=== PATIENT | male | born 1950 | race Caucasian/White ===

== ENCOUNTER 2023-03-03 08:41 | Outpatient (CLI) | payer MEDICARE, SELFPAY ==
--- NOTE | ~2023-03-03 | PE_ITS ---
EXAMINATION: PET skull to mid thigh DATE: 03/03/2023 10:46 INDICATION: Nonspecific abnormal findings of lung field. Increased density of lungs. TECHNIQUE: Blood glucose level was 116 mg/dL. 10.603 mCi of 18-fluorodeoxyglucose (18-FDG) was admini stered i.v. Low dose computed tomography (CT) images were acquired from the base of the brain to the proximal thighs for attenuation correction and anatomic localization. Positron emission tomography (P ET) images were acquired in the same distribution beginning 65 minutes after injection. Images includ ing fused PET/CT images were reconstructed in axial, coronal, and sagittal planes. Automated exposure control technique was employed. The dose-length product was 753.07mGy-cm. COMPARISON: None FINDINGS: Head/neck: There is symmetric increased activity in the oral cavity, palatine tonsils, parotid glands, submandi bular glands and ocular muscles without CT correlate, likely physiologic. No pathologically enlarged cervical lymphadenopathy or suspicious foci of increased FDG uptake in the visualized head or neck. Chest: Calcified right upper lobe nodule with calcified mediastinal lymph nodes consistent with old granulom atous disease. Mild bibasilar atelectasis. No suspicious pulmonary nodules, pneumonia, pulmonary joselito a or pleural effusion. Heart size normal. Atherosclerotic coronary artery calcific location. Aortic v alve calcification. Median sternotomy wires and mediastinal surgical clips consistent with coronary a rtery bypass grafting. There is an approximately 8 mm likely endobronchial nodule at the lingula bron chus with increased FDG uptake with maximal SUV of 5.1. No pathologically enlarged or FDG avid thorac ic lymphadenopathy. Abdomen/pelvis/proximal thighs: Physiologic renal accumulation and excretion of FDG activity in the kidneys, bladder and along portio ns of ureters. Bilateral low-attenuation and photopenic renal cysts the largest on the left measuring 3.6 cm. Atherosclerotic calcifications at the bilateral renal michi. Normal degree and heterogenous p attern of increased uptake throughout the liver without radiologic correlate or dominant FDG avid les ion. The gallbladder, pancreas, spleen and right adrenal gland are normal. Nonspecific 2.2 cm left ad renal mass with lower FDG uptake within the liver. Mild to moderate uptake scattered throughout the b owels without radiologic correlate, also likely physiologic. There is moderate colonic diverticulosis with a sigmoid predominance. There is no adjacent inflammatory change to suggest diverticulitis. No other abnormal foci of increased FDG uptake or pathologically enlarged lymphadenopathy in the abdome n, pelvis or proximal thighs. Musculoskeletal: Severe cervical, moderate thoracic and mild lumbar spondylosis. No suspicious lytic, blastic or FDG a vid bone lesions. IMPRESSION: 1. 8mm FDG avid endobronchial nodule in the lingular bronchus raising concern for malignancy. Recomme nd further evaluation with bronchoscopy. 2. 2.2 cm left adrenal mass without significant increased FDG uptake statistically most likely to rep resent an adenoma. Would recommend further evaluation with adrenal protocol MRI or pre and postcontra st CT. 3. Diverticulosis. Reviewed, dictated and finalized at location A. IMPRESSION: 1. 8mm FDG avid endobronchial nodule in the lingular bronchus raising concern f or malignancy. Recommend further evaluation with bronchoscopy. 2. 2.2 cm left adrenal mass without significant increased FDG uptake statistica lly most likely to represent an adenoma. Would recommend further evaluation wit h adrenal protocol MRI or pre and postcontrast CT. 3. Diverticulosis.
[2023-03-03 09:25] LABS: Glucose Point of Care 116 mg/dl (65-105)
== END 2023-03-03 08:42 | disposition home or self-care (01) ==
PROVIDERS: PCP Internal Medicine; Visit Provider Internal Medicine
DX: R91.8 Other nonspecific abnormal finding of lung field (principal); K57.30 Diverticulosis of large intestine without perforation or abscess without bleeding
CPT/HCPCS: 78815; A9552

== ENCOUNTER 2023-04-29 14:37 | Outpatient (CLI) | payer MEDICARE, SELFPAY ==
--- NOTE | ~2023-04-29 | MR_ITS ---
MRI of the abdomen: Clinical indication: Left adrenal mass, history of lung cancer. Technique: Coronal SSFSE ARC, WATER:coronal LAVA-FLEX, Coronal 2D FIESTA FatSat, Axial SSFSE BH ARC, Axial 3D DualEcho BH, Axial SSFSE-IR, Axial DWI b=500, Axial 2D FIESTA FatSat, pre and dynamic postco ntrast Axial LAVA ARC, postcontrast Coronal In and Opposed phase LAVA FLEX. Following intravenous adm inistration of 17 cc MultiHance gadolinium, T1-weighted fat-sat imaging was performed in the axial an d coronal planes. COMPARISON: PET/CT dated 03/03/2023 Findings: Gallbladder is unremarkable. The common bile duct is normal in course and caliber. No filli ng defects are seen within the CBD. No evidence of intrahepatic biliary ductal dilatation. The pancre atic duct is normal in size. There is a 2.5 x 1.8 cm left adrenal nodule, with small areas of macroscopic fat, and no significant postcontrast enhancement. Liver, spleen, pancreas, right adrenal gland, and kidneys appear normal. The aorta and the paraaortic regions appear normal. Impression: 2.5 x 1.7 left adrenal nodule is most compatible with benign lesion, either adenoma or myelolipoma. Reviewed, dictated and finalized at [facility]. Impression: 2.5 x 1.7 left adrenal nodule is most compatible with benign lesion, either ene noma or myelolipoma.
--- NOTE | ~2023-04-29 | MR_ITS ---
MRI of the pelvis MEDICAL HISTORY: Adrenal mass, history of lung cancer TECHNIQUE: Coronal SSFSE ARC, WATER:coronal LAVA-FLEX, Coronal 2D FIESTA FatSat, Axial SSFSE BH ARC, Axial 3D DualEcho BH, Axial SSFSE-IR, Axial DWI b=500, Axial 2D FIESTA FatSat, pre and dynamic postco ntrast Axial LAVA ARC, postcontrast Coronal In and Opposed phase LAVA FLEX. Following intravenous adm inistration of 17 cc MultiHance gadolinium, T1-weighted fat-sat imaging was performed in the axial an d coronal planes. FINDINGS: Questionable mild urinary bladder wall trabeculation or thickening. Prostate gland and semi nal vesicles appear unremarkable. No pelvic lymphadenopathy or abnormal soft tissue mass identified. No ascites. Prominent stool noted at the rectum. No abnormal postcontrast enhancement identified. IMPRESSION: Questionable minimal urinary bladder wall thickening. Correlate for urinary bladder wall trabeculatio n or cystitis. No abnormal mass lesion identified. Reviewed, dictated and finalized at [facility]. IMPRESSION: Questionable minimal urinary bladder wall thickening. Correlate for urinary john dder wall trabeculation or cystitis. No abnormal mass lesion identified.
== END 2023-04-29 14:38 | disposition home or self-care (01) ==
PROVIDERS: PCP Internal Medicine; Visit Provider Urology
DX: N28.89 Other specified disorders of kidney and ureter (principal)
CPT/HCPCS: 72197; 74183; A9577

== ENCOUNTER 2023-08-25 12:39 | Outpatient (CLI) | payer MEDICARE, SELFPAY ==
--- NOTE | ~2023-08-25 | CT_ITS ---
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 Dose reduction technique was used on this scan by utilizing automated exposu re control and iterative reconstruction technique. The dose-length product (DLP) was 345.49 mGy-cm. COMPARISON: PET/CT dated 03/03/2023 Findings: There is no evidence of any significant mediastinal, hilar or axillary lymphadenopathy. There is no f illing defect in the pulmonary arterial tree to suggest pulmonary embolus. There is no evidence of ao rtic dissection or aneurysm. No pericardial effusion. Patient is status post left upper lobectomy. Small left pleural effusion is present. Right lung is cl ear. No right pleural effusion. Images through the upper abdomen reveal 2.4 cm left adrenal nodule, consistent with adenoma. Impression: No evidence for active malignancy or metastatic disease. Status post left upper lobectomy. Small left pleural effusion. 2.4 cm left adrenal adenoma. Reviewed, dictated and finalized at location . Impression: No evidence for active malignancy or metastatic disease. Status post left upper lobectomy. Small left pleural effusion. 2.4 cm left adrenal adenoma.
[2023-08-25 13:05] LABS: Estimated Glomerular Filt Rate > 60
== END 2023-08-25 12:40 | disposition home or self-care (01) ==
PROVIDERS: PCP Internal Medicine; Visit Provider Internal Medicine Hematology & Oncology
DX: C34.92 Malignant neoplasm of unspecified part of left bronchus or lung (principal); J90 Pleural effusion, not elsewhere classified; D35.02 Benign neoplasm of left adrenal gland
CPT/HCPCS: 71260; Q9967

== ENCOUNTER 2023-09-02 12:13 | Outpatient (CLI) | payer MEDICARE, SELFPAY ==
[2023-09-02 12:46] LABS: Basophils Absolute Auto 0.1 K/mm3 (0.0-0.1); Eosinophils Absolute Auto 1.2 K/mm3 (0-0.3); Eosinophils Percent Auto 16.8 % (0-4.4); Hematocrit 41.7 % (42.0-52.0); Immature Granulocyte Absolute 0.01 K/mm3 (0.00-0.031); Immature Granulocyte Percent A 0.1 % (0-0.5); Lymphocytes Absolute Auto 0.79 K/mm3 (0.9-3.2); Lymphocytes Percent Auto 11.2 % (18.3-44.2); Mean Corpuscular HGB Conc 33.6 g/dl (32-36); Mean Corpuscular Hemoglobin 30.8 pg (26-34); Mean Corpuscular Volume 91.6 fl (80-100); Mean Platelet Volume 9.1 fl (7.4-10.4); Monocytes Absolute Auto 1.3 K/mm3 (0.1-0.6); Monocytes Percent Auto 18.5 % (2.6-8.5); Neutrophils Absolute Auto 3.7 K/mm3 (1.3-6.7); Neutrophils Percent Auto 52.4 % (45.5-73.1); Platelet Count Result 400 k/mm3 (150-375); Red Blood Count 4.55 M/mm3 (4.6-6.20); Red Cell Distribution Width 13.1 % (11.5-14.5)
[2023-09-02 16:17] LABS: Alanine Aminotransferase 43 U/L (6-50); Albumin Level 4.4 g/dL (3.5-5.1); Alkaline Phosphatase 134 U/L (38-126); Anion Gap 6 mmol/L (8-16); Aspartate Amino Transferase 90 U/L (17-59); Bilirubin,Total 0.6 mg/dL (0.2-1.3); Blood Urea Nitrogen 23 mg/dL (9-20); Calcium 9.9 mg/dL (8.4-10.2); Carbon Dioxide 32 mmol/L (22-30); Chloride 101 mmol/L (98-107); Estimated Glomerular Filt Rate > 60; Glucose 159 mg/dL (65-110); Potassium 3.6 mmol/L (3.4-5.0); Sodium 139 mmol/L (137-145)
== END 2023-09-02 12:14 | disposition home or self-care (01) ==
LOC: ANHLAB 12:15
PROVIDERS: PCP Internal Medicine; Visit Provider Internal Medicine Hematology & Oncology
DX: C34.92 Malignant neoplasm of unspecified part of left bronchus or lung (principal)
CPT/HCPCS: 36415; 80053; 85025

== ENCOUNTER 2023-10-12 08:10 | Outpatient (CLI) | payer MEDICARE, SELFPAY ==
--- NOTE | 2023-10-12 16:31 | WPDSIXMINUTE ---
Six Minute Walk Procedure Procedure Performed Pulmonary Stress Test (6 min walk) Six Minute Walk Six Minute Walk: This is a 6 minute walk test. The test was performed and interpreted in accordance with the 2014 ERS/ATS task force guidelines. Findings: The patient's resting room air oxygen saturation measured by pulse oximetry was 97% and heart rate was 69 bpm. Patient ambulated for 244 meters and oxygen saturation remained 92 to 97%. Heart rate at the end of the study was 107 bpm. The patient did not qualify for supplemental oxygen at rest or with ambulation. There are no prior studies for comparison.
--- NOTE | 2023-10-12 16:32 | WPDPFTINT ---
PFT Procedure Performed PFT Procedure Performed Spirometry with Pre/Post Bronchodilator Plethysmography (Lung Vol) Diffusing Cap (DLCO) Flow Vol Loop PFT Interpretation This is a pulmonary function test with pre and post-bronchodilator spirometry, plethysmography and diffusing capacity. The test was performed and results interpreted in accordance with the 2019 and 2005 ATS/ERS Task Force guidelines respectively using the Global Lung Function Initiative-2012 reference equations. Patient demonstrated good effort and cooperation. Reproducibility criteria were met. The quality of the pre bronchodilator spirometry maneuver was Grade A and post bronchodilator spirometry maneuver was Grade A. Findings: Spirometry: There is decreased maximal expiratory airflow at all lung volumes with concave expiratory flow tracing. The contour the inspiratory flow tracing is normal. The pre bronchodilator FVC is 2.30 L, 61% predicted. The pre bronchodilator FEV1 is 1.35 L, 47% predicted. The pre bronchodilator FEV1: FVC ratio is 59%. The post bronchodilator FVC is 2.43 L, representing a 6% increase. The post bronchodilator FEV1 is 1.48 L, representing a 10% increase. The post bronchodilator FEV1: FVC ratio 61%. Plethysmography: The total lung capacity is 3.82 L, 60% predicted. The functional residual capacity is 2.32 L, 69% predicted. The residual volume is 1.52 L, 66% predicted. Diffusing capacity: The diffusing capacity unadjusted for hemoglobin and carboxyhemoglobin is 15.2, 61% predicted. The diffusing capacity adjusted for alveolar volume is 4.62, 113% predicted. Impression: There is a combined obstructive and restrictive ventilatory abnormality. There are no guidelines to assign the severity of obstruction and restriction with a combined abnormality. In my opinion, given the moderately concave expiratory flow tracing, decreased FEV1: FVC ratio and mild restrictive abnormality, I would state there is a moderate obstructive abnormality and a mild restrictive abnormality resulting in a severely decreased FEV1. There is no significant improvement after inhaling a single dose of albuterol. The diffusing capacity unadjusted for hemoglobin and carboxyhemoglobin is mildly decreased and normalizes when adjusted for alveolar volume. There are no prior studies for comparison
== END 2023-10-12 08:11 | disposition home or self-care (01) ==
LOC: ANHPFT 08:11
PROVIDERS: PCP Internal Medicine; Visit Provider Internal Medicine Pulmonary Disease
DX: J44.9 Chronic obstructive pulmonary disease, unspecified (principal); R94.2 Abnormal results of pulmonary function studies
CPT/HCPCS: 94060; 94618; 94726; 94729

== ENCOUNTER 2023-12-02 15:17 | Outpatient (CLI) | payer MEDICARE, SELFPAY ==
--- NOTE | ~2023-12-02 | CT_ITS ---
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 Dose reduction technique was used on this scan by utilizing automated exposu re control and iterative reconstruction technique. The dose-length product (DLP) was 363.67 mGy-cm. COMPARISON: 08/25/2023 Findings: There is no evidence of any significant mediastinal, hilar or axillary lymphadenopathy. There is no f illing defect in the pulmonary arterial tree to suggest pulmonary embolus. There is no evidence of ao rtic dissection or aneurysm. No pericardial effusion. Stable small left pleural effusion. No right pleural effusion. Patient is status post left upper lobectomy. No suspicious pulmonary nodule identified. No evidence f or recurrent neoplasm. Images through the upper abdomen reveal stable 2.4 cm left adrenal nodule. Impression: No change from prior exam. No evidence for recurrent malignancy or metastatic disease. Status post left adrenalectomy. Stable small left pleural effusion. Stable 2.4 cm left adrenal nodule, shown on prior MRI to be most compatible with benign lesion. Reviewed, dictated and finalized at [facility]. [employer] Impression: No change from prior exam. No evidence for recurrent malignancy or metastatic d isease. Status post left adrenalectomy. Stable small left pleural effusion. Stable 2.4 cm left adrenal nodule, shown on prior MRI to be most compatible wit h benign lesion.
[2023-12-02 15:47] LABS: Estimated Glomerular Filt Rate > 60
== END 2023-12-02 15:18 | disposition home or self-care (01) ==
PROVIDERS: PCP Internal Medicine; Visit Provider Internal Medicine Hematology & Oncology
DX: C34.92 Malignant neoplasm of unspecified part of left bronchus or lung (principal); J90 Pleural effusion, not elsewhere classified; D35.02 Benign neoplasm of left adrenal gland
CPT/HCPCS: 71260; Q9967

== ENCOUNTER 2023-12-12 14:13 | Outpatient (CLI) | payer MEDICARE, SELFPAY ==
[2023-12-12 14:27] LABS: Basophils Percent Auto 0.5 % (0.2-1.2); Eosinophils Absolute Auto 0.3 K/mm3 (0-0.3); Eosinophils Percent Auto 3.9 % (0-4.4); Hematocrit 43.5 % (42.0-52.0); Hemoglobin 14.7 g/dL (14.0-18.0); Immature Granulocyte Absolute 0.02 K/mm3 (0.00-0.031); Immature Granulocyte Percent A 0.2 % (0-0.5); Lymphocytes Absolute Auto 0.92 K/mm3 (0.9-3.2); Lymphocytes Percent Auto 11.1 % (18.3-44.2); Mean Corpuscular HGB Conc 33.8 g/dl (32-36); Mean Corpuscular Hemoglobin 31.4 pg (26-34); Mean Corpuscular Volume 92.9 fl (80-100); Mean Platelet Volume 8.8 fl (7.4-10.4); Monocytes Absolute Auto 1.5 K/mm3 (0.1-0.6); Monocytes Percent Auto 17.5 % (2.6-8.5); Neutrophils Absolute Auto 5.5 K/mm3 (1.3-6.7); Neutrophils Percent Auto 66.8 % (45.5-73.1); Platelet Count Result 405 k/mm3 (150-375); Red Blood Count 4.68 M/mm3 (4.6-6.20); Red Cell Distribution Width 13.5 % (11.5-14.5); White Blood Count 8.3 K/mm3 (4.5-10.0)
[2023-12-12 14:33] LABS: Blood Urea Nitrogen 24 mg/dL (8-26); Carbon Dioxide 34 mmol/L (22-30); Chloride 101 mmol/L (98-109); Estimated Glomerular Filt Rate > 60; Glucose 113 mg/dL (70-105); Ionized Calcium (POC) 1.28 mmol/L (1.11-1.31); Sodium 144 mmol/L (138-146)
[2023-12-12 16:50] LABS: Alanine Aminotransferase 34 U/L (6-50); Albumin Level 4.4 g/dL (3.5-5.1); Alkaline Phosphatase 108 U/L (38-126); Anion Gap 7 mmol/L (8-16); Aspartate Amino Transferase 37 U/L (17-59); Bilirubin,Total 0.4 mg/dL (0.2-1.3); Blood Urea Nitrogen 25 mg/dL (9-20); Calcium 10.2 mg/dL (8.4-10.2); Carbon Dioxide 32 mmol/L (22-30); Chloride 103 mmol/L (98-107); Estimated Glomerular Filt Rate > 60; Glucose 112 mg/dL (65-110); Potassium 4.2 mmol/L (3.4-5.0); Sodium 142 mmol/L (137-145)
== END 2023-12-12 14:14 | disposition home or self-care (01) ==
PROVIDERS: PCP Internal Medicine; Visit Provider Internal Medicine Hematology & Oncology
DX: C34.92 Malignant neoplasm of unspecified part of left bronchus or lung (principal)
CPT/HCPCS: 36415; 80047; 80053; 85025

== ENCOUNTER 2024-03-05 09:38 | Outpatient (CLI) | payer MEDICARE, SELFPAY ==
[2024-03-05 10:09] LABS: Basophils Absolute Auto 0.1 K/mm3 (0.0-0.1); Basophils Percent Auto 0.5 % (0.2-1.2); Eosinophils Absolute Auto 0.4 K/mm3 (0-0.3); Hematocrit 41.5 % (42.0-52.0); Immature Granulocyte Absolute 0.04 K/mm3 (0.00-0.031); Immature Granulocyte Percent A 0.4 % (0-0.5); Lymphocytes Absolute Auto 0.94 K/mm3 (0.9-3.2); Lymphocytes Percent Auto 9.9 % (18.3-44.2); Mean Corpuscular HGB Conc 33.7 g/dl (32-36); Mean Corpuscular Hemoglobin 31.3 pg (26-34); Mean Corpuscular Volume 92.8 fl (80-100); Mean Platelet Volume 8.8 fl (7.4-10.4); Monocytes Absolute Auto 1.4 K/mm3 (0.1-0.6); Monocytes Percent Auto 15.1 % (2.6-8.5); Neutrophils Absolute Auto 6.7 K/mm3 (1.3-6.7); Neutrophils Percent Auto 70.1 % (45.5-73.1); Platelet Count Result 430 k/mm3 (150-375); Red Blood Count 4.47 M/mm3 (4.6-6.20); Red Cell Distribution Width 13.1 % (11.5-14.5); White Blood Count 9.5 K/mm3 (4.5-10.0)
[2024-03-05 12:46] LABS: Alanine Aminotransferase 25 U/L (6-50); Albumin Level 4.4 g/dL (3.5-5.1); Alkaline Phosphatase 117 U/L (38-126); Anion Gap 4 mmol/L (4-12); Aspartate Amino Transferase 29 U/L (17-59); Bilirubin,Total 0.4 mg/dL (0.2-1.3); Blood Urea Nitrogen 20 mg/dL (9-20); Calcium 9.5 mg/dL (8.4-10.2); Carbon Dioxide 31 mmol/L (22-30); Chloride 103 mmol/L (98-107); Estimated Glomerular Filt Rate > 60; Glucose 111 mg/dL (65-110); Potassium 3.9 mmol/L (3.4-5.0); Sodium 138 mmol/L (137-145)
== END 2024-03-05 09:39 | disposition home or self-care (01) ==
LOC: ANHLAB 09:40
PROVIDERS: PCP Internal Medicine; Visit Provider Internal Medicine Hematology & Oncology
DX: C34.92 Malignant neoplasm of unspecified part of left bronchus or lung (principal)
CPT/HCPCS: 36415; 80053; 85025

== ENCOUNTER 2024-03-12 13:34 | Outpatient (CLI) | payer MEDICARE, SELFPAY ==
--- NOTE | ~2024-03-12 | CT_ITS ---
Clinical Indication: Lung cancer CT Scan of the Chest with Contrast: Technique: Contiguous sections were acquired throughout the chest after intravenous administration of 75 cc of Omnipaque 350. Dose reduction technique was used on this scan by utilizing automated exposu re control and iterative reconstruction technique. The dose-length product (DLP) was 351.75 mGy-cm. COMPARISON: 12/02/2023 Findings: There is no evidence of any significant mediastinal, hilar or axillary lymphadenopathy. There is no f illing defect in the pulmonary arterial tree to suggest pulmonary embolus. There is no evidence of ao rtic dissection or aneurysm. No pericardial effusion. Small left pleural effusion present, possibly partially loculated, similar to prior exam. No right pl eural effusion. Status post left upper lobectomy. Possible postradiation change or other post therapy changes at the left hilar region with narrowing of the central left lower lobe bronchi. No distinct evidence for rec urrent mass. Images through the upper abdomen reveal stable 2.6 cm left adrenal nodule. Impression: No change from prior exam. No evidence for recurrent malignancy or metastatic disease. Status post left upper lobectomy. Possible postradiation change or other post therapy change of the l eft hilar region, as noted above. Stable small left pleural effusion, likely partially loculated. Stable 2.6 cm left adrenal nodule. Reviewed, dictated and finalized at location . Impression: No change from prior exam. No evidence for recurrent malignancy or metastatic d isease. Status post left upper lobectomy. Possible postradiation change or other post t herapy change of the left hilar region, as noted above. Stable small left pleural effusion, likely partially loculated. Stable 2.6 cm left adrenal nodule.
== END 2024-03-12 13:35 | disposition home or self-care (01) ==
LOC: ANHIMG 13:34
PROVIDERS: PCP Internal Medicine; Visit Provider Internal Medicine Hematology & Oncology
DX: C34.92 Malignant neoplasm of unspecified part of left bronchus or lung (principal); D35.02 Benign neoplasm of left adrenal gland; J90 Pleural effusion, not elsewhere classified
CPT/HCPCS: 71260; Q9967

== ENCOUNTER 2024-07-18 10:49 | Outpatient (CLI) | payer MEDICARE, SELFPAY ==
--- NOTE | ~2024-07-18 | CT_ITS ---
Clinical Indication: Lung cancer CT Scan of the Chest with Contrast: Technique: Contiguous sections were acquired throughout the chest after intravenous administration of 75 cc of Omnipaque 350. Dose reduction technique was used on this scan by utilizing automated exposu re control and iterative reconstruction technique. The dose-length product (DLP) was 347.12 mGy-cm. COMPARISON: 03/03/2024 Findings: There is no evidence of any significant mediastinal, hilar or axillary lymphadenopathy. There is no f illing defect in the pulmonary arterial tree to suggest pulmonary embolus. There is no evidence of ao rtic dissection or aneurysm. No pericardial effusion. No right pleural effusion. Small left pleural effusion present. There is peribronchial vascular thick ening and mild bronchiectatic change at the left hilar region, compatible with post radiation change. Status post left upper lobectomy. The lungs are clear. No pulmonary nodules or infiltrates are noted. Images through the upper abdomen reveal 2.5 cm left adrenal nodule. Impression: No evidence of recurrent malignancy or metastatic disease. Status post left upper lobectomy with probable posttreatment/post radiation change of the left hilum. Small left pleural effusion, similar to prior exam. Stable 2.5 cm left adrenal nodule. Reviewed, dictated and finalized at location . Impression: No evidence of recurrent malignancy or metastatic disease. Status post left upper lobectomy with probable posttreatment/post radiation yuliana nge of the left hilum. Small left pleural effusion, similar to prior exam. Stable 2.5 cm left adrenal nodule.
[2024-07-18 11:11] LABS: Estimated Glomerular Filt Rate 60
== END 2024-07-18 10:50 | disposition home or self-care (01) ==
LOC: ANHIMG 10:51
PROVIDERS: PCP Internal Medicine; Visit Provider Internal Medicine Hematology & Oncology
DX: C34.92 Malignant neoplasm of unspecified part of left bronchus or lung (principal); D35.02 Benign neoplasm of left adrenal gland; J90 Pleural effusion, not elsewhere classified
CPT/HCPCS: 71260; Q9967

== ENCOUNTER 2024-07-26 14:29 | Outpatient (CLI) | payer MEDICARE, SELFPAY ==
[2024-07-26 14:43] LABS: Basophils Absolute Auto 0.1 K/mm3 (0.0-0.1); Basophils Percent Auto 0.9 % (0.2-1.2); Eosinophils Absolute Auto 0.7 K/mm3 (0-0.3); Hematocrit 43.2 % (42.0-52.0); Hemoglobin 14.4 g/dL (14.0-18.0); Immature Granulocyte Absolute 0.04 K/mm3 (0.00-0.031); Immature Granulocyte Percent A 0.4 % (0-0.5); Lymphocytes Absolute Auto 1.22 K/mm3 (0.9-3.2); Lymphocytes Percent Auto 13.2 % (18.3-44.2); Mean Corpuscular HGB Conc 33.3 g/dl (32-36); Mean Corpuscular Hemoglobin 31.1 pg (26-34); Mean Corpuscular Volume 93.3 fl (80-100); Mean Platelet Volume 8.7 fl (7.4-10.4); Monocytes Absolute Auto 1.4 K/mm3 (0.1-0.6); Monocytes Percent Auto 14.8 % (2.6-8.5); Neutrophils Absolute Auto 5.8 K/mm3 (1.3-6.7); Neutrophils Percent Auto 62.7 % (45.5-73.1); Platelet Count Result 415 k/mm3 (150-375); Red Blood Count 4.63 M/mm3 (4.6-6.20); Red Cell Distribution Width 13.1 % (11.5-14.5); White Blood Count 9.2 K/mm3 (4.5-10.0)
[2024-07-26 14:48] LABS: Blood Urea Nitrogen 25 mg/dL (8-26); Carbon Dioxide 29 mmol/L (22-30); Chloride 101 mmol/L (98-109); Estimated Glomerular Filt Rate 54; Glucose 175 mg/dL (70-105); Ionized Calcium (POC) 1.19 mmol/L (1.11-1.31); Sodium 140 mmol/L (138-146)
[2024-07-26 16:29] LABS: Alanine Aminotransferase 31 U/L (6-50); Albumin Level 4.4 g/dL (3.5-5.1); Alkaline Phosphatase 117 U/L (38-126); Anion Gap 8 mmol/L (4-12); Aspartate Amino Transferase 38 U/L (17-59); Bilirubin,Total 0.4 mg/dL (0.2-1.3); Blood Urea Nitrogen 26 mg/dL (9-20); Calcium 9.5 mg/dL (8.4-10.2); Carbon Dioxide 33 mmol/L (22-30); Chloride 97 mmol/L (98-107); Estimated Glomerular Filt Rate 60; Glucose 172 mg/dL (65-110); Sodium 138 mmol/L (137-145)
== END 2024-07-26 14:30 | disposition home or self-care (01) ==
LOC: ANHLAB 14:32
PROVIDERS: PCP Internal Medicine; Visit Provider Internal Medicine Hematology & Oncology
DX: C34.92 Malignant neoplasm of unspecified part of left bronchus or lung (principal)
CPT/HCPCS: 36415; 80047; 80053; 85025

== ENCOUNTER 2024-11-16 12:40 | Outpatient (CLI) | payer MEDICARE, SELFPAY ==
--- NOTE | 2024-11-28 19:14 | WPDSIXMINUTE ---
Six Minute Walk Procedure Procedure Performed Pulmonary Stress Test (6 min walk) Six Minute Walk Six Minute Walk: DATE OF SERVICE: 11/16/2024 REQUESTING: Renaldo Painter MD REASON FOR TESTING: COPD SIX MINUTE WALK This test was conducted per ATS guidelines. The initial saturation was 94%, and initial heart rate was 102 beats per minute. The patient walked without stopping, completing 274.3 m/900 ft. The saturation at the end of testing was 95%, and the heart rate was 129 beats per minute. IMPRESSION: This is a normal study. The patient did not require supplemental oxygen with exertion. Keily Fiore MD
== END 2024-11-16 12:41 | disposition home or self-care (01) ==
LOC: ANHPFT 12:42
PROVIDERS: PCP Internal Medicine; Visit Provider Internal Medicine Pulmonary Disease
DX: J44.9 Chronic obstructive pulmonary disease, unspecified (principal)
CPT/HCPCS: 94618

== ENCOUNTER 2024-11-26 14:34 | Outpatient (CLI) | payer MEDICARE, SELFPAY ==
--- NOTE | ~2024-11-26 | CT_ITS ---
Clinical Indication: Squamous cell carcinoma CT Scan of the Chest with Contrast: Technique: Contiguous sections were acquired throughout the chest after intravenous administration of 75 cc of Omnipaque 350. Dose reduction technique was used on this scan by utilizing automated exposu re control and iterative reconstruction technique. The dose-length product (DLP) was 248.08 mGy-cm. COMPARISON: 07/18/2024 Findings: There is no evidence of any significant mediastinal, hilar or axillary lymphadenopathy. There is no f illing defect in the pulmonary arterial tree to suggest pulmonary embolus. There is no evidence of ao rtic dissection or aneurysm. Stable small left pleural effusion. No right pleural effusion. No pericardial effusion. Status post left upper lobectomy. Probable postradiation change at the left hilar region, similar to prior exam. Right lung clear. Images through the upper abdomen reveal stable 2.5 cm left adrenal nodule. Impression: No interval change. Stable probable postradiation change at the low thigh region with prior left uppe r lobectomy. Stable small left pleural effusion. Stable 2.5 cm left adrenal nodule. Reviewed, dictated and finalized at [facility]. R MARKER Impression: No interval change. Stable probable postradiation change at the low thigh regio n with prior left upper lobectomy. Stable small left pleural effusion. Stable 2.5 cm left adrenal nodule.
[2024-11-26 14:56] LABS: Estimated Glomerular Filt Rate 54
== END 2024-11-26 14:35 | disposition home or self-care (01) ==
PROVIDERS: PCP Internal Medicine; Visit Provider Internal Medicine Hematology & Oncology
DX: C34.92 Malignant neoplasm of unspecified part of left bronchus or lung (principal); J90 Pleural effusion, not elsewhere classified; D35.02 Benign neoplasm of left adrenal gland
CPT/HCPCS: 71260; Q9967

== ENCOUNTER 2025-01-31 11:15 | Outpatient (RCR) | payer MEDICARE, SELFPAY ==
[2024-11-02 15:47] VITALS: PULSE 94
== END 2025-02-04 13:44 | disposition home or self-care (01) ==
LOC: ANHCPREHAB 11:15
PROVIDERS: PCP Internal Medicine; Visit Provider Internal Medicine Pulmonary Disease
DX: J44.9 Chronic obstructive pulmonary disease, unspecified (principal)
CPT/HCPCS: 94625

== ENCOUNTER 2025-03-27 12:36 | Outpatient (CLI) | payer MEDICARE, SELFPAY ==
--- NOTE | ~2025-03-27 | CT_ITS ---
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 Dose reduction technique was used on this scan by utilizing automated exposu re control and iterative reconstruction technique. The dose-length product (DLP) was 235.78 mGy-cm. COMPARISON: 11/26/2024 Findings: There is no evidence of any significant mediastinal, hilar or axillary lymphadenopathy. There is no f illing defect in the pulmonary arterial tree to suggest pulmonary embolus. There is no evidence of ao rtic dissection or aneurysm. No pericardial effusion. Stable small left pleural effusion. No right pleural effusion. Status post left upper lobectomy. Probable postradiation/posttreatment change at the left perihilar r egion. Right lung clear. Images through the upper abdomen reveal diffuse hepatic steatosis. Stable 2.5 cm left adrenal nodule. Impression: No evidence for active malignancy or metastatic disease. Stable postoperative and posttreatment johnson es in the left lung, as detailed above. Stable small left pleural effusion. Reviewed, dictated and finalized at location M. Impression: No evidence for active malignancy or metastatic disease. Stable postoperative a nd posttreatment changes in the left lung, as detailed above. Stable small left pleural effusion.
--- OUTSIDE RECORDS SUMMARY | 2025-03-27 12:40 | XMS_ITS | Encounter Summary ---
Author Name [facility] Organization [facility] Address [address] [place] [address] Care Team Providers Care Nps Name Role Phone CYRIL VERAS Primary Care Provider Unavailabl e Insurance Providers: All historical and current Section Date Range: From patient's date of to the date document was created. This section includes the names of all active insurance providers for the patient. Insurance Provider Type of Coverage Plan Name Start of Policy Coverage End of Policy Coverage Group Number Member ID Insurance Provider's Telephone Number Policy Grimaldo's Name Patient's Relationship to Policy Grimaldo MEDICARE (WNR) MEDICARE (M) PART A Jun 14, 2017 PART A [id number] GALEN RIGGS PATIENT MEDICARE (WNR) MEDICARE (M) PART B Jun 14, 2017 PART B [id number] GALEN RIGGS PATIENT Selected Encounter This section includes the information on record at [place] for the Encounter. Date/Time Encounter Type Encounter Description Reason Provider Source March 19, 2025 02:20 PM Outpatient Encounter ADMIN PAT ACTIVTIES (MASNONCT) REBECA TIWARI Encounter Template Text not used by [facility] Encounter Notes: All associated encounter notes This section contains the clinical notes associated to the Encounter. Date/Time Encounter Note(s) Provider Source March 19, 2025 02:20 PM PHARMACY MEDICATIO N MGT DISCHARGE NOTE: LOCAL TITLE: PHARMACY COMMUNITY CARE PRESCRIPTION PROCESSING NOT STANDARD TITLE: PHARMACY MEDICATION MGT DISCHARGE NOTE DATE OF NOTE: MARCH 19, 2025@14:20 ENTRY DATE: MARCH 19, 2025@14:20:33 AUTHOR: REBECA TIWARI I EXP COSIGNER: URGENCY: STATUS: COMPLETED Pharmacy service received prescription(s) via: Fax ELIGIBILITY: Pharmacy service cannot accept this prescription because the patient is not CCN (Care in the Community) eligible. PRESCRIPTION INFORMATION: Provider Information:Renaldo Painter Jeovanny [facility], [address], [place] [address] phone; [phone] fax: [phone] 1) trelegy ellipta 100mcg-62.5mcg-25mcg, inhale 1 puff every day by inhalation route #3, 0 refills. Note: he has tried and failed Wixela and spiriva combination, MEDICATION IS NON-FORMULARY AND REQUIRES A PADR, NEXT LINE THERAPY AFTER WIXELA + SPIRIVA IS DULERA + SPIRVA, THEN BREZTRI DISPOSITION: Ineligible. Please considering prescribing the above medication(s) for the patient. If declining to prescribe, please comment and add RX to non-VA medication list. /alberto/ REBECA TIWARI PharmD [facility] Pharmacist, Pharmacy Signed: 03/19/2025 14:23 Receipt Acknowledged By: 03/20/2025 08:28 /alberto/ REBECA YOUNG PA-C [facility]
--- OUTSIDE RECORDS SUMMARY | 2025-03-27 12:40 | XMS_ITS | Data Portability ---
Author Organization [facility], Main Office Address [address] [place] [address] Care Team Providers Care Security Test Engineer Name Role Phone PAWAN PLAZA Primary Care Provider PAWAN PLAZA Referring Provider Assessment Encounter Date Assessment Date Assessment LastModified by Organization Details LastModified Time 03/29/2024 03/29/2024 10/21/2022: PSA 1.70 TSH/FT4: WNL A1C 5.7 CMP: Gluc 109, BUN 26 Lipids: TG 219, LDL 106 CBC: PLT 412 05/09/2023: Dr Koo Insulin 46.3H 06/27/2023: A1C 5.6 PSA 1.09 TSH 0.136 Gluc 106, BUN 23 TG 165 Addendum: 3 06/30/2023: Urine micro alb 7.2 09/16/2023: A1C 5.9 TSH 0.197 CBC: Eos 10.5 Gluc 101 12/19/2023: A1C 5.7 TSH 0.159L Gluc 135, BUN 24 TF 190 03/05/2024: Gluc 111 03/29/2024: TSH 0.222L Gluc 108, ALP 130 TG 243 PLT 418 Not available 03/29/2024 15:11:09 08/23/2024 08/23/2024 10/21/2022: PSA 1.70 TSH/FT4: WNL A1C 5.7 CMP: Gluc 109, BUN 26 Lipids: TG 219, LDL 106 CBC: PLT 412 05/09/2023: Dr Koo Insulin 46.3H 06/27/2023: A1C 5.6 PSA 1.09 TSH 0.136 Gluc 106, BUN 23 TG 165 Addendum: 3 06/30/2023: Urine micro alb 7.2 09/16/2023: A1C 5.9 TSH 0.197 CBC: Eos 10.5 Gluc 101 12/19/2023: A1C 5.7 TSH 0.159L Gluc 135, BUN 24 TF 190 03/05/2024: Gluc 111 03/29/2024: TSH 0.222L Gluc 108, ALP 130 TG 243 PLT 418 08/16/2024: A1C 6.2 Urine micro alb 31.3 TSH 0.434, FT4 1.03 Gluc 126, ALP 132 PLT 414 Not available 08/23/2024 13:31:52 09/17/2024 09/17/2024 Assessment: Nicotine smoke: 1 ppd [id number] (quit 2 years in between) = 51 pack years 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 Repeat PFT SANDRO. Sample of Trelegy Ellipta provided for trial. Trelegy Ellipta 200/62.5/25 mcg 1 inhalation daily. Gargle after use. Referral to Dr. Gamaliel Schwarz at [address] [place] [address], [place] [address] TEL for further evaluation and treatment of high IgE and multiple environmental allergies. We will get a copy of his post radiation-therapy chest CT to be done in [facility] on 08/25/23. Adherence to therapy is advocated. Nonadherence may lead to treatment failure, further progression of the condition, and other complications. Hospitals admissions are often the result of individuals not taking prescription medications accurately. Alternatively, greater adherence to medication regimens have shown to lower rates of hospitalization and decrease total medical costs in patients with chronic medical conditions. Advocated influenza vaccination annually and pneumonia vaccination SANDRO. Advocated weight loss through diet and exercise. Patient's ideal body weight according to height and gender is up to 155 lbs. Encouraged patient to adjust caloric intake to maintain/achieve ideal body weight, emphasizing on fruits, vegetables, whole grains, and fat-free or low-fat products. These include lean meats, poultry, fish, beans, eggs, and nuts and foods that are low in saturated fats, trans-fats, cholesterol, salt (sodium), and glycemic index. Stressed the importance of regular exercise up to the patient's capacity limits. In this case, we recommend 20 min daily walking, 2 days a week of resistance training. Patient to monitor BP daily and bring records to PCP for further management. 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 IgE 998 IU/mL on 03/17/23 with multiple environmental allergies Left infrahilar bronchiectasis Mod COPD Plan: The following were reviewed and explained to the patient: Chest CT 01/28/[address] 02/01/[address] 02/02/23 8 mm RUL spiculated nodule [place] PET/CT 03/03/23 calcified RUL nodule, 8 mm lingular endobronchial nodule Chest CT 08/25/23 s/p NAYELI lobectomy, small left effusion Chest CT 12/02/23 s/p NAYELI lobectomy, small left effusion Chest CT 03/12/24 s/p NAYELI lobectomy, small left effusion, postradiation changes, LLL bronchial narrowing Chest CT 07/18/24 s/p NAYELI lobectomy, small left effusion, postradiation changes, left hilar bronchiectasis 6MW 10/12/23 O2 desaturated from 97% to 92% Bronchoscopy 03/18/23 lingular nodule biopsy Pathology report 03/18/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 Gamaliel Schwarz note 09/26/24 IgE and CBC wtih diff, then prednisone 40 mg per day x 5 days, plan for biologic therapy PFT 03/23/23 FEV1 2.45 L (94%), BD 70 mL = 3%, TLC 5.39 L (97%), DLCO 89% PFT 10/12/23 FEV1 1.48 L (51%), BD 130 mL = 10%, TLC 3.82 L (60%), DLCO 61% PFT 09/18/24 FEV1 1.39 L (54%), BD -60 mL = -4%, TLC 3.66 L (66%), DLCO 64% Pulmonary rehabilitation may be included in the management of patients with chronic obstructive pulmonary disease (COPD). For respiratory diseases different from COPD, there have been no formal statements regarding patient selection. Pulmonary rehabilitation consists of assessment, exercise, education, and emotional support. It covers the goals of rehabilitation, the techniques of breathing, the necessity of nicotine cessation, the strategies to deal with panic attacks, the rationale of pulmonary medications, and the importance of nutrition. As the patient learns to live with his pulmonary condition through exercise and education, the patient will regain confidence with his abilities and feel improvement in his overall quality of life. The patient's FEV1 is 54%. The patient will be enrolled in pulmonary rehabilitation pending insurance coverage. General concepts of pulmonary rehabilitation were explained. Educational video was shown. Continue albuterol HFA as needed. Start Trelegy Ellipta 100/62.5/25 mcg 1 inhalation daily. Gargle after use. The patient does not know how to accurately administer the inhalers. Today, the patient was shown how to take these medications. The proper technique for delivering these medications was instructed. The patient expressed a clear understanding and demonstrated back how to use these medications. Without the proper technique, the patient will not reap the benefits of these medications as the contents will not reach the lower airways as intended to be. Continue follow up with Dr. Gamaliel Schwarz for further treatment of high IgE and multiple environmental allergies, with possible biologics therapy. Continue follow up with Dr. Ian Stevens 11/29/[address] on 11/19/24. Adherence to therapy is advocated. Nonadherence may lead to treatment failure, further progression of the condition, and other complications. Hospitals admissions are often the result of individuals not taking prescription medications accurately. Alternatively, greater adherence to medication regimens have shown to lower rates of hospitalization and decrease total medical costs in patients with chronic medical conditions. Advocated influenza vaccination annually and pneumonia vaccination SANDRO. Advocated weight loss through diet and exercise. Patient's ideal body weight according to height and gender is up to 155 lbs. Encouraged patient to adjust caloric intake to maintain/achieve ideal body weight, emphasizing on fruits, vegetables, whole grains, and fat-free or low-fat products. These include lean meats, poultry, fish, beans, eggs, and nuts and foods that are low in saturated fats, trans-fats, cholesterol, salt (sodium), and glycemic index. Stressed the importance of regular exercise up to the patient's capacity limits. In this case, we recommend 20 min daily walking, 2 days a week of resistance training. Patient to monitor BP daily and bring records to PCP for further management. Follow-up: 3 months, December 2024 Not available 09/27/2024 11:11:55 02/14/2025 02/14/2025 10/21/2022: PSA 1.70 TSH/FT4: WNL A1C 5.7 CMP: Gluc 109, BUN 26 Lipids: TG 219, LDL 106 CBC: PLT 412 05/09/2023: Dr Koo Insulin 46.3H 06/27/2023: A1C 5.6 PSA 1.09 TSH 0.136 Gluc 106, BUN 23 TG 165 Addendum: 3 06/30/2023: Urine micro alb 7.2 09/16/2023: A1C 5.9 TSH 0.197 CBC: Eos 10.5 Gluc 101 12/19/2023: A1C 5.7 TSH 0.159L Gluc 135, BUN 24 TF 190 03/05/2024: Gluc 111 03/29/2024: TSH 0.222L Gluc 108, ALP 130 TG 243 PLT 418 08/16/2024: A1C 6.2 Urine micro alb 31.3 TSH 0.434, FT4 1.03 Gluc 126, ALP 132 PLT 414 12/21/2024: A1C 6.6 ALP 126, Gluc 118 TSH 0.367 TG 179 Not available 02/13/2025 18:01:41 Plan of Treatment Reminders Order Date Submit Date Provider Last Modified By Organization Details Last Modified Time Details Appointments Any 15 2024 02:45P M Pawan calvo MD Not available Not available Not available Lab glycohemo globin, total, blood [address] (Lab), [address] [place], [address], 02/14/2025 15:56:07 microalbu min, urine [address] (Lab), [address] [place], [address], 02/14/2025 15:56:07 vitamin D, 25-hydrox y, total, serum [address] (Lab), [address] [place], [address], 02/21/2025 10:02:06 lipid panel, serum [address] (Lab), [address] [place], [address], 02/14/2025 15:56:08 CMP, serum or plasma [address] (Lab), [address] [place], [address], 02/14/2025 15:56:08 CBC w/ auto diff [address] (Lab), [address] [place], [address], 02/14/2025 15:56:08 TSH, serum or plasma [address] (Lab), [address] [place], [address], 02/14/2025 15:56:08 glycohemo globin, total, blood [address] (Lab), [address] [place], [address], 02/19/2025 08:36:06 microalbu min, urine [address] (Lab), [address] [place], [address], 02/19/2025 08:36:06 lipid panel, serum [address] (Lab), [address] [place], [address], 02/19/2025 08:36:06 CMP, serum or plasma 2023 024 [facility] (Lab), [address] [place], [address], 11/30/2024 07:26:11 CBC w/ auto diff 2023 024 [facility] (Lab), [address] [place], [address], 11/30/2024 03:40:35 TSH, serum or plasma [address] (Lab), [address] [place], [address], 02/19/2025 08:36:06 glycohemo globin, total, blood 2023 024 [facility] (Lab), [address] [place], [address], 03/29/2024 16:02:40 microalbu min, urine 2023 024 [facility] (Lab), [address] [place], [address], 08/16/2024 16:56:19 lipid panel, serum 2023 024 [facility] (Lab), [address] [place], [address], 08/16/2024 14:59:24 CMP, serum or plasma 2023 024 [facility] (Lab), [address] [place], [address], 07/26/2024 18:22:26 CBC w/ auto diff 2023 024 [facility] (Lab), [address] [place], [address], 07/26/2024 16:45:50 TSH, serum or plasma 2023 024 [facility] (Lab), [address] [place], [address], 08/16/2024 15:08:42 Referral podiatris t referral - Please call patient to schedule an appointme nt. Thank you. 2024 025 VIRGILIO Storm DPM, [address] [facility], [address], [place], [address], 02/18/2025 12:03:02 urologist referral - Please call patient to schedule an appointme nt. Thank you. 2024 025 [facility] [address], [place], [address], 02/18/2025 12:45:18 pulmonary rehab referral - Please call patient to schedule. [email or web address] (Outpatient Rehab), [address] [place], [address], 03/12/2025 08:30:54 teacher resource referral - IgE 998 IU/mL with multiple environme ntal allergies 2023 VIRGILIO Schwarz, [address], [place], [address], 09/28/2024 11:40:35 podiatris t referral 2023 024 yessy Storm DPM, [address], [address], [place], [address], 02/19/2025 08:36:17 urologist referral 2023 024 yessy Aguiar MD, [address], [address], [place], [address], 02/19/2025 08:36:17 podiatris t referral 2023 024 yessy Storm DPM, [address], [address], [place], [address], 10/09/2024 12:26:48 urologist referral 2023 024 yessy Aguiar MD, [address], [address], [place], [address], 10/09/2024 12:26:48 Procedures None recorded. Surgeries None recorded. Imaging None recorded. Medication Orders albuterol sulfate HFA 90 mcg/actua tion aerosol inhaler 2023 024 [facility]/Pharmacy #[id number], [address], [place], [address], 09/27/2024 11:09:55 Trelegy Ellipta 100 mcg-62.5 mcg-25 mcg powder for inhalatio n [email or web address]/Pharmacy #[id number], [address], [place], [address], 02/14/2025 14:55:45 metformin ER 500 mg tablet,ex tended release 24 hr 2023 024 [facility]/Pharmacy #[id number], [address], [place], [address], 08/23/2024 15:58:47 Patient TargetsNo targets recorded. Patient Instructions Encounter Date Encounter Id Patient Instructions Last Modified By Organization Details Last Modified Time 03/29/2024 [id number] dementia rating scale-2* [email or web address] Not available 03/29/2024 16:52:45 alcohol misuse* [email or web address] 2 Not available 03/29/2024 16:52:45 depression screening* [email or web address] 2 Not available 03/29/2024 16:52:45 Timed Up and Go test (TUG)* [email or web address] 2 Not available 03/29/2024 16:52:45 multi-dimensiona l health assessment questionnaire* [email or web address] Not available 03/29/2024 16:52:45 Personalized a lth Plan and Screening Recommendations Advance Directives - Do you have one? Yes Advance Directives - Do we have your advance directive on file in your health record? No, please bring in a copy at your earliest convenience Primary Prevention/Interven tion (prevents or decreases the chance of common diseases from occurring) Smoking Risk: Non Smoker Alcohol Misuse Screening: Negative Refer to attached alcohol cessation handout Refer to attached handout and prescription will be sent to pharmacy Decrease alcohol intake to 2 or less servings per day Weight: Appropriate Overwei ght continue your current weight loss efforts try to lose 5% of your body weight try to lose 10% of your body weight Physical activity: Need more exercise/physical activity minimum of 10-20 minutes of activity that causes mild breathlessness/day minimum of 20-30 minutes activity that causes mild breathlessness/day Nutrition: Good Average Refer to attached handout Heart-Healthy Diet: After Your Visit Fall Risk (screened today): Low Refer to attached handout Preventing Falls: After your Visit Vaccines Pneumococcal: Ordered Recommended today Recommended today, but you have declined No further needed Influenza: Your next one in the fall of this year Chronic Disease Risks Stroke: Low Risk Intermediate Risk I have no recommendations Heart Attack: Low risk Intermediate Risk I have no recommendations Clogging of the Arteries: Low risk Intermediate Risk I have no recommendations Diabetes: High Risk Active diagnosis, Continue current treatment plan Secondary Prevention/Interven tion (detects treatable diseases before they may cause symptoms, disability, or ) Prostate Cancer Screening: Colon Cancer Screening: Colonoscopy Date Screening Last Performed:04/20/2018 Eye Disease Screening: Ordered Recommended today Dementia Risk: Low I have no recommendations Depression Screening: Negative [email or web address] Not available 03/29/2024 16:05:45 08/23/2024 [id number] diabetic eye exam* [email or web address] Not avai lable 02/19/2025 08:13:35 09/17/2024 [id number] complete PFT w/ post bronchodilator spirometry* VIRGILIO Not available 09/25/2024 13:23:59 02/14/2025 [id number] diabetic eye exam* [email or web address] Not avail able 02/14/2025 15:56:23 Reason for Referral Shoes Hand Sewer Referral for Hype rglycemia Referring Physician: Pawan Plaza, Internal Medicine, Encounter Date: 03/29/2024 Urologist Referral for Kidne y lesion Referring Physician: Pawan Plaza Internal Medicine, Encounter Date: 03/29/2024 Shoes Hand Sewer Referral for Hype rglycemia Referring Physician: Pawan Plaza Internal Medicine, Encounter Date: 08/23/2024 Urologist Referral for Kidne y lesion Referring Physician: Pawan Plaza Internal Medicine, Encounter Date: 08/23/2024 Public Message Service Supervisor Referral for Dyspn ea on exertion IgE 998 IU/mL with multiple environmental allergies Referring Physician: Renaldo Painter, Pulmonary Disease, Encounter Date: 09/17/2024 Pulmonary Rehab Referral for Moderate chronic obstructive pulmonary disease Please call patient to schedule. Referring Physician: Renaldo Painter Pulmonary Disease, Encounter Date: 09/27/2024 Shoes Hand Sewer Referral for Hype rglycemia Please call patient to schedule an appointment. Thank you. Referring Physician: Pawan Plaza, Internal Medicine, Encounter Date: 02/14/2025 Urologist Referral for Kidne y lesion Please call patient to schedule an appointment. Thank you. Referring Physician: Pawan Plaza, Internal Medicine, Encounter Date: 02/14/2025 Results Created Date Observation Date Name Description Value Unit Range Abnormal Flag Note LastModifiedBy Organization Detail LastModifiedTime 03/29/20 24 03/29/2024 CBC/C OMPLE TE BLD COUNT W/DIF F white blood cells 7.9 x10'3 /uL 4.2-10 .8 Not Available [facility] (Lab) [address] [place], [address], 03/29/2024 11:56:41 03/29/20 24 03/29/2024 CBC/C OMPLE TE BLD COUNT W/DIF F red blood cells 4.55 x10'6 /uL 4.10-5 .80 Not Available [facility] (Lab) [address] [place], [address], 03/29/2024 11:56:41 03/29/20 24 03/29/2024 CBC/C OMPLE TE BLD COUNT W/DIF F hemoglobin 14.6 g/dL 13.2-1 7.0 Not Available [facility] (Lab) [address] [place], [address], 03/29/2024 11:56:41 03/29/20 24 03/29/2024 CBC/C OMPLE TE BLD COUNT W/DIF F hematocrit 42.9 % 39.3-5 0.0 Not Available [facility] (Lab) [address] [place], [address], 03/29/2024 11:56:41 03/29/20 24 03/29/2024 CBC/C OMPLE TE BLD COUNT W/DIF F mean red cell volume 94.3 fL 80.0-9 7.0 Not Available [facility] (Lab) [address] [place], [address], 03/29/2024 11:56:41 03/29/20 24 03/29/2024 CBC/C OMPLE TE BLD COUNT W/DIF F mean red cell hemoglobin 32.1 pg 27.0-3 3.0 Not Available [facility] (Lab) [address] [place], [address], 03/29/2024 11:56:41 03/29/20 24 03/29/2024 CBC/C OMPLE TE BLD COUNT W/DIF F mean RBC HGB concentratio n 34.0 g/dL 31.0-3 6.0 Not Available [facility] (Lab) [address] [place], [address], 03/29/2024 11:56:41 03/29/20 24 03/29/2024 CBC/C OMPLE TE BLD COUNT W/DIF F red cell distribution width 13.2 % 11.8-1 5.5 Not Available [facility] (Lab) [address] [place], [address], 03/29/2024 11:56:41 03/29/20 24 03/29/2024 CBC/C OMPLE TE BLD COUNT W/DIF F platelets 418 x10'3 /uL 150-40 0 high Not Available [facility] (Lab) [address] [place], [address], 03/29/2024 11:56:41 03/29/20 24 03/29/2024 CBC/C OMPLE TE BLD COUNT W/DIF F mean platelet volume 9.2 fL 9.0-12 .4 Not Available [facility] (Lab) [address] [place], [address], 03/29/2024 11:56:41 03/29/20 24 03/29/2024 CBC/C OMPLE TE BLD COUNT W/DIF F neutrophils 62.2 % 39.0-7 2.0 Not Available [facility] (Lab) [address] [place], [address], 03/29/2024 11:56:41 03/29/20 24 03/29/2024 CBC/C OMPLE TE BLD COUNT W/DIF F lymphocytes 15.2 % 16.0-4 7.0 low Not Available [facility] (Lab) [address] [place], [address], 03/29/2024 11:56:41 03/29/20 24 03/29/2024 CBC/C OMPLE TE BLD COUNT W/DIF F monocytes 16.9 % 5.0-12 .0 high Not Available [facility] (Lab) [address] [place], [address], 03/29/2024 11:56:41 03/29/20 24 03/29/2024 CBC/C OMPLE TE BLD COUNT W/DIF F eosinophils 4.4 % 1.0-7. 0 Not Available [facility] (Lab) [address] [place], [address], 03/29/2024 11:56:41 03/29/20 24 03/29/2024 CBC/C OMPLE TE BLD COUNT W/DIF F basophils 0.9 % 0.0-2. 0 Not Available [facility] (Lab) [address] [place], [address], 03/29/2024 11:56:41 03/29/20 24 03/29/2024 CBC/C OMPLE TE BLD COUNT W/DIF F immature granulocytes 0.4 % 0.00-0 .50 Not Available [facility] (Lab) [address] [place], [address], 03/29/2024 11:56:41 03/29/20 24 03/29/2024 CBC/C OMPLE TE BLD COUNT W/DIF F neutrophils, absolute count 4.89 x10'3 /uL 1.5-8. 0 Not Available [facility] (Lab) [address] [place], [address], 03/29/2024 11:56:41 03/29/20 24 03/29/2024 CBC/C OMPLE TE BLD COUNT W/DIF F lymphocytes, absolute count 1.20 x10'3 /uL 1.07-3 .43 Not Available [facility] (Lab) [address] [place], [address], 03/29/2024 11:56:41 03/29/20 24 03/29/2024 CBC/C OMPLE TE BLD COUNT W/DIF F monocytes, absolute count 1.33 x10'3 /uL 0.29-0 .99 high Not Available [facility] (Lab) [address] [place], [address], 03/29/2024 11:56:41 03/29/20 24 03/29/2024 CBC/C OMPLE TE BLD COUNT W/DIF F eosinophils, absolute count 0.35 x10'3 /uL 0.02-0 .53 Not Available [facility] (Lab) [address] [place], [address], 03/29/2024 11:56:41 03/29/20 24 03/29/2024 CBC/C OMPLE TE BLD COUNT W/DIF F basophils, absolute count 0.07 x10'3 /uL 0.01-0 .08 Not Available [facility] (Lab) [address] [place], [address], 03/29/2024 11:56:41 03/29/20 24 03/29/2024 CBC/C OMPLE TE BLD COUNT W/DIF F immature granulocytes ,absolute 0.03 x10'3 /uL 0.00-0 .05 Not Available [facility] (Lab) [address] [place], [address], 03/29/2024 11:56:41 03/29/20 24 03/29/2024 CBC/C OMPLE TE BLD COUNT W/DIF F nucleated red blood cells 0.0 % -0 Not Available [facility] (Lab) [address] [place], [address], 03/29/2024 11:56:41 03/29/20 24 03/29/2024 CBC/C OMPLE TE BLD COUNT W/DIF F NRBC# 0.00 x10'3 /uL Not Available [facility] (Lab) [address] [place], [address], 03/29/2024 11:56:41 03/29/20 24 03/29/2024 LIPID PANEL cholesterol 138 mg/dL 140-19 9 low NIH LSIA NSUS RECOM MENDA TION FOR VERO STERO L: ADULT CHILD LOW RISK: <200 <170 BORDE RLINE : <200- 239 ----- HIGH RISK: >240 >200 Not Available [facility] (Lab) [address] [place], [address], 03/29/2024 12:03:22 03/29/20 24 03/29/2024 LIPID PANEL triglyceride s 243 mg/dL 0-150 high NIH LISA NSUS REPOR T RECOM MENDA TION FOR TRIGL YCERI MARY ANN: ADULT CHILD LOW RISK: <150 ----- BODER LINE: 150-1 99 ----- HIGH RISK: >200 ----- Not Available [facility] (Lab) [address] [place], [address], 03/29/2024 12:03:22 03/29/20 24 03/29/2024 LIPID PANEL HDL cholesterol 46 mg/dL 40- Not Available [facility] (Lab) [address] [place], [address], 03/29/2024 12:03:22 03/29/20 24 03/29/2024 LIPID PANEL LDL cholesterol, calculated 43 mg/dL 0-130 NIH LISA NSUS REPOR T RECOM MENDA TIONS FOR LDL: ADULT CHILD LOW RISK <130 <110 (OPTI MAL LDL) <100 ----- BORDE RLINE : 130-1 59 ----- HIGH RISK: >160 >130 A TRIGL YCERI DE RESUL T >400 INVAL IDATE S THE CALCU LATIO N FOR LDL FRACT IONAT ION - THE LDL RESUL T WILL NOT BE REPOR EH. Not Available [facility] (Lab) [address] [place], [address], 03/29/2024 12:03:22 03/29/20 24 03/29/2024 COMPR EHENS NICOLE METAB OLIC PANEL sodium 138 mmol/ L 137-14 5 Not Available [facility] (Lab) [address] [place], [address], 03/29/2024 12:03:37 03/29/20 24 03/29/2024 COMPR EHENS NICOLE METAB OLIC PANEL potassium 4.3 mmol/ L 3.5-5. 1 Not Available [facility] (Lab) [address] [place], [address], 03/29/2024 12:03:37 03/29/20 24 03/29/2024 COMPR EHENS NICOLE METAB OLIC PANEL chloride 101 mmol/ L 98-107 Not Available [facility] (Lab) [address] [place], [address], 03/29/2024 12:03:37 03/29/20 24 03/29/2024 COMPR EHENS NICOLE METAB OLIC PANEL carbon dioxide 27 mmol/ L 22-30 Not Available [facility] (Lab) [address] [place], [address], 03/29/2024 12:03:37 03/29/20 24 03/29/2024 COMPR EHENS NICOLE METAB OLIC PANEL anion gap 14.3 mmol/ L 14-22 Not Available [facility] (Lab) [address] [place], [address], 03/29/2024 12:03:37 03/29/20 24 03/29/2024 COMPR EHENS NICOLE METAB OLIC PANEL glucose 108 mg/dL 70-99 high Not Available [facility] (Lab) [address] [place], [address], 03/29/2024 12:03:37 03/29/20 24 03/29/2024 COMPR EHENS NICOLE METAB OLIC PANEL BUN 18 mg/dL 8-19 Not Available [facility] (Lab) [address] [place], [address], 03/29/2024 12:03:37 03/29/20 24 03/29/2024 COMPR EHENS NICOLE METAB OLIC PANEL creatinine 0.96 mg/dL 0.66-1 .25 Not Available [facility] (Lab) [address] [place], [address], 03/29/2024 12:03:37 03/29/20 24 03/29/2024 COMPR EHENS NICOLE METAB OLIC PANEL GFR >60 Refer ence Range : [place] ge GFR Healt hy Adult : >60 mL/mi n/1.7 3 m2 Chron ic Kidne y Disea se: 15-60 mL/mi n/1.7 3 m2 Kidne y Failu re: <15/m L/min /1.73 m2 www.n iddk. nih.g ov The MDRD study equat ion has not been valid ated in child lena <18 years of age; pregn ant women ; the elder ly >85 years of age; or in some racia l or ethni c subgr oups, such as Hispa nics. Outsi de the valid ated jaiden eters , estim ated GFR is less accur ate, requi ring clini julia judgm ent on a case- by-ca se basis . Clini julia inter preta tion for other races and ages must be made by the clini mohsen. The MDRD study equat ion has not been valid ated for the evalu ation of serum creat inine relat ed to nutri oneal l statu s or medic ation usage . For perso ns <18 years of age, a pedia tric GFR calcu lator is avail able on the [facility] websi te: https ://prieto regan.nathanael fermin/pr ofess ional s/kdo qi/gf r_cal culat or Not Available [facility] (Lab) [address] [place], [address], 03/29/2024 12:03:37 03/29/20 24 03/29/2024 COMPR EHENS NICOLE METAB OLIC PANEL alkaline phosphatase 130 U/L 38-126 high Not Available [facility] (Lab) [address] [place], [address], 03/29/2024 12:03:37 03/29/20 24 03/29/2024 COMPR EHENS NICOLE METAB OLIC PANEL alanine aminotransfe rase 39 U/L 0-50 Not Available [facility] (Lab) [address] [place], [address], 03/29/2024 12:03:37 03/29/20 24 03/29/2024 COMPR EHENS NICOLE METAB OLIC PANEL aspartate aminotransfe rase 43 U/L 15-46 Not Available [facility] (Lab) [address] [place], [address], 03/29/2024 12:03:37 03/29/20 24 03/29/2024 COMPR EHENS NICOLE METAB OLIC PANEL bilirubin, total 0.50 mg/dL 0.20-1 .30 Not Available [facility] (Lab) [address] [place], [address], 03/29/2024 12:03:37 03/29/20 24 03/29/2024 COMPR EHENS NICOLE METAB OLIC PANEL calcium 9.7 mg/dL 8.4-10 .2 Not Available [facility] (Lab) [address] [place], [address], 03/29/2024 12:03:37 03/29/20 24 03/29/2024 COMPR EHENS NICOLE METAB OLIC PANEL total protein 7.3 g/dL 6.3-8. 2 Not Available [facility] (Lab) [address] [place], [address], 03/29/2024 12:03:37 03/29/20 24 03/29/2024 COMPR EHENS NICOLE METAB OLIC PANEL albumin 4.3 g/dL 3.0-4. 4 Not Available [facility] (Lab) [address] [place], [address], 03/29/2024 12:03:37 03/29/20 24 03/29/2024 COMPR EHENS NICOLE METAB OLIC PANEL globulin 3.0 g/dL 2.6-4. 2 Not Available [facility] (Lab) [address] [place], [address], 03/29/2024 12:03:37 03/29/20 24 03/29/2024 COMPR EHENS NICOLE METAB OLIC PANEL A/G ratio 1.4 ratio 1.0-2. 0 Not Available [facility] (Lab) [address] [place], [address], 03/29/2024 12:03:37 03/29/20 24 03/29/2024 TSH thyroid-stim ulating hormone 0.222 uIU/m L 0.465- 4.680 low Not Available [facility] (Lab) [address] [place], [address], 03/29/2024 12:38:19 03/29/20 24 03/29/2024 HEMOG LOBIN A1C HA1C 5.9 % 4.0-6. 0 Diabe rosa Scree angela Crite rafi: <5.7% Consi stent with absen ce of diabe rosa 5.7-6 .4% Consi stent with incre ased risk for diabe rosa (pred iabet es) >OR=6 .5% Consi stent with diabe rosa REFER ENCE: Diabe rosa Care 2016, 39(Gar ppl.1 ):s13 -s22 Not Available [facility] (Lab) [address] [place], [address], 03/29/2024 16:02:39 08/16/20 24 08/16/2024 CBC/C OMPLE TE BLD COUNT W/DIF F white blood cells 8.6 x10'3 /uL 4.2-10 .8 Not Available [facility] (Lab) [address] [place], [address], 08/16/2024 14:46:22 08/16/2008/16/2024 CBC/C OMPLE TE BLD COUNT W/DIF F red blood cells 4.59 x10'6 /uL 4.10-5 .80 Not Available [facility] (Lab) [address] [place], [address], 08/16/2024 [id number]|2025-03-27 12:40:00|2025-03-27 12:40:00|XMS_ITS|BKG DAEMON|External Medical Summaries|[id number]|" Clinical Summary Created on: March 27, 2025 Doug Kaminski : 1950 Sex: Male Author Organization [facility] Address [address] [place] [id number] Care Team Providers Care Security Test Engineer Name Role Phone Rajesh Max MD Unavailable Rajesh Max MD Primary Care Provider Allergies No known active allergies Medications hydroCHLOROthia zide (MICROZIDE) 12.5 mg capsule Take 1 capsule (12.5 mg total) by mouth daily Active aspirin 81 mg enteric coated tablet Take 1 tablet (81 mg total) by mouth daily with dinner Active clopidogreL (PLAVIX) 75 mg tablet Take 1 tablet (75 mg total) by mouth daily 02/16/2021 Active cholecalciferol (VITAMIN D-3) 50,000 unit capsule Take 1 capsule (50,000 Units total) by mouth once a week Take on Tuesdays06/04/2020 Active atorvastatin (LIPITOR) 40 mg tablet Take 1 tablet (40 mg total) by mouth daily 11/14/1969 Active ezetimibe (ZETIA) 10 mg tablet Take 1 tablet (10 mg total) by mouth daily 08/13/2022 Active Active Problems Problem Noted Date Diagnosed Date PAD (peripheral artery disease) 07/01/2022 Overview (07/01/2022): Added automatically from request for surgery [id number] Surgical History Surgery Date Site/Laterality Comments CORONARY ARTERY BYPASS GRAFT COLONOSCOPY CATARACT EXTRACTION, BILATERAL Medical History Medical History Date Comments Hypertension Coronary artery disease Hyperlipidemia Cataract PAD (peripheral artery disease) Family History Medical History Relation Name Comments Heart attack Father Heart disease Father Cancer Mother breast Diabetes Mother Relation Name Status Comments Father Mother Social History Tobacco Use Types Packs/Day Years Used Date Smoking Tobacco: Former Cigarettes 1.5 50 0 02/14/1970 - 02/15/2020 Smokeless Tobacco: Never Tobacco Cessation:Counseling Given: Not Answered Alcohol Use Standard Drinks/Week Comments Yes 6 (1 standard drink = 0.6 oz pur e alcohol) AUDIT-C Answer Date Recorded Q1: How often do you have a drink containing alc ohol? 2-3 times a week 07/08/2022 Q2: How many drinks containi ng alcohol do you have on a typical day when you are drinking? 3 or 4 07/08/2022 Q3: How often do you have si x or more drinks on one occasion? Never 07/08/2022 Personal Safety Answer Date Recorded Getting School Help Needed Not on file 12/23 Sex and Gender Information Value Date Recorded Sex Assigned at Not on file Legal Sex Male 12:03 PM RN HOME CARE Gender Identity Not on file Sexual Orientation Not on file Obstetrics History Last Filed Vital Signs Vital Sign Reading Time Taken Comments Blood Pressure 138/96 09/30/2022 5:41 PM RN HOME CARE Pulse 86 09/30/2022 5:43 PM RN HOME CARE Temperature 37.1 C (98.7 F) 09/30/2022 11:18 AM RN HOME CARE Respiratory Rate 23 09/30/2022 5:43 PM RN HOME CARE Oxygen Saturation 97% 09/30/2022 5:42 PM RN HOME CARE Inhaled Oxygen Concentration - - Weight 90.9 kg (200 lb 8 oz) 09/30/2022 11:18 AM RN HOME CARE Height 170.2 cm (5' 7 ) 09/30/2022 11:18 AM RN HOME CARE Body Mass Index 31.4 09/30/2022 11:18 AM RN HOME CARE Plan of Treatment Health Maintenance Due Date Last Done Comments Colon Cancer Screening-Colonoscopy 1950 Depression Screening 1950 Hepatitis C Screening 1950 DTaP/Tdap/Td Vaccine (1 - Tdap) 1963 Hepatitis B Screening 1970 Zoster Vaccine (1 of 2) 2002 Abdominal Aortic Aneurysm (A AA) Screen 2017 Well Visit 65+ 2017 Fall Risk Assessment 09/30/2023 09/30/2022 Influenza Vaccine (#1) 2024 0, 11/29/2019, 11/27/2018, Additional history exists Pneumococcal vaccine 65+ Completed 11/27/2018, 09/16 Medical Devices Implanted Type Area Vocal Performer Device Identifier Shelf Expiration Date Model / Serial / Lot [employer] [id number] Synergy 2.25mm 20mm 144cm Radiopaque 1 Access Port Inflation - [id number] Implanted:Qty: 1 on 03/11/2020 by Rajesh Max MD at [facility] [employer] [id number] 220 / / [employer] [id number] Synergy 3mm 12mm 144cm Radiopaque 1 Access Port Inflation Lumen - [id number] Implanted:Qty: 1 on 03/11/2020 by Rajesh Max MD at [facility] [employer] [id number] 300 / / Insurance MEDICARE [facility] MEDICARE [facility] Advance Directives For more information, please contact: [phone] * Full Code (Latest Code Status on File) Date Activated Date Inactivated Comments 03/11/2020 10:26 AM 03/12/2020 3:18 PM Care Teams Security Test Engineer Relationship Specialty Start Date End Date Rajesh Max MD PCP - General 03/12/20 Rajesh Max MD Consulting Physician Cardiology 03/12/20 "
--- OUTSIDE RECORDS SUMMARY | 2025-03-27 12:40 | XMS_ITS | Referral Summary ---
Author Organization [facility] Address [address] [place] [address] Care Team Providers Care Youth Ministry Director Name Role Phone Rajesh Max MD Unavailable Rajesh Max MD Primary Care Provider [phone] Allergies No known active allergies Medications hydroCHLOROthia [...] (07/01/2022): Added automatically from request for surgery [id number] Social History Tobacco Use Types Packs/Day Years [...] on file Legal Sex Male 12:03 PM CONTROL ROOM TECHNICIAN Gender Identity Not on file Sexual Orientation Not on file Last Filed Vital Signs Vital Sign Reading Time Taken Comments Blood Pressure 138/96 09/30/2022 5:41 PM CONTROL ROOM TECHNICIAN Pulse 86 09/30/2022 5:43 PM CONTROL ROOM TECHNICIAN Temperature 37.1 C (98.7 F) 09/30/2022 11:18 AM CONTROL ROOM TECHNICIAN Respiratory Rate 23 09/30/2022 5:43 PM CONTROL ROOM TECHNICIAN Oxygen Saturation 97% 09/30/2022 5:42 PM CONTROL ROOM TECHNICIAN Inhaled Oxygen Concentration - - Weight 90.9 kg (200 lb 8 oz) 09/30/2022 11:18 AM CONTROL ROOM TECHNICIAN Height 170.2 cm (5' 7 ) 09/30/2022 11:18 AM CONTROL ROOM TECHNICIAN Body Mass Index 31.4 09/30/2022 11:18 AM CONTROL ROOM TECHNICIAN Plan of Treatment Not on file Medical Devices Implanted Type Area Research Epidemiologist Device Identifier Shelf Expiration Date Model / Serial / Lot [employer] [id number] Synergy 2.25mm 20mm 144cm Radiopaque 1 Access Port Inflation - [id number] Implanted:Qty: 1 on 03/11/2020 by Rajesh Max MD at [facility] [employer] [id number] 220 / / [employer] [id number] Synergy 3mm 12mm 144cm Radiopaque 1 Access Port Inflation Lumen - [id number] Implanted:Qty: 1 on 03/11/2020 by Rajesh Max MD at [facility] [employer] [id number] 300 / / Insurance MEDICARE [facility] MEDICARE [facility] Advance Directives For more information, please contact: [phone] * Full Code (Latest Code Status on File) Date Activated Date Inactivated Comments 03/11/2020 10:26 AM 03/12/2020 3:18 PM Care Teams Youth Ministry Director Relationship Specialty Start Date End Date Rajesh Max MD PCP - General 03/12/20 Rajesh Max MD Consulting Physician Cardiology 03/12/20
--- OUTSIDE RECORDS SUMMARY | 2025-03-27 12:40 | XMS_ITS | Continuity of Care Document ---
Author Organization [facility] Address [address] [place] [address] Phone Care Team Providers Care Fine Wire Drawer Name Role Phone Mark Schwarz MD Unavailable [...] Encounter [facility], [address] [place] [address], [id number], tel:[phone] [facility] [place] [facility] [place] [address], [place], [address], [place]. tel:[phone] Referring Provider: Renaldo Painter, [address] [facility] [address], [place], [address]. tel:[phone] New (Level 4) OFFICE/OUTPA TIENT VISIT [facility], [address] [place] [address], [id number], tel:[phone] [facility] [place] [facility] [place]chief complaint) Body mass index (BMI) 31.0-31.9, adultSevere persistent asthma with (acute) exacerbationCOPD [address], [place], [address], [place]. tel:[phone] Referring Provider: Renaldo Painter, [address] [facility] [address], [place], [address]. tel:[phone] [facility], [address] [place] [address], [id number], tel:[phone] [facility] No Information [address], [place], [address], [place]. tel:[phone] [facility], [address] [place] [address], [id number], [place] tel:[phone] [facility] [place] Information [address], [place], [address], [place]. tel:[phone] Family History Family Member Type Diagnosis Age At Onset Problem No family history of Rhiniti s Problem No family history of Asthma Payers Payer name Insurance type Covered constitution party ID Authoriza tion(s) [place] [id number] AARP Medicare Complete [id number] Social History Type Description Quantity Date Captured [...]
--- OUTSIDE RECORDS SUMMARY | 2025-03-27 12:41 | XMS_ITS | Clinical Summary ---
Author Organization [facility] Marlyn Nash Address [address] [place] [address] Care Team Providers Care Diagnostics Tech Name Role Phone Pawan Mendes MD Primary Care Provider Allergies No known active allergies Medications aspirin (ECOTRIN EC) 81 mg Tablet, Delayed Release (E.C.) Take 81 mg by mouth. Active ezetimibe (ZETIA) 10 mg tablet Take 10 mg by mouth daily. 2 Active clopidogreL (PLAVIX) 75 mg Tablet clopidogrel 75 mg tablet 1 Active hydroCHLOROthiaz raymond (MICROZIDE) 12.5 mg capsule Take 12.5 mg by mouth daily. Active atorvastatin 40 mg tablet Take 40 mg by mouth daily. Active cyanocobalamin (vit B-12) 100 mcg tablet Take 100 mcg by mouth daily. Active metFORMIN 500 mg tablet Take 500 mg by mouth daily with breakfast. Pt states that he takes half of this tablet until he gets used to the medication Active HYDROcodone-acet aminophen (NORCO) 5-325 mg tabletIndication s:S/P thoracotomy Take 1 Tablet by mouth every 4 hours as needed for Pain, Severe. Max Daily Amount: 6 Tablets 30 Tablet 3 Active gabapentin (NEURONTIN) 300 mg capsule Take 1 Capsule (300 mg) by mouth 2 times daily. 60 Capsule 1 3 Active benzonatate (TESSALON) 200 mg capsule Take 1 Capsule (200 mg) by mouth 3 times daily. 90 Capsule 3 4 Active fluticasone propion-salmeter oL (ADVAIR DISKUS,WIXELA INHUB) 100-50 mcg/dose disk inhaler Take 1 Puff by inhalation 2 times daily. 4 Active Active Problems Problem Noted Date Diagnosed Date Osteoarthritis of knee 05/14/2023 Squamous cell carcinoma of left lung 03/23/2023 Peripheral artery disease 01/09/2020 Overview (05/14/2023): Added automatically from request for surgery [id number] Vitamin D deficiency 10/23/2014 Arteriosclerosis of coronary artery 07/30/2009 Encounters Date Type Department Care Team Description 02/12/2025 External Device Data ST[facility] ABSTRACTION Provider, Abstract 01/30/2025 External Device Data [facility] ABSTRACTION Provider, Abstract 01/01/2025 External Device Data [facility] ABSTRACTION Provider, Abstract from Last 3 Months Immunizations Immunization Administration Dates Next Due (WildBlue)(12 YR UP) COVID-19 VACCINE - EMERGENCY USE AUTHORIZATION, MRNA, [id number]) 30 MCG/0.3 ML IM SUSP 09/16/2021 Family History Medical History Relation Name Comments Breast Cancer Sister Relation Name Status Comments Daughter Alive Father Mother Sister Social History Tobacco Use Types Packs/Day Years Used Date Smoking Tobacco: Former Cigarettes 1 50 0 03/24/1973 - 03/24/2023 Smokeless Tobacco: Never Tobacco Cessation:Counseling Given: Not Answered Alcohol Use Standard Drinks/Week Comments Yes 0 (1 standard drink = 0.6 oz pur e alcohol) occasional Feeling Safe Answer Date Recorded Are you in a relationship wi th someone who hurts you emotionally and/or physically? Unable to obtain 05/19/2023 Food Insecurity Answer Date Recorded Social/Environmental Concerns No concerns Transportation Needs Answer Date Record ed Social/Environmental Concerns No concerns Housing Stability Answer Date Recorded Social/Environmental Concerns No concerns Utility Needs Answer Date Recorded Social/Environmental Concerns No concerns Sex and Gender Information Value Date Recorded Sex Assigned at Male 10/18/2024 12:56 PM PIPER HELPER Legal Sex Male 9:35 AM CDT Gender Identity Male 10/18/2024 12:56 PM PIPER HELPER Sexual Orientation Not on file Last Filed Vital Signs Vital Sign Reading Time Taken Comments Blood Pressure 121/79 11/29/2024 3:35 PM PIPER HELPER Pulse 99 11/29/2024 3:35 PM PIPER HELPER Temperature 36.6 C (97.9 F) 11/29/2024 3:35 PM PIPER HELPER Respiratory Rate 20 11/29/2024 3:35 PM PIPER HELPER Oxygen Saturation 96% 11/29/2024 3:35 PM PIPER HELPER Inhaled Oxygen Concentration - - Weight 92.5 kg (204 lb) 11/29/2024 3:35 PM PIPER HELPER Height 170.2 cm (5' 7 ) 06/08/2023 2:07 PM CDT Body Mass Index 31.95 06/08/2023 2:07 PM CDT Plan of Treatment Upcoming Encounters Date Type Department Care Team (Late st Contact Info) Description 04/19/2025 12:30 PM CDT Office Visit [facility] Oncology and Hematology - Brian [address] [facility] [address] [place] [address] Ian Stevens MD [address] [facility] [address] [place] [address] Health Maintenance Due Date Last Done Comments DTAP/TDAP/TD VACCINES (1 - Tdap) 1971 COLORECTAL SCREENING 1997 Colorectal Cancer Screening 1997 FIT-DNA Q 3 years 1997 FIT/FOBT Q 1 year 1997 Flex Sig/CT Colonography Q 5 years 1997 ZOSTER VACCINE (1 of 2) 2002 RSV VACCINE (60+ or ) (1 - Risk 60-74 years 1-dose series) 2012 Abdominal Aortic Aneurysm (A AA) Screening 2017 COVID-19 Vaccine (2 - 2023-2 5 season) 2024 09/16/2021 PNEUMOCOCCAL VACCINE 50+ YEARS Completed 11/27/2018 , 10/13/2017 INFLUENZA VACCINE Completed 09/07/2024, , 08/11/2023, Additional history exists Medical Devices Implanted Type Area Non Food Receiving Clerk Device Identifier Shelf Expiration Date Model / Serial / Lot Sealant Progel Pleural 4ml [id number] - [id number] Implanted:Qty: 1 on 05/19/2023 by Sean Redmond MD at [facility] Tissue Left: Lung BARD DAVOL 05/24/2024 [id number] / / [id number] Insurance MEDICARE PART A AND B [employer] [facility] [id number] MEDICARE PART A AND B [employer] [facility] [id number] RX [facility] Medicare Part D Advance Directives For more information, please contact: [phone] * Full Code (Latest Code Status on File) Date Activated Date Inactivated Comments 05/19/2023 2:03 PM 05/21/2023 5:15 PM * Full Code Date Activated Date Inactivated Comments 05/19/2023 5:47 AM 05/19/2023 2:03 PM Care Teams Diagnostics Tech Relationship Specialty Start Date End Date Pawan Mendes MD PCP - General Internal Medicine 03/28/23
--- OUTSIDE RECORDS SUMMARY | 2025-03-27 12:41 | XMS_ITS ---
Author Name [facility] Organization [facility] Address [address] [place] [address] Care Team Providers Care Head Banquet Waitress Name Role Phone CYRIL VERAS Primary Care [...] PART A Jun 14, 2017 PART A [id number] [phone] GALEN RIGGS PATIENT MEDICARE (WNR) MEDICARE (M) PART B Jun 14, 2017 PART B [id number] GAELN RIGGS PATIENT Selected Encounter This section includes the information on record at [facility] for the Encounter. Date/Time Encounter Type Encounter Description Reason Provider Source March 15, 2025 02:00 PM OFFICE O/P EST MOD 30 MIN PRIMARY CARE/MEDICINE ICD-10-CM R73.03 Prediabetes CYRIL VERAS Cecilia Encounter Template Text not used by [facility] Assessments - Encounter Diagnoses This section includes the primary and secondary diagnoses documented for the Encounter. Date/Time Primary/Secondary Diagnosis Diagnosis Name Provider Source March 15, 2025 02:26 PM PRIMARY Prediabetes CYRIL VERAS [facility] March 15, 2025 02:26 PM SECONDARY Chronic obstructive pulmonary disease, unspecified CYRIL VERAS [facility] March 15, 2025 02:26 PM SECONDARY Essential (primary) hypertension CYRIL VERAS [facility] March 15, 2025 02:26 PM SECONDARY Hyperlipidemia, unspecified CYRIL VERAS [facility] March 15, 2025 02:26 PM SECONDARY Male erectile dysfunction, unspecified CYRIL VERAS [facility] March 15, 2025 02:26 PM SECONDARY Malignant neoplasm of unsp part of unsp bronchus or lung CYRIL VERAS [facility] March 15, 2025 02:26 PM SECONDARY Obesity, unspecified CYRIL VERAS [facility] Vital Signs: All taken on the encounter date This section contains inpatient and outpatient Vital Signs collected on the date of the Encounter. Date/Time Temperature Pulse Blood Pressure Respiratory Rate SP02 Pain Height Weight Body Mass Index Source March 15, 2025 01:44 PM 97.8 80 122/80 22 95 207 32 [facility] Social History: Smoking Status (Most current) and Tobacco Use (All prior to encounter date) This section includes the most current, and the historical, smoking and tobacco- related health factors from the [facility] facility where the Encounter took place. Current Smoking Status This section includes the most current smoking, or tobacco-related health factor, from the [facility] facility where the Encounter took place. Date/Time Current Smoking Status Comment Devora ity Oct 05, 2024 12:30 PM VA-TOBACCO USE FORMER CIGARETTES [facility] Tobacco Use History This section includes a history of the smoking, or tobacco-related health factors, that were collected on or before the date of the Encounter. The data comes from the [facility] facility where the Encounter took place. Date/Time Smoking Status/Tobacco Use Comment F acility Oct 05, 2024 12:30 PM VA-TOBACCO USE FORMER CIGARETTES [facility] Encounter Notes: All associated encounter notes This section contains the clinical notes associated to the Encounter. Date/Time Encounter Note(s) Provider Source March 15, 2025 02:27 PM ADDENDUM: LOCAL TITLE: Addendum STANDARD TITLE: ADDENDUM DATE OF NOTE: MARCH 15, 2025@14:27:19 ENTRY DATE: MARCH 15, 2025@14:27:20 AUTHOR: CYRIL VERAS COSIGNER: URGENCY: STATUS: COMPLETED Patient is interested in an appointment to discuss diet and exercise. /alberto/ CYRIL VERAS PA-C Signed: 03/15/2025 14:27 Receipt Acknowledged By: 03/15/2025 16:04 /alberto/ J CARLOS GRIJALVA Clinical Dietitian --- Original Document --- 03/15/25 PRIMARY CARE PROVIDER ESTABLISHED VISIT [facility]: * presents for 6 month visit PCP:Dr. Hodges SPECIALISTS:Civilian pulm/onco/cardio/opto SUBJECTIVE HPI: Karo is a 74 y/o patient to clinic today for a six-month [facility] appointment to discuss chronic conditions to include prediabetes and hypertension. Patient reports that he continues to see his civilian primary care provider every 6 months secondary to his chronic medical conditions. Patient also is being followed closely by his civilian licensed embalmer secondary to his history of lung cancer and COPD. Patient says that he is unable to tolerate Wixela and notes that he is getting no relief with Spiriva. Patient says that he will be contacting his civilian licensed embalmer following today's appointment to set up an appointment to discuss other treatment options for his COPD. Patient also says that he continues to follow-up with his civilian oncologist every 6 to 12 months secondary to his history of lung cancer. Patient says at this time he is not exercising nor is he on any specific diet. Of note the patient did not have lab work done in our office prior to today's appointment but will have recent lab work completed through his civilian primary care provider's office faxed to our office for review. Patient denies headaches, chest pain, worsening SOB, problems with bowel/bladder, or swelling to the BLE. The patient has no other complaints in the clinic today. Smoking:N Colonoscopy:Y, 2018 with no polyps Exercise:N Diet:N Alcohol:Y, 6 monthly Optometry: PERTINENT PMH: 1. Prediabetes 2. Essential hypertension 3. Hyperlipidemia 4. Lung cancer 5. COPD 6. Erectile dysfunction MEDICATIONS: Active Outpatient Medications (including Supplies): Active Outpatient Medications Status 1) ALBUTEROL 90MCG (CFC-F) 200D ORAL INHL INHALE 1 PUFF BY ORAL ACTIVE INHALATION FOUR TIMES A DAY NEEDED SHAKE WELL. RINSE MOUTHPIECE FREQUENTLY TO PREVENT CLOGGING. Indication: FOR COPD 2) ALBUTEROL SO4 0.083% INHL 3ML INHALE 1 VIAL (2.5MG/3ML) BY ACTIVE NEBULIZATION EVERY 6 HOURS DIRECTED NEEDED DO NOT USE IF USING ALBUTEROL INHALER Indication: FOR COPD 3) ASPIRIN 81MG EC TAB TAKE ONE TABLET BY MOUTH ONCE A DAY ACTIVE TAKE WITH FOOD. Indication: FOR CARDIOVASCULAR DISEASE 4) ATORVASTATIN CALCIUM 80MG TAB TAKE ONE-HALF TABLET BY MOUTH ACTIVE EVERY EVENING Indication: FOR HIGH CHOLESTEROL 5) CLOPIDOGREL BISULFATE 75MG TAB TAKE ONE TABLET BY MOUTH ONCE ACTIVE A DAY Indication: CAD/PAD 6) EZETIMIBE 10MG TAB TAKE ONE TABLET BY MOUTH ONCE A DAY ACTIVE Indication: FOR HIGH CHOLESTEROL 7) FLUTICAS 100/SALMETEROL 50 INHL DISK 60 INHALE 1 INHALATION ACTIVE BY ORAL INHALATION TWICE A DAY (OPEN DISKUS; CLICK ONLY ONCE; MAY INHALE TWICE TO COMPLETE DOSE; CLOSE WHEN FINISHED) RINSE MOUTH AND SPIT AFTER EACH USE. Indication: FOR COPD 8) HYDROCHLOROTHIAZIDE 25MG TAB TAKE ONE-HALF TABLET BY MOUTH ACTIVE ONCE A DAY Indication: FOR HIGH BLOOD PRESSURE 9) TIOTROPIUM 2.5MCG/ACTUAT 60D ORAL INHL INHALE 2 INHALATIONS ACTIVE BY ORAL INHALATION ONCE A DAY (ADMINISTER AT SAME TIME EACH DAY) Indication: FOR COPD Active Non-VA Medications Status 1) Non-VA METFORMIN HCL 1000MG TAB 500MG BY MOUTH TWICE A DAY ACTIVE WITH MEALS Indication: FOR DIABETES 10 Total Medications ALLERGIES: TREE POLLEN, ANIMAL DANDER DATA REVIEW: HGA1C 6.5 H % 10/10/2024 09:00 Lipid Panel: TRIGLYCERIDE 103 mg/dL 10/10/2024 09:00 CHOLESTEROL 141 mg/dL 10/10/2024 09:00 HDL(New) 49 mg/dL 10/10/2024 09:00 CALCULATED LDL 71 mg/dL 10/10/2024 09:00 CMP: SODIUM 141 mEq/L 10/10/2024 09:00 POTASSIUM 4.4 mEq/L 10/10/2024 09:00 CHLORIDE 103 mEq/L 10/10/2024 09:00 UREA NITROGEN 14.8 mg/dL 10/10/2024 09:00 CREATININE 0.99 mg/dL 10/10/2024 09:00 CALCIUM 10.0 mg/dL 10/10/2024 09:00 PROTEIN 7.7 g/dL 10/10/2024 09:00 ALBUMIN 4.0 g/dL 10/10/2024 09:00 ALKALINE PHOSPHATASE 119 U/L 10/10/2024 09:00 ALT/SGPT 29 U/L 10/10/2024 09:00 AST/SGOT 39 H U/L 10/10/2024 09:00 TOTAL BILIRUBIN 0.3 mg/dL 10/10/2024 09:00 CARBON DIOXIDE 29 mEq/L 10/10/2024 09:00 GLUCOSE 127 H mg/dL 10/10/2024 09:00 EGFR (CKD-EPI 2020) 80.9 10/10/2024 09:00 CBC: WBC 9.0 10*3/uL 10/10/2024 09:00 RBC 4.80 10*6/uL 10/10/2024 09:00 HGB 14.9 g/dL 10/10/2024 09:00 HCT 44.9 % 10/10/2024 09:00 MCV 93.5 fL 10/10/2024 09:00 MCH 31.0 pg 10/10/2024 09:00 MCHC 33.2 g/dL 10/10/2024 09:00 RDW 13.5 % 10/10/2024 09:00 PLT 395 10*3/uL 10/10/2024 09:00 MPV 9.4 fL 10/10/2024 09:00 NEUTROPHILS 73.9 % 10/10/2024 09:00 LYMPHOCYTES 12.2 % 10/10/2024 09:00 MONOCYTES 9.5 % 10/10/2024 09:00 EOSINOPHILS 3.5 % 10/10/2024 09:00 BASOPHILS 0.9 % 10/10/2024 09:00 STOMATOCYTES 1+ 10/10/2024 09:00 PROST. SPECIFIC AG.(PB-STL) 1.669 ng/mL 10/10/2024 09:00 TSH: TSH 0.519 uIU/mL 10/10/2024 09:00 VITAMIN D, 25-HYDROXY 33.7 ng/mL 10/10/2024 09:00 UA: No URINALYSIS EO data found VITALS: BP: 122/80 P: 80 R: 22 WT: 207 T: 97.8 reviewed. OBJECTIVE: GENERAL: Alert, well developed/nourished, NAD SKIN: No rashes, no jaundice, warm/dry, intact HEENT: PERRLA, nares patent, throat clear CV: RRR, S1 S2 no murmurs, rubs or gallops RESP: CTA, no crackles, rhonchi, wheezing NECK: Supple, no bruit, no thyromegaly/nodules ABD: Obese with no ttp or HSM noted EXT: No edema, no cyanosis PSY: Pleasant, appropriate, no obvious delusions or hallucinations ASSESSMENT/PLAN: 1. Prediabetes, stable with current treatment plan and followed by his civilian primary care provider. 2. Essential hypertension, stable with medication followed by his civilian power brake operator. 3. Hyperlipidemia, stable with medication and followed by his civilian power brake operator. 4. Lung cancer with ongoing treatment through his civilian licensed embalmer and oncologist office. 5. COPD, ongoing issue with patient planning on scheduling follow-up appointment with his civilian licensed embalmer to discuss other treatment options. 6. Erectile dysfunction, ongoing issue. I will start the patient on sildenafil 25 mg as needed 1 hour prior to sexual intercourse. 7. Obesity, ongoing issue. Diet and exercise were discussed at today's visit and I will alert our dietitian that this patient is interested in an appointment to discuss this further. * Patient have recent lab work completed through his civilian primary care provider's office faxed to our office for review. * Medical conditions discussed with , medications refilled at appointment today. * Return to clinic with routine labs: 1 year. * Patient stated understanding and was agreeable with this treatment plan. Avg Risk Colorectal Cancer Screen - L,N,P,PH: AVERAGE RISK colorectal cancer screening is due based on information available to this clinical reminder Patient has arranged or is choosing to arrange this care independent of and without assistance from this [facility]. /alberto/ CYRIL VERAS PA-C Signed: 03/15/2025 14:27 CYRIL VERAS [facility] March 15, 2025 01:57 PM PRIMARY CARE NOTE: LOCAL TITLE: PRIMARY CARE PROVIDER ESTABLISHED VISIT [facility] [place] STANDARD TITLE: PRIMARY CARE NOTE DATE OF NOTE: MARCH 15, 2025@13:57 ENTRY DATE: MARCH 15, 2025@13:57:15 AUTHOR: CYRIL VERAS EXP COSIGNER: URGENCY: STATUS: COMPLETED PRIMARY CARE PROVIDER ESTABLISHED VISIT [facility] [place] Has ADDENDA * presents for 6 month visit PCP:Dr. Hodges SPECIALISTS:Civilian pulm/onco/cardio/opto SUBJECTIVE HPI: Karo is a 74 y/o patient to clinic today for a six-month [facility] appointment to discuss chronic conditions to include prediabetes and hypertension. Patient reports that he continues to see his civilian primary care provider every 6 months secondary to his chronic medical conditions. Patient also is being followed closely by his civilian licensed embalmer secondary to his history of lung cancer and COPD. Patient says that he is unable to tolerate Wixela and notes that he is getting no relief with Spiriva. Patient says that he will be contacting his civilian licensed embalmer following today's appointment to set up an appointment to discuss other treatment options for his COPD. Patient also says that he continues to follow-up with his civilian oncologist every 6 to 12 months secondary to his history of lung cancer. Patient says at this time he is not exercising nor is he on any specific diet. Of note the patient did not have lab work done in our office prior to today's appointment but will have recent lab work completed through his civilian primary care provider's office faxed to our office for review. Patient denies headaches, chest pain, worsening SOB, problems with bowel/bladder, or swelling to the BLE. The patient has no other complaints in the clinic today. Smoking:N Colonoscopy:Y2018 with no polyps Exercise:N Diet:N Alcohol:Y, 6 monthly Optometry: PERTINENT PMH: 1. Prediabetes 2. Essential hypertension 3. Hyperlipidemia 4. Lung cancer 5. COPD 6. Erectile dysfunction MEDICATIONS: Active Outpatient Medications (including Supplies): Active Outpatient Medications Status 1) ALBUTEROL 90MCG (CFC-F) 200D ORAL INHL INHALE 1 PUFF BY ORAL ACTIVE INHALATION FOUR TIMES A DAY NEEDED SHAKE WELL. RINSE MOUTHPIECE FREQUENTLY TO PREVENT CLOGGING. Indication: FOR COPD 2) ALBUTEROL SO4 0.083% INHL 3ML INHALE 1 VIAL (2.5MG/3ML) BY ACTIVE NEBULIZATION EVERY 6 HOURS DIRECTED NEEDED DO NOT USE IF USING ALBUTEROL INHALER Indication: FOR COPD 3) ASPIRIN 81MG EC TAB TAKE ONE TABLET BY MOUTH ONCE A DAY ACTIVE TAKE WITH FOOD. Indication: FOR CARDIOVASCULAR DISEASE 4) ATORVASTATIN CALCIUM 80MG TAB TAKE ONE-HALF TABLET BY MOUTH ACTIVE EVERY EVENING Indication: FOR HIGH CHOLESTEROL 5) CLOPIDOGREL BISULFATE 75MG TAB TAKE ONE TABLET BY MOUTH ONCE ACTIVE A DAY Indication: CAD/PAD 6) EZETIMIBE 10MG TAB TAKE ONE TABLET BY MOUTH ONCE A DAY ACTIVE Indication: FOR HIGH CHOLESTEROL 7) FLUTICAS 100/SALMETEROL 50 INHL DISK 60 INHALE 1 INHALATION ACTIVE BY ORAL INHALATION TWICE A DAY (OPEN DISKUS; CLICK ONLY ONCE; MAY INHALE TWICE TO COMPLETE DOSE; CLOSE WHEN FINISHED) RINSE MOUTH AND SPIT AFTER EACH USE. Indication: FOR COPD 8) HYDROCHLOROTHIAZIDE 25MG TAB TAKE ONE-HALF TABLET BY MOUTH ACTIVE ONCE A DAY Indication: FOR HIGH BLOOD PRESSURE 9) TIOTROPIUM 2.5MCG/ACTUAT 60D ORAL INHL INHALE 2 INHALATIONS ACTIVE BY ORAL INHALATION ONCE A DAY (ADMINISTER AT SAME TIME EACH DAY) Indication: FOR COPD Active Non-VA Medications Status 1) Non-VA METFORMIN HCL 1000MG TAB 500MG BY MOUTH TWICE A DAY ACTIVE WITH MEALS Indication: FOR DIABETES 10 Total Medications ALLERGIES: TREE POLLEN, ANIMAL DANDER DATA REVIEW: HGA1C 6.5 H % 10/10/2024 09:00 Lipid Panel: TRIGLYCERIDE 103 mg/dL 10/10/2024 09:00 CHOLESTEROL 141 mg/dL 10/10/2024 09:00 HDL(New) 49 mg/dL 10/10/2024 09:00 CALCULATED LDL 71 mg/dL 10/10/2024 09:00 CMP: SODIUM 141 mEq/L 10/10/2024 09:00 POTASSIUM 4.4 mEq/L 10/10/2024 09:00 CHLORIDE 103 mEq/L 10/10/2024 09:00 UREA NITROGEN 14.8 mg/dL 10/10/2024 09:00 CREATININE 0.99 mg/dL 10/10/2024 09:00 CALCIUM 10.0 mg/dL 10/10/2024 09:00 PROTEIN 7.7 g/dL 10/10/2024 09:00 ALBUMIN 4.0 g/dL 10/10/2024 09:00 ALKALINE PHOSPHATASE 119 U/L 10/10/2024 09:00 ALT/SGPT 29 U/L 10/10/2024 09:00 AST/SGOT 39 H U/L 10/10/2024 09:00 TOTAL BILIRUBIN 0.3 mg/dL 10/10/2024 09:00 CARBON DIOXIDE 29 mEq/L 10/10/2024 09:00 GLUCOSE 127 H mg/dL 10/10/2024 09:00 EGFR (CKD-EPI 2020) 80.9 10/10/2024 09:00 CBC: WBC 9.0 10*3/uL 10/10/2024 09:00 RBC 4.80 10*6/uL 10/10/2024 09:00 HGB 14.9 g/dL 10/10/2024 09:00 HCT 44.9 % 10/10/2024 09:00 MCV 93.5 fL 10/10/2024 09:00 MCH 31.0 pg 10/10/2024 09:00 MCHC 33.2 g/dL 10/10/2024 09:00 RDW 13.5 % 10/10/2024 09:00 PLT 395 10*3/uL 10/10/2024 09:00 MPV 9.4 fL 10/10/2024 09:00 NEUTROPHILS 73.9 % 10/10/2024 09:00 LYMPHOCYTES 12.2 % 10/10/2024 09:00 MONOCYTES 9.5 % 10/10/2024 09:00 EOSINOPHILS 3.5 % 10/10/2024 09:00 BASOPHILS 0.9 % 10/10/2024 09:00 STOMATOCYTES 1+ 10/10/2024 09:00 PROST. SPECIFIC AG.(PB-STL) 1.669 ng/mL 10/10/2024 09:00 TSH: TSH 0.519 uIU/mL 10/10/2024 09:00 VITAMIN D, 25-HYDROXY 33.7 ng/mL 10/10/2024 09:00 UA: No URINALYSIS EO data found VITALS: BP: 122/80 P: 80 R: 22 WT: 207 T: 97.8 reviewed. OBJECTIVE: GENERAL: Alert, well developed/nourished, NAD SKIN: No rashes, no jaundice, warm/dry, intact HEENT: PERRLA, nares patent, throat clear CV: RRR, S1 S2 no murmurs, rubs or gallops RESP: CTA, no crackles, rhonchi, wheezing NECK: Supple, no bruit, no thyromegaly/nodules ABD: Obese with no ttp or HSM noted EXT: No edema, no cyanosis PSY: Pleasant, appropriate, no obvious delusions or hallucinations ASSESSMENT/PLAN: 1. Prediabetes, stable with current treatment plan and followed by his civilian primary care provider. 2. Essential hypertension, stable with medication followed by his civilian power brake operator. 3. Hyperlipidemia, stable with medication and followed by his civilian power brake operator. 4. Lung cancer with ongoing treatment through his civilian licensed embalmer and oncologist office. 5. COPD, ongoing issue with patient planning on scheduling follow-up appointment with his civilian licensed embalmer to discuss other treatment options. 6. Erectile dysfunction, ongoing issue. I will start the patient on sildenafil 25 mg as needed 1 hour prior to sexual intercourse. 7. Obesity, ongoing issue. Diet and exercise were discussed at today's visit and I will alert our dietitian that this patient is interested in an appointment to discuss this further. * Patient have recent lab work completed through his civilian primary care provider's office faxed to our office for review. * Medical conditions discussed with [place], medications refilled at appointment today. * Return to clinic with routine labs: 1 year. * Patient stated understanding and was agreeable with this treatment plan. Avg Risk Colorectal Cancer Screen - L,N,P,PH: AVERAGE RISK colorectal cancer screening is due based on information available to this clinical reminder Patient has arranged or is choosing to arrange this care independent of and without assistance from this [facility]. /vivi VERAS PA-C Signed: 03/15/2025 14:27 03/15/2025 ADDENDUM STATUS: COMPLETED Patient is interested in an appointment to discuss diet and exercise. /vivi VERAS PA-C Signed: 03/15/2025 14:27 Receipt Acknowledged By: 03/15/2025 16:04 /alberto/ J CARLOS GRIJALVA Clinical Dietitielio 03/15/2025 ADDENDUM STATUS: COMPLETED Thank you for this referral - RTC entered for nutrition appt /vivi GRIJALVA Clinical Dietitian Signed: 03/15/2025 16:06 CYRIL VERAS [facility] March 15, 2025 01:52 PM NURSING NOTE: LOCAL TITLE: V15 PACT FACE TO FACE NOTE [facility] STANDARD TITLE: NURSING NOTE DATE OF NOTE: MARCH 15, 2025@13:52 ENTRY DATE: MARCH 15, 2025@13:52:14 AUTHOR: ANNE RATLIFF COSIGNER: URGENCY: STATUS: COMPLETED Provider Visit: Patient Identifiers : Full Name Date of Reason for visit: Established Follow-Up Patient reports that the Spirivia inhaler does not give any relief. Mode of Arrival: Ambulatory Allergy Review: TREE POLLEN, ANIMAL DANDER Allergy list reviewed and remains current. Recent Vital Signs: Temperature: 97.8 F [36.6 C] (03/15/2025 13:44) Pulse: 80 (03/15/2025 13:44) Respiration: 22 (03/15/2025 13:44) B/P: 122/80 (03/15/2025 13:44) Pain: 2 (10/05/2024 12:36) Wt: 207 lb [93.89 kg] (03/15/2025 13:44) Ht: 67 in [170.2 cm] (10/05/2024 12:36) BMI: 32.5 POX: 95% (03/15/2025 13:44) Would you like to discuss any personal problem, family problem, alcohol use, drug use, or a mental or emotional illness? No Contact provided Primary Care phone number and encouraged to call if any questions or concerns. Review that after hours nurse line ext.[phone] and emergency room are available 06/06 for patient use. Contact verbalized good understanding. /alberto/ SEMAJ RODRIGUEZN,RN REGISTERED NURSE Signed: 03/15/2025 13:57 ANNE RATLIFF [facility]
--- OUTSIDE RECORDS SUMMARY | 2025-03-27 12:41 | XMS_ITS | Continuity of Care Document ---
Author Name [facility] Organization [facility] Care Team Providers Care Sdc Teacher Name Role Phone [facility] Unavailable Unavailable Problems Combined list of problems from Department of [facility] and [facility] facilities. It does not include entries that were removed or entered in error. Problem Status Onset Date Problem Type Date of Resolution Comments Source CAD - Coronary Artery Disease ([facility] [id number]) Active Condition [facility] COPD - Chronic Obstructive Pulmonary Disease ([facility] [id number]) Active Condition [facility] Erectile dysfunction Active Condition [facility] Exposure to potentially hazardous substance ([facility] [id number]) Active Condition Oct 10 4 Entered By: HAYLEY SIMPSON Comment: Entered automatically through [facility] Problem List documentation program [facility] History of peripheral arterial occlusive disease Active Condition [facility] HTN - Hypertension ([facility] [id number]) Active Condition [facility] Hyperlipidemia ([facility] [id number]) Active Condition [facility] Obesity Active Condition [facility] Prediabetes Active Condition [facility] Small cell carcinoma of lung Active Condition [facility] Diagnosis: ICD-10-CM R73.03 Prediabetes Active Diagnosis [facility] Diagnosis: ICD-10-CM J44.9 Chronic obstructive pulmonary disease, unspecified Active Diagnosis [facility] Diagnosis: ICD-10-CM Z00.01 Encounter for general adult medical exam w abnormal findings Active Diagnosis [facility] Medications Combined list of outpatient medications from Department [facility] and [facility] facilities.Medications provided include 1) outpatient medications from the last 15 months, and 2) patient-reported medications. Medication Details Route Status Patient Instructions Prescription Expires Prescription Number Last Dispense Date Ordering Provider Order Date Order Qty Source ALBUTEROL SO4 0.083% INHL,3ML INHALE 1 VIAL (2.5MG/3 ML) BY NEBULIZA TION EVERY 6 HOURS DIRECTED NEEDED FOR COPD DO NOT USE IF USING ALBUTERO L INHALER NEBULI ZATION ACTIVE 10/06/2025 [id number] 4 NIGHAT ARANDA 2023 120 [facility] ALBUTEROL SO4 90MCG/ACTUA T (CFC-F) INHL,ORAL,8 .5GM INHALE 1 PUFF BY ORAL INHALATI ON FOUR TIMES A DAY NEEDED FOR COPD SHAKE WELL. RINSE MOUTHPIE CE FREQUENT LY TO PREVENT CLOGGING . RESPIR ATORY (INHAL ATION) ACTIVE 10/06/2025 [id number] 4 NIGHAT ARANDA 2023 2 [facility] ASPIRIN 81MG TAB,EC TAKE ONE TABLET BY MOUTH ONCE A DAY FOR CARDIOVA SCULAR DISEASE TAKE WITH FOOD. ORAL ACTIVE 10/06/2025 [id number] 4 NIGHAT ARANDA 2023 120 [facility] ATORVASTATI N CA 80MG TAB TAKE ONE-HALF TABLET BY MOUTH EVERY EVENING FOR HIGH CHOLESTE ROL ORAL DISCONT INUED BY PROVIDE R 10/06/2025 [id number] 4 NIGHAT ARANDA 2023 45 [facility] CLOPIDOGREL BISULFATE 75MG TAB TAKE ONE TABLET BY MOUTH ONCE A DAY ORAL ACTIVE 10/06/2025 [id number] 4 NIGHAT ARANDA 2023 90 [facility] EZETIMIBE 10MG TAB TAKE ONE TABLET BY MOUTH ONCE A DAY FOR HIGH CHOLESTE ROL ORAL ACTIVE 10/06/2025 [id number] 5 NIGHAT ARANDA 2023 90 [facility] FLUTICASONE 100MCG/SALM ETEROL 50MCG INHL,ORAL,D ISKUS,60 INHALE 1 INHALATI ON BY ORAL INHALATI ON TWICE A DAY FOR COPD (OPEN DISKUS; CLICK ONLY ONCE; MAY INHALE TWICE TO COMPLETE DOSE; CLOSE WHEN FINISHED ) RINSE MOUTH AND SPIT AFTER EACH USE. RESPIR ATORY (INHAL ATION) ACTIVE 10/06/2025 [id number] 4 ARANDANIGHAT 2023 3 [facility] HYDROCHLORO THIAZIDE 25MG TAB TAKE ONE-HALF TABLET BY MOUTH ONCE A DAY FOR HIGH BLOOD PRESSURE ORAL DISCONT INUED BY PROVIDE R 10/06/2025 [id number] 4 ARANDANIGHAT D 2023 45 [facility] METFORMIN HCL 1000MG TAB TAKE ONE-HALF TABLET BY MOUTH TWICE A DAY WITH MEALS FOR DIABETES TAKE WITH FOOD. AVOID ALCOHOL. DISCONTI NUE BEFORE GETTING XRAY DYE. ORAL ACTIVE 03/16/2026 [id number] 5 CYRIL VERAS 2024 90 [facility] SILDENAFIL CITRATE 50MG TAB TAKE ONE-HALF TABLET BY MOUTH ONE HOUR PRIOR TO SEXUAL ACTIVITY FOR ERECTILE DYSFUNCT ION NEEDED - LIMIT 6 DOSES PER 30 DAYS ORAL ACTIVE 03/16/2026 [id number] 5 CYRIL VERAS 2024 18 [facility] TIOTROPIUM 2.5MCG/ACTU AT INHL,ORAL,6 0D,4GM INHALE 2 INHALATI ONS BY ORAL INHALATI ON ONCE A DAY (ADMINIS TER AT SAME TIME EACH DAY) RESPIR ATORY (INHAL ATION) ACTIVE 12/07/2025 [id number] 5 CYRIL VERAS 2024 3 [facility] Allergies, Adverse Reactions, Alerts Combined list of allergies from Department of Defense and Veterans Affairs facilities. It does not include entries that were removed or entered in error. Substance Category Reaction Severity Reaction type Status Date Reported Comments Source ANIMAL DANDER Propensity to adverse reaction (finding) Dyspnea active 4 [facility] [place] Propensity to adverse reaction (finding) Dyspnea active 4 [facility] Immunizations Combined list of available immunizations from the Department of Defense and Veterans Affairs facilities. Immunization Series Date Given Administered By Site Reaction Lot Number CVX Code Drug Pattern Cutter Status Comments Source INFLUENZA, UNSPECIFIED FORMULATION 2023 88 complet ed HISTORICA L INFORMATI ON - FROM OTHER PROVIDER, [facility] Results Combined list of recent chemistry, hematology and other laboratory results from Department of Defense and Veterans Affairs, ranging from 15 months to all on record, depending upon the facility. Order Name Results Value Reference Range Date Interpretation Specimen Comments Source COMPREHEN SIVE METABOLIC PANEL CREATININE [MASS/VOLUM E] IN SERUM OR PLASMA 0.99 mg/dL 0.7 - 1.3 10/10 Specimen Type: PLASMA Comment: No hemolysis noted. Ordering Provider: MARITZA ARANDA Report Released Date/Time: Oct 05, 2024 12:27 PM Reporting Lab: [facility] [address] [place], [place] [phone] Performing Lab: [place] [phone] [facility] COMPREHEN SIVE METABOLIC PANEL UREA NITROGEN [MASS/VOLUM E] IN SERUM OR PLASMA 14.8 mg/dL 9.0 - 25.0 10/10 Specimen Type: PLASMA Comment: No hemolysis noted. Ordering Provider: MARITZA ARANDA Report Released Date/Time: Oct 05, 2024 12:27 PM Reporting Lab: [facility] [address] [place] [phone] Performing Lab: [facility] [address] [place] [phone] [place] [address] [facility] COMPREHEN SIVE METABOLIC PANEL GLUCOSE [MASS/VOLUM E] IN SERUM OR PLASMA 127 mg/dL 72 - 99 10/10 H Specimen Type: PLASMA Comment: No hemolysis noted. Ordering Provider: MARITZA ARANDA Report Released Date/Time: Oct 05, 2024 12:27 PM Reporting Lab: [facility] [address] [place] [phone] Performing Lab: [facility] [address] [place] [phone] [place] [address] [facility] COMPREHEN SIVE METABOLIC PANEL SODIUM [MOLES/VOLU ME] IN SERUM OR PLASMA 141 meq/L 136 - 145 10/10 Specimen Type: PLASMA Comment: No hemolysis noted. Ordering Provider: MARITZA ARANDA Report Released Date/Time: Oct 05, 2024 12:27 PM Reporting Lab: [facility] [address] [facility] [address] Performing Lab: [facility] [address] [facility] COMPREHEN SIVE METABOLIC PANEL POTASSIUM [MOLES/VOLU ME] IN SERUM OR PLASMA 4.4 meq/L 3.5 - 5 10/10 Specimen Type: PLASMA Comment: No hemolysis noted. Ordering Provider: MARITZA ARANDA Report Released Date/Time: Oct 05, 2024 12:27 PM Reporting Lab: [place] [address] [facility] [address] Performing Lab: [place] [address] [facility] [address] [facility] COMPREHEN SIVE METABOLIC PANEL CHLORIDE [MOLES/VOLU ME] IN SERUM OR PLASMA 103 meq/L 98 - 107 10/10 Specimen Type: PLASMA Comment: No hemolysis noted. Ordering Provider: MARITZA ARANDA Report Released Date/Time: Oct 05, 2024 12:27 PM Reporting Lab: [place] [address] [facility] [address] Performing Lab: [place] [address] [facility] [phone] [facility] COMPREHEN SIVE METABOLIC PANEL CARBON DIOXIDE, TOTAL [MOLES/VOLU ME] IN SERUM OR PLASMA 29 meq/L 22 - 31 10/10 Specimen Type: PLASMA Comment: No hemolysis noted. Ordering Provider: MARITZA ARANDA Report Released Date/Time: Oct 05, 2024 12:27 PM Reporting Lab: [facility] [address] Performing Lab: [address] [phone] [facility] COMPREHEN SIVE METABOLIC PANEL CALCIUM [MASS/VOLUM E] IN SERUM OR PLASMA 10.0 mg/dL 8.4 - 10.4 10/10 Specimen Type: PLASMA Comment: No hemolysis noted. Ordering Provider: MARITZA ARANDA Report Released Date/Time: Oct 05, 2024 12:27 PM Reporting Lab: [facility] [address] [place], [place] [phone] Performing Lab: [facility] [address] [place], [place] [phone] [address] [facility] COMPREHEN SIVE METABOLIC PANEL PROTEIN [MASS/VOLUM E] IN SERUM OR PLASMA 7.7 g/dL 6 - 8.6 10/10 Specimen Type: PLASMA Comment: No hemolysis noted. Ordering Provider: MARITZA ARANDA Report Released Date/Time: Oct 05, 2024 12:27 PM Reporting Lab: [place] [address] Performing Lab: [place] [phone] [facility] COMPREHEN SIVE METABOLIC PANEL ALBUMIN [MASS/VOLUM E] IN SERUM OR PLASMA 4.0 g/dL 3.4 - 5 10/10 Specimen Type: PLASMA Comment: No hemolysis noted. Ordering Provider: MARITZA ARANDA Report Released Date/Time: Oct 05, 2024 12:27 PM Reporting Lab: [place] [phone] Performing Lab: [place] [address] [place] [phone] [facility] COMPREHEN SIVE METABOLIC PANEL BILIRUBIN.T OTAL [MASS/VOLUM E] IN SERUM OR PLASMA 0.3 mg/dL 0.2 - 1.2 10/10 Specimen Type: PLASMA Comment: No hemolysis noted. Ordering Provider: MARITZA ARANDA Report Released Date/Time: Oct 05, 2024 12:27 PM Reporting Lab: [facility] [address] [place], [place] [phone] Performing Lab: [address] [phone] [facility] COMPREHEN SIVE METABOLIC PANEL ALKALINE PHOSPHATASE [ENZYMATIC ACTIVITY/VO LUME] IN SERUM OR PLASMA 119 U/L 40 - 150 10/10 Specimen Type: PLASMA Comment: No hemolysis noted. Ordering Provider: MARITZA ARANDA Report Released Date/Time: Oct 05, 2024 12:27 PM Reporting Lab: [facility] [address] [place] [phone] Performing Lab: [place] [address] [facility] [address] [facility] COMPREHEN SIVE METABOLIC PANEL ASPARTATE AMINOTRANSF ERASE [ENZYMATIC ACTIVITY/VO LUME] IN SERUM OR PLASMA 39 U/L 5 - 34 10/10 H Specimen Type: PLASMA Comment: No hemolysis noted. Ordering Provider: MARITZA ARANDA Report Released Date/Time: Oct 05, 2024 12:27 PM Reporting Lab: [address] [phone] Performing Lab: [address] [phone] [place] [address] [facility] COMPREHEN SIVE METABOLIC PANEL ALANINE AMINOTRANSF ERASE [ENZYMATIC ACTIVITY/VO LUME] IN SERUM OR PLASMA 29 U/L 8 - 40 10/10 Specimen Type: PLASMA Comment: No hemolysis noted. Ordering Provider: MARITZA ARANDA Report Released Date/Time: Oct 05, 2024 12:27 PM Reporting Lab: [address] [phone] Performing Lab: [address] [address] [facility] COMPREHEN SIVE METABOLIC PANEL GLOMERULAR FILTRATION RATE/1.73 SQ M.PREDICTED [VOLUME RATE/AREA] IN SERUM, PLASMA OR BLOOD BY CREATININE- BASED FORMULA (CKD-EPI 2020) 80.9 60 10/10 Specimen Type: PLASMA Comment: No hemolysis noted. Ordering Provider: MARITZA ARANDA Report Released Date/Time: Oct 05, 2024 12:27 PM Reporting Lab: [address] [address] Performing Lab: [facility] [phone] [facility] CBC LEUKOCYTES [#/VOLUME] IN BLOOD BY AUTOMATED COUNT 9.0 10*3/uL 3.6 - 11.2 10/10 Specimen Type: BLOOD No comment entered. Ordering Provider: MARITZA ARANDA Report Released Date/Time: Oct 05, 2024 12:27 PM Reporting Lab: [address] [address] Performing Lab: [address] [phone] [facility] CBC ERYTHROCYTE S [#/VOLUME] IN BLOOD BY AUTOMATED COUNT 4.80 10*6/uL 4.10 - 5.70 10/10 Specimen Type: BLOOD No comment entered. Ordering Provider: MARITZA ARANDA Report Released Date/Time: Oct 05, 2024 12:27 PM Reporting Lab: [address] [address] Performing Lab: [address] [address] [facility] CBC HEMOGLOBIN [MASS/VOLUM E] IN BLOOD 14.9 g/dL 13.1 - 16.8 10/10 Specimen Type: BLOOD No comment entered. Ordering Provider: MARITZA ARANDA Report Released Date/Time: Oct 05, 2024 12:27 PM Reporting Lab: [address] [phone] Performing Lab: [address] [phone] [facility] CBC HEMATOCRIT [VOLUME FRACTION] OF BLOOD 44.9 38.2 - 48.4 10/10 Specimen Type: BLOOD No comment entered. Ordering Provider: MARITZA ARANDA Report Released Date/Time: Oct 05, 2024 12:27 PM Reporting Lab: [address] [address] Performing Lab: [place] [phone] [facility] CBC MCV [ENTITIC VOLUME] BY AUTOMATED COUNT 93.5 fL 80.0 - 100.0 10/10 Specimen Type: BLOOD No comment entered. Ordering Provider: MARITZA ARANDA Report Released Date/Time: Oct 05, 2024 12:27 PM Reporting Lab: [address] [phone] Performing Lab: [address] [phone] [place] [address] [facility] CBC MCH [ENTITIC MASS] BY AUTOMATED COUNT 31.0 pg 27.0 - 34.0 10/10 Specimen Type: BLOOD No comment entered. Ordering Provider: MARITZA ARANDA Report Released Date/Time: Oct 05, 2024 12:27 PM Reporting Lab: [address] [phone] Performing Lab: [address] [phone] [place] [address] [facility] CBC MCHC [MASS/VOLUM E] BY AUTOMATED COUNT 33.2 g/dL 33.0 - 36.0 10/10 Specimen Type: BLOOD No comment entered. Ordering Provider: MARITZA ARANDA Report Released Date/Time: Oct 05, 2024 12:27 PM Reporting Lab: [address] [phone] Performing Lab: [address] [phone] [place] [address] [facility] CBC PLATELETS [#/VOLUME] IN BLOOD BY AUTOMATED COUNT 395 10*3/uL 150 - 400 10/10 Specimen Type: BLOOD No comment entered. Ordering Provider: MARITZA ARANDA Report Released Date/Time: Oct 05, 2024 12:27 PM Reporting Lab: [address] [phone] Performing Lab: [address] [phone] [place] [address] [facility] CBC PLATELET MEAN VOLUME [ENTITIC VOLUME] IN BLOOD BY AUTOMATED COUNT 9.4 fL 7.5 - 11.2 10/10 Specimen Type: BLOOD No comment entered. Ordering Provider: MARITZA ARANDA Report Released Date/Time: Oct 05, 2024 12:27 PM Reporting Lab: [address] [address] Performing Lab: [place] [phone] [facility] CBC ERYTHROCYTE DISTRIBUTIO N WIDTH [RATIO] BY AUTOMATED COUNT 13.5 11.8 - 15.1 10/10 Specimen Type: BLOOD No comment entered. Ordering Provider: MARITZA ARANDA Report Released Date/Time: Oct 05, 2024 12:27 PM Reporting Lab: [place] [phone] Performing Lab: [address] [facility] CBC SEGMENTED NEUTROPHILS /100 LEUKOCYTES IN BLOOD BY MANUAL COUNT 73.9 10/10 Specimen Type: BLOOD No comment entered. Ordering Provider: MARITZA ARANDA Report Released Date/Time: Oct 05, 2024 12:27 PM Reporting Lab: [address] [phone] Performing Lab: [address] [phone] [place] [address] [facility] CBC MONOCYTES/1 00 LEUKOCYTES IN BLOOD BY AUTOMATED COUNT 9.5 10/10 Specimen Type: BLOOD No comment entered. Ordering Provider: MARITZA ARANDA Report Released Date/Time: Oct 05, 2024 12:27 PM Reporting Lab: [address] [phone] Performing Lab: [address] [phone] [facility] CBC EOSINOPHILS /100 LEUKOCYTES IN BLOOD BY MANUAL COUNT 3.5 10/10 Specimen Type: BLOOD No comment entered. Ordering Provider: MARITZA ARANDA Report Released Date/Time: Oct 05, 2024 12:27 PM Reporting Lab: [facility] [address] [facility] [address] Performing Lab: [facility] [address] [facility] [address] [facility] CBC BASOPHILS/1 00 LEUKOCYTES IN BLOOD BY MANUAL COUNT 0.9 10/10 Specimen Type: BLOOD No comment entered. Ordering Provider: MARITZA ARANDA Report Released Date/Time: Oct 05, 2024 12:27 PM Reporting Lab: [facility] [address] [place], [place] [phone] Performing Lab: [place] [address] [place] [phone] [facility] CBC PAPPENHEIME R BODIES 0 10/10 Specimen Type: BLOOD No comment entered. Ordering Provider: MARITZA ARANDA Report Released Date/Time: Oct 05, 2024 12:27 PM Reporting Lab: [facility] [address] [place] [phone] Performing Lab: [facility] [address] [place], [place] [phone] [address] [facility] CBC LYMPHOCYTES /100 LEUKOCYTES IN BLOOD BY MANUAL COUNT 12.2 10/10 Specimen Type: BLOOD No comment entered. Ordering Provider: MARITZA ARANDA Report Released Date/Time: Oct 05, 2024 12:27 PM Reporting Lab: [facility] [address] [facility] [address] Performing Lab: [facility] [address] [facility] CBC STOMATOCYTE S [PRESENCE] IN BLOOD BY LIGHT MICROSCOPY 1+ 10/10 Specimen Type: BLOOD No comment entered. Ordering Provider: MARITZA ARANDA Report Released Date/Time: Oct 05, 2024 12:27 PM Reporting Lab: [facility] [address] [place] [phone] Performing Lab: [address] [phone] [facility] CBC PLATELET ADEQUACY [PRESENCE] IN BLOOD BY LIGHT MICROSCOPY ADEQUATE 10/10 Specimen Type: BLOOD No comment entered. Ordering Provider: MARITZA ARANDA Report Released Date/Time: Oct 05, 2024 12:27 PM Reporting Lab: [address] [address] Performing Lab: [address] [phone] [facility] CBC BASOPHILS [#/VOLUME] IN BLOOD BY MANUAL COUNT 0.08 10*3/uL 0.01 - 0.20 10/10 Specimen Type: BLOOD No comment entered. Ordering Provider: MARITZA ARANDA Report Released Date/Time: Oct 05, 2024 12:27 PM Reporting Lab: [address] [address] Performing Lab: [address] [address] [facility] CBC EOSINOPHILS [#/VOLUME] IN BLOOD BY MANUAL COUNT 0.32 10*3/uL 0.00 - 0.60 10/10 Specimen Type: BLOOD No comment entered. Ordering Provider: MARITZA ARANDA Report Released Date/Time: Oct 05, 2024 12:27 PM Reporting Lab: [address] [phone] Performing Lab: [address] [address] [facility] CBC MONOCYTES [#/VOLUME] IN BLOOD BY MANUAL COUNT 0.86 10*3/uL 0.19 - 0.80 10/10 H Specimen Type: BLOOD No comment entered. Ordering Provider: MARITZA ARANDA Report Released Date/Time: Oct 05, 2024 12:27 PM Reporting Lab: [address] [address] Performing Lab: [place] [id number] [facility] [address] [facility] CBC LYMPHOCYTES [#/VOLUME] IN BLOOD BY MANUAL COUNT 1.10 10*3/uL 0.77 - 4.50 10/10 Specimen Type: BLOOD No comment entered. Ordering Provider: MARITZA ARANDA Report Released Date/Time: Oct 05, 2024 12:27 PM Reporting Lab: [address] [address] Performing Lab: [address] [address] [facility] CBC NEUTROPHILS [#/VOLUME] IN BLOOD BY MANUAL COUNT 6.65 10*3/uL 2.10 - 8.00 10/10 Specimen Type: BLOOD No comment entered. Ordering Provider: MARITZA ARANDA Report Released Date/Time: Oct 05, 2024 12:27 PM Reporting Lab: [address] [address] Performing Lab: [address] [address] [facility] LIPID PANEL (STL) CHOLESTEROL [MASS/VOLUM E] IN SERUM OR PLASMA 141 mg/dL 0 - 200 10/10 Specimen Type: PLASMA Comment: No hemolysis noted. Ordering Provider: MARITZA ARANDA Report Released Date/Time: Oct 05, 2024 12:27 PM Reporting Lab: [address] [address] Performing Lab: [address] [address] [facility] LIPID PANEL (STL) TRIGLYCERID E [MASS/VOLUM E] IN SERUM OR PLASMA 103 mg/dL 0 - 150 10/10 Specimen Type: PLASMA Comment: No hemolysis noted. Ordering Provider: MARITZA ARANDA Report Released Date/Time: Oct 05, 2024 12:27 PM Reporting Lab: [address] [place] [address] Performing Lab: [facility] [address] [place] [phone] [facility] LIPID PANEL (STL) CHOLESTEROL IN LDL [MASS/VOLUM E] IN SERUM OR PLASMA BY CALCULATION 71 mg/dL 10/10 Specimen Type: PLASMA Comment: No hemolysis noted. Ordering Provider: MARITZA ARANDA Report Released Date/Time: Oct 05, 2024 12:27 PM Reporting Lab: [facility] [address] [place] [phone] Performing Lab: [address] [address] [facility] LIPID PANEL (STL) CHOLESTEROL IN HDL [MASS/VOLUM E] IN SERUM OR PLASMA 49 mg/dL 40 10/10 Specimen Type: PLASMA Comment: No hemolysis noted. Ordering Provider: MARITZA ARANDA Report Released Date/Time: Oct 05, 2024 12:27 PM Reporting Lab: [address] [address] Performing Lab: [address] [address] [facility] HGA1C HEMOGLOBIN A1C/HEMOGLO BIN.TOTAL IN BLOOD 6.5 4.0 - 6.0 10/10 H Specimen Type: BLOOD No comment entered. Ordering Provider: MARITZA ARANDA Report Released Date/Time: Oct 05, 2024 12:27 PM Reporting Lab: [facility] [address] [place] [phone] Performing Lab: [address] [address] [facility] B12 COBALAMIN (VITAMIN B12) [MASS/VOLUM E] IN SERUM OR PLASMA 883 pg/mL 213 - 816 10/10 H Specimen Type: SERUM No comment entered. Ordering Provider: MARITZA ARANDA Report Released Date/Time: Oct 05, 2024 12:27 PM Reporting Lab: [facility] [address] [address] Performing Lab: [address] [phone] [place] [address] [facility] PROST. SPECIFIC AG.(PB-ST L) PROSTATE SPECIFIC AG [MASS/VOLUM E] IN SERUM OR PLASMA 1.669 ng/mL 0 - 4 10/10 Specimen Type: SERUM Comment: The listed sex of this patient may not be a typical indication for this test. Therefore, reference ranges or interpretiv e criteria listed may not be valid. Clinical correlation suggested. Ordering Provider: MARITZA ARANDA Report Released Date/Time: Oct 05, 2024 12:27 PM Reporting Lab: [place] [address] Performing Lab: [address] [facility] TSH W/ REFLEX FT4 (STL) THYROTROPIN [UNITS/VOLU ME] IN SERUM OR PLASMA 0.519 u[IU]/mL 0.47 - 5 10/10 Specimen Type: PLASMA No comment entered. Ordering Provider: MARITZA ARANDA Report Released Date/Time: Oct 05, 2024 12:27 PM Reporting Lab: [address] [address] Performing Lab: [address] [phone] [place] [address] [facility] VITAMIN D, 25-HYDROX Y 25-HYDROXYV ITAMIN D3 [MASS/VOLUM E] IN SERUM OR PLASMA 33.7 ng/mL 30 - 96 10/10 Specimen Type: SERUM No comment entered. Ordering Provider: MARITZA ARANDA Report Released Date/Time: Oct 05, 2024 12:27 PM Reporting Lab: [address] [phone] Performing Lab: [address] [phone] [place] [address] [facility] Vital Signs Combined list of inpatient and outpatient Vital Signs from Department of Defense and Veterans Affairs, ranging from 12 months to all on record, depending upon the facility. Vital Sign Value Date Comments Source SYSTOLIC BLOOD PRESSURE 122 03/15/2025 13:44:03 [facility] DIASTOLIC BLOOD PRESSURE 80 03/15/2025 13:44:[facility] PULSE OXIMETRY 95 03/15/2025 13:44:03 [facility] WEIGHT 207 03/15/2025 13:44:[facility] BMI 32 kg/m2 03/15/2025 13:44:[facility] TEMPERATURE 97.8 03/15/2025 13:44:03 [facility] PULSE 80 03/15/2025 13:44:03 [facility] RESPIRATION 22 03/15/2025 13:44:03 [facility] SYSTOLIC BLOOD PRESSURE 97 10/05/2024 12:36:24 [facility] DIASTOLIC BLOOD PRESSURE 61 10/05/2024 12:36:24 [facility] PULSE OXIMETRY 95 10/05/2024 12:36:24 [facility] WEIGHT 202 10/05/2024 12:36:24 [facility] BMI 32 kg/m2 10/05/2024 12:36:24 [facility] PAIN 2 10/05/2024 12:36:24 [facility] HEIGHT 67 10/05/2024 12:36:[facility] TEMPERATURE 98 10/05/2024 12:36:24 [facility] PULSE 100 10/05/2024 12:36:24 [facility] RESPIRATION 18 10/05/2024 12:36:24 [facility] Encounters Combined list of: 1) Encounters from [facility] facilities going backup to the last 18 months, not all [facility] inpatient encounters are included; 2) Encounters from the [facility] facilities going backup to 280 months. Location Location Details Encounter Type Encounter Number Reason For Visit Attending Provider ADM Date DC Date Status Disposition Source [facility] Outpatient Encounter [id number] 05/24 [facility] Outpatient Encounter [id number] 08/14 [facility] Outpatient Encounter [id number] 09/27 [facility] Outpatient Encounter [id number] 10/05 [facility] CB OFFICE O/P EST HI 40 MIN [id number] Diagnos is: ICD-10- CM Z00.01 Encount er for general adult medical exam w KAYKAY Ramirez 10/05 [facility] En[facility] [id number] 10/08 [facility] Outpatient Encounter [id number] 10/09 [facility] Outpatient Encounter [id number] 10/10 [facility] Outpatient Encounter [id number] Diagnos is: ICD-10- CM J44.9 Chronic obstruc tive pulmona ry disease , unspeci fied VERAS,T ODD 10/29 [facility] Outpatient Encounter [id number] 11/29 [facility] Outpatient Encounter [id number] 11/29 [facility] Outpatient Encounter [id number] 11/29 [facility] PH1 ASSMT&MGMT NQHP 5-10 [id number] Diagnos is: ICD-10- CM J44.9 Chronic obstruc tive pulmona ry disease , unspeci fied HARSHAL PATEL C 12/06 [facility] En[facility] [id number] 03/07 [facility] Out[facility] Encounter [id number] TAWNYA CRAMER 03/14 [facility] Outpatient Encounter [id number] 03/15 [facility] CB OFFICE O/P EST MOD 30 MIN [id number] Diagnos is: ICD-10- CM R73.03 Prediab elmer VERAS,Rhoda ODD 03/15 [facility] Outpatient Encounter [id number] 03/19 [facility] Out[facility] Encounter [id number] 03/19 [facility] Outpatient Encounter [id number] RUCHI TIWARI 03/19 [facility] Social History Combined list of available smoking, tobacco, and other social history from Department of Defense and [facility] facilities. Social History Type Response Date Comment Sourc e Tobacco smoking status NHIS [facility]-TOBACCO USE FORMER CIGARETTES 10/05/2024 [facility] History of tobacco use VA-TOBACCO NEVER USED OTHER TYPE 10/05/2024 [facility]
--- OUTSIDE RECORDS SUMMARY | 2025-03-27 12:41 | XMS_ITS | Encounter Summary ---
Author Name [facility] Organization [facility] Address [address] [place] [address] Care Team Providers Care Insurance Actuary Name Role Phone CYRIL VERAS Primary Care [...] PART A Jun 14, 2017 PART A [id number] [phone] GALEN RIGGS PATIENT MEDICARE (WNR) MEDICARE (M) PART B Jun 14, 2017 PART B [id number] [phone] GALEN RIGGS PATIENT Selected Encounter This section includes the information on record at [place] for the Encounter. Date/Time Encounter Type Encounter Description Reason Provider Source Oct 05, 2024 12:30 PM OFFICE O/P EST HI 40 MIN PRIMARY CARE/MEDICINE ICD-10-CM Z00.01 Encounter for general adult medical exam w abnormal findings ELPIDIO ARANDA [facility] Encounter Template Text not used by [facility] Assessments - Encounter Diagnoses This section includes the primary and secondary diagnoses documented for the Encounter. Date/Time Primary/Secondary Diagnosis Diagnosis Name Provider Source Oct 05, 2024 12:29 PM PRIMARY Encounter for general adult medical exam w abnormal findings ELPIDIO ARANDA [facility] Oct 05, 2024 12:29 PM SECONDARY Athscl heart disease of [place] coronary artery w/o ang pctrs ELPIDIO ARANDA [facility] Oct 05, 2024 12:29 PM SECONDARY Chronic obstructive pulmonary disease, unspecified ELPIDIO ARANDA [facility] Oct 05, 2024 12:29 PM SECONDARY Contact with and exposure to other hazardous substances ELPIDIO ARANDA [facility] Oct 05, 2024 12:29 PM SECONDARY Essential (primary) hypertension ELPIDIO ARANDA [facility] Oct 05, 2024 12:29 PM SECONDARY Hyperlipidemia, unspecified ELPIDIO ARANDA [facility] Oct 05, 2024 12:29 PM SECONDARY Malignant neoplasm of unsp part of unsp bronchus or lung ELPIDIO ARANDA [facility] Oct 05, 2024 12:29 PM SECONDARY Personal history of other diseases of the circulatory system ELPIDIO ARANDA [facility] Oct 05, 2024 12:29 PM SECONDARY Prediabetes ELPIDIO ARANDA [facility] Plan of Treatment: Future Appointments (+ 6 months) and Future Tests (+/- 45 days) The Plan of Treatment section includes future care activities for the patient from all [place] treatmentfacilities. This section includes future appointments and future orders which are active, pending or scheduled. Future Appointments This section includes appointments that were scheduled to occur 6 months from the date of the Encounter, up to a maximum of 20 appointments. The data comes from all [place] treatment facilities. Appointment Date/Time Appointment Type Appointme nt Facility Name Oct 29, 2024 02:00 PM AMBULATORY - MEDICINE [facility] March 15, 2025 02:00 PM AMBULATORY MEDICINE [facility] Lab Results: +/- 30 days of the encounter This section includes the Chemistry and Hematology Lab Results on record with [place] for the patient. Radiology Reports and Pathology Reports are provided separately, in subsequent sections. Lab Results This section contains the Chemistry/Hematology Results that were resulted 30 days before or 30 daysafter the date of the Encounter. Date/Time Source Result Type Result - Unit Interpretation Reference Range Specimen Type Comment Oct 10, 2024 09:00 AM [facility] COMPREHENSIVE METABOLIC PANEL PLASMA Specimen Type: PLASMA Comment: No hemolysis noted. Ordering Provider: ELPIDIO ARANDA Report Released Date/Time: Oct 05, 2024 12:27 PM Reporting Lab: [facility] [address] [place] [phone] Performing Lab: [address] [address] CREATININE 0.99 mg/dL 0.7-1.3 UREA NITROGEN 14.8 mg/dL 9.0-25.0 GLUCOSE 127 mg/dL H 72-99 SODIUM 141 meq/L 136-145 POTASSIUM 4.4 meq/L 3.5-5 CHLORIDE 103 meq/L 98-107 CARBON DIOXIDE 29 meq/L 22-31 CALCIUM 10.0 mg/dL 8.4-10.4 PROTEIN 7.7 g/dL 6-8.6 ALBUMIN 4.0 g/dL 3.4-5 TOTAL BILIRUBIN 0.3 mg/dL 0.2-1.2 ALKALINE PHOSPHATASE 119 U/L 40-150 AST/SGOT 39 U/L H 5-34 ALT/SGPT 29 U/L 8-40 EGFR (CKD-EPI 2020) 80.9 >60 Oct 10, 2024 09:00 AM [facility] CBC BLOOD Specimen Type: BLOOD No comment entered. Ordering Provider: ELPIDIO ARANDA Report Released Date/Time: Oct 05, 2024 12:27 PM Reporting Lab: [facility] [address] [place] [phone] Performing Lab: [address] [address] WBC 9.0 10*3/uL 3.6-11.2 RBC 4.80 10*6/uL 4.10-5.70 HGB 14.9 g/dL 13.1-16.8 HCT 44.9 38.2-48.4 MCV 93.5 fL 80.0-100.0 MCH 31.0 pg 27.0-34.0 MCHC 33.2 g/dL 33.0-36.0 PLT 395 10*3/uL 150-400 MPV 9.4 fL 7.5-11.2 RDW 13.5 11.8-15.1 NEUTROPHILS 73.9 MONOCYTES 9.5 EOSINOPHILS 3.5 BASOPHILS 0.9 PAPPENHEIMER BODIES 0 LYMPHOCYTES 12.2 STOMATOCYTES 1+ PLT EST-CV ADEQUATE ADEQUATE BASO#-MDIFF 0.08 10*3/uL 0.01-0.20 EO#-MDIFF 0.32 10*3/uL 0.00-0.60 MONO#-MDIFF 0.86 10*3/uL H 0.19-0.80 LYMPH#-MDIFF 1.10 10*3/uL 0.77-4.50 NEUT#-MDIFF 6.65 10*3/uL 2.10-8.00 Oct 10, 2024 09:00 AM [facility] LIPID PANEL (STL) PLASMA Specimen Ty pe: PLASMA Comment: No hemolysis noted. Ordering Provider: ELPIDIO ARANDA Report Released Date/Time: Oct 05, 2024 12:27 PM Reporting Lab: [address] [address] Performing Lab: [address] [address] CHOLESTEROL 141 mg/dL 0-200 TRIGLYCERIDE 103 mg/dL 0-150 CALCULATED LDL 71 mg/dL HDL(New) 49 mg/dL >40 Oct 10, 2024 09:00 AM [facility] HGA1C BLOOD Specimen Type: BLOOD No comment entered. Ordering Provider: ELPIDIO ARANDA Report Released Date/Time: Oct 05, 2024 12:27 PM Reporting Lab: [facility] [address] [place] [phone] Performing Lab: [address] [address] HGA1C 6.5 H 4.0-6.0 Oct 10, 2024 09:00 AM [facility] B12 SERUM Specimen Type: SERUM No comment entered. Ordering Provider: ELPIDIO ARANDA Report Released Date/Time: Oct 05, 2024 12:27 PM Reporting Lab: [address] [address] Performing Lab: [facility] [address] [address] B12 883 pg/mL H 213-816 Oct 10, 2024 09:00 AM [facility] PROST. SPECIFIC AG.(PB-STL) SERUM Specimen Ty pe: SERUM Comment: The listed sex of this patient may not be a typical indication for this test. Therefore, reference ranges or interpretive criteria listed may not be valid. Clinical correlation suggested. Ordering Provider: ELPIDIO ARANDA Report Released Date/Time: Oct 05, 2024 12:27 PM Reporting Lab: [address] [phone] Performing Lab: [address] [address] PROST. SPECIFIC AG.(PB-STL) 1.669 ng/mL 0-4 Oct 10, 2024 09:00 AM [facility] TSH W/ REFLEX FT4 (STL) PLASMA Speci men Type: PLASMA No comment entered. Ordering Provider: ELPIDIO ARANDA Report Released Date/Time: Oct 05, 2024 12:27 PM Reporting Lab: [address] [address] Performing Lab: [address] [address] TSH 0.519 u[IU]/mL 0.47-5 Oct 10, 2024 09:00 AM [facility] VITAMIN D, 25-HYDROXY SERUM Specime n Type: SERUM No comment entered. Ordering Provider: ELPIDIO ARANDA Report Released Date/Time: Oct 05, 2024 12:27 PM Reporting Lab: [address] [address] Performing Lab: [address] [phone] VITAMIN D, 25-HYDROXY 33.7 ng/mL 30-96 Vital Signs: All taken on the encounter date This section contains inpatient and outpatient Vital Signs collected on the date of the Encounter. Date/Time Temperature Pulse Blood Pressure Respiratory Rate SP02 Pain Height Weight Body Mass Index Source Oct 05, 2024 12:36 PM 98 100 97/61 18 95 2 67 202 32 [facility] Social History: Smoking Status (Most current) and Tobacco Use (All prior to encounter date) This section includes the most current, and the historical, smoking and tobacco- related health factors from the [place] facility where the Encounter took place. Current Smoking Status This section includes the most current smoking, or tobacco-related health factor, from the [place] facility where the Encounter took place. Date/Time Current Smoking Status Comment Facil ity Oct 05, 2024 12:30 PM VA-TOBACCO USE FORMER CIGARETTES [facility] Tobacco Use History This section includes a history of the smoking, or tobacco-related health factors, that were collected on or before the date of the Encounter. The data comes from the [place] facility where the Encounter took place. Date/Time Smoking Status/Tobacco Use Comment F acility Oct 05, 2024 12:30 PM VA-TOBACCO USE FORMER CIGARETTES [facility] Encounter Notes: All associated encounter notes This section contains the clinical notes associated to the Encounter. Date/Time Encounter Note(s) Provider Source Oct 15, 2024 03:24 PM PHYSICIAN LETTERS: LOCAL TITLE: TEST RESULT GENERAL LETTER STL STANDARD TITLE: PHYSICIAN LETTERS DATE OF NOTE: OCT 15, 2024@15:24 ENTRY DATE: OCT 15, 2024@15:24:51 AUTHOR: ELPIDIO ARANDA EXP COSIGNER: URGENCY: STATUS: COMPLETED [facility] [address] [place] [address] OCT 15, 2024 GALEN RIGGS [address] [place] [id number] Dear Galen Riggs, I would like to update you on your recent test results. LIPID PROFILE - High cholesterol and triglycerides (lipids) are risk factors for heart disease. Your cholesterol should fall between 140 and 200, and your triglycerides levels should be less than or equal to 150. HDL is the good cholesterol and should ideally be greater than 40. LDL is the bad cholesterol and optimal levels should be less than 100 (near optimal is between 100 and 129). TRIGLYCERIDE 103 mg/dL 10/10/2024 09:00 CHOLESTEROL 141 mg/dL 10/10/2024 09:00 HDL(New) 49 mg/dL 10/10/2024 09:00 CALCULATED LDL 71 mg/dL 10/10/2024 09:00 No DIRECT LDL EO data found These readings are within normal limits. HEMOGLOBIN A1C - Gives us information about your diabetes (sugar or glucose) control over the past 3 months. Your target is to keep your A1C below 5 %. HGA1C 6.5 H % 10/10/2024 09:00 These results are abnormal and is considered diabetic (a1c a6.5% or higher). Due to your age, our goal a1c for you would be below 7%. With this, I would recommend trying a diabetic diet and exercising as tolerated to control your diabetes. You can call our compressor operator to schedule an appointment to review diabetic diet. CBC - A complete blood count (CBC) gives important information about the kinds and numbers of cells in the blood, especially red blood cells, white blood cells, and platelets. HGB 14.9 g/dL 10/10/2024 09:00 HEMATOCRIT 44.9 % (10/10/24 09:) PLT 395 10*3/uL 10/10/2024 09:00 WHITE BLOOD COUNT 9.0 10*3/uL (10/10/24 09:00) These readings are within normal limits. B12 - Helps maintain healthy nerve cells, red blood cells, and is also needed to make DNA. B12 883 H pg/mL 10/10/2024 09:00 These results are abnormal. If you are taking a B12 supplement, please change this to every other day. CHEM 7 - This is important information about the current status of your kidneys, liver, and electrolyte and acid/base balance as well as of your blood sugar and blood proteins. SODIUM 141 mEq/L 10/10/2024 09:00 POTASSIUM 4.4 mEq/L 10/10/2024 09:00 CHLORIDE 103 mEq/L 10/10/2024 09:00 UREA NITROGEN 14.8 mg/dL 10/10/2024 09:00 CREATININE 0.99 mg/dL 10/10/2024 09:00 CALCIUM 10.0 mg/dL 10/10/2024 09:00 CARBON DIOXIDE 29 mEq/L 10/10/2024 09:00 GLUCOSE 127 H mg/dL 10/10/2024 09:00 EGFR (CKD-EPI 2020) 80.9 10/10/2024 09:00 These readings are within normal limits. LIVER FUNCTION PANEL - These are tests for liver function: PROTEIN 7.7 g/dL 10/10/2024 09:00 ALBUMIN 4.0 g/dL 10/10/2024 09:00 TOTAL BILIRUBIN 0.3 mg/dL 10/10/2024 09:00 ALKALINE PHOSPHATASE 119 U/L 10/10/2024 09:00 AST/SGOT 39 H U/L 10/10/2024 09:00 ALT/SGPT 29 U/L 10/10/2024 09:00 These results are abnormal. Your AST is slightly elevated. These enzymes found in the liver that helps convert proteins into energy for the liver cells. There are several factors that can contribute to this elevation such as Tylenol use, alcohol intake, and some medications that are metabolized by your liver can increase this value. The recommendation is to avoid Tylenol and alcohol for now. We can recheck this at your next visit for ongoing monitoring. PSA - Prostate-specific antigen is a protein produced by cells of the prostate gland. The PSA test measures the level of PSA in the blood. PSA PROST. SPECIFIC AG.(PB-STL) 1.669 ng/mL 10/10/2024 09:00 These readings are within normal limits. TSH - Thyroid-stimulating hormone (also known as TSH or thyrotropin) is a peptide hormone synthesized and secreted by thyrotrope cells in the anterior pituitary gland, which regulates the endocrine function of the thyroid gland. TSH TSH 0.519 uIU/mL 10/10/2024 09:00 These readings are within normal limits. VITAMIN D - Helps promote the proper utilization of calcium and phosphorus, thereby producing proper bone maintenance. VITAMIN D, 25-HYDROXY 33.7 ng/mL 10/10/2024 09:00 These readings are within normal limits. PLAN Please continue your treatment as we discussed during your visit. If you have any questions please call your medical case worker. I look forward to seeing you at your next clinic appointment. Thank you for choosing the [facility] for your healthcare. FUTURE APPOINTMENTS: 10/29/2024 14:00 MABEL-NOCO PACT PHONE 5 PCP 04/05/2025 14:00 MABEL-NOCO PACT 5 Sincerely, Elpidio Aranda MSN, DEVELOPMENT AND HOUSING DIRECTOR-BC NURSE PRACTITONER GALEN RIGGS [facility] Oct 05, 2024 12:40 PM NURSING NOTE: LOCAL TITLE: V15 PACT FACE TO FACE NOTE STL STANDARD TITLE: NURSING NOTE DATE OF NOTE: OCT 05, 2024@12:40 ENTRY DATE: OCT 05, 2024@12:40:49 AUTHOR: CHRIS CRAMER EXP COSIGNER: URGENCY: STATUS: COMPLETED Provider Visit: Patient Identifiers : Full Name Date of Reason for visit: New Patient Do you have a history of any of the following? (check all that apply): Heart disease, CHF, Respiratory condition(s), Hypertension, Cancer, Other:COPD, Lung Cancer Surgeries (type(s) and date(s)): May Half Left Lung remove Have you been seen by a physician, [facility] or private, in the last year? Yes Name and contact information for provider: Adriano Izaguirre [facility] [phone] Have you been hospitalized or seen in an ER in the last year? No Have you had a colonoscopy previously? Yes What location and approximate date(s)? [facility] about 5 years ago Records request sent: Yes Mode of Arrival: Ambulatory Allergy Review: TREE POLLEN, ANIMAL DANDER Allergy list reviewed and remains current. Recent Vital Signs: Temperature: 98 F [36.7 C] (10/05/2024 12:36) Pulse: 100 (10/05/2024 12:36) Respiration: 18 (10/05/2024 12:36) B/P: 97/61 (10/05/2024 12:36) Pain: 2 (10/05/2024 12:36) Wt: 202 lb [91.63 kg] (10/05/2024 12:36) Ht: 67 in [170.2 cm] (10/05/2024 12:36) BMI: 31.7 POX: 95% (10/05/2024 12:36) Would you like to discuss any personal problem, family problem, alcohol use, drug use, or a mental or emotional illness? No Contact provided Primary Care phone number and encouraged to call if any questions or concerns. Review that after hours nurse line [phone] and emergency room are available 06/06 for patient use. Contact verbalized good understanding. Suicide Screen - V: C-SSRS Screening [place] Suicide Severity Rating Scale (C-SSRS) screener 1. Over the past month, have you wished you were or wished you could go to sleep and not wake up? No 2. Over the past month, have you had any actual thoughts of killing yourself? No 3. Over the past month, have you been thinking about how you might do this? Response not required due to responses to other questions. 4. Over the past month, have you had these thoughts and had some intention of acting on them? Response not required due to responses to other questions. 5. Over the past month, have you started to work out or worked out the details of how to kill yourself? Response not required due to responses to other questions. 6. If yes, at any time in the past month did you intend to carry out this plan? Response not required due to responses to other questions. 7. In your lifetime, have you ever done anything, started to do anything, or prepared to do anything to end your life (for example, collected pills, obtained a gun, gave away valuables, went to the roof but didn't jump)? No 8. If YES, was this within the past 3 months? Response not required due to responses to other questions. 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 Printed information was offered and provided if desired. [place] contaminated water exposure: [place]/caregiver was made aware of educational resources that includes information on presumptive conditions and how to file a claim. Printed information was offered and provided if desired. No questions at this time /caregiver was informed of local points of contact. Contact information for local resources: [facility] Registry Exam Program: [phone] Eligibility: [phone] [id number] Toxic Exposure Screening Follow-Up reminder is needed. Name of person notified: Elpidio Aranda NP Depression Screening - V: Perform PHQ-2 A PHQ-2 screen was performed. The score was 0 which is a negative screen for depression. Over the past two weeks, how often have you been bothered by the following problems? 1. Little interest or pleasure in doing things Not at all 2. Feeling down, depressed, or hopeless Not at all Alcohol Use Screen (AUDIT-C) - V: Alcohol Screen: SCREEN FOR ALCOHOL (AUDIT-C) An alcohol screening test (AUDIT-C) was negative (score=2). 1. How often did you have a drink containing alcohol in the past year? Consider a drink to be a 12 ounce can or bottle of regular beer, 8 ounces of malt liquor, a 5 ounce glass of table wine, or a 1.5 ounce shot of liquor (like scotch, gin, or vodka). Monthly or less 2. How many drinks containing alcohol did you have on a typical day when you were drinking in the past year? Three or four drinks 3. How often did you have six or more drinks on one occasion in the past year? Never Homelessness/Food Insecurity Screen - DI,L,N,P,PH,PS,S,U: In the past 2 months, have you been living in stable housing that you own, rent, or stay in as part of a household? Yes - Living in stable housing. Are you worried or concerned that in the next 2 months you may NOT have stable housing that you own, rent, or stay in as part of a household? No - Not worried about housing near future The reports the following: Within the past 12 months, you worried whether your food would run out before you got money to buy more. Never true Within the past 12 months, the food you bought just didn't last and you didn't have money to get more. Never true Influenza Immunization - L,N,P,PH,U: The patient has received the seasonal influenza vaccine for the current season at another location. Documented: INFLUENZA, UNSPECIFIED FORMULATION Historical Date Administered: Aug 2024 Exact date unknown Outside Location: Private docotor Information Source: FROM OTHER PROVIDER PTSD Screening - V: PC-PTSD-5 A PTSD screening test (PC-PTSD-5) was negative (score=0). IN THE PAST MONTH, have you ever had any experience that was so frightening, horrible or traumatic. For example: A serious accident or fire a physical or sexual assault or abuse An earthquake or flood A war Seeing someone be killed or seriously injured Having a loved one through homicide or suicide 1. Have you ever experienced this kind of event? NO 2. Had nightmares about the event(s) or thought about the event(s) when you did not want to? Response not required due to responses to other questions. 3. Tried hard not to think about the event(s) or went out of your way to avoid situations that reminded you of the event(s)? Response not required due to responses to other questions. 4. Been constantly on guard, watchful, or easily startled? Response not required due to responses to other questions. 5. [place] numb or detached from people, activities, or your surroundings? Response not required due to responses to other questions. 6. [place] guilty or unable to stop blaming yourself or others for the event(s) or any problems the event(s) may have caused? Response not required due to responses to other questions. Tobacco Use Screening - U,L,N,S,PS,M,DE,PH,P: The patient is a former cigarette smoker. The patient has never used other types of tobacco. Learning Assessment: - * This patient's learning ABILITIES, BARRIERS to learning, CULTURAL and ADVENT beliefs, and learning PREFERENCES were assessed. Following are findings of note: Patient reads well. 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 Patient has the following speech barrier to consider when teaching: No speech barrier identified. LANGUAGE Patient reports that Serbian is preferred language for healthcare. Patient has the following language barrier to consider when teaching: No language barrier has been identified. Patient has the following vision barrier(s) to consider when teaching: Requires glasses/contacts for reading Other and seeing [facility] MAP: PERSONAL HEALTH PLAN INVENTORY & MAP 's Response: [facility] /alberto/ CHRIS FARIAN LICENSED PRACTICAL NURSE Signed: 10/05/2024 12:50 CHRIS CRAMER [facility] Oct 05, 2024 12:26 PM PRIMARY CARE INITI AL EVALUATION NOTE: LOCAL TITLE: PRIMARY CARE PROVIDER NEW VISIT [facility] STANDARD TITLE: PRIMARY CARE INITIAL EVALUATION NOTE DATE OF NOTE: OCT 05, 2024@12:26 ENTRY DATE: OCT 05, 2024@12:26:18 AUTHOR: ELPIDIO ARANDA EXP COSIGNER: URGENCY: STATUS: COMPLETED PRIMARY CARE PROVIDER NEW VISIT ST Has ADDENDA REASON FOR VISIT: Pt is here to establish care. CHIEF COMPLAINT: New patient == SUBJECTIVE HISTORY == HPI: Mr. Riggs is a 74 y.o. WHITE MALE presents today to establish care and for evaluation and management of chronic medical conditions. Patient reports a medical history of Pulm SCC s/p NAYELI lobectomy in 05/2023, HTN. HLD, PAD, OA of knee, prediabetes, COPD, and CAD s/p PCI placement in 2019. Pt is seen today in absence of assigned primary care provider. -wants to est with [place] for [facility]s through [facility] to [facility]. -currently on trelegy 1 inh daily for COPD, albuterol 90 mcg QID PRN, has 7 days supply left. pt doesn't believe he has tried other inhalers in past but will try to have pulm office send office visit notes for review. -reports he was put on metformin 500mg daily for prediabetes , have not dx with DM per pt. #COPD/ SCC of lung -has chronic dyspnea, worse with exertion, cough at night. 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 currntly breathing is at baseline per pt. Non-VA Providers: PCP: Dr Pawan Mendes [facility] Apns: Dr Rajesh Max; oncology- [facility]- Ian Armstrong MD Pulm: Dr Painter Allergy: Dr Schwarz WHAT IS YOUR GOAL FOR TODAY? establish care SOURCE(S) OF HISTORY: Patient [facility] records reviewed and summarized Outside records reviewed and summarized -- PAST MEDICAL HISTORY: SCC of lung Vit D def OA of knee PAD CAD s/p PCI placement in 2019 COPD DM -- CHILDHOOD ILNESSES CHICKEN POX: unknown -- SURGICAL HISTORY: triple bypass surgery in 2002 [facility]. NAYELI lopbectomy 2022 INJURIES: none SOCIAL HISTORY: TOBACCO: former. 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 Active and Recently Outpatient Medications (including Supplies): Start Date Active Non-VA Medications Refills Expiration 1) Non-VA ASPIRIN 81MG EC TAB SiMG BY ACTIVE MOUTH ONCE A DAY 2) Non-VA ATORVASTATIN CALCIUM 80MG TAB ACTIVE SiMG BY MOUTH EVERY EVENING 3) Non-VA CLOPIDOGREL BISULFATE 75MG TAB ACTIVE SiMG BY MOUTH ONCE A DAY 4) Non-VA ERGOCALCIF 1,250MCG ACTIVE (D2-50,000UNIT) CAP SiMCG BY MOUTH EVERY WEEK 5) Non-VA EZETIMIBE 10MG TAB SiMG BY ACTIVE MOUTH ONCE A DAY 6) Non-VA HYDROCHLOROTHIAZIDE 25MG TAB ACTIVE Si.5MG BY MOUTH ONCE A DAY Metformin 500mg daily trelegy 1 inh daily The essential med list for review which includes the patient's active VA prescriptions and if applicable, remote VA prescriptions, non-VA prescriptions, and discontinued VA prescriptions within the last 90 days and known allergies including local and remote allergies have been reviewed. -------- REVIEW OF SYSTEM: GENERAL: Denies fever, chills, abnormal weight loss HEENT: Denies new or acute changes in vision, eye/ear pain or discharges, ST CARDIO: Denies chest pain, palpitations, dizziness RESP: + dyspnea, worse with exertion. + cough when lay flat, not during day. Denies hemoptysis GI: Denies n/v/d, constipation, abd pain, melena or hematochezia MSK: Denies new or acute pain, recent injury, changes in mobility, or falls /FELTMAKER AND WEIGHER: Denies dysuria, frequency, urgency, nocturia, hematuria, or incontinence HEME/LYMPH: Denies abnormal bruising, swollen nodes, excessive bleeding ENDO: Denies polyuria, polydipsia, polyphagia PSYCH: Denies depression, anxiety, PTSD, SI/HI NEURO: Denies KIM, tremors, seizures, changes in coordination/gait SKIN: Denies new skin lesions or rashes ======== OBJECTIVE DATA ======== PHYSICAL EXAMINATION: Vital Signs: Temperature: 98 F [36.7 C] (10/05/2024 12:36) Blood Pressure: 97/61 (10/05/2024 12:36) Pulse: 100 (10/05/2024 12:36) Respirations: 18 (10/05/2024 12:36) Pain: 2 (10/05/2024 12:36) O2 saturation: 95% (10/05/2024 12:36) Weight: 202 lb [91.63 kg] (10/05/2024 12:36) Height: 67 in [170.2 cm] (10/05/2024 12:36) BMI: 31.7 GEN: No acute distress noted. Appears appropriately dressed and nourished. HEENT: PERRLA, EOMI, conjunctiva pink, sclera clear. Nasal mucosa pink, airway patent. Oropharynx w/o exudates. TM clear, non-bulging. CARDIO: RRR, S1S2 noted. No murmurs, rubs, or bruits. No LE edema. RESP: + wheezing at posterior bases. Respirations equal and unlabored. Lungs CTAB, thorax nontender. GI: Abdomen soft, round, non-tender, non-distended. BS audible. No masses or guarding noted. MSK: Grasp strength equal bilaterally. Adequate and symmetric ROM, no joint edema. 2+ DP PT pulses bilaterally. /FELTMAKER AND WEIGHER: No CVA or suprapubic tenderness HEMO/LYMPH: No cervical or supraclavicular adenopathy or excessive bruising. ENDO: No thyromegaly noted, no excess hair growth PSYCH: Mood and affect appropriate. Calm and pleasant. NEURO: Alert and oriented, speech fluent. No focal deficits noted. Gait steady. SKIN: Clean, warm, dry and intact. -------- DATA REVIEW: No COMPREHENSIVE METABOLIC PANEL EO data found No CBC EO data found No LIPID PANEL EO data found No TSH (2YR) EO data found HGB A1C No data available No PSA EO data found No VITAMIN D 25 HYDROXY EO data found No B12 EO data found ======== ASSESSMENT AND PLAN ======== #Annual visit/New Patient: Well-visit; preventative healthcare visit -Routine healthcare, preventative screenings, and immunizations reviewed -Annual labs ordered #CAD; PAD; #HLD; chronic, stable; euvolemic on exam. Denies angina, dyspnea, edema, LH/dizziness -s/p pci with pete LM into lad, diagonal ptca of ramus and lcx ostia in 2020 through [facility] -cont current therapy: -anticoagulation: ASA 81mg daily and Plavix 75mg daily -statin: Atovastatin 40mg daily -BB: pt has COPD -all med [facility] -Encouraged LSMs with Mediterranean diet, increase physical exercise, limit etoh, optimize weight, stop smoking if applicable -Followed by [facility] sample finisher. 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 Completed July 21, 2023. -There is no evidence of relapse -now under surveillance serial chest CT Q3-4 months in [facility] sector -managed by [facility] oncology- [facility], [facility] 07/26/24 #HTN: controlled; asympatomatic; BP goal <130/80. -cont. meds: -HCTZ 25mg daily -encouraged pt to monitor home BP 1-2hrs after taking meds & log results -notify PCP clinic if BP consistently above goal -pt edu on low Na diet <2g/day, regular exercise, & optimize wt -renal labs reviewed -provided MALIA PARKER, compressor operator # for self schedule if pt interested #Vit D deficiency; controlled -labs ordered -Reviewed foods high in vitamin D including: Milk, orange juice, yogurt, salmon, canned tuna #preDM -reports on metformin 500mg daily for predm, have not been dx with DM per pt -will check labs #COPD; chronic, stable -denies recent exacerbations/ER visits -was on trelegy (only has 7 days left from sample supply, too expenside to continue). [facility], willing to try formulary meds -cont current therapy: -albuterol 90 mcg inh QID prn -START fluticasone 100/salmeterol 50 inh BID, -counselled on proper use of inhaler and post inh oral care -encouraged staying up-to-date w/ immunizations & exercise as tolerated -counselled on LSM as applicable including smoking cessation, wearing mask with working with irritants, avoid temperature extremes or use nose/mouth covers, increase humidification at home in winter, purse lip breathing exercises, adequate fluid intake -phone f/u in 1 month #PreDM: stable -reports on metformin 500mg for predm, has not been dx with diabetes per pt -will check a1c -counselled on lifestyle mods with low concentrated sweets/carb diet and exercise recommendations of 150min brisk-mod intensity exercise per week -provided MOVE, compressor operator, [facility] number to call if pt interested -------- # Health Maintenance: -Reviewed recommended screening and Benefits. -Reviewed recommended immunizations. -Counselling provided on: -Avoidance of tobacco. -Being physically active. -Maintaining a healthy weight. -Eating a diet rich in fruits, vegetables, and whole grains and low in saturated/trans fat. -Limiting alcohol consumption. -Avoiding excess sun exposure. -Reviewed Crisis hotline and encourage to us if needed. -Aware of the 06/06 Veterans Crisis Line: , press 1 for Veterans. CRC screening: DUe again in 2018, due 2028 LDCT screeening: via [employer] AAA screening: declined PSA screening: ordered Immunizations: COVID: pt declined. Flu: had recieved this season in Aug Tdap: defer Shingrix: defer PPSV (pneumovax)23: defer PCV (Prevnar): 11/27/2018 per [facility] note Pt will send copy of vaccine records. Labs ordered: full labs Tests ordered: none Consults ordered: none -------- RETURN TO CLINIC: 6 months 10/05/2024 12:30 AUGUSTIN SELF 5 REBECA VITALIY SUMMARY STATEMENT: Plan of care has been discussed with including expected therapeutic benefits and potential side effects of prescribed medication and treatments. [place] verbalizes understanding and is in agreement with the plan of care. Patient was instructed to keep all scheduled appointments and contact bargain table clerk for any additional problems. -------- Clinical Reminders: MST Screening - V: Patient denies experiencing sexual trauma (MST). Sexual Orientation - CP,L,N,P,PH,PS,S,U: The patient thinks of their sexual orientation as: Straight or Heterosexual Toxic Exposure Screening Follow-Up - NS,P: Exposure Concern(s): 10/05/2024 Agent [place] - Toxic Exposure Concern [place] Related Exposures - Toxic Exposure Concern Follow-up Question(s): 10/05/2024 No Questions - Toxic Exposure Concern [place] declines further assistance at this time. Avg Risk Colorectal Cancer Screen - L,N,P,PH: AVERAGE RISK colorectal cancer screening is due based on information available to this clinical reminder CRC screen completed elsewhere and waiting for results. Results expected: Assess Statin Use - Lipids (CVD/DM) - N,P,PH: The patient is already on a statin. The patients prescription for a statin was reviewed and updated. Eye Care At-Risk Screen - L,N,PH,U: Patient identified to be at risk for the following eye condition(s): DIABETIC RETINOPATHY: Diabetes Diagnosis Information: Problem Diagnosis: 10/05/2024 [id number] (SNOMED CT) Type 2 diabetes mellitus Date Entered: 10/05/2024; Date Last Modified: 10/05/2024 Status: ACTIVE; Priority: UNDEFINED Prov. Narr. - Diabetes Mellitus Type 2 ([facility] [id number]) MACULAR DEGENERATION: Macular Degeneration Risk Factors Information: Reminder Term: VA-AMD RISK FACTORS Encounter Diagnosis: 10/05/2024@12:30 I25.10 (ICD-10-CM) Atherosclerotic Heart Disease of [place] Coronary Artery without Angina Pectoris rank: SECONDARY Prov. Narr. - CAD - Coronary Artery Disease ([facility] [id number]) Action: No Referral Ordered: The patient declined/refused referral for Tele-Eye screening and Eye Clinic appointment. Comment: done in march by [employer]vt sector per pt Hepatitis C Testing - L,N,P,PH: Patient declines HCV lab test. HIV Screening (Routine): Patient has been offered HIV testing and has declined. I have explained that HIV testing is recommended for all adults, even if all risk factors are absent. Ischemic HD/Post NH Follow Up: Beta blockers are contraindicated for the following reason(s): asthma or COPD Lipid profile ordered for patient. RHS Screen - VS: RHS Screen Environmental Check Screening was not completed at this time due to: Another adult present /alberto/ Elpidio Aranad MSN, [facility]- NURSE PRACTITONER Signed: 10/05/2024 13:43 10/15/2024 ADDENDUM STATUS: COMPLETED called pt to review test results, name and verified. #Dm -a1c 6.5% -will defer med as goal a1c <7% due to age. -advised on LSMs, pt will call compressor operator. number provided -increase exercises as tolerated -will recheck at next visit, if not improve, may consider starting metformin #elevated B12 -pt taking b12 supplement -adivsed to take every other day #Elevated liver enzymes; -pt reports/denies etoh or OTC tylenol use, abd pain, jaundice -additional labs and liver US ordered, GI consult pending results -encouraged avoid liver toxic substances such as etoh/tylenol -recheck at next visit /vivi Aranda MSN, DEVELOPMENT AND HOUSING DIRECTOR- NURSE PRACTITONER Signed: 10/15/2024 15:40 ELPIDIO ARANDA [facility]
[2025-03-27 13:07] LABS: Estimated Glomerular Filt Rate 50
== END 2025-03-27 12:37 | disposition home or self-care (01) ==
PROVIDERS: PCP Internal Medicine; Visit Provider Internal Medicine Hematology & Oncology
DX: C34.92 Malignant neoplasm of unspecified part of left bronchus or lung (principal); J90 Pleural effusion, not elsewhere classified
CPT/HCPCS: 71260; Q9967

== ENCOUNTER 2025-04-17 14:10 | Outpatient (CLI) | payer MEDICARE, SELFPAY ==
--- OUTSIDE RECORDS SUMMARY | 2025-04-17 14:23 | XMS_ITS | CONTINUITY OF CARE DOCUMENT ---
Author Name stella douglas Address Unknown Organization [facility] Address [address] [place] [address] Phone [phone] Care Team Providers Care Medical Assistant Name Role Phone Mansoor YORK, Rajesh Unavailable [phone] BOLA YORK, JOANNE Unavailable JOANNE PLAZA MD Unavailable PROBLEMS Condition Status Date Provider Notes CARDIOMYOPATHY active Flor Jordan CAD active Flor Jordan TOBACCO ABUSE- quit active Rajesh Max MD MITRAL REGURGITATION SEVERE- RESOLVED POST CABG completed - Rajesh Max MD Hypercholesterolemia active Rajesh Max MD Family History of Sudden Car diac : completed - Madina Kennedy RN Vitamin D Deficiency active Madina sanchez RN Neck pain completed - Madina Kennedy RN Hypertension active Rajesh Max MD Peripheral artery disease active Madina snow RN Numbness, hand active Rajeshdonte Max MD Leg pain active Rajeshdonte Max MD Spinal stenosis active Rajeshdotne Max MD LUNG CANCER active Rajeshdonte Max MD Sinus tachycardia active Rajeshdonte Max MD Shortness of breath active Rajeshdonte Max MD ENCOUNTERS Date Type Provider Location Encounter Diag nosis - In-person encounter Office Visit [facility] Sinus tachycardiaShortness of breath - In-person encounter Office Visit [facility] - In-person encounter Office Visit [facility] - In-person encounter Office Visit [facility] - In-person encounter Office Visit Rajesh Max MD [facility] LUNG CANCER - In-person encounter Office Visit [facility] - In-person encounter Office Visit [facility] - In-person encounter Office Visit [facility] - In-person encounter Office Visit [facility]esh [facility] Leg painSpinal stenosis - In-person encounter Office Visit [facility] - In-person encounter Office Visit [facility] - In-person encounter Office Visit [facility] - In-person encounter Office Visit Rajesh Max MD [facility] TOBACCO ABUSE- quitNumbness, hand - In-person encounter Office Visit [facility] - In-person encounter Office Visit Rajesh Garcia Neck painPeripheral artery disease - In-person encounter Office Visit Rajesh Rojas Office MITRAL REGURGITATION SEVERE- RESOLVED POST CABGHypercholesterolemiaHypertension - In-person encounter Office Visit Rajesh [facility] - In-person encounter Office Visit Rajesh [facility] Family History of Sudden Cardiac :Vitamin D Deficiency - In-person encounter Office Visit [facility]esh [facility] - In-person encounter Office Visit [facility]esh [facility] - In-person encounter Office Visit Rajesh [facility] VITAL SIGNS Date Observation Value Provider Body Mass Index (Ratio) 31.79 kg/m2 donte Max MD blood pressure, cuff size regular Ke rri Sarah blood pressure, diastolic 72 mm[Hg] Ke rri Sarah blood pressure, systolic 106 mm[Hg] Corazon ri Sarah oxygen saturation, oximetry 96 % Bela Sarah pulse rate 109 /min Bela Chanelle lder weight E&M 203 [lb_av] Bela Chanelle lder height E&M 67 [in_i] Bela Chanelle lder Body Mass Index (Ratio) 31.01 kg/m2 donte Max MD blood pressure, diastolic 77 mm[Hg] Anai nkLogic blood pressure, systolic 111 mm[Hg] Peace kLogic pulse rate 98 /min Terrie Viet respiratory rate E&M 16 /min Terrie Viet oxygen saturation, oximetry 95 % Terrie Viet blood pressure, diastolic 77 mm[Hg] Va lerie Viet blood pressure, systolic 111 mm[Hg] Cristiane brittney Viet blood pressure, cuff size regular Va lerie Viet weight E&M 198 [lb_av] Terrie Viet height E&M 67 [in_i] Terrie Camachon Body Mass Index (Ratio) 30.22 kg/m2 Sund donte Max MD blood pressure, diastolic 75 mm[Hg] Parul jeffrey Bhatti blood pressure, systolic 111 mm[Hg] Manjit vazquez Bazine oxygen saturation, oximetry 94 % Tiffany Davy pulse rate 84 /min Tiffany Tu otto blood pressure, cuff size large Parul jeffrey Bazine weight E&M 193 [lb_av] Tiffany Tu otto respiratory rate E&M 14 /min Ev coronado Bhatti height E&M 67 [in_i] Tiffany otto Body Mass Index (Ratio) 29.75 kg/m2 donte Max MD blood pressure, diastolic 76 mm[Hg] An jamila Armando blood pressure, systolic 125 mm[Hg] Any a Tr pulse rate 88 /min Gilma Tr oxygen saturation, oximetry 95 % Gilmaaaron Armando weight E&M 190 [lb_av] Gilma Tr blood pressure, cuff size large An jamila Armando height E&M 67 [in_i] Gilma Armando Body Mass Index (Ratio) 30.66 kg/m2 donte Max MD pulse rate 70 /min Didi Anthony oxygen saturation, oximetry 94 % Didi Anthony blood pressure, diastolic 82 mm[Hg] Em leeann Anthony blood pressure, systolic 130 mm[Hg] Anabell ly Anthony weight E&M 195.8 [lb_av] Didi Anthony height E&M 67 [in_i] Didi Anthony Body Mass Index (Ratio) 31.48 kg/m2 Sund donte Max MD blood pressure, diastolic 84 mm[Hg] An jamila Tr blood pressure, systolic 126 mm[Hg] Nicolasa carpenter Tr pulse rate 83 /min Gilma Tr oxygen saturation, oximetry 98 % Gilma Tr respiratory rate E&M 19 /min Gilma gunderson weight E&M 201 [lb_av] Gilma Tr blood pressure, cuff size large Lorena marino Tr height E&M 67 [in_i] Gilma Tr Body Mass Index (Ratio) 32.26 kg/m2 Sund raza Max MD blood pressure, diastolic 80 mm[Hg] Parul jeffrey Davy blood pressure, systolic 128 mm[Hg] Manjit mckoymary Bhatti oxygen saturation, oximetry 95 % Tiffany Bhatti pulse rate 93 /min Tiffany otto weight E&M 206 [lb_av] Tiffany otto respiratory rate E&M 16 /min Ev Bhatti blood pressure, cuff size large Parul wojciech Bhatti height E&M 67 [in_i] Tiffany otto Body Mass Index (Ratio) 32.57 kg/m2 raza Max MD blood pressure, diastolic 64 mm[Hg] Niurka couch O'Yung blood pressure, systolic 128 mm[Hg] Roselia you O'Yung oxygen saturation, oximetry 98 % Dilcia O'Yung respiratory rate E&M 18 /min Dilcia O'Yung pulse rate 82 /min Dilcia O'Yung blood pressure, resting Yes Perham madera O'Yung weight E&M 208 [lb_av] Dilcia O'Yung height E&M 67 [in_i] Dilcia O'Yung Body Mass Index (Ratio) 33.04 kg/m2 Sund [facility] Mansoor YORK blood pressure, diastolic 75 mm[Hg] Ch astity Marlee blood pressure, systolic 127 mm[Hg] Nemo stity Marlee respiratory rate E&M 16 /min Chastit y Marlee oxygen saturation, oximetry 97 % Chastity Marlee pulse rate 88 /min Chastity Marlee weight E&M 211 [lb_av] Chastity Marlee height E&M 67 [in_i] Chastity Marlee Body Mass Index (Ratio) 32.89 kg/m2 [facility] Mansoor YORK blood pressure, diastolic 90 mm[Hg] Ke rri Gruenenfelder blood pressure, systolic 138 mm[Hg] Corazon ri Denizuenenfelder blood pressure, cuff size large Ke rri Gruenenfelder oxygen saturation, oximetry 96 % Bela Jeanniealexnfelder respiratory rate E&M 16 /min Bela G ruenenfelder pulse rate 99 /min Bela Grmartynenfe lder weight E&M 210 [lb_av] Bela Gruenenfe lder height E&M 67 [in_i] Bela Grmartynenfe lder Body Mass Index (Ratio) 32.26 kg/m2 [facility] Mansoor YORK blood pressure, diastolic 80 mm[Hg] Li nkLogic blood pressure, systolic 149 mm[Hg] Peace kLogic blood pressure, diastolic 80 mm[Hg] Ch astity Marlee blood pressure, systolic 149 mm[Hg] Nemo stity Marlee oxygen saturation, oximetry 96 % Chastity Marlee pulse rate 80 /min Chastity Marlee weight E&M 206 [lb_av] Chastity Marlee respiratory rate E&M 16 /min Chastit y Marlee height E&M 67 [in_i] Nemoity Marlee Body Mass Index (Ratio) 30.85 kg/m2 Anayeli Kennedy RN temperature E&M 96.9 [degF] Rajesh Max MD blood pressure, diastolic 80 mm[Hg] Fe karina Espinosa blood pressure, systolic 140 mm[Hg] Fel icia Espinosa pulse rate 79 /min Sharri Espinosa oxygen saturation, oximetry 97 % Sharri Espinosa respiratory rate E&M 16 /min Sharri Espinosa weight E&M 197 [lb_av] Sharri Espinosa height E&M 67 [in_i] Sharri Espinosa Body Mass Index (Ratio) 29.29 kg/m2 Anayeli Kennedy RN blood pressure, cuff size regular Kr isrichard Yaby pulse rate 70 /min Linseymelinda Yaby respiratory rate E&M 17 /min Linsey Gigi oxygen saturation, oximetry 97 % Linsey [facility] blood pressure, diastolic 80 mm[Hg] Kr isty [facility] blood pressure, systolic 114 mm[Hg] Kri domitila Yaby weight E&M 187 [lb_av] Linsey Gigi height E&M 67 [in_i] Linsey Gigi Body Mass Index (Ratio) 29.13 kg/m2 Javier Max MD blood pressure, cuff size regular Rh onda Yee blood pressure, diastolic 70 mm[Hg] Rh onda Yee blood pressure, systolic 130 mm[Hg] Rho nda Yee oxygen saturation, oximetry 96 % Zulemachristine Fraire respiratory rate E&M 16 /min Zulema Yee pulse rate 62 /min Zulema Yee weight E&M 186 [lb_av] Zulema Yee height E&M 67 [in_i] Zulema Yee Body Mass Index (Ratio) 29.13 kg/m2 Anayeli Kenneyd RN blood pressure, cuff size large [place] Laurie blood pressure, diastolic 68 mm[Hg] [place] Jaycee Laurie blood pressure, systolic 104 mm[Hg] LaW geni Laurie oxygen saturation, oximetry 98 % Wandy Laurie respiratory rate E&M 20 /min Wandy Laurie pulse rate 64 /min Wandy Laurie weight E&M 186 [lb_av] Wandy Laurie height E&M 67 [in_i] Wandy Laurie Body Mass Index (Ratio) 30.54 kg/m2 Anayeli Kennedy RN pulse rate 75 /min Elaine Block blood pressure, diastolic 70 mm[Hg] Br ittany Block blood pressure, systolic 116 mm[Hg] Marisela ttany Block oxygen saturation, oximetry 98 % Elaine Block weight E&M 195 [lb_av] Elaine Block blood pressure, resting No Brit mic Block respiratory rate E&M 16 /min Brittan y Block height E&M 67 [in_i] Elaine Block Body Mass Index (Ratio) 31.32 kg/m2 Aleja ssa Robert blood pressure, diastolic, left arm 80 mm [Hg] Gertrude Robert blood pressure, systolic, left arm 142 mm [Hg] Gertrude Robert blood pressure, diastolic, right arm 80 m m[Hg] Gertrude Robert blood pressure, systolic, right arm 142 m m[Hg] Gertrude Robert blood pressure, diastolic 80 mm[Hg] [place] Robert blood pressure, systolic 142 mm[Hg] Shaneka bita Robert respiratory rate E&M 17 /min Gertrude Jones pulse rate 72 /min Gertrude Jones oxygen saturation, oximetry 97 % Gertrude Jones weight E&M 200 [lb_av] Gertrude Jones Body Mass Index (Ratio) 31.32 kg/m2 Luma Morel blood pressure, diastolic 70 mm[Hg] Fred Morel blood pressure, systolic 120 mm[Hg] Devon Morel pulse rate 69 /min Katharine Morel oxygen saturation, oximetry 97 % Katharine Morel respiratory rate E&M 17 /min Katharine Morel weight E&M 200 [lb_av] Katharine Morel Body Mass Index (Ratio) 30.54 kg/m2 Diane blessing Nazario blood pressure, diastolic, left arm 77 mm [Hg] Ria Nazario blood pressure, systolic, left arm 126 mm [Hg] Ria Nazario blood pressure, diastolic, right arm 81 m m[Hg] Ria Nazario blood pressure, systolic, right arm 129 m m[Hg] Ria Nazario blood pressure, diastolic 77 mm[Hg] Na trevor Nazario blood pressure, systolic 126 mm[Hg] Madison ab Aravind pulse rate 68 /min Ria Nazario oxygen saturation, oximetry 96 % Ria Aravind respiratory rate E&M 17 /min Ria Nazario weight E&M 195 [lb_av] Ria Nazario height E&M 67 [in_i] Ria Nazario blood pressure, diastolic, left arm 65 mm [Hg] Lizabeth Zaman blood pressure, systolic, left arm 110 mm [Hg] Lizabeth Zaman blood pressure, diastolic, right arm 66 m m[Hg] Lizabeth Zaman blood pressure, systolic, right arm 109 m m[Hg] Lizabeth Zaman blood pressure, diastolic 66 mm[Hg] Garcia Zaman blood pressure, systolic 109 mm[Hg] Mindy gonzalez Austyn pulse rate 62 /min Adijessy Austyn oxygen saturation, oximetry 95 % Adijessy Austyn respiratory rate E&M 16 /min Adijessy Austyn weight E&M 204 [lb_av] Lizabeth Zaman blood pressure, diastolic, left arm 71 mm [Hg] Donavon Manaco blood pressure, systolic, left arm 111 mm [Hg] [place] blood pressure, diastolic, right arm 64 m m[Hg] [facility], [facility], right arm 105 m m[Hg] [place] blood pressure, diastolic 64 mm[Hg] Lorena seph [place] blood pressure, systolic 105 mm[Hg] Aung eph [place] pulse rate 60 /min [facility], oximetry 97 % [facility] E&M 16 /min [place] weight E&M 197 [lb_av] [facility] ALL[facility]GIES No Known Drug Allergies RESULTS Date Observation Value Provider Reference Range Interpretation Location pro brain natriuretic peptide 206 pg/mL LinkLogic 0-376 free thyroxine index 1.7 LinkLogic 1.2-4.9 triiodothyronine resin uptake 29 % LinkLogic 24-39 thyroxine, serum, total 6.0 ug/dL LinkLogic 4.5-12.0 thyroid stimulating hormone, serum 0.363 u[IU]/mL LinkLogic 0.450-4.500 Low lipoprotein, beta, serum, point, quantitative, calculated 87 mg/dL LinkLogic 0-99 HDL cholesterol, serum 43 mg/dL LinkLogic >39 triglyceride, serum, random 176 mg/dL LinkLogic 0-149 High cholesterol, serum 160 mg/dL LinkLogic 191-616 2327/02 /08 alanine aminotransferase (SGPT), serum 35 1/L LinkLogic 0-44 aspartate aminotransferase (SGOT), serum 35 1/L LinkLogic 0-40 alkaline phosphatase, serum 127 1/L LinkLogic 44-121 High bilirubin, serum, total 0.3 mg/dL LinkLogic 0.0-1.2 globulin, serum 2.8 LinkLogic 1.5-4.5 albumin, serum 4.4 g/dL LinkLogic 3.8-4.8 protein, total, serum 7.2 g/dL LinkLogic 6.0-8.5 calcium, serum 9.9 mg/dL LinkLogic 8.6-10.2 carbon dioxide, venous blood 27 mmol/L LinkLogic 20-29 chloride, serum 101 mmol/L LinkLogic 96-106 potassium, serum 4.7 mmol/L LinkLogic 3.5-5.2 sodium, serum 142 mmol/L LinkLogic 615-877 5424/02 /08 urea nitrogen/creatinine ratio, serum 18 LinkLogic 10-24 creatinine, serum 1.14 mg/dL LinkLogic 0.76-1.27 urea nitrogen, blood 21 mg/dL LinkLogic 8-27 blood glucose, random 121 mg/dL LinkLogic 70-99 High basophil count, absolute 0.1 x10E3/uL LinkLogic 0.0-0.2 Eosinophil Absolute Count 0.3 X10E3/UL LinkLogic 0.0-0.4 monocyte count, blood, automated 1.0 X10E3/UL LinkLogic 0.1-0.9 High lymphocyte count, blood, automated 1.1 X10E3/UL LinkLogic 0.7-3.1 Absolute Neutrophils 4.3 X10E3/UL LinkLogic 1.4-7.0 basophils as percent of blood leukocytes 1 % LinkLogic Not Estab. eosinophils as percent of blood leukocytes 4 % LinkLogic Not Estab. monocytes as percent of blood leukocytes 15 % LinkLogic Not Estab. lymphocytes as percent of blood leukocytes 16 % LinkLogic Not Estab. neutrophils as percent of blood leukocytes 64 % LinkLogic Not Estab. platelet count 434 X10E3/UL LinkLogic 915-587 6936/02 /08 red blood cell distribution width 13.1 % LinkLogic 11.6-15.4 mean corpuscular hemoglobin concentration, RBC 33.0 G/DL LinkLogic 31.5-35.7 mean corpuscular hemoglobin, RBC 30.8 pg LinkLogic 26.6-33.0 mean corpuscular volume, RBC 93 fL LinkLogic 79-97 hematocrit, blood 45.1 % LinkLogic 37.5-51.0 hemoglobin, blood 14.9 g/dL LinkLogic 13.0-17.7 erythrocyte (RBC) count 4.84 X10E6/UL LinkLogic 4.14-5.80 leukocyte count, blood 6.7 X10E3/UL LinkLogic 3.4-10.8 activated partial thromboplastin time (aPTT) 34 s LinkLogic 27-37 Normal C, [place] [address] Estimated Glomerular Filtration Rate (calc) 88 mL/min/{1.7 3_m2} LinkLogic C, [place] [address] cholesterol, non-HDL, total 159 mg/dL LinkLogic C, [place] [address] HDL CHOLESTEROL 39 mg/dL LinkLogic >=40 Low C, [place] [address] triglyceride, serum, fasting 333 mg/dL LinkLogic <=149 High C, [place] [address] cholesterol, serum 198 mg/dL LinkLogic 30-199 Normal C, [place] [address] calcium, serum 9.9 mg/dL LinkLogic 8.5-10.3 Normal C, [place] [address] blood glucose, random 88 mg/dL LinkLogic 70-199 Normal C, [place] [address] creatine, serum 0.94 mg/dL LinkLogic 0.80-1.30 Normal C, [place] [address] urea nitrogen, blood 24 mg/dL LinkLogic 8-25 Normal C, [place] [address] anion gap, serum 9 mmol/L LinkLogic 2-15 Normal C, [place] [address] carbon dioxide, venous blood 27 mmol/L LinkLogic 22-32 Normal C, [place] [address] chloride, serum 104 mmol/L LinkLogic 97-110 Normal C, [place] [address] potassium, serum 4.6 MMOL/L LinkLogic 3.3-4.9 Normal C, [place] [address] sodium, serum 140 mmol/L LinkLogic 135-145 Normal C, [place] [address] Absolute Basophils 0.1 K/CUMM LinkLogic 0.0-0.1 Normal C, [place] [address] Absolute Monocytes 1.9 K/CUMM LinkLogic 0.2-0.8 High C, [place] [address] Absolute Lymphocytes 2.2 K/CUMM LinkLogic 0.8-3.3 Normal C, [address] [address] Absolute Neutrophils 6.9 K/CUMM LinkLogic 1.7-6.5 High C, [address] [address] nucleated red blood cells as percent of blood leukocytes 0.00 K/CUMM LinkLogic 0.00-0.01 Normal red blood cell distribution width, size density 46.8 fL LinkLogic 35.7-48.1 Normal mean corpuscular hemoglobin concentration, RBC 33.0 G/DL LinkLogic 32.3-35.7 Normal mean corpuscular hemoglobin, RBC 31.8 pg LinkLogic 27.1-33.3 Normal mean corpuscular volume, RBC 96.2 fL LinkLogic 81.3-96.4 Normal erythrocyte count, whole blood 4.47 M/CUMM LinkLogic 4.30-5.80 Normal mean platelet volume 9.8 fL LinkLogic 9.1-12.3 Normal platelet count 387 10*3/uL LinkLogic 150-400 Normal hematocrit, blood 43.0 % LinkLogic 38.9-50.3 Normal hemoglobin, blood 14.2 g/dL LinkLogic 13.0-17.5 Normal B-12, serum 461 pg/mL LinkLogic [phone] rapid plasma reagin antibody screen Non Reactive LinkLogic Non Reactive lipoprotein, beta, serum, point, quantitative, calculated 92 mg/dL LinkLogic 0-99 very low density lipoproteins 22 mg/dL LinkLogic 5-40 HDL cholesterol, serum 51 mg/dL LinkLogic >39 triglyceride, serum, random 110 mg/dL LinkLogic 0-149 cholesterol, serum 165 mg/dL LinkLogic [phone]/05 /04 LDL cholesterol, serum 87 mg/dL Rajesh Max MD prothrombin time (patient) 10.4 s LinkLogic 9.1-12.0 international normalized ratio (INR) 1.0 LinkLogic 0.8-1.2 calcium, serum 10.1 mg/dL LinkLogic 8.6-10.2 carbon dioxide, venous blood 28 mmol/L LinkLogic 20-29 chloride, serum 102 mmol/L LinkLogic 96-106 potassium, serum 5.0 mmol/L LinkLogic 3.5-5.2 sodium, serum 144 mmol/L LinkLogic 276-823 9071/04 /17 urea nitrogen/creatinine ratio, serum 17 LinkLogic 10-24 eGFR if 85 mL/min/{1.7 3_m2} LinkLogic >59 eGFR if not 74 mL/min/{1.7 3_m2} LinkLogic >59 creatinine, serum 1.04 mg/dL LinkLogic 0.76-1.27 urea nitrogen, blood 18 mg/dL LinkLogic 8-27 blood glucose, random 95 mg/dL LinkLogic 65-99 basophil count, absolute 0.1 x10E3/uL LinkLogic 0.0-0.2 Eosinophil Absolute Count 0.5 X10E3/UL LinkLogic 0.0-0.4 High monocyte count, blood, automated 1.1 X10E3/UL LinkLogic 0.1-0.9 High lymphocyte count, blood, automated 3.3 X10E3/UL LinkLogic 0.7-3.1 High Absolute Neutrophils 3.7 X10E3/UL LinkLogic 1.4-7.0 basophils as percent of blood leukocytes 1 % LinkLogic Not Estab. eosinophils as percent of blood leukocytes 6 % LinkLogic Not Estab. monocytes as percent of blood leukocytes 13 % LinkLogic Not Estab. lymphocytes as percent of blood leukocytes 38 % LinkLogic Not Estab. neutrophils as percent of blood leukocytes 42 % LinkLogic Not Estab. platelet count 340 X10E3/UL LinkLog 257-818 5311/04 /17 red blood cell distribution width 12.8 % [facility] 11.6-15.4 mean corpuscular hemoglobin concentration, RBC 33.5 G/DL LinkLog 31.5-35.7 mean corpuscular hemoglobin, RBC 31.9 pg LinkLog 26.6-33.0 mean corpuscular volume, RBC 95 fL LinkLog 79-97 hematocrit, blood 43.6 % [facility] 37.5-51.0 hemoglobin, blood 14.6 g/dL [facility] 13.0-17.7 erythrocyte (RBC) count 4.57 X10E6/UL [facility] 4.14-5.80 leukocyte count, blood 8.8 X10E3/UL [facility] 3.4-10.8 triglyceride, serum, fasting 213 mg/dL Ria Nazario HDL cholesterol, serum 38 mg/dL Ria Sharpeoney LDL cholesterol, serum 140 mg/dL Ria Sharpeoney cholesterol, serum 173 mg/dL Ria Nazario platelet count 331 10*3/mm3 Justino Small hematocrit, blood 44.3 % Justino Small alanine aminotransferase (SGPT), serum 26 1/L Justino Small aspartate aminotransferase (SGOT), serum 31 1/L Justino Small creatinine, serum 1.68 mg/dL Justino Small potassium, serum 4.7 mmol/L Justino Small sodium, serum 139 mmol/L Justino Small creatinine, serum 0.9 mg/dL Kris Sandoval urea nitrogen, blood 16 mg/dL Kris Sandoval carbon dioxide, serum, total 25 mmol/L Kris Sandoval chloride, serum 101 mmol/L [facility] potassium, serum 4.5 mmol/L [facility] sodium, serum 139 mmol/L [facility] triglyceride, serum, fasting 309 mg/dL [facility] HDL cholesterol, serum 42 mg/dL [facility] LDL cholesterol, serum 122 mg/dL [facility] cholesterol, serum 226 mg[facility] HISTORY OF MEDICATION USE Medication Status Instructions Dates Provider Indications Com ments albuterol sulfate 90 mcg/actuation HFA aerosol inhaler active INHALE 2 PUFFS EVERY 4 HOURS NEEDED FOR SHORTNESS OF BREATH OR FOR WHEEZE Bela Smith Leqvio 284 mg/1.5 mL syringe active GIVEN IN OFFICE ONLY Guillermina CRUZ clopidogrel 75 mg tablet active TAKE 1 TABLET BY MOUTH EVERY DAY 12/08 Phuong Urena Zetia 10 mg tablet active Take 1 tablet by mouth once a day 08/12 Bela Smith hydrocodone-acetam inophen 5-325 mg tablet completed 1 tablet by mouth four times a day as needed 06/11 - 06/20 Ashley Mesa NP aspirin 81 mg tablet,delayed release (DR/EC) active Take 1 tablet by mouth once a day Bela Smith ezetimibe 10 mg tablet completed Take 1 tablet by mouth once a day 01/06 - 06/09 Bela Smith atorvastatin 40 mg tablet active Take 1 tablet by mouth once a day Bela Smith Praluent Pen 75 mg/mL pen injector completed Inject 1 ml subcutaneously every two weeks 06/04 - 01/06 Guillermina Bah Praluent preferred over Repatha- will still need PA PRALUENT 75 MG/ML SUBCUTANEOUS SOLUTION PEN-INJECTOR completed Inject subcutaneously every 2 weeks 06/04 - 06/04 Guillermina Bah cholecalciferol (vitamin D3) 125 mcg (5,000 unit) capsule completed Take 1 capsule by mouth once a day 06/04 - 12/19 Bela Smith CILOSTAZOL 100 MG ORAL TABLET completed Take one tab by mouth twice daily 04/09 - 06/04 Rajesh Max MD Zetia 10 mg tablet completed 1 tablet by mouth once a day 03/17 - 01/06 Rajesh Max MD PLAVIX 75 MG ORAL TABLET completed ONE TAB. DAILY 03/12 - 04/09 Linsey Yu XARELTO 2.5 MG ORAL TABLET completed one tab by mouth twice daily 01/09 - 03/12 Rajesh Max MD hydrochlorothiazid e 12.5 mg capsule active 1 tablet once a day 12/25 Esperanza Whalen lisinopril 10 mg tablet completed 1 tablet once a day 12/25 - 01/06 Esperanza Whalen Adult Aspirin Regimen 81 mg tablet,delayed release (DR/EC) completed 1 tablet once a day 12/25 - 01/06eeraza Max MD NAPROSYN 500 MG ORAL TABLET completed one tab bid with food 06/04 - 12/25 Elaine Kemp VITAMIN D3 2000 UNIT ORAL TABLET completed one tablet by m outh daily 08/02 - 12/25 Elaine Kemp rosuvastatin 40 mg tablet completed 1 tablet by mouth once a day 07/24 - 01/06 Esperanza Whalen CRESTOR 20 MG ORAL TABLET completed 1 tab by mouth at bedtime. - 11/18 Ria Nazario ASPIRIN 325 MG ORAL TABLET completed one tab daily - 12/25 Elaine Kemp COREG 25 MG ORAL TABLET completed ONE TAB. TWICE DAILY - 11/18 Ria Nazario ZOCOR 80 MG ORAL TABLET completed ONE TAB. AT BEDTIME - Good Santoyo RN VASOTEC 5 MG ORAL TABLET completed ONE TAB. DAILY - 11/18 Ria Nazario ALDACTONE 25 MG ORAL TABLET completed ONE TAB. DAILY - 11/18 Ria Nazario PLAVIX 75 MG ORAL TABLET completed ONE TAB. 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 started 1968 Ashley Lange'Yung TILE DECORATOR smoking history, tot al pack/year 53 Ashley Lange'Yung TILE DECORATOR smoking history, tot al pack/day 3 Ashley Lange'Yung TILE DECORATOR cigarette use yes Ashley Lange'Yung N P smoking status Former smoker Ashley Mesa TILE DECORATOR physical exercise, frequency, days per week no Gilmaaaron Armando caffeine use, averag e drinks per day no Gilmaaaron Armando number of years as a smoker 10 years or m ore Gilma Armando smoking, date started 1968 Gilma asencio smoking history, tot al pack/year 53 Gilma Armando smoking history, tot al pack/day 3 Gilmaaaron Armando cigarette use yes Gilmaaaron Armando smoking status Former smoker Gilma bray smoking status Former smoker Rajesh Max MD social history reviewed E&M shauna yin - no changes required Didi Anthony physical exercise, frequency, days per week no Didi Anthony caffeine use, averag e drinks per day no Didi Anthony number of years as a smoker 10 years or m ore Didi Anthony smoking, date started 1968 Didi Anthony smoking history, tot al pack/year 51 Didi Anthony smoking history, tot al pack/day 3 Didi Anthony cigarette use yes Didi Anthony physical exercise, frequency, days per week no Gilmaaaron Armando caffeine use, averag e drinks per day no Gilma Tr number of years as a smoker 10 years or m ore Gilmaaaron Armando smoking, date started 1968 Gilma W luis m smoking history, tot al pack/year 51 Gilma Tr smoking history, tot al pack/day 3 Gilma Tr cigarette use yes Gilma Tr smoking status Former smoker Gilma Goodwin asa physical exercise, frequency, days per week no Tiffany Bhatti caffeine use, averag e drinks per day no Tiffany Bhatti number of years as a smoker 10 years or m ore Tiffany Bazine smoking, date started 1968 Angel hernandez Bazine smoking history, tot al pack/year 51 Tiffany Bazine smoking history, tot al pack/day 3 Tiffany Bazine cigarette use yes Tiffany Luis marilyn smoking status Former smoker Tiffany [facility] [place] eliza physical exercise, frequency, days per week no Dilcia O'Yung caffeine use, averag e drinks per day no Dilcia O'Yung number of years as a smoker 10 years or m ore Dilcia O'Yung smoking, date started 1968 Dilcia O'Yung smoking history, tot al pack/year 51 Dilcia O'Yung smoking history, tot al pack/day 3 Dilcia O'Yung cigarette use yes Dilcia O'Yung smoking status Former smoker Dilcia O'Susan l physical exercise, frequency, days per week no Chastity Marlee caffeine use, averag e drinks per day no Chastity Marlee number of years as a smoker 10 years or m ore Chastity Marlee smoking, date started 1968 Eyadi richard Marlee smoking history, tot al pack/year 51 Chastity Marlee smoking history, tot al pack/day 3 Chastity Marlee cigarette use yes Chastity Marlee smoking status Former smoker Chastity Hog ue physical exercise, frequency, days per week no Bela Shawer caffeine use, averag e drinks per day no Beal Shawer number of years as a smoker 10 years or m ore Bela Shawer smoking, date started 1968 Bela Shawer smoking history, tot al pack/year 51 Bela Shawer smoking history, tot al pack/day 3 Bela Shawer cigarette use yes Bela ovalles smoking status Former smoker Bela mirzaer physical exercise, frequency, days per week no Esperanza Yuue caffeine use, averag e drinks per day no Esperanza Yuue number of years as a smoker 10 years or m ore Esperanza Whalen smoking, date started 1968 Eyadi richard Whalen smoking history, tot al pack/year 51 Chastity Marlee smoking history, tot al pack/day 3 Nemostity Marlee cigarette use yes Nemostity Marlee smoking status Former smoker Esperanza Yu ue social history reviewed E&M revi ewed - no changes required Madina Kennedy RN physical exercise, frequency, days per week no Sharri Espinosa caffeine use, averag e drinks per day no Sharri Espinosa number of years as a smoker 10 years or m ore Sharri Espinosa smoking, date started 1968 Felici a Espinosa smoking history, tot al pack/year 51 Sharri Espinosa smoking history, tot al pack/day 3 Sharri Espinosa cigarette use yes Sharri Espinosa smoking status Former smoker Sharri Espinosa social history E&M Marital Statu s: Shin mcdonald with family/friends E thnicity: S moking History: Raza gregorio is a former smoker. Rajesh Max MD social history reviewed E&M revi ewed - no changes required Rajesh Max MD physical exercise, frequency, days per week no Linsey Gigi caffeine use, averag e drinks per day no [facility] number of years as a smoker 10 years or m ore Linsey Gigi smoking, date started 1968 Linsey Gigi smoking history, tot al pack/year 51 [facility] smoking history, tot al pack/day 3 Linsey Gigi cigarette use yes Linsey Gigi smoking status Former smoker Rajesh Max MD smoking status Current every day smoker Heriberto Fraire smoking history, tot al pack/year 51 Rajesh Max MD physical exercise, frequency, days per week no Madina Kennedy RN caffeine use, averag e drinks per day no Madina Kennedy RN smoking/tobacco cess ation, patient education and counseling yes Madina Kennedy RN number of years as a smoker 10 years or m ore Madina Kennedy RN smoking, date started 1968 Madina Kennedy RN smoking history, tot al pack/year 50 Madina Kennedy RN smoking history, tot al pack/day 3 Madina Kennedy RN cigarette use yes Madina azul RN smoking status Current every day smoker A dominik Kennedy RN social history reviewed E&M revi ewed - no changes required Madina Kennedy RN smoking history, tot al pack/year 50 Ivan Slois physical exercise, frequency, days per week no Elaine Kemp caffeine use, averag e drinks per day no Elaine Kemp smoking/tobacco cess ation, patient education and counseling yes Elaine Kemp number of years as a smoker 10 years or m ore Elaine Kemp smoking, date started 1968 Debbie maryam Kemp smoking history, tot al pack/day 3 Elaine Kemp cigarette use yes Elaine Block smoking status Current every day smoker B rebel Kemp social history reviewed E&M revi ewed - no changes required Madina Kennedy RN social history E&M Marital Statu s: Shin mcdonald with family/friends E thnicity: P jg currently smokes every day. Smoking History: P atyashira currently smokes every day. P atyashira has been counseled to quit. Madina Kennedy RN physical exercise, frequency, days per week no Gertrude Jones alcohol use, average drinks per day social basis only Gertrude Jones caffeine use, averag e drinks per day no Gertrude Jones smoking/tobacco cess ation, patient education and counseling yes Gertrude Jones number of years as a smoker 10 years or m ore Gertrude Jones smoking, date started 1968 Haydee Jones smoking history, tot al pack/day 3 Gertrude Jones cigarette use yes Gertrude Jones smoking status current every day smoker A dominik Kennedy RN physical exercise, frequency, days per week no Madina Kennedy RN alcohol use, average drinks per day social basis only Madina Kennedy RN caffeine use, averag e drinks per day no Madina Kennedy RN smoking/tobacco cess ation, patient education and counseling yes Madina Kennedy RN number of years as a smoker 10 years or m ore Madina Kennedy RN smoking, date started 1968 Madina Kennedy RN smoking history, tot al pack/day 3 Madina Kennedy RN cigarette use yes Madina azul RN smoking status Current every day smoker A dominik Kennedy RN social history reviewed E&M revi ewed - no changes required Madina Kennedy RN social history reviewed E&M shauna yin - no changes required Madina Kennedy RN smoking, date started 1969 Nicole e Aravind smoking history, tot al pack/day 3 Ria Aravind cigarette use yes Ria Aravind physical exercise, frequency, days per week no Ria Nazario alcohol use, average drinks per day social basis only Ria Nazario caffeine use, averag e drinks per day no Ria Nazario smoking/tobacco cess ation, patient education and counseling yes Ria Nazario smoking status Current every day smoker N joseluisivonne Aravind smoking/tobacco cess ation, patient education and counseling yes Rajesh Max MD social history reviewed E&M reviewed Rajesh Max MD social history E&M Marital Statu s: L tamara with family/friends E thnicity: Rajesh Max MD social history reviewed E&M reviewed Rajesh Max MD physical exercise, frequency, days per week no [employer]Log caffeine use, averag e drinks per day no [employer] alcohol use, average drinks per day social basis only [employer] number of years as a smoker 10 years or m ore LinkLog smoking status Smoker [employer] FUNCTIONAL STATUS Date Observation Value Provider HRA, CV Assess/Plan, Angina (inactive) Management Plan continue current therapy Rajesh Max MD HRA, CV Assess/Plan, Angina (inactive) Management Plan continue current therapy Ashley Mesa NP HRA, CV Assess/Plan, Angina (inactive) Management Plan continue current therapy Rajesh Max MD HRA, CV Assess/Plan, Angina (inactive) Management Plan continue current therapy Rajesh Max MD HRA, CV Assess/Plan, Angina (inactive) Management Plan schedule PCI Rajesh Max MD Reason Fall Assessme nt not done medical contraindication Didi Anthony HRA, CV Assess/Plan, Angina (inactive) Management Plan continue current therapy Terriebrittney Marin TILE DECORATOR HRA, CV Assess/Plan, Angina (inactive) Management Plan continue current therapy Terrie Aaron Marin TILE DECORATOR HRA, CV Assess/Plan, Angina (inactive) Management Plan continue current therapy Terriebrittney Marin TILE DECORATOR HRA, CV Assess/Plan, Angina (inactive) Management Plan continue current therapy Terriebrittney Marin TILE DECORATOR HRA, CV Assess/Plan, Angina (inactive) Management Plan continue current therapy Rajesh Max MD HRA, CV Assess/Plan, Angina (inactive) Management Plan continue current therapy Rajesh Max MD HRA, CV Assess/Plan, Angina (inactive) Management Plan continue current therapy Rajesh Max MD HRA, CV Assess/Plan, Angina (inactive) Management Plan continue current therapy Rajesh Max MD MENTAL STATUS Date Observation Value Provider assessment of judgme nt and insight E&M Alert and oriented to time, place and person. Mood and affect are normal. Rajesh Max MD assessment of judgme nt and insight E&M Alert and oriented to time, place and person. Mood and affect are normal. Rajesh Max MD FAMILY HISTORY Family Member Condition First Female Cousin Family History of Co ronary Artery Disease: Uncle Family History of Co ronary Artery Disease: Father Family History of Gar dden Cardiac : INSURANCE PROVIDERS Payer name Policy type / Coverage type Widener red libertarian ID A[employer] [id number] [place] MEDIC[place] PART B Medicare [id number] ADVANCE DIRECTIVES Name Date LIVING WILL ON FILE TREATMENT PLAN Date Name Performer [id number],C, H is updated medication list for this problem includes: Aspirin 81 Mg Tablet,delayed Release (dr/ec) (Aspirin) ..... Take 1 tablet by mouth once a day Hydrochlorothiazide 12.5 Mg Capsule (Hydrochlorothiazide) ..... 1 tablet once a day BP today: 125/76 P rior BP: 130/82 (05/04/2023) Labs Reviewed: C reat: 1.04 (02/29/2020) C hol: 198 (06/23/2022) HDL: 51 (04/22/2020) Rajesh Max MD [id number],C, H is updated medication list for this problem includes: Leqvio 284 Mg/1.5 Ml Syringe (Inclisiran) ..... Given in office only Zetia 10 Mg Tablet (Ezetimibe) ..... Take 1 tablet by mouth once a day Atorvastatin 40 Mg Tablet (Atorvastatin) ..... Take 1 tablet by mouth once a day Rajeshdonte Max MD [id number],C,n o angina c ath preop was fine p reopstress abnormal - cath showed all ok except lcx -stoal - all marginals occluded l eft alone Rajeshraza Max MD [id number],C,claudication resolved Rajeshraza Max MD [id number],C,H e was found to have a spot in his NAYELI lung and is biopsy proven cancer. He had surgery for it and will get RT now for 5 weeks. Rajesh Max MD [id number],C, l dl 110 on appropriate med rx l eqvio h igh Lp(a) but does not qualify for clincial trial due to lung cancer Rajeshraza Max MD [id number],C,s pot in NAYELI H e was found to have a spot in his lung and is biopsy proven cancer. He will have to go in for surgery He had a stress test for pre-operative clearnance that came back abnormal Rajesh Max MD [id number],C,H e was found to have a spot in his lung and is biopsy proven cancer. He will have to go in for surgery He had a stress test for pre-operative clearnance that came back abnormal will plan to do left heart cath and possible PCI with PTCA alone if needed to clear him for surgery Rajesh Max MD [id number],C, H is updated medication list for this problem includes: Aspirin 81 Mg Tablet,delayed Release (dr/ec) (Aspirin) ..... Take 1 tablet by mouth once a day Hydrochlorothiazide 12.5 Mg Capsule (Hydrochlorothiazide) ..... 1 tablet once a day BP today: 130/82 P rior BP: 126/84 (12/15/2022) Labs Reviewed: C reat: 1.04 (02/29/2020) C hol: 198 (06/23/2022) HDL: 51 (04/22/2020) Rajesh Max MD [id number],C, He had intervention both LE and disclaudication has resolved Rajesh Max MD [id number],C, e f 55% by cath 01/2020 Terrie Marin NP [id number],C, l dl 110 on appropriate med rx l eqvio Terrie Marin NP [id number],C, n o cp or sob will check nuclear stress test this year. Terrie Marin NP [id number],C, B P today: 126/84 P rior BP: 128/80 (10/20/2022) Labs Reviewed: C reat: 1.04 (02/29/2020) C hol: 198 (06/23/2022) HDL: 51 (04/22/2020) Terrie Marin NP [id number],C, He had intervention LLE with good results and Right SFA atherectomy, angioplasty and drug eluting balloon, right peroneal atherectomy and angioplasty, and right posterior tibial angioplasty Terrie Marin NP [id number],C, n ow with the RLE post atherectomy and has been doing much better. no pain, and able to walk as far as he likes. Terrie Marin NP [id number],C,n o cp or sob Rajesh Max MD [id number],C, H is updated medication list for this problem includes: Aspirin 81 Mg Tablet,delayed Release (dr/ec) (Aspirin) ..... Take 1 tablet by mouth once a day Hydrochlorothiazide 12.5 Mg Capsule (Hydrochlorothiazide) ..... 1 tablet once a day BP today: 128/80 P rior BP: 128/64 (08/12/2022) Labs Reviewed: C reat: 1.04 (02/29/2020) C hol: 198 (06/23/2022) HDL: 51 (04/22/2020) Rajesh Max MD [id number],C, He had intervention LLE with good results and now has sever pain and claudication in RLE. I could not intervene on him as I did not have the availability of the right equipment to be able to give him a good result. 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 w ill continue DAPT Terrie Aaron Marin TILE DECORATOR [id number],C,p ain on the right leg now is worse N ow pain in the left leg is improved, on DAPT Terrie A Marin DENISA [id number],C,C hol 198, Trigs 333, HDL 39, LDL 92 (06/2022) will add zetia at this time Terrie Marin DENISA [id number],C, B P today: 128/64 P rior BP: 127/75 (06/23/2022) Labs Reviewed: C reat: 1.04 (02/29/2020) C hol: 198 (06/23/2022) HDL: 51 (04/22/2020) Terrie A Tomas CRAWLEY [id number],C,s een on ct n o shahab pains h as burning pain in plantar feet b/l o n standing n ot on lying down and resolves with rest or sitting down u nlikely to be venous despite benetift from stockings p ad vs spinal stenosis w ill rx pad and see if improves Rajesh Max MD [id number],C,h as burning pain in plantar feet b/l o n standing n ot on lying down and resolves with rest or sitting down u nlikely to be venous despite benetift from stockings p ad vs spinal stenosis w ill rx pad and see if improves Rajesh Max MD [id number],C, H is updated medication list for this problem includes: Atorvastatin 40 Mg Tablet (Atorvastatin) ..... Take 1 tablet by mouth once a day C HOL: 165 (04/22/2020) HDL: 51 (04/22/2020) Rajesh Max MD [id number],C, Feels about the same and deneis claudication but hurts with standing. H ad sensilase and continues to have pain in his legs. suspect this is from circulation but will have him wear compression stockings for 2 weeks, check venous dopplers Had CT spine for spinal stenosis- Impression: 1 . L3-4 spondylosis with moderate central canal stenosis. 2 . L4-5 spondylosis with severe central canal stenosis and small posterior central disc extrusion. will need AIF of the LLE at [facility] - schedule Terrie Emanuelivonne CRAWLEY [id number],C, m ostly resolved Terrie Marin DENISA [id number],C, e f 55% by cath 01/2020 Terrie Marin DENISA [id number],C, n o angina s tress test 2022 Terrie Marin DENISA [id number],C, B P today: 138/90 P rior BP: 149/80 (01/06/2022) Labs Reviewed: C reat: 1.04 (02/29/2020) C hol: 165 (04/22/2020) HDL: 51 (04/22/2020) Terrie Marin DENISA [id number],C, Feels about the same and deneis claudication but hurts with standing. H ad sensilase and continues to have pain in his legs. suspect this is from circulation but will have him wear compression stockings for 2 weeks, check venous dopplers w ill also check CT lumbar spine. Terrie Marin DENISA [id number],C, Feels about the same and deneis claudication but hurts with standing. c heck spp Rajesh Mansoor [place] [id number],C,n o angina s tress test 2022eep Mansoor [place] [id number],C,mostly resolv ed Rajesh Mansoor [place] [id number],C,quit smoking 03/03p Mansoor [place] [id number],C,n ot taking praluent as could not afford l dl 103 The following medications were removed from the medication list: Praluent Pen 75 Mg/ml Pen Injector (Alirocumab) ..... Inject 1 ml subcutaneously every two weeks Zetia 10 Mg Tablet (Ezetimibe) ..... 1 tablet by mouth once a day Rosuvastatin 40 Mg Tablet (Rosuvastatin) ..... 1 tablet by mouth once a day H is updated medication list for this problem includes: Praluent 75 Mg/ml Subcutaneous Solution Auto-injector (Alirocumab) ..... Inject 75mg/1ml once every 2 weeks Zetia 10 Mg Oral Tablet (Ezetimibe) ..... One tab. daily Rosuvastatin Calcium 40 Mg Oral Tablet (Rosuvastatin calcium) ..... On tablet daily Mansoor [place] Cardiology:will check lipids [facility] Mansoor [place] Cardiology:stop hctz Mansoor [place] Cardiology:claudicat ion ok k nnees bother him Mansoor [place] Cardiology:galindo check bnp e cho had 6 minutes walk test recently at arnol 9 00 feet etiology unclear c heck routine labs also i f all ok will do ct pe also Mansoor [place] Cardiology:sinus tac 1 30 today e tiologu unclear c heck labs c ould be from albuterol inhalers Mansoor [place] Cardiology:cancer fr ee as of aug 07 Mansoor [place] Cardiology: n o claudication a ppears to have adequate pulses on exam l ast interventoin was12/06 A BI: 1 . Right LE has normal TRUONG at 1.00 with distal SFA stenosis with doppler velocities measuring 2.35 m/s. 2 . Left LE TRUONG 0.80 with distal SFA stenosis with doppler velocities measuring 3.67 m/s. a bi abnormal but asx and will watch for now Mansoor [place] Cardiology:normal lvef Mavis sigala MD Cardiology: q uit smoking 04/05 Ashley Mesa NP Cardiology: n o angina n egative cath pre cancer surgery in 05/06 Ashley Mesa NP Cardiology: n o claudication a ppears to have adequate pulses on exam l at interventoin was12/06 A BI: 1 . Right LE has normal TRUONG at 1.00 with distal SFA stenosis with doppler velocities measuring 2.35 m/s. 2 . Left LE TRUONG 0.80 with distal SFA stenosis with doppler velocities measuring 3.67 m/s. Ashley Mesa NP Cardiology: B P today: 111/77 P rior BP: 111/75 (12/21/2023) Labs Reviewed: C reat: 1.04 (02/29/2020) C hol: 198 (06/23/2022) HDL: 51 (04/22/2020) LDL: 92 (04/22/2020) T (06/23/2022) His updated medication list for this problem includes: Aspirin 81 Mg Tablet,delayed Release (dr/ec) (Aspirin) ..... Take 1 tablet by mouth once a day Hydrochlorothiazide 12.5 Mg Capsule (Hydrochlorothiazide) ..... 1 tablet once a day Ashley Mesa NP Cardiology: G etting next CT scan in one month. Following with lung doctor. Lung cancer so far in remission after lobectomy Ashley Mesa NP Cardiology: ( 09/2023): LDL= 45 His updated medication list for this problem includes: Leqvio 284 Mg/1.5 Ml Syringe (Inclisiran) ..... Given in office only Zetia 10 Mg Tablet (Ezetimibe) ..... Take 1 tablet by mouth once a day Atorvastatin 40 Mg Tablet (Atorvastatin) ..... Take 1 tablet by mouth once a day Ashley Mesa NP Cardiology:quit smoking 04/05 [place] omayra Max MD Cardiology Rajesh Mansoor [place] Cardiology:no angina n egative cath pre cancer surgery in 05/06 Rajesh Max MD Cardiology: H is updated medication list for this problem includes: Aspirin 81 Mg Tablet,delayed Release (dr/ec) (Aspirin) ..... Take 1 tablet by mouth once a day Hydrochlorothiazide 12.5 Mg Capsule (Hydrochlorothiazide) ..... 1 tablet once a day BP today: 111/75 P rior BP: 125/76 (06/06/2023) Labs Reviewed: C reat: 1.04 (02/29/2020) C hol: 198 (06/23/2022) HDL: 51 (04/22/2020) LDL: 92 (04/22/2020) T (06/23/2022) Rajesh Max MD Cardiology:appears t o have adequate pulses on exam w ill check truong l at interventoin was12/06 Rajesh Max MD Cardiology:He was rx for his lung cancer with surgery and RT and his repeat CT was negative. Rajesh Max MD Cardiology:ldl 45 His updated medication list for this problem includes: Leqvio 284 Mg/1.5 Ml Syringe (Inclisiran) ..... Given in office only Zetia 10 Mg Tablet (Ezetimibe) ..... Take 1 tablet by mouth once a day Atorvastatin 40 Mg Tablet (Atorvastatin) ..... Take 1 tablet by mouth once a day Rajeshdonte Max MD Cardiology: H is updated medication list for this problem includes: Aspirin 81 Mg Tablet,delayed Release (dr/ec) (Aspirin) ..... Take 1 tablet by mouth once a day Hydrochlorothiazide 12.5 Mg Capsule (Hydrochlorothiazide) ..... 1 tablet once a day BP today: 125/76 P rior BP: 130/82 (05/04/2023) Labs Reviewed: C reat: 1.04 (02/29/2020) C hol: 198 (06/23/2022) HDL: 51 (04/22/2020) Rajeshraza Max MD Cardiology: H is updated medication list for this problem includes: Leqvio 284 Mg/1.5 Ml Syringe (Inclisiran) ..... Given in office only Zetia 10 Mg Tablet (Ezetimibe) ..... Take 1 tablet by mouth once a day Atorvastatin 40 Mg Tablet (Atorvastatin) ..... Take 1 tablet by mouth once a day Rajeshraza Max MD Cardiology:no angina c ath preop was fine p reopstress abnormal - cath showed all ok except lcx -stoal - all marginals occluded l eft alone Rajeshraza Max MD Cardiology:claudication resolved Rajesh Mansoor [place] Cardiology:He was fo und to have a spot in his NAYELI lung and is biopsy proven cancer. He had surgery for it and will get RT now for 5 weeks. Rajesh Max MD Cardiology: l dl 110 on appropriate med rx l eqvio h igh Lp(a) but does not qualify for clincial trial due to lung cancer Rajesh Max MD Cardiology:spot in L UL H e was found to have a spot in his lung and is biopsy proven cancer. He will have to go in for surgery He had a stress test for pre-operative clearnance that came back abnormal Rajesh Max MD Cardiology:He was fo und to have a spot in his lung and is biopsy proven cancer. He will have to go in for surgery He had a stress test for pre-operative clearnance that came back abnormal w ill plan to do left heart cath and possible PCI with PTCA alone if needed to clear him for surgery Rajesh Max MD Cardiology: H is updated medication list for this problem includes: Aspirin 81 Mg Tablet,delayed Release (dr/ec) (Aspirin) ..... Take 1 tablet by mouth once a day Hydrochlorothiazide 12.5 Mg Capsule (Hydrochlorothiazide) ..... 1 tablet once a day BP today: 130/82 P rior BP: 126/84 (12/15/2022) Labs Reviewed: C reat: 1.04 (02/29/2020) C hol: 198 (06/23/2022) HDL: 51 (04/22/2020) Rajesh Max MD Cardiology: He had i ntervention both LE and disclaudication has resolved Rajesh Max MD Cardiology: e f 55% by cath 01/2020 Terrie Marin NP Cardiology: l dl 110 on appropriate med rx l eqvio Terrie Marin NP Cardiology: n o cp or sob will check nuclear stress test this year. Terrie Marin NP Cardiology: B P today: 126/84 P rior BP: 128/80 (10/20/2022) Labs Reviewed: C reat: 1.04 (02/29/2020) C hol: 198 (06/23/2022) HDL: 51 (04/22/2020) Terrei Marin TILE DECORATOR Cardiology: He had intervention LLE with good results and Right SFA atherectomy, angioplasty and drug eluting balloon, right peroneal atherectomy and angioplasty, and right posterior tibial angioplasty Terrie Marin TILE DECORATOR Cardiology: n ow with the RLE post atherectomy and has been doing much better. no pain, and able to walk as far as he likes. Terrie Marin NP Cardiology:no cp or sob Rajesh Max MD Cardiology: H is updated medication list for this problem includes: Aspirin 81 Mg Tablet,delayed Release (dr/ec) (Aspirin) ..... Take 1 tablet by mouth once a day Hydrochlorothiazide 12.5 Mg Capsule (Hydrochlorothiazide) ..... 1 tablet once a day BP today: 128/80 P rior BP: 128/64 (08/12/2022) Labs Reviewed: C reat: 1.04 (02/29/2020) C hol: 198 (06/23/2022) HDL: 51 (04/22/2020) Rajesh Max MD Cardiology: He had i ntervention LLE with good results and now has sever pain and claudication in RLE. I could not intervene on him as I did not have the availability of the right equipment to be able to give him a good result. will plan [place] [facility] Rajesh Max MD Cardiology:ldl 110 o n appropriate med rx l eqvio Rajesh Max MD Cardiology:no angina s tress test 2022 Rajesh Max MD Cardiology:Chol 198, Trigs 333, HDL 39, LDL 92 (06/2022) will add zetia at this time freddy uriostegui Lp(a) Rajesh Max MD Cardiology: s /p severe below the knee disease with occlusion of both the anterior tibial and posterior tibial and severe stenosis in the peroneal treated with shockwave balloon angioplasty after IVUS. w ill continue DAPT has similar sx rle and will plan intervetnion Rajesh Max MD Cardiology: s /p severe below the knee disease with occlusion of both the anterior tibial and posterior tibial and severe stenosis in the peroneal treated with shockwave balloon angioplasty after IVUS. w ill continue DAPT Terrie Aaron Marin TILE DECORATOR Cardiology:pain on t he right leg now is worse N ow pain in the left leg is improved, on DAPT Terrie Aaron Emanuele TILE DECORATOR Cardiology:Chol 198, Trigs 333, HDL 39, LDL 92 (06/2022) will add zetia at this time Terrie Marin TILE DECORATOR Cardiology: B P today: 128/64 P rior BP: 127/75 (06/23/2022) Labs Reviewed: C reat: 1.04 (02/29/2020) C hol: 198 (06/23/2022) HDL: 51 (04/22/2020) Terrie Marin TILE DECORATOR Cardiology:seen on c t n o shahab pains h as burning pain in plantar feet b/l o n standing n ot on lying down and resolves with rest or sitting down u nlikely to be venous despite benetift from stockings p ad vs spinal stenosis w ill rx pad and see if improves Rajeshdonte Max MD Cardiology:has burni ng pain in plantar feet b/l o n standing n ot on lying down and resolves with rest or sitting down u nlikely to be venous despite benetift from stockings p ad vs spinal stenosis w ill rx pad and see if improves Rajeshdonte Max MD Cardiology: H is updated medication list for this problem includes: Atorvastatin 40 Mg Tablet (Atorvastatin) ..... Take 1 tablet by mouth once a day C HOL: 165 (04/22/2020) HDL: 51 (04/22/2020) Rajesh Max MD Cardiology: Feels about the same and deneis claudication but hurts with standing. H ad sensilase and continues to have pain in his legs. suspect this is from circulation but will have him wear compression stockings for 2 weeks, check venous dopplers Had CT spine for spinal stenosis- Impression: 1 . L3-4 spondylosis with moderate central canal stenosis. 2 . L4-5 spondylosis with severe central canal stenosis and small posterior central disc extrusion. will need AIF of the LLE at [facility] - schedule Terrie Marin DENISA Cardiology: m ostly resolved Terrie Carpenter Tomas CRAWLEY Cardiology: e f 55% by cath 01/2020 Terrie A Marin DENISA Cardiology: n o angina s tress test 2022 Terrie Aaron Tomas CRAWLEY Cardiology: B P today: 138/90 P rior BP: 149/80 (01/06/2022) Labs Reviewed: C reat: 1.04 (02/29/2020) C hol: 165 (04/22/2020) HDL: 51 (04/22/2020) Terrie Aaron Tomas CRAWLEY Cardiology: Feels about the same and deneis claudication but hurts with standing. H ad sensilase and continues to have pain in his legs. suspect this is from circulation but will have him wear compression stockings for 2 weeks, check venous dopplers w ill also check CT lumbar spine. Terrie Aaron Tomas CRAWLEY Cardiology: Feels ab out the same and deneis claudication but hurts with standing. c heck spp Rajeshraza Max MD Cardiology:no angina s tress test 2022p Mansoor YORK Cardiology:mostly resolved casie Max MD Cardiology:quit smoking 03/03 Sun deep Mansoor YORK Cardiology:not takin g praluent as could not afford l dl 103 The following medications were removed from the medication list: Praluent Pen 75 Mg/ml Pen Injector (Alirocumab) ..... Inject 1 ml subcutaneously every two weeks Zetia 10 Mg Tablet (Ezetimibe) ..... 1 tablet by mouth once a day Rosuvastatin 40 Mg Tablet (Rosuvastatin) ..... 1 tablet by mouth once a day His updated medication list for this problem includes: Praluent 75 Mg/ml Subcutaneous Solution Auto-injector (Alirocumab) ..... Inject 75mg/1ml once every 2 weeks Zetia 10 Mg Oral Tablet (Ezetimibe) ..... One tab. daily Rosuvastatin Calcium 40 Mg Oral Tablet (Rosuvastatin calcium) ..... On tablet daily [facility] Cardiology:No change in foot pains with addition of pletal. s tates his sx are not lifestyle limiting and wants to continue with medical management at this time w ill repeat sensilase 12/2019[facility] Cardiology:Vitamin D was low and PCP ordered replacement V Itamin B12 wnl [facility] Cardiology:Vitamin D was low and PCP ordered replacement [facility] Cardiology:remains off tob ep [facility] Cardiology:denies cp, sob p [facility] Cardiology:LDL 92 de spite Crestor 40 and zetia 10 add pcsk9 I am prescribing Praluent or Repatha because this pt has been diagnosed with either hyperlipidemia w/ASCVD (ACS, [place], CAD, CVA, PAD, or Angina) or familial hypercholesterolemia. Pt's last LDL (within 60-90 days) is 92 which is above goal of LDL <70. Pt has tried and failed simvastatin, rosuvastatin, and ezetimibe (goal not achieved or intolerant). [facility] Cardiology:C/o bilat eral foot pain when he stands for longer periods of time. w ill add pletal and see if this helps [facility]:ldl 87 o n crestor, zetia x1 mo check lipids [facility] Cardiology:quit smoking [facility] Cardiology:ef 55% by cath 01/2020[facility] Cardiology:C/o numbn ess and tingling in both hands for past month or so. Notices right hand numbness, tingling more often at night when lying down in bed. Left hand numbness, tingling bothers him more during the day. carpal tunnel or cervical stenosis w ill check labs, carotid u/s [facility]:on effien t, asa d enies cp, sob r t groin healed change effient to plavix [facility]:BP today: 114/80 P rior BP: 130/70 (03/17/2020) Rajeshdonte Max MD Cardiology:quit smoking Rajeshdonte Max MD Cardiology: H is updated medication list for this problem includes: Rosuvastatin Calcium 40 Mg Oral Tablet (Rosuvastatin calcium) ..... On tablet daily l dl 87 a dd zetia Rajeshdonte Max MD Cardiology:s/p pci but has groin pain, swelling, tenderness Rajeshraza Max MD Cardiology:wc Rajeshraza Max MD Cardiology:pain slightly better Rajeshraza Max MD Cardiology:strongly encouraged tobacco cessation o fferred chantix prescription but pt declined Madina Kennedy RN Cardiology:BP today: 104/68 P rior BP: 116/70 (10/24/2019) Madina Kennedy RN Cardiology:Ef 50% by nuclear stress c an check LV gram with cath Madina Kennedy RN Cardiology:His stres s test showed anteroapical/apical wall ischemia. - asx + abnl stress test ---discussed cardiac cath vs continue risk factor modification r ecommend cardiac cath, can do AIF at same time as well Madina Kennedy RN Cardiology:C/o bilat eral foot pain when he stands for longer periods of time or if he walks on hard floor. H is sensilase and TRUONG showed moderately reduced spp, moderate PAD above the knee and severe PAD below the knee bilaterally. discussed medical management, addition of pletal, exercise, tobacco cessation c an also do AIF at same time as cath Madina Kennedy RN Cardiology -ltr done:EF 50% 2013 Rajesh Max MD Cardiology -ltr done :He retired from work in 2016. He fishes, shoots pool, rides motorcycles. He does yard work, denies cp, sob with activity. C/o bilateral foot pain when he stands for longer periods of time or if he walks on hard floor.. 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 He reports bilateral knee pains, has been told he needs knee replacements but isn't interested at this time. cardiac cath 2013 patent bypass grafts x3 r egadenoson stress test to f/u on CAD w ill also check truong due to foot pains with walking Rajesh Max MD Cardiology -ltr done :not currently taking any vitamin d Rajesh Max MD Cardiology -ltr done :still smoking, not interested in quitting h as yearly lung ct scans with pcp T he Patient was reencouraged to stop smoking. will check abd u/s to r/o aaa Rajesh Max MD follow up- ltr fxd:H e c/o stiff neck, pain in neck, and tingling in left hand at times, off/on for past 2 weeks. Pain in neck if turns his head to the right. s ounds musculoskeletal >>>will try flexeril and naproxen also has left hand numbness- suspect cts Rajeshdonte Max MD follow up- ltr fxd:H e c/o stiff neck, pain in neck, and tingling in left hand at times, off/on for past 2 weeks. Pain in neck if turns his head to the right. s ounds musculoskeletal >>>will try flexeril and naproxen Madina Kennedy RN follow up- ltr fxd:denies CP, SO B with activity. Madina Kennedy RN follow up- ltr fxd:d enies SOB c ath last year - nl lvef Madina Kennedy RN follow up- ltr fxd:t olerating statin with vit d rx c holesterol apparently still high w ill consider psk-9 inhibitor when available Madina Kennedy RN follow up,echo-ltr f xd:The patient is strongly encouraged to quit smoking. Options of tobacco cessation were discussed. h e is not interested Madina Kennedy RN follow up,echo-ltr fxd:echo toda y showed EF nl now Madina Kennedy RN follow up,echo-ltr f xd:He is able to tolerate simvastatin with concomittant of his vitamin D deficiency. Madina Kennedy RN follow up,echo-ltr f xd:He is able to tolerate simvastatin with concomittant of his vitamin D deficiency. Madina Kennedy RN follow up,echo-ltr fxd:denies CP , SOB Madina Kennedy RN follow up -:The miranda ent is strongly encouraged to quit smoking. Options of tobacco cessation were discussed. inna coronado has no intentions of quitting Rajesh Max MD follow up -:recent c ath showed patent bypass grafts x3 E F 55% by cath Rajesh Max MD follow up -:The miranda ent is strongly encouraged to quit smoking. Options of tobacco cessation were discussed. Madina Kennedy RN follow up -:EF 55% b y recent cath w ill recheck echo in 3 months Madina Kennedy RN follow up -:recent c ath showed patent bypass grafts x3, some distal collaterals to PDA stenosed E F 55% by cath Madina Kennedy RN follow up -:LDL 134 06/2014 r eports having trouble with muscle aches with statins s tates he had the least trouble while on simvastatin will start simvastatin 40mg w ill check vit d levle Madina Kennedy RN follow up per recall :try electronic cigs Rajesh Max MD follow up per recall : heriberto jamison next year His updated medication list for this problem includes: Plavix 75 Mg Tabs (Clopidogrel bisulfate) ..... One tab. daily Aldactone 25 Mg Tabs (Spironolactone) ..... One tab. daily Vasotec 5 Mg Tabs (Enalapril maleate) ..... One tab. daily Coreg 25 Mg Tabs (Carvedilol) ..... One tab. twice daily Aspirin 325 Mg Tabs (Aspirin) ..... One tab daily Rajesh Max MD follow up per recall : H is updated medication list for this problem includes: Aldactone 25 Mg Tabs (Spironolactone) ..... One tab. daily Vasotec 5 Mg Tabs (Enalapril maleate) ..... One tab. daily Coreg 25 Mg Tabs (Carvedilol) ..... One tab. twice daily Rajesh Max MD follow up per recall :pt to send me new lipids His updated medication list for this problem includes: Crestor 20 Mg Tabs (Rosuvastatin calcium) ..... 1 tab by mouth at bedtime. BP today: 109/66 Prior BP: 105/64 (08/06/2009) C HOL: 226 (06/25/2009) LDL: 122 (06/25/2009) HDL: 42 (06/25/2009) T (06/25/2009) Rajesh Max MD follow up per recall :stable O rders: E KG ([id number]) Rajesh Max MD Yearly follow-up wit h stress test:not interested in stopping- long discussion with pt s topped transiently with chantix - then went back to smoking g ave him scripts for both chantix and nicotrol inhalers Rajesh Max MD Yearly follow-up with stress rosa t:ef 45-50% Rajesh Max MD Yearly follow-up with stress rosa t:resolved post cabg Rajesh Max MD Yearly follow-up wit h stress test:hx of inf wall ischemia 2006 with nl cath at that time t his year- same kind of stress test- hold off on cath Rajesh Max MD Yearly follow-up wit h stress test: H is updated medication list for this problem includes: Zocor 80 Mg Tabs (Simvastatin) ..... One tab. at bedtime Rajesh Max MD Date Name Complete Echo LIPID PANEL CBC (INCLUDES DIFF/P LT) PROBNP, N TERMINAL TSH, free T4, total T3 COMPREHENSIVE METABO LIC PANEL, W/EGFR Arterial Duplex Bi-L ower EX LIPID PANEL PROTHROMBIN TIME WIT H INR LIPID PANEL CBC (INCLUDES DIFF/P LT) BASIC METABOLIC PANE L W/EGFR Stress Regadenoson Stress Exercise Card iolite CRP, high sensitivit y Lipoprotein (a) LIPID PANEL CBC (INCLUDES DIFF/P LT) BASIC METABOLIC PANE L W/EGFR PROTHROMBIN TIME WIT H INR PROTHROMBIN TIME WIT H INR LIPID PANEL CBC (INCLUDES DIFF/P LT) BASIC METABOLIC PANE L W/EGFR AIF Intervention - S LHV AIF Diagnostic - SLH V Arterial Duplex to r /o pseudoanuerysm CBC (H/H, RBC, INDIC ES, WBC, PLT) LIPID PANEL BASIC METABOLIC PANE L W/EGFR PROTHROMBIN TIME WIT H INR AIF Intervention - C NE AIF Diagnostic - CNE CT Lumbar Spine with out contrast VITAMIN B12/FOLATE, SERUM PANEL Venous Doppler Bilat eral LE - Reflux Arterial - SENSILASE Carotid Duplex Bilat eral LIPID PANEL RPR (MONITOR) W/REFL TITER Vitamin D, 25-Hydrox y VITAMIN B12/FOLATE, SERUM PANEL Arterial Duplex to r /o pseudoanuerysm PROTHROMBIN TIME WIT H INR CBC (INCLUDES DIFF/P LT) BASIC METABOLIC PANE L W/EGFR PROTHROMBIN TIME WIT H INR LIPID PANEL CBC (INCLUDES DIFF/P LT) BASIC METABOLIC PANE L W/EGFR Arterial Duplex Bi-L ower EX Aorta Duplex Ultraso und Stress Regadenoson HISTORY OF PROCEDURES Procedure Date Procedure Name Provider Procedure Notes S tatus Complex e/m visit add on Mansoor YORK completed EKG Rajehsdonte Max MD completed Complex e/m visit add on Mansoor YORK completed EKG Rajeshdonte Max MD completed EKG Rajeshdonte Max MD completed EKG Rajesh Max MD completed Stress EKG Nasir Viveros MD complete d Regadenoson, 4 units Rajeshdonte Max MD completed Cardiolite, 2 units Rajeshraza Max MD c ompleted SPECT Images Rajeshrzaa Max MD complete d EKG Rajesh Max MD completed EKG Rajesh Max MD completed EKG Rajesh Max MD completed EKG Rajesh Max MD completed
[2025-04-17 14:24] LABS: Basophils Absolute Auto 0.1 K/mm3 (0.0-0.1); Basophils Percent Auto 0.7 % (0.2-1.2); Eosinophils Absolute Auto 0.4 K/mm3 (0-0.3); Eosinophils Percent Auto 6.4 % (0-4.4); Hematocrit 44.6 % (42.0-52.0); Hemoglobin 15.1 g/dL (14.0-18.0); Immature Granulocyte Absolute 0.02 K/mm3 (0.00-0.031); Immature Granulocyte Percent A 0.3 % (0-0.5); Lymphocytes Absolute Auto 1.16 K/mm3 (0.9-3.2); Lymphocytes Percent Auto 17.3 % (18.3-44.2); Mean Corpuscular HGB Conc 33.9 g/dl (32-36); Mean Corpuscular Hemoglobin 31.5 pg (26-34); Mean Corpuscular Volume 92.9 fl (80-100); Mean Platelet Volume 9.1 fl (7.4-10.4); Monocytes Percent Auto 14.5 % (2.6-8.5); Neutrophils Absolute Auto 4.1 K/mm3 (1.3-6.7); Neutrophils Percent Auto 60.8 % (45.5-73.1); Platelet Count Result 365 k/mm3 (150-375); White Blood Count 6.7 K/mm3 (4.5-10.0)
--- OUTSIDE RECORDS SUMMARY | 2025-04-17 14:24 | XMS_ITS | Clinical Summary ---
Author Organization 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 Gender Identity Not on file Sexual Orientation Not on file Obstetrics History Last Filed Vital Signs Vital Sign Reading Time Taken Comments Blood Pressure 138/96 09/30/2022 5:41 PM LENS SILVERER Pulse 86 09/30/2022 5:43 PM LENS SILVERER Temperature 37.1 C (98.7 F) 09/30/2022 11:18 AM LENS SILVERER Respiratory Rate 23 09/30/2022 5:43 PM LENS SILVERER Oxygen Saturation 97% 09/30/2022 5:42 PM LENS SILVERER Inhaled Oxygen Concentration - - Weight 90.9 kg (200 lb 8 oz) 09/30/2022 11:18 AM LENS SILVERER Height 170.2 cm (5' 7) 09/30/2022 11:18 AM LENS SILVERER Body Mass Index 31.4 09/30/2022 11:18 AM LENS SILVERER Plan of Treatment Health Maintenance Due Date Last Done Comments Colon Cancer Screening-Colonoscopy 1950 Depression Screening 1950 Hepatitis C Screening 1950 DTaP/Tdap/Td Vaccine (1 - Tdap) 1963 Hepatitis B Screening 1970 Zoster Vaccine (1 of 2) 2002 Abdominal Aortic Aneurysm (A AA) Screen 2017 Well Visit 65+ 2017 Fall Risk Assessment 09/30/2023 09/30/2022 Influenza Vaccine (Season Ended) 2025 08/20/2020, 11/29/2019, 11/27/2018, Additional history exists Pneumococcal vaccine 65+ Completed 11/27/2018, 09/16 Medical Devices Implanted Type Area Time Study Clerk Device Identifier Shelf Expiration Date Model / Serial / Lot [employer] [id number] Synergy 2.25mm 20mm 144cm Radiopaque 1 Access Port Inflation - [id number] Implanted:Qty: 1 on 03/11/2020 by Rajesh Max MD at [facility] [employer] [id number] 220 / / [employer] [id number] Synergy 3mm 12mm 144cm Radiopaque 1 Access Port Inflation Lumen - [id number] Implanted:Qty: 1 on 03/11/2020 by Rajesh Max MD at [facility] [employer] [id number] 300 / / Insurance MEDICARE [facility] Advance Directives For more information, please contact: [phone] * Full Code (Latest Code Status on File) Date Activated Date Inactivated Comments 03/11/2020 10:26 AM 03/12/2020 3:18 PM Care Teams Resource Development Director Relationship Specialty Start Date End Date Rajesh Max MD PCP - General 03/12/20 Rajesh Max MD Consulting Physician Cardiology 03/12/20
--- OUTSIDE RECORDS SUMMARY | 2025-04-17 14:24 | XMS_ITS | Referral Summary ---
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 Gender Identity Not on file Sexual Orientation Not on file Last Filed Vital Signs Vital Sign Reading Time Taken Comments Blood Pressure 138/96 09/30/2022 5:41 PM AGRICULTURAL EQUIPMENT SALES MANAGER Pulse 86 09/30/2022 5:43 PM AGRICULTURAL EQUIPMENT SALES MANAGER Temperature 37.1 C (98.7 F) 09/30/2022 11:18 AM AGRICULTURAL EQUIPMENT SALES MANAGER Respiratory Rate 23 09/30/2022 5:43 PM AGRICULTURAL EQUIPMENT SALES MANAGER Oxygen Saturation 97% 09/30/2022 5:42 PM AGRICULTURAL EQUIPMENT SALES MANAGER Inhaled Oxygen Concentration - - Weight 90.9 kg (200 lb 8 oz) 09/30/2022 11:18 AM AGRICULTURAL EQUIPMENT SALES MANAGER Height 170.2 cm (5' 7) 09/30/2022 11:18 AM AGRICULTURAL EQUIPMENT SALES MANAGER Body Mass Index 31.4 09/30/2022 11:18 AM AGRICULTURAL EQUIPMENT SALES MANAGER Plan of Treatment Not on file Medical Devices Implanted Type Area Geophysical Manager Device Identifier Shelf Expiration Date Model / Serial / Lot [employer] [id number] Synergy 2.25mm 20mm 144cm Radiopaque 1 Access Port Inflation - [id number] Implanted:Qty: 1 on 03/11/2020 by Rajesh Max MD at [facility] [employer] [id number] 220 / / [employer] [id number] Synergy 3mm 12mm 144cm Radiopaque 1 Access Port Inflation Lumen - [id number] Implanted:Qty: 1 on 03/11/2020 by Rajesh Max MD at [facility] [employer] [id number] 300 / / Insurance MEDICARE [facility] MEDICARE [facility] Advance Directives For more information, please contact: [phone] * Full Code (Latest Code Status on File) Date Activated Date Inactivated Comments 03/11/2020 10:26 AM 03/12/2020 3:18 PM Care Teams Dairy Technician Relationship Specialty Start Date End Date Rajesh Max MD PCP - General 03/12/20 Rajesh Max MD Consulting Physician Cardiology 03/12/20
--- OUTSIDE RECORDS SUMMARY | 2025-04-17 14:24 | XMS_ITS | Continuity of Care Document ---
Author Name [facility] Organization 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 It does not include entries that were removed or entered in error. Problem Status Onset Date Problem Type Date of Resolution Comments Source CAD - Coronary Artery Disease ([facility] [id number]) Active Condition [facility] COPD - Chronic Obstructive Pulmonary Disease ([facility] [id number]) Active Condition [facility] Erectile dysfunction Active Condition [facility] Exposure to potentially hazardous substance ([facility] [id number]) Active Condition Oct 10 4 Entered By: HAYLEY SIMPSON Comment: Entered automatically through [facility] Problem List documentation program [facility] History of peripheral arterial occlusive disease Active Condition [facility] HTN - Hypertension ([facility] [id number]) Active Condition [facility] Hyperlipidemia ([facility] [id number]) Active Condition [facility] Obesity Active Condition [facility] Prediabetes Active Condition [facility] Small cell carcinoma of lung Active Condition [facility] Diagnosis: ICD-10-CM J44.9 Chronic obstructive pulmonary disease, unspecified Active Diagnosis [facility] Diagnosis: ICD-10-CM R73.03 Prediabetes Active Diagnosis [facility] Diagnosis: ICD-10-CM Z00.01 Encounter for general adult medical exam w abnormal findings Active Diagnosis [facility] Medications Combined list of outpatient medications from [facility] and [facility] facilities.Medications provided include 1) outpatient medications [...] ALBUTERO L INHALER NEBULI ZATION ACTIVE 10/06/2025 [id number] 4 NIGHAT ARANDA 2023 120 [facility] ALBUTEROL SO4 90MCG/ACTUA T (CFC-F) INHL,ORAL,8 .5GM INHALE 1 PUFF BY ORAL INHALATI ON FOUR TIMES A DAY NEEDED FOR COPD SHAKE WELL. RINSE MOUTHPIE CE FREQUENT LY TO PREVENT CLOGGING . RESPIR ATORY (INHAL ATION) ACTIVE 10/06/2025 [id number] 4 NIGHAT ARANDA 2023 2 [facility] ASPIRIN 81MG TAB,EC TAKE ONE TABLET BY MOUTH ONCE A DAY FOR CARDIOVA SCULAR DISEASE TAKE WITH FOOD. ORAL ACTIVE 10/06/2025 [id number] 4 NIGHAT ARANDA 2023 120 [facility] ATORVASTATI N CA 80MG TAB TAKE ONE-HALF TABLET BY MOUTH EVERY EVENING FOR HIGH CHOLESTE ROL ORAL DISCONT INUED BY PROVIDE R 10/06/2025 [id number] 4 NIGHAT ARANDA 2023 45 [facility] CLOPIDOGREL BISULFATE 75MG TAB TAKE ONE TABLET BY MOUTH ONCE A DAY ORAL ACTIVE 10/06/2025 [id number] 4 NIGHAT ARANDA 2023 90 [facility] EZETIMIBE 10MG TAB TAKE ONE TABLET BY MOUTH ONCE A DAY FOR HIGH CHOLESTE ROL ORAL ACTIVE 10/06/2025 [id number] 5 NIGHAT ARANDA 2023 90 [facility] FLUTICASONE 100MCG/SALM ETEROL 50MCG INHL,ORAL,D ISKUS,60 INHALE 1 INHALATI ON BY ORAL INHALATI ON TWICE A DAY FOR COPD (OPEN DISKUS; CLICK ONLY ONCE; MAY INHALE TWICE TO COMPLETE DOSE; CLOSE WHEN FINISHED ) RINSE MOUTH AND SPIT AFTER EACH USE. RESPIR ATORY (INHAL ATION) DISCONT INUED BY PROVIDE R 10/06/2025 [id number] 4 NIGHAT ARANDA 2023 3 [facility] FORMOTEROL FUM DIHYD 5MCG/MOMETA SONE FUR 100MCG INHL,ORAL,1 3GM INHALE 2 INHALATI ONS TWICE A DAY DIRECTED RINSE MOUTH AND SPIT AFTER USE. DO NOT EXCEED 4 INHALATI ONS PER 24 HOURS. ACTIVE 04/04/2026 [id number] 5 CYRIL VERAS 2024 3 [facility] HYDROCHLORO THIAZIDE 25MG TAB TAKE ONE-HALF TABLET BY MOUTH ONCE A DAY FOR HIGH BLOOD PRESSURE ORAL DISCONT INUED BY PROVIDE R 10/06/2025 [id number] 4 NIGHAT ARANDA 2023 45 [facility] METFORMIN HCL 1000MG TAB TAKE ONE-HALF TABLET BY MOUTH TWICE A DAY WITH MEALS FOR DIABETES TAKE WITH FOOD. AVOID ALCOHOL. DISCONTI NUE BEFORE GETTING XRAY DYE. ORAL ACTIVE 03/16/2026 [id number] 5 CYRIL VERAS 2024 90 [facility] SILDENAFIL CITRATE 50MG TAB TAKE ONE-HALF TABLET BY MOUTH ONE HOUR PRIOR TO SEXUAL ACTIVITY FOR ERECTILE DYSFUNCT ION NEEDED - LIMIT 6 DOSES PER 30 DAYS ORAL ACTIVE 03/16/2026 [id number] 5 CYRIL VERAS 2024 18 [facility] TIOTROPIUM 2.5MCG/ACTU AT INHL,ORAL,6 0D,4GM INHALE 2 INHALATI ONS BY ORAL INHALATI ON ONCE A DAY (ADMINIS TER AT SAME TIME EACH DAY) RESPIR ATORY (INHAL ATION) SUSPEND ED 12/07/2025 [id number] 5 CRYIL VERAS 2024 3 [facility] Allergies, Adverse Reactions, Alerts Combined list of allergies from Department of Defense and Veterans Affairs facilities. It does not include entries that were removed or entered in error. Substance Category Reaction Severity Reaction type Status Date Reported Comments Source ANIMAL DANDER Propensity to adverse reaction (finding) Dyspnea active 4 [facility] Propensity to adverse reaction (finding) Dyspnea active [facility] Immunizations Combined list of available immunizations from the Department of Defense and Veterans Affairs facilities. Immunization Series Date Given Administered By Site Reaction Lot Number CVX Code Drug Healthcare Advisory Services Manager Status Comments Source INFLUENZA, UNSPECIFIED FORMULATION 2023 88 complet ed HISTORICA L INFORMATI ON - FROM OTHER PROVIDER, [facility] Results Combined list of recent chemistry, hematology and other laboratory results from Department of Defense and Veterans Affairs, ranging from 15 months to all on record, depending upon the facility. Order Name Results Value Reference Range Date Interpretation Specimen Comments Source B12 COBALAMIN (VITAMIN B12) [MASS/VOLUM E] IN SERUM OR PLASMA 883 pg/mL 213 - 816 10/10 H Specimen Type: SERUM No comment entered. Ordering Provider: MARITZA ARANDA Report Released Date/Time: Oct 05, 2024 12:27 PM Reporting Lab: [place] [address] Performing Lab: [address] [facility] CBC LEUKOCYTES [#/VOLUME] IN BLOOD BY AUTOMATED COUNT 9.0 10*3/uL 3.6 - 11.2 10/10 Specimen Type: BLOOD No comment entered. Ordering Provider: MARITZA ARANDA Report Released Date/Time: Oct 05, 2024 12:27 PM Reporting Lab: [address] [address] Performing Lab: [address] [phone] [place] [address] [facility] CBC ERYTHROCYTE S [#/VOLUME] IN BLOOD BY AUTOMATED COUNT 4.80 10*6/uL 4.10 - 5.70 10/10 Specimen Type: BLOOD No comment entered. Ordering Provider: MARITZA ARANDA Report Released Date/Time: Oct 05, 2024 12:27 PM Reporting Lab: [address] [address] Performing Lab: [address] [place] [address] [facility] CBC HEMOGLOBIN [MASS/VOLUM E] IN BLOOD 14.9 g/dL 13.1 - 16.8 10/10 Specimen Type: BLOOD No comment entered. Ordering Provider: MARITZA ARANDA Report Released Date/Time: Oct 05, 2024 12:27 PM Reporting Lab: [address] [address] Performing Lab: [address] [phone] [place] [address] [facility] CBC HEMATOCRIT [VOLUME FRACTION] OF BLOOD 44.9 38.2 - 48.4 10/10 Specimen Type: BLOOD No comment entered. Ordering Provider: MARITZA ARANDA Report Released Date/Time: Oct 05, 2024 12:27 PM Reporting Lab: [address] [address] Performing Lab: [address] [phone] [place] [address] [facility] CBC MCV [ENTITIC VOLUME] BY AUTOMATED COUNT 93.5 fL 80.0 - 100.0 10/10 Specimen Type: BLOOD No comment entered. Ordering Provider: MARITZA ARANDA Report Released Date/Time: Oct 05, 2024 12:27 PM Reporting Lab: [address] [address] Performing Lab: [address] [address] [facility] CBC MCH [ENTITIC MASS] BY AUTOMATED COUNT 31.0 pg 27.0 - 34.0 10/10 Specimen Type: BLOOD No comment entered. Ordering Provider: MARITZA ARANDA Report Released Date/Time: Oct 05, 2024 12:27 PM Reporting Lab: [address] [address] Performing Lab: [address] [phone] [place] [address] [facility] CBC MCHC [MASS/VOLUM E] BY AUTOMATED COUNT 33.2 g/dL 33.0 - 36.0 10/10 Specimen Type: BLOOD No comment entered. Ordering Provider: MARITZA ARANDA Report Released Date/Time: Oct 05, 2024 12:27 PM Reporting Lab: [address] [address] Performing Lab: [place] [id number] [facility] CBC PLATELETS [#/VOLUME] IN BLOOD BY AUTOMATED COUNT 395 10*3/uL 150 - 400 10/10 Specimen Type: BLOOD No comment entered. Ordering Provider: MARITZA ARANDA Report Released Date/Time: Oct 05, 2024 12:27 PM Reporting Lab: [address] [address] Performing Lab: [place] [id number] [facility] CBC PLATELET MEAN VOLUME [ENTITIC VOLUME] IN BLOOD BY AUTOMATED COUNT 9.4 fL 7.5 - 11.2 10/10 Specimen Type: BLOOD No comment entered. Ordering Provider: MARITZA ARANDA Report Released Date/Time: Oct 05, 2024 12:27 PM Reporting Lab: [address] [address] Performing Lab: [address] [phone] [place] [address] [facility] CBC ERYTHROCYTE DISTRIBUTIO N WIDTH [RATIO] BY AUTOMATED COUNT 13.5 11.8 - 15.1 10/10 Specimen Type: BLOOD No comment entered. Ordering Provider: MARITZA ARANDA Report Released Date/Time: Oct 05, 2024 12:27 PM Reporting Lab: [address] [address] Performing Lab: [address] [phone] [place] [address] [facility] CBC SEGMENTED NEUTROPHILS /100 LEUKOCYTES IN BLOOD BY MANUAL COUNT 73.9 10/10 Specimen Type: BLOOD No comment entered. Ordering Provider: MARITZA ARANDA Report Released Date/Time: Oct 05, 2024 12:27 PM Reporting Lab: [facility] [address] [facility] [address] Performing Lab: [facility] [address] [phone] [place] [address] [facility] CBC MONOCYTES/1 00 LEUKOCYTES IN BLOOD BY AUTOMATED COUNT 9.5 10/10 Specimen Type: BLOOD No comment entered. Ordering Provider: MARITZA ARANDA Report Released Date/Time: Oct 05, 2024 12:27 PM Reporting Lab: [facility] [address] [place], [place] [phone] Performing Lab: [facility] [address] [place] [phone] [facility] CBC EOSINOPHILS /100 LEUKOCYTES IN BLOOD BY MANUAL COUNT 3.5 10/10 Specimen Type: BLOOD No comment entered. Ordering Provider: MARITZA ARANDA Report Released Date/Time: Oct 05, 2024 12:27 PM Reporting Lab: [facility] [address] [place], [place] [phone] Performing Lab: [facility] [address] [place] [phone] [facility] CBC BASOPHILS/1 00 LEUKOCYTES IN BLOOD BY MANUAL COUNT 0.9 10/10 Specimen Type: BLOOD No comment entered. Ordering Provider: MARITZA ARANDA Report Released Date/Time: Oct 05, 2024 12:27 PM Reporting Lab: [facility] [address] [place] [phone] Performing Lab: [facility] [address] [place] [address] [facility]OC CBC PAPPENHEIME R BODIES 0 10/10 Specimen Type: BLOOD No comment entered. Ordering Provider: MARITZA ARANDA Report Released Date/Time: Oct 05, 2024 12:27 PM Reporting Lab: [facility] [address] [facility] [address] Performing Lab: [facility] [address] [address] [facility] CBC LYMPHOCYTES /100 LEUKOCYTES IN BLOOD BY MANUAL COUNT 12.2 10/10 Specimen Type: BLOOD No comment entered. Ordering Provider: MARITZA ARANDA Report Released Date/Time: Oct 05, 2024 12:27 PM Reporting Lab: [facility] [address] [address] Performing Lab: [facility] [address] [address] [facility] CBC STOMATOCYTE S [PRESENCE] IN BLOOD BY LIGHT MICROSCOPY 1+ 10/10 Specimen Type: BLOOD No comment entered. Ordering Provider: MARITZA ARANDA Report Released Date/Time: Oct 05, 2024 12:27 PM Reporting Lab: [facility] [address] [phone] Performing Lab: [place] [address] [address] [address] [facility] CBC PLATELET ADEQUACY [PRESENCE] IN BLOOD BY LIGHT MICROSCOPY ADEQUATE 10/10 Specimen Type: BLOOD No comment entered. Ordering Provider: MARITZA ARANDA Report Released Date/Time: Oct 05, 2024 12:27 PM Reporting Lab: [facility] [address] [address] Performing Lab: [facility] [address] [address] [facility] CBC BASOPHILS [#/VOLUME] IN BLOOD BY MANUAL COUNT 0.08 10*3/uL 0.01 - 0.20 10/10 Specimen Type: BLOOD No comment entered. Ordering Provider: MARITZA ARANDA Report Released Date/Time: Oct 05, 2024 12:27 PM Reporting Lab: [place] [address] [address] [address] Performing Lab: [address] [address] [facility] CBC EOSINOPHILS [#/VOLUME] IN BLOOD BY MANUAL COUNT 0.32 10*3/uL 0.00 - 0.60 10/10 Specimen Type: BLOOD No comment entered. Ordering Provider: MARITZA ARANDA Report Released Date/Time: Oct 05, 2024 12:27 PM Reporting Lab: [place] [address] Performing Lab: [place] [phone] [facility] CBC MONOCYTES [#/VOLUME] IN BLOOD BY MANUAL COUNT 0.86 10*3/uL 0.19 - 0.80 10/10 H Specimen Type: BLOOD No comment entered. Ordering Provider: MARITZA ARANDA Report Released Date/Time: Oct 05, 2024 12:27 PM Reporting Lab: [place] [phone] Performing Lab: [place] [phone] [facility] CBC LYMPHOCYTES [#/VOLUME] IN BLOOD BY MANUAL COUNT 1.10 10*3/uL 0.77 - 4.50 10/10 Specimen Type: BLOOD No comment entered. Ordering Provider: MARITZA ARANDA Report Released Date/Time: Oct 05, 2024 12:27 PM Reporting Lab: [place] [phone] Performing Lab: [address] [address] [facility] CBC NEUTROPHILS [#/VOLUME] IN BLOOD BY MANUAL COUNT 6.65 10*3/uL 2.10 - 8.00 10/10 Specimen Type: BLOOD No comment entered. Ordering Provider: MARITZA ARANDA Report Released Date/Time: Oct 05, 2024 12:27 PM Reporting Lab: [place] [phone] Performing Lab: [facility] [address] [address] [facility] COMPREHEN SIVE METABOLIC PANEL CREATININE [MASS/VOLUM E] IN SERUM OR PLASMA 0.99 mg/dL 0.7 - 1.3 10/10 Specimen Type: PLASMA Comment: No hemolysis noted. Ordering Provider: MARITZA ARANDA Report Released Date/Time: Oct 05, 2024 12:27 PM Reporting Lab: [address] [address] Performing Lab: [address] [phone] [place] [address] [facility] COMPREHEN SIVE METABOLIC PANEL UREA NITROGEN [MASS/VOLUM E] IN SERUM OR PLASMA 14.8 mg/dL 9.0 - 25.0 10/10 Specimen Type: PLASMA Comment: No hemolysis noted. Ordering Provider: MARITZA ARANDA Report Released Date/Time: Oct 05, 2024 12:27 PM Reporting Lab: [address] [address] Performing Lab: [address] [phone] [place] [address] [facility] COMPREHEN SIVE METABOLIC PANEL GLUCOSE [MASS/VOLUM E] IN SERUM OR PLASMA 127 mg/dL 72 - 99 10/10 H Specimen Type: PLASMA Comment: No hemolysis noted. Ordering Provider: MARITZA ARANDA Report Released Date/Time: Oct 05, 2024 12:27 PM Reporting Lab: [facility] [address] [place] [phone] Performing Lab: [facility] [address] [place] [phone] [facility] COMPREHEN SIVE METABOLIC PANEL SODIUM [MOLES/VOLU ME] IN SERUM OR PLASMA 141 meq/L 136 - 145 10/10 Specimen Type: PLASMA Comment: No hemolysis noted. Ordering Provider: MARITZA ARANDA Report Released Date/Time: Oct 05, 2024 12:27 PM Reporting Lab: [facility] [address] [address] Performing Lab: [facility] [address] [facility] COMPREHEN SIVE METABOLIC PANEL POTASSIUM [MOLES/VOLU ME] IN SERUM OR PLASMA 4.4 meq/L 3.5 - 5 10/10 Specimen Type: PLASMA Comment: No hemolysis noted. Ordering Provider: MARITZA ARANDA Report Released Date/Time: Oct 05, 2024 12:27 PM Reporting Lab: [place] [address] [address] [address] Performing Lab: [place] [address] [address] [address] [facility] COMPREHEN SIVE METABOLIC PANEL CHLORIDE [MOLES/VOLU ME] IN SERUM OR PLASMA 103 meq/L 98 - 107 10/10 Specimen Type: PLASMA Comment: No hemolysis noted. Ordering Provider: MARITZA ARANDA Report Released Date/Time: Oct 05, 2024 12:27 PM Reporting Lab: [address] [address] Performing Lab: [place] [address] [address] [address] [facility] COMPREHEN SIVE METABOLIC PANEL CARBON DIOXIDE, TOTAL [MOLES/VOLU ME] IN SERUM OR PLASMA 29 meq/L 22 - 31 10/10 Specimen Type: PLASMA Comment: No hemolysis noted. Ordering Provider: MARITZA ARANDA Report Released Date/Time: Oct 05, 2024 12:27 PM Reporting Lab: [facility] [address] [place] [phone] Performing Lab: [facility] [address] [place] [phone] [facility] COMPREHEN SIVE METABOLIC PANEL CALCIUM [MASS/VOLUM E] IN SERUM OR PLASMA 10.0 mg/dL 8.4 - 10.4 10/10 Specimen Type: PLASMA Comment: No hemolysis noted. Ordering Provider: MARITZA ARANDA Report Released Date/Time: Oct 05, 2024 12:27 PM Reporting Lab: [facility] [address] [place], [place] [phone] Performing Lab: [facility] [address] [place] [address] [phone] [facility] COMPREHEN SIVE METABOLIC PANEL PROTEIN [MASS/VOLUM E] IN SERUM OR PLASMA 7.7 g/dL 6 - 8.6 10/10 Specimen Type: PLASMA Comment: No hemolysis noted. Ordering Provider: MARITZA ARANDA Report Released Date/Time: Oct 05, 2024 12:27 PM Reporting Lab: [place] [address] Performing Lab: [place] [phone] [facility] COMPREHEN SIVE METABOLIC PANEL ALBUMIN [MASS/VOLUM E] IN SERUM OR PLASMA 4.0 g/dL 3.4 - 5 10/10 Specimen Type: PLASMA Comment: No hemolysis noted. Ordering Provider: MARITZA ARANDA Report Released Date/Time: Oct 05, 2024 12:27 PM Reporting Lab: [place] [phone] Performing Lab: [address] [phone] [place] [address] [facility] COMPREHEN SIVE METABOLIC PANEL BILIRUBIN.T OTAL [MASS/VOLUM E] IN SERUM OR PLASMA 0.3 mg/dL 0.2 - 1.2 10/10 Specimen Type: PLASMA Comment: No hemolysis noted. Ordering Provider: MARITZA ARANDA Report Released Date/Time: Oct 05, 2024 12:27 PM Reporting Lab: [facility] [address] [place], [place] [phone] Performing Lab: [address] [phone] [place] [address] [facility] COMPREHEN SIVE METABOLIC PANEL ALKALINE PHOSPHATASE [ENZYMATIC ACTIVITY/VO LUME] IN SERUM OR PLASMA 119 U/L 40 - 150 10/10 Specimen Type: PLASMA Comment: No hemolysis noted. Ordering Provider: MARITZA ARANDA Report Released Date/Time: Oct 05, 2024 12:27 PM Reporting Lab: [facility] [address] [place] [phone] Performing Lab: [facility] [address] [address] [facility] COMPREHEN SIVE METABOLIC PANEL ASPARTATE AMINOTRANSF ERASE [ENZYMATIC ACTIVITY/VO LUME] IN SERUM OR PLASMA 39 U/L 5 - 34 10/10 H Specimen Type: PLASMA Comment: No hemolysis noted. Ordering Provider: MARITZA ARANDA Report Released Date/Time: Oct 05, 2024 12:27 PM Reporting Lab: [address] [phone] Performing Lab: [address] [phone] [place] [address] [facility] COMPREHEN SIVE METABOLIC PANEL ALANINE AMINOTRANSF ERASE [ENZYMATIC ACTIVITY/VO LUME] IN SERUM OR PLASMA 29 U/L 8 - 40 10/10 Specimen Type: PLASMA Comment: No hemolysis noted. Ordering Provider: MARITZA ARANDA Report Released Date/Time: Oct 05, 2024 12:27 PM Reporting Lab: [address] [address] Performing Lab: [address] [phone] [facility] COMPREHEN SIVE METABOLIC PANEL GLOMERULAR FILTRATION RATE/1.73 SQ M.PREDICTED [VOLUME RATE/AREA] IN SERUM, PLASMA OR BLOOD BY CREATININE- BASED FORMULA (CKD-EPI 2020) 80.9 60 10/10 Specimen Type: PLASMA Comment: No hemolysis noted. Ordering Provider: MARITZA ARANDA Report Released Date/Time: Oct 05, 2024 12:27 PM Reporting Lab: [facility] [address] [place] [address] Performing Lab: [facility] [address] [address] [facility] HGA1C HEMOGLOBIN A1C/HEMOGLO BIN.TOTAL IN BLOOD 6.5 4.0 - 6.0 10/10 H Specimen Type: BLOOD No comment entered. Ordering Provider: MARITZA ARANDA Report Released Date/Time: Oct 05, 2024 12:27 PM Reporting Lab: [place] [phone] Performing Lab: [address] [phone] [facility] LIPID PANEL (STL) CHOLESTEROL [MASS/VOLUM E] IN SERUM OR PLASMA 141 mg/dL 0 - 200 10/10 Specimen Type: PLASMA Comment: No hemolysis noted. Ordering Provider: MARITZA ARANDA Report Released Date/Time: Oct 05, 2024 12:27 PM Reporting Lab: [address] [address] Performing Lab: [address] [address] [facility] LIPID PANEL (STL) TRIGLYCERID E [MASS/VOLUM E] IN SERUM OR PLASMA 103 mg/dL 0 - 150 10/10 Specimen Type: PLASMA Comment: No hemolysis noted. Ordering Provider: MARITZA ARANDA Report Released Date/Time: Oct 05, 2024 12:27 PM Reporting Lab: [address] [address] Performing Lab: [address] [address] [facility] LIPID PANEL (STL) CHOLESTEROL IN LDL [MASS/VOLUM E] IN SERUM OR PLASMA BY CALCULATION 71 mg/dL 10/10 Specimen Type: PLASMA Comment: No hemolysis noted. Ordering Provider: MARITZA ARANDA Report Released Date/Time: Oct 05, 2024 12:27 PM Reporting Lab: [address] [address] Performing Lab: [facility] [address] [facility] LIPID PANEL (STL) CHOLESTEROL IN HDL [MASS/VOLUM E] IN SERUM OR PLASMA 49 mg/dL 40 10/10 Specimen Type: PLASMA Comment: No hemolysis noted. Ordering Provider: MARITZA ARANDA Report Released Date/Time: Oct 05, 2024 12:27 PM Reporting Lab: [place] [address] Performing Lab: [address] [facility] PROST. SPECIFIC AG.(PB-ST L) PROSTATE SPECIFIC [...] Oct 05, 2024 12:27 PM Reporting Lab: [place] [address] Performing Lab: [address] [facility] TSH W/ REFLEX FT4 (STL) THYROTROPIN [UNITS/VOLU ME] IN SERUM OR PLASMA 0.519 u[IU]/mL 0.47 - 5 10/10 Specimen Type: PLASMA No comment entered. Ordering Provider: MARITZA ARANDA Report Released Date/Time: Oct 05, 2024 12:27 PM Reporting Lab: [place] [address] Performing Lab: [address] [facility] VITAMIN D, 25-HYDROX Y 25-HYDROXYV ITAMIN D3 [MASS/VOLUM E] IN SERUM OR PLASMA 33.7 ng/mL 30 - 96 10/10 Specimen Type: SERUM No comment entered. Ordering Provider: MARITZA ARANDA Report Released Date/Time: Oct 05, 2024 12:27 PM Reporting Lab: [facility] [address] [facility] [address] Performing Lab: [facility] [address] [address] [facility] Vital Signs Combined list of inpatient and outpatient Vital Signs from Department of Defense and Veterans Affairs, ranging from 12 months to all on record, depending upon the facility. Vital Sign Value Date Comments Source SYSTOLIC BLOOD PRESSURE 122 03/15/2025 13:44:03 [facility] DIASTOLIC BLOOD PRESSURE 80 03/15/2025 13:44:03 [facility] PULSE OXIMETRY 95 03/15/2025 13:44:03 [facility] WEIGHT 207 03/15/2025 13:44:03 [facility] BMI 32 kg/m2 03/15/2025 13:44:03 [facility] TEMPERATURE 97.8 03/15/2025 13:44:03 [facility] PULSE 80 03/15/2025 13:44:03 [facility] RESPIRATION 22 03/15/2025 13:44:03 [facility] SYSTOLIC BLOOD PRESSURE 97 10/05/2024 12:36:24 [facility] DIASTOLIC BLOOD PRESSURE 61 10/05/2024 12:36:24 [facility] PULSE OXIMETRY 95 10/05/2024 12:36:24 [facility] WEIGHT 202 10/05/2024 12:36:24 [facility] BMI 32 kg/m2 10/05/2024 12:36:24 [facility] PAIN 2 10/05/2024 12:36:24 [facility] HEIGHT 67 10/05/2024 12:36:24 [facility] TEMPERATURE 98 10/05/2024 12:36:24 [facility] PULSE 100 10/05/2024 12:36:24 [facility] RESPIRATION 18 10/05/2024 12:36:24 [facility] Encounters Combined list of: 1) Encounters from [facility] facilities going backup to the last 18 months, not all VA inpatient encounters are included; 2) Encounters from the Department of [facility] facilities going backup to 280 months. Location Location Details Encounter Type Encounter Number Reason For Visit Attending Provider ADM Date DC Date Status Disposition Source [facility] Outpatient Encounter [id number] 05/24 [facility] Outpatient Encounter [id number] 08/14 [facility] Outpatient Encounter [id number] 09/27 [facility] Outpatient Encounter [id number] 10/[address] [facility] OFFICE O/P EST HI 40 MIN [id number] Diagnos is: ICD-10- CM Z00.01 Encount er for general adult medical exam KAYKAY Victor 10/05 [facility] Outpatient Encounter [id number] 10/08 [facility] Outpatient Encounter [id number] 10/09 [facility] Outpatient Encounter [id number] 10/[address] [facility] Outpatient Encounter [id number] Diagnos is: ICD-10- CM J44.9 Chronic obstruc tive pulmona ry disease , unspeci libra VERAS,T ODD 10/29 [facility] En[facility] [id number] 11/29 [facility] Outpatient Encounter [id number] 11/29 [facility] Outpatient Encounter [id number] 11/[address] [facility] PH1 ASSMT&MGMT NQHP 5-10 [id number] Diagnos is: ICD-10- CM J44.9 Chronic obstruc tive pulmona ry disease , unspeci fied HARSHAL PATEL 12/06 [facility] Outpatient Encounter [id number] 03/07 [facility] Outpatient Encounter [id number] TAWNYA CRAMER 03/14 [facility] Outpatient Encounter [id number] 03/[address] [facility] OFFICE O/P EST MOD 30 MIN [id number] Diagnos is: ICD-10- CM R73.03 Prediab elmer VERAS,Rhoda ODD 03/15 [facility] Outpatient Encounter [id number] 03/19 [facility] Outpatient Encounter [id number] 03/19 [facility] Outpatient Encounter [id number] RUCHI TIWARIPIPO CHRISTELLE 03/19 [facility] Outpatient Encounter [id number] 04/02 [facility] NQHP OL DIG ASSMT&MGMT 5-10 [id number] Diagnos is: ICD-10- CM J44.9 Chronic obstruc tive pulmona ry disease , unspeci SEEMA Forte 04/03 [facility] Social History Combined list of available smoking, tobacco, and other social history from Department of Defense and Veterans Affairs facilities. Social History Type Response Date Comment Sourc e Tobacco smoking status NHIS VA-TOBACCO USE FORMER CIGARETTES 10/05/2024 [facility] History of tobacco use VA-TOBACCO NEVER USED OTHER TYPE 10/05/2024 [facility]
--- OUTSIDE RECORDS SUMMARY | 2025-04-17 14:24 | XMS_ITS | Continuity of Care Document ---
Author Organization [facility] Address [address] [place] [address] Phone Care Team Providers Care Network Professional Name Role Phone Mark Schwarz MD Unavailable [...] Encounter [facility], [address] [place] [address], [id number], tel:[phone] [facility] No Information [address], [place], [address], [place]. tel:[phone] Referring Provider: Renaldo Painter, [address], [place], [address]. tel:[phone] New (Level 4) OFFICE/OUTPA TIENT VISIT [facility], [address] [place] [address], [id number], tel:[phone] [facility] asthma (chief complaint) Body mass index (BMI) 31.0-31.9, adultSevere persistent asthma with (acute) exacerbationCOPD [address], [place], [address], [place]. tel:[phone] Referring Provider: Renaldo Painter, [address], [place], [address]. tel:[phone] [facility], [address] [place] [address], [id number], tel:[phone] [facility] No Information [address], [place], [address], [place]. tel:[phone] [facility], [address] [place] [address], [id number], [place] tel:[phone] [facility] No Information [address], [place], [address], [place]. tel:[phone] Family History Family Member Type Diagnosis Age At Onset Problem No family history of Rhiniti s Problem No family history of Asthma Payers Payer name Insurance type Covered republican ID Authoriza tion(s) [place] [id number] AARP Medicare Complete [id number] Social History Type Description Quantity Date Captured [...]
--- OUTSIDE RECORDS SUMMARY | 2025-04-17 14:24 | XMS_ITS | Encounter Summary ---
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 Date/Time Encounter Type Encounter Description Reason Provider Source April 03, 2025 01:49 PM [facility] 5-10 CL[facility]ICAL PHARMACY ICD-10-CM J44.9 Chronic obstructive pulmonary disease, unspecified SANJANA ALMODOVRA E Encounter Template Text not used by [place] Assessments - Encounter Diagnoses This section includes the primary and secondary diagnoses documented for the Encounter. Date/Time Primary/Secondary Diagnosis Diagnosis Name Provider Source April 03, 2025 01:56 PM PRIMARY Chronic obstructive pulmonary disease, unspecified SANJANA ALMODOVAR [facility] Encounter Notes: All associated encounter notes This section contains the clinical notes associated to the Encounter. Date/Time Encounter Note(s) Provider Source April 03, 2025 01:49 PM PHARMACY CONSULT: LOCAL TITLE: PHARMACY PRIOR APPROVAL CONSULT ST STANDARD TITLE: PHARMACY CONSULT DATE OF NOTE: APRIL 03, 2025@13:49 ENTRY DATE: APRIL 03, 2025@13:49:40 AUTHOR: EB ALMODOVAR EXP COSIGNER: URGENCY: STATUS: COMPLETED Prior Approval Request: Dulera The medical record has been reviewed with regard to this prior authorization drug request. Medication requested: FORMOTEROL 5/MOMETASONE 100MCG 120D INHL Medication indication: COPD Medical history relevant to this request: Patient with COPD, not tolerating Wixela. Moving to Dulera w/ tiotropium. This would not be considered failure, as he was on the smallest Wixela dose. Also note that this is the smallest Dulera dose, and would need to be trialed at the higher dose before moving to another medication (Breztri). The request is approved - A documented adverse reaction occurred with the preferred formulary alternative(s) TIME REVIEWING CHART:10. (minutes) /alberto/ TRANG ALMODOVAR PharmD, [facility] [employer] Signed: 04/03/2025 13:56 EB ALMODOVAR [facility]
--- OUTSIDE RECORDS SUMMARY | 2025-04-17 14:24 | XMS_ITS | Data Portability ---
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 Repeat PFT SANDRO. Sample of Trelegy Ellipta provided for trial. Trelegy Ellipta 200/62.5/25 mcg 1 inhalation daily. Gargle after use. Referral to Dr. Gamaliel Schwarz at [address] [place] [address], [place] [address] T[place] for further evaluation and treatment of high IgE and multiple environmental allergies. We will get a copy of his post radiation-therapy chest CT to be done in [facility] on 08/25/23. Adherence to therapy is advocated. [...] management. Follow-up: 1 week after PFT and laboratory equipment cleaner consult Not available 09/17/2024 16:16:17 09/27/2024 09/27/2024 Assessment: Nicotine smoke: 1 ppd 5114-4332 (quit 2 years in between) = 51 [...] Bronchoscopy 03/18/23 lingular nodule biopsy Pathology report 05/05/23 squamous cell carcinoma in situ Lab data [...] Lab glycohemo globin, total, blood [address] (Lab), [address] [place], [address], 02/14/2025 15:56:07 microalbu min, urine [address] (Lab), [address] [place], [address], 02/14/2025 15:56:07 vitamin D, 25-hydrox y, total, serum [address] (Lab), [address] [place], [address], 02/21/2025 10:02:06 lipid panel, serum [address] (Lab), [address] [place], [address], 02/14/2025 15:56:08 CMP, serum or plasma [address] (Lab), [address] [place], [address], 02/14/2025 15:56:08 CBC w/ auto diff [address] (Lab), [address] [place], [address], 02/14/2025 15:56:08 TSH, serum or plasma [address] (Lab), [address] [place], [address], 02/14/2025 15:56:08 glycohemo globin, total, blood [address] (Lab), [address] [place], [address], 02/19/2025 08:36:06 microalbu min, urine [address] (Lab), [address] [place], [address], 02/19/2025 08:36:06 lipid panel, serum [address] (Lab), [address] [place], [address], 02/19/2025 08:36:06 CMP, serum or plasma 2023 024 [facility] (Lab), [address] [place], [address], 11/30/2024 07:26:11 CBC w/ auto diff 2023 024 [facility] (Lab), [address] [place], [address], 11/30/2024 03:40:35 TSH, serum or plasma [address] (Lab), [address] [place], [address], 02/19/2025 08:36:06 glycohemo globin, total, blood 2023 024 [facility] (Lab), [address] [place], [address], 03/29/2024 16:02:40 microalbu min, urine 2023 024 [facility] (Lab), [address] [place], [address], 08/16/2024 16:56:19 lipid panel, serum 2023 024 [facility] (Lab), [address] [place], [address], 08/16/2024 14:59:24 CMP, serum or plasma 2023 024 [facility] (Lab), [address] [place], [address], 07/26/2024 18:22:26 CBC w/ auto diff 2023 024 [facility] (Lab), [address] [place], [address], 07/26/2024 16:45:50 TSH, serum or plasma 2023 024 [facility] (Lab), [address] [place], [address], 08/16/2024 15:08:42 Referral podiatris t referral - Please call patient to schedule an appointme nt. Thank you. 2024 025 VIRGILIO Storm DPM, [address] [facility], [address], [place], [address], 02/18/2025 12:03:02 urologist referral - Please call patient to schedule an appointme nt. Thank you. 2024 025 [facility] [address], [place], [address], 02/18/2025 12:45:18 pulmonary rehab referral - Please call patient to schedule. [address] (Outpatient Rehab), [address] [place], [address], 03/12/2025 08:30:54 laboratory equipment cleaner referral - IgE 998 IU/mL with multiple environme ntal allergies 2023 VIRGILIO Mark Schwarz, [address], [place], [address], 09/28/2024 11:40:35 podiatris t referral 2023 024 yessy Storm DPM, [address], [address], [place], [address], 02/19/2025 08:36:17 urologist referral 2023 024 yessy gAuiar MD, [address], [address], [place], [address], 02/19/2025 08:36:17 podiatris t referral 2023 024 yessy Storm DPM, [address], [address], [place], [address], 10/09/2024 12:26:48 urologist referral 2023 024 yessy Aguiar MD, [address], [address], [place], [address], 10/09/2024 12:26:48 Procedures None recorded. Surgeries None recorded. Imaging None recorded. Medication Orders albuterol sulfate HFA 90 mcg/actua tion aerosol inhaler 2023 024 [facility]/Pharmacy #[id number], [address], [place], [address], 09/27/2024 11:09:55 Trelegy Ellipta 100 mcg-62.5 mcg-25 mcg powder for inhalatio n [email or web address]/Pharmacy #[id number], [address], [place], [address], 02/14/2025 14:55:45 metformin ER 500 mg tablet,ex tended release 24 hr 2023 024 [facility]/Pharmacy #[id number], [address], [place], [address], 08/23/2024 15:58:47 Patient TargetsNo targets recorded. Patient Instructions Encounter Date Encounter Id Patient Instructions Last Modified By Organization Details Last Modified Time 03/29/2024 [id number] dementia rating scale-2* [email or web address] Not available [...] Risk: Non Smoker Alcohol Misuse Screening: Negative Decrease alcohol intake to 2 or less servings per day Weight: Overweight try to lose 10% of your body weight Physical activity: Need more exercise/physical activity minimum of 20-30 minutes activity that causes mild breathlessness/day Nutrition: Average Refer to attached handout Heart-Healthy Diet: After Your Visit Fall Risk (screened today): Low Refer to attached handout Preventing Falls: After your Visit Vaccines Pneumococcal: No further needed Influenza: Your next one in the fall of this year Chronic Disease Risks Stroke: Intermediate Risk I have no recommendations Heart Attack: Intermediate Risk I have no recommendations Clogging of the Arteries: Intermediate Risk I have no recommendations Diabetes: High Risk Active diagnosis, Continue current treatment plan Secondary Prevention/Interven tion (detects treatable diseases before they may cause symptoms, disability, or ) Prostate Cancer Screening: Your next PSA in: No PSA screening necessary Your next PSA in: 2023 Colon Cancer Screening: Colonoscopy Date Screening Last Performed:04/20/2018 Eye Disease Screening: Recommended today Dementia Risk: Low I have no recommendations Depression Screening: Negative [email or web address] Not available 03/29/2024 16:05:45 08/23/2024 [id number] diabetic eye exam* [email or web address] Not avai lable 02/19/2025 08:13:35 09/17/2024 [id number] complete PFT w/ post bronchodilator spirometry* [email or web address] Not available 09/25/2024 13:23:59 02/14/2025 [id number] diabetic eye exam* [email or web address] Not avail able 02/14/2025 15:56:23 Reason for Referral Trash Collector Referral for Hype rglycemia Referring Physician: Pawan Mendes Internal Medicine, Encounter Date: 03/29/2024 Urologist Referral for Kidne y lesion Referring Physician: Pawan Mendes Internal Medicine, Encounter Date: 03/29/2024 Trash Collector Referral for Hype rglycemia Referring Physician: Pawan Mendes Internal Medicine, Encounter Date: 08/23/2024 Urologist Referral for Kidne y lesion Referring Physician: Michelle Catalan, Encounter Date: 08/23/2024 Car Loader Referral for Dyspn ea on exertion IgE 998 IU/mL with multiple environmental allergies Referring Physician: Renaldo Painter Pulmonary Disease, Encounter Date: 09/17/2024 Pulmonary Rehab Referral for Moderate chronic obstructive pulmonary disease Please call patient to schedule. Referring Physician: Renaldo Painter Pulmonary Disease, Encounter Date: 09/27/2024 Trash Collector Referral for Hype rglycemia Please call patient to schedule an appointment. Thank you. Referring Physician: Michelle Catalan Medicine, Encounter Date: 02/14/2025 Urologist Referral for Kidne y lesion Please call patient to schedule an appointment. Thank you. Referring Physician: Murtuza Bahrainwala, Internal Medicine, Encounter Date: 02/14/2025 Results Created Date Observation Date Name Description Value Unit Range Abnormal Flag Note LastModifiedBy Organization Detail LastModifiedTime 03/29/20 24 03/29/2024 CBC/C OMPLE TE BLD COUNT W/DIF F white blood cells 7.9 x10'3 /uL 4.2-10 .8 Not Available [facility] (Lab) [address] [place], [address], 03/29/2024 11:56:41 03/29/20 24 03/29/2024 CBC/C OMPLE TE BLD COUNT W/DIF F red blood cells 4.55 x10'6 /uL 4.10-5 .80 Not Available [facility] (Lab) [address] [place], [address], 03/29/2024 11:56:41 03/29/20 24 03/29/2024 CBC/C OMPLE TE BLD COUNT W/DIF F hemoglobin 14.6 g/dL 13.2-1 7.0 Not Available [facility] (Lab) [address] [place], [address], 03/29/2024 11:56:41 03/29/20 24 03/29/2024 CBC/C OMPLE TE BLD COUNT W/DIF F hematocrit 42.9 % 39.3-5 0.0 Not Available [facility] (Lab) [address] [place], [address], 03/29/2024 11:56:41 03/29/20 24 03/29/2024 CBC/C OMPLE TE BLD COUNT W/DIF F mean red cell volume 94.3 fL 80.0-9 7.0 Not Available [facility] (Lab) [address] [place], [address], 03/29/2024 11:56:41 03/29/20 24 03/29/2024 CBC/C OMPLE TE BLD COUNT W/DIF F mean red cell hemoglobin 32.1 pg 27.0-3 3.0 Not Available [facility] (Lab) [address] [place], [address], 03/29/2024 11:56:41 03/29/20 24 03/29/2024 CBC/C OMPLE TE BLD COUNT W/DIF F mean RBC HGB concentratio n 34.0 g/dL 31.0-3 6.0 Not Available [facility] (Lab) [address] [place], [address], 03/29/2024 11:56:41 03/29/20 24 03/29/2024 CBC/C OMPLE TE BLD COUNT W/DIF F red cell distribution width 13.2 % 11.8-1 5.5 Not Available [facility] (Lab) [address] [place], [address], 03/29/2024 11:56:41 03/29/20 24 03/29/2024 CBC/C OMPLE TE BLD COUNT W/DIF F platelets 418 x10'3 /uL 150-40 0 high Not Available [facility] (Lab) [address] [place], [address], 03/29/2024 11:56:41 03/29/20 24 03/29/2024 CBC/C OMPLE TE BLD COUNT W/DIF F mean platelet volume 9.2 fL 9.0-12 .4 Not Available [facility] (Lab) [address] [place], [address], 03/29/2024 11:56:41 03/29/20 24 03/29/2024 CBC/C OMPLE TE BLD COUNT W/DIF F neutrophils 62.2 % 39.0-7 2.0 Not Available [facility] (Lab) [address] [place], [address], 03/29/2024 11:56:41 05/16/03/29/2024 CBC/C OMPLE TE BLD COUNT W/DIF F lymphocytes 15.2 % 16.0-4 7.0 low Not Available [facility] (Lab) [address] [place], [address], 03/29/2024 11:56:41 03/29/20 24 03/29/2024 CBC/C OMPLE TE BLD COUNT W/DIF F monocytes 16.9 % 5.0-12 .0 high Not Available [facility] (Lab) [address] [place], [address], 03/29/2024 11:56:41 03/29/20 24 03/29/2024 CBC/C OMPLE TE BLD COUNT W/DIF F eosinophils 4.4 % 1.0-7. 0 Not Available [facility] (Lab) [address] [place], [address], 03/29/2024 11:56:41 03/29/20 24 03/29/2024 CBC/C OMPLE TE BLD COUNT W/DIF F basophils 0.9 % 0.0-2. 0 Not Available [facility] (Lab) [address] [place], [address], 03/29/2024 11:56:41 03/29/20 24 03/29/2024 CBC/C OMPLE TE BLD COUNT W/DIF F immature granulocytes 0.4 % 0.00-0 .50 Not Available [facility] (Lab) [address] [place], [address], 03/29/2024 11:56:41 03/29/20 24 03/29/2024 CBC/C OMPLE TE BLD COUNT W/DIF F neutrophils, absolute count 4.89 x10'3 /uL 1.5-8. 0 Not Available [facility] (Lab) [address] [place], [address], 03/29/2024 11:56:41 03/29/20 24 03/29/2024 CBC/C OMPLE TE BLD COUNT W/DIF F lymphocytes, absolute count 1.20 x10'3 /uL 1.07-3 .43 Not Available [facility] (Lab) [address] [place], [address], 03/29/2024 11:56:41 03/29/20 24 03/29/2024 CBC/C OMPLE TE BLD COUNT W/DIF F monocytes, absolute count 1.33 x10'3 /uL 0.29-0 .99 high Not Available [facility] (Lab) [address] [place], [address], 03/29/2024 11:56:41 03/29/20 24 03/29/2024 CBC/C OMPLE TE BLD COUNT W/DIF F eosinophils, absolute count 0.35 x10'3 /uL 0.02-0 .53 Not Available [facility] (Lab) [address] [place], [address], 03/29/2024 11:56:41 03/29/20 24 03/29/2024 CBC/C OMPLE TE BLD COUNT W/DIF F basophils, absolute count 0.07 x10'3 /uL 0.01-0 .08 Not Available [facility] (Lab) [address] [place], [address], 03/29/2024 11:56:41 03/29/20 24 03/29/2024 CBC/C OMPLE TE BLD COUNT W/DIF F immature granulocytes ,absolute 0.03 x10'3 /uL 0.00-0 .05 Not Available [facility] (Lab) [address] [place], [address], 03/29/2024 11:56:41 03/29/20 24 03/29/2024 CBC/C OMPLE TE BLD COUNT W/DIF F nucleated red blood cells 0.0 % -0 Not Available [facility] (Lab) [address] [place], [address], 03/29/2024 11:56:41 03/29/20 24 03/29/2024 CBC/C OMPLE TE BLD COUNT W/DIF F NRBC# 0.00 x10'3 /uL Not Available [facility] (Lab) [address] [place], [address], 03/29/2024 11:56:41 03/29/20 24 03/29/2024 LIPID PANEL cholesterol 138 mg/dL 140-19 9 low NIH LISA NSUS RECOM MENDA TION FOR VERO STERO L: ADULT CHILD LOW RISK: <200 <170 BORDE RLINE : <200- 239 ----- HIGH RISK: >240 >200 Not Available [facility] (Lab) [address] [place], [address], 03/29/2024 12:03:22 03/29/20 24 03/29/2024 LIPID PANEL triglyceride s 243 mg/dL 0-150 high NIH LISA NSUS REPOR T RECOM MENDA TION FOR TRIGL YCERI MARY ANN: ADULT CHILD LOW RISK: <150 ----- BODER LINE: 150-1 99 ----- HIGH RISK: >200 ----- Not Available [facility] (Lab) [address] [place], [address], 03/29/2024 12:03:22 03/29/20 24 03/29/2024 LIPID PANEL HDL cholesterol 46 mg/dL 40- Not Available [facility] (Lab) [address] [place], [address], 03/29/2024 12:03:22 03/29/20 24 03/29/2024 LIPID PANEL [...] WILL NOT BE REPOR EH. Not Available [facility] (Lab) [address] [place], [address], 03/29/2024 12:03:22 03/29/20 24 03/29/2024 COMPR EHENS NICOLE METAB OLIC PANEL sodium 138 mmol/ L 137-14 5 Not Available [facility] (Lab) [address] [place], [address], 03/29/2024 12:03:37 03/29/20 24 03/29/2024 COMPR EHENS NICOLE METAB OLIC PANEL potassium 4.3 mmol/ L 3.5-5. 1 Not Available [facility] (Lab) [address] [place], [address], 03/29/2024 12:03:37 03/29/20 24 03/29/2024 COMPR EHENS NICOLE METAB OLIC PANEL chloride 101 mmol/ L 98-107 Not Available [facility] (Lab) [address] [place], [address], 03/29/2024 12:03:37 03/29/20 24 03/29/2024 COMPR EHENS NICOLE METAB OLIC PANEL carbon dioxide 27 mmol/ L 22-30 Not Available [facility] (Lab) [address] [place], [address], 03/29/2024 12:03:37 03/29/20 24 03/29/2024 COMPR EHENS NICOLE METAB OLIC PANEL anion gap 14.3 mmol/ L 14-22 Not Available [facility] (Lab) [address] [place], [address], 03/29/2024 12:03:37 03/29/20 24 03/29/2024 COMPR EHENS NICOLE METAB OLIC PANEL glucose 108 mg/dL 70-99 high Not Available [facility] (Lab) [address] [place], [address], 03/29/2024 12:03:37 03/29/20 24 03/29/2024 COMPR EHENS NICOLE METAB OLIC PANEL BUN 18 mg/dL 8-19 Not Available [facility] (Lab) [address] [place], [address], 03/29/2024 12:03:37 03/29/20 24 03/29/2024 COMPR EHENS NICOLE METAB OLIC PANEL creatinine 0.96 mg/dL 0.66-1 .25 Not Available [facility] (Lab) [address] [place], [address], 03/29/2024 12:03:37 03/29/20 24 03/29/2024 COMPR EHENS NICOLE METAB OLIC PANEL GFR >60 Refer ence Range : [place] ge GFR Healt hy Adult : >60 [...] or ethni c subgr oups, such as [facility] nics. Outsi de the valid ated jaiden [...] lator is avail able on the [facility] websi te: https ://prieto mckeon.barb regan.o rg/pr ofess ional s/kdo qi/gf r_cal culat or Not Available [facility] (Lab) [address] [place], [address], 03/29/2024 12:03:37 03/29/20 24 03/29/2024 COMPR EHENS NICOLE METAB OLIC PANEL alkaline phosphatase 130 U/L 38-126 high Not Available [facility] (Lab) [address] [place], [address], 03/29/2024 12:03:37 03/29/20 24 03/29/2024 COMPR EHENS NICOLE METAB OLIC PANEL alanine aminotransfe rase 39 U/L 0-50 Not Available [facility] (Lab) [address] [place], [address], 03/29/2024 12:03:37 03/29/20 24 03/29/2024 COMPR EHENS NICOLE METAB OLIC PANEL aspartate aminotransfe rase 43 U/L 15-46 Not Available [facility] (Lab) [address] [place], [address], 03/29/2024 12:03:37 03/29/20 24 03/29/2024 COMPR EHENS NICOLE METAB OLIC PANEL bilirubin, total 0.50 mg/dL 0.20-1 .30 Not Available [facility] (Lab) [address] [place], [address], 03/29/2024 12:03:37 03/29/20 24 03/29/2024 COMPR EHENS NICOLE METAB OLIC PANEL calcium 9.7 mg/dL 8.4-10 .2 Not Available [facility] (Lab) [address] [place], [address], 03/29/2024 12:03:37 03/29/20 24 03/29/2024 COMPR EHENS NICOLE METAB OLIC PANEL total protein 7.3 g/dL 6.3-8. 2 Not Available [facility] (Lab) [address] [place], [address], 03/29/2024 12:03:37 03/29/20 24 03/29/2024 COMPR EHENS NICOLE METAB OLIC PANEL albumin 4.3 g/dL 3.0-4. 4 Not Available [facility] (Lab) [address] [place], [address], 03/29/2024 12:03:37 03/29/20 24 03/29/2024 COMPR EHENS NICOLE METAB OLIC PANEL globulin 3.0 g/dL 2.6-4. 2 Not Available [facility] (Lab) [address] [place], [address], 03/29/2024 12:03:37 03/29/20 24 03/29/2024 COMPR EHENS NICOLE METAB OLIC PANEL A/G ratio 1.4 ratio 1.0-2. 0 Not Available [facility] (Lab) [address] [place], [address], 03/29/2024 12:03:37 03/29/20 24 03/29/2024 TSH thyroid-stim ulating hormone 0.222 uIU/m L 0.465- 4.680 low Not Available [facility] (Lab) [address] [place], [address], 03/29/2024 12:38:19 03/29/20 24 03/29/2024 HEMOG LOBIN A1C HA1C 5.9 % 4.0-6. 0 Diabe rosa Scree angela Crite rafi: <5.7% Consi stent with absen ce of diabe rosa 5.7-6 .4% Consi stent with incre ased risk for diabe rosa (pred iabet es) >OR=6 .5% Consi stent with diabe rosa REFER ENCE: Diabe rosa Care 2016, 39(Gar ppl.1 ):s13 -s22 Not Available [facility] (Lab) [address] [place], [address], 03/29/2024 16:02:39 08/16/2008/16/2024 CBC/C OMPLE TE BLD COUNT W/DIF F white blood cells 8.6 x10'3 /uL 4.2-10 .8 Not Available [facility] (Lab) [address] [place], [address], 08/16/2024 14:46:22 08/16/2008/16/2024 CBC/C OMPLE TE BLD COUNT W/DIF F red blood cells 4.59 x10'6 /uL 4.10-5 .80 Not Available [facility] (Lab) [address] [place], [address], 08/16/2024 14:46:22 08/16/2008/16/2024 CBC/C OMPLE TE BLD COUNT W/DIF F hemoglobin 14.5 g/dL 13.2-1 7.0 Not Available [facility] (Lab) [address] [place], [address], 08/16/2024 14:46:22 08/16/2008/16/2024 CBC/C OMPLE TE BLD COUNT W/DIF F hematocrit 43.0 % 39.3-5 0.0 Not Available [facility] (Lab) [address] [place], [address], 08/16/2024 14:46:22 08/16/2008/16/2024 CBC/C OMPLE TE BLD COUNT W/DIF F mean red cell volume 93.7 fL 80.0-9 7.0 Not Available [facility] (Lab) [address] [place], [address], 08/16/2024 14:46:22 08/16/20 24 08/16/2024 CBC/C OMPLE TE BLD COUNT W/DIF F mean red cell hemoglobin 31.6 pg 27.0-3 3.0 Not Available [facility] (Lab) [address] [place], [address], 08/16/2024 14:46:22 08/16/2008/16/2024 CBC/C OMPLE TE BLD COUNT W/DIF F mean RBC HGB concentratio n 33.7 g/dL 31.0-3 6.0 Not Available [facility] (Lab) [address] [place], [address], 08/16/2024 14:46:22 08/16/20 24 08/16/2024 CBC/C OMPLE TE BLD COUNT W/DIF F red cell distribution width 13.2 % 11.8-1 5.5 Not Available [facility] (Lab) [address] [place], [address], 08/16/2024 14:46:22 08/16/20 24 08/16/2024 CBC/C OMPLE TE BLD COUNT W/DIF F platelets 414 x10'3 /uL 150-40 0 high Not Available [facility] (Lab) [address] [place], [address], 08/16/2024 14:46:22 08/16/20 24 08/16/2024 CBC/C OMPLE TE BLD COUNT W/DIF F mean platelet volume 9.5 fL 9.0-12 .4 Not Available [facility] (Lab) [address] [place], [address], 08/16/2024 14:46:22 08/16/20 24 08/16/2024 CBC/C OMPLE TE BLD COUNT W/DIF F neutrophils 59.7 % 39.0-7 2.0 Not Available [facility] (Lab) [address] [place], [address], 08/16/2024 14:46:22 08/16/20 24 08/16/2024 CBC/C OMPLE TE BLD COUNT W/DIF F lymphocytes 15.3 % 16.0-4 7.0 low Not Available [facility] (Lab) [address] [place], [address], 08/16/2024 14:46:22 08/16/2008/16/2024 CBC/C OMPLE TE BLD COUNT W/DIF F monocytes 15.4 % 5.0-12 .0 high Not Available [facility] (Lab) [address] [place], [address], 08/16/2024 14:46:22 08/16/2008/16/2024 CBC/C OMPLE TE BLD COUNT W/DIF F eosinophils 8.5 % 1.0-7. 0 high Not Available [facility] (Lab) [address] [place], [address], 08/16/2024 14:46:22 08/16/2008/16/2024 CBC/C OMPLE TE BLD COUNT W/DIF F basophils 0.8 % 0.0-2. 0 Not Available [facility] (Lab) [address] [place], [address], 08/16/2024 14:46:22 08/16/2008/16/2024 CBC/C OMPLE TE BLD COUNT W/DIF F immature granulocytes 0.3 % 0.00-0 .50 Not Available [facility] (Lab) [address] [place], [address], 08/16/2024 14:46:22 08/16/2008/16/2024 CBC/C OMPLE TE BLD COUNT W/DIF F neutrophils, absolute count 5.13 x10'3 /uL 1.5-8. 0 Not Available [facility] (Lab) [address] [place], [address], 08/16/2024 14:46:22 08/16/20 24 08/16/2024 CBC/C OMPLE TE BLD COUNT W/DIF F lymphocytes, absolute count 1.31 x10'3 /uL 1.07-3 .43 Not Available [facility] (Lab) [address] [place], [address], 08/16/2024 14:46:22 08/16/20 24 08/16/2024 CBC/C OMPLE TE BLD COUNT W/DIF F monocytes, absolute count 1.32 x10'3 /uL 0.29-0 .99 high Not Available [facility] (Lab) [address] [place], [address], 08/16/2024 14:46:22 08/16/2008/16/2024 CBC/C OMPLE TE BLD COUNT W/DIF F eosinophils, absolute count 0.73 x10'3 /uL 0.02-0 .53 high Not Available [facility] (Lab) [address] [place], [address], 08/16/2024 14:46:22 08/16/20 24 08/16/2024 CBC/C OMPLE TE BLD COUNT W/DIF F basophils, absolute count 0.07 x10'3 /uL 0.01-0 .08 Not Available [facility] (Lab) [address] [place], [address], 08/16/2024 14:46:22 08/16/2008/16/2024 CBC/C OMPLE TE BLD COUNT W/DIF F immature granulocytes ,absolute 0.03 x10'3 /uL 0.00-0 .05 Not Available [facility] (Lab) [address] [place], [address], 08/16/2024 14:46:22 08/16/20 24 08/16/2024 CBC/C OMPLE TE BLD COUNT W/DIF F nucleated red blood cells 0.0 % -0 Not Available [facility] (Lab) [address] [place], [address], 08/16/2024 14:46:22 08/16/20 24 08/16/2024 CBC/C OMPLE TE BLD COUNT W/DIF F NRBC# 0.00 x10'3 /uL Not Available [facility] (Lab) [address] [place], [address], 08/16/2024 14:46:22 08/16/20 24 08/16/2024 LIPID PANEL cholesterol 101 mg/dL 140-19 9 low NIH LISA NSUS RECOM MENDA TION FOR VERO STERO L: ADULT CHILD LOW RISK: <200 <170 BORDE RLINE : <200- 239 ----- HIGH RISK: >240 >200 Not Available [facility] (Lab) [address] [place], [address], 08/16/2024 14:59:24 08/16/20 24 08/16/2024 LIPID PANEL triglyceride s 119 mg/dL 0-150 NIH LISA NSUS REPOR T RECOM MENDA TION FOR TRIGL YCERI MARY ANN: ADULT CHILD LOW RISK: <150 ----- BODER LINE: 150-1 99 ----- HIGH RISK: >200 ----- Not Available [facility] (Lab) [address] [place], [address], 08/16/2024 14:59:24 08/16/20 24 08/16/2024 LIPID PANEL HDL cholesterol 51 mg/dL 40- Not Available [facility] (Lab) [address] [place], [address], 08/16/2024 14:59:24 08/16/20 24 08/16/2024 LIPID PANEL LDL cholesterol, calculated 26 mg/dL 0-130 NIH LISA NSUS REPOR T [...] WILL NOT BE REPOR EH. Not Available [facility] (Lab) [address] [place], [address], 08/16/2024 14:59:24 08/16/20 24 08/16/2024 COMPR EHENS NICOLE METAB OLIC PANEL sodium 138 mmol/ L 137-14 5 Not Available [facility] (Lab) [address] [place], [address], 08/16/2024 14:59:29 08/16/20 24 08/16/2024 COMPR EHENS NICOLE METAB OLIC PANEL potassium 4.2 mmol/ L 3.5-5. 1 Not Available [facility] (Lab) [address] [place], [address], 08/16/2024 14:59:29 08/16/20 24 08/16/2024 COMPR EHENS NICOLE METAB OLIC PANEL chloride 104 mmol/ L 98-107 Not Available [facility] (Lab) [address] [place], [address], 08/16/2024 14:59:29 08/16/20 24 08/16/2024 COMPR EHENS NICOLE METAB OLIC PANEL carbon dioxide 26 mmol/ L 22-30 Not Available [facility] (Lab) [address] [place], [address], 08/16/2024 14:59:29 08/16/20 24 08/16/2024 COMPR EHENS NICOLE METAB OLIC PANEL anion gap 12.2 mmol/ L 14-22 low Not Available [facility] (Lab) [address] [place], [address], 08/16/2024 14:59:29 08/16/20 24 08/16/2024 COMPR EHENS NICOLE METAB OLIC PANEL glucose 126 mg/dL 70-99 high Not Available [facility] (Lab) [address] [place], [address], 08/16/2024 14:59:29 08/16/20 24 08/16/2024 COMPR EHENS NICOLE METAB OLIC PANEL BUN 19 mg/dL 8-19 Not Available [facility] (Lab) [address] [place], [address], 08/16/2024 14:59:29 08/16/20 24 08/16/2024 COMPR EHENS NICOLE METAB OLIC PANEL creatinine 1.04 mg/dL 0.66-1 .25 Not Available [facility] (Lab) [address] [place], [address], 08/16/2024 14:59:29 08/16/20 24 08/16/2024 COMPR EHENS NICOLE METAB OLIC PANEL GFR >60 Refer ence Range : [place] ge GFR Healt hy Adult : >60 [...] or ethni c subgr oups, such as Leena nics. Outsi de the valid ated jaiden [...] lator is avail able on the [facility] websi te: [email or web address] :[email or web address] w.barb regan.o rg/pr ofess ional s/kdo qi/gf r_cal culat or Not Available [facility] (Lab) [address] [place], [address], 08/16/2024 14:59:29 08/16/2008/16/2024 COMPR EHENS NICOLE METAB OLIC PANEL alkaline phosphatase 132 U/L 38-126 high Not Available [facility] (Lab) [address] [place], [address], 08/16/2024 14:59:29 08/16/2008/16/2024 COMPR EHENS NICOLE METAB OLIC PANEL alanine aminotransfe rase 40 U/L 0-50 Not Available [facility] (Lab) [address] [place], [address], 08/16/2024 14:59:29 08/16/20 24 08/16/2024 COMPR EHENS NICOLE METAB OLIC PANEL aspartate aminotransfe rase 40 U/L 15-46 Not Available [facility] (Lab) [address] [place], [address], 08/16/2024 14:59:29 08/16/2008/16/2024 COMPR EHENS NICOLE METAB OLIC PANEL bilirubin, total 0.60 mg/dL 0.20-1 .30 Not Available [facility] (Lab) [address] [place], [address], 08/16/2024 14:59:29 08/16/2008/16/2024 COMPR EHENS NICOLE METAB OLIC PANEL calcium 10.1 mg/dL 8.4-10 .2 Not Available [facility] (Lab) [address] [place], [address], 08/16/2024 14:59:29 08/16/2008/16/2024 COMPR EHENS NICOLE METAB OLIC PANEL total protein 6.8 g/dL 6.3-8. 2 Not Available [facility] (Lab) [address] [place], [address], 08/16/2024 14:59:29 08/16/20 24 08/16/2024 COMPR EHENS NICOLE METAB OLIC PANEL albumin 4.1 g/dL 3.0-4. 4 Not Available [facility] (Lab) [address] [place], [address], 08/16/2024 14:59:29 08/16/20 24 08/16/2024 COMPR EHENS NICOLE METAB OLIC PANEL globulin 2.7 g/dL 2.6-4. 2 Not Available [facility] (Lab) [address] [place], [address], 08/16/2024 14:59:29 08/16/20 24 08/16/2024 COMPR EHENS NICOLE METAB OLIC PANEL A/G ratio 1.5 ratio 1.0-2. 0 Not Available [facility] (Lab) [address] [place], [address], 08/16/2024 14:59:29 08/16/20 24 08/16/2024 TSH W/REF DILIA FT4 TSH with reflex free T4 0.434 uIU/m L 0.465- 4.680 low Not Available [facility] (Lab) [address] [place], [address], 08/16/2024 15:08:42 08/16/2008/16/2024 T4 FREE free T4 1.04 NG/dL 0.78-2 .19 Not Available [facility] (Lab) [address] [place], [address], 08/16/2024 15:50:13 08/16/2008/16/2024 MICRO ALBUM IN RANDO M URINE microalbumin , urine 31.3 mg/L 0.0-16 .6 high Not Available [facility] (Lab) [address] [place], [address], 08/16/2024 16:56:19 08/16/20 24 08/16/2024 HEMOG LOBIN A1C HA1C 6.2 % 4.0-6. 0 high Diabe rosa Zeuse angela Crite rafi: <5.7% Consi stent with absen ce of diabe rosa 5.7-6 .4% Consi stent with incre ased risk for diabe rosa (pred iabet es) >OR=6 .5% Consi stent with diabe rosa REFER ENCE: Diabe rosa Care 2016, 39(Gar ppl.1 ):s13 -s22 Not Available [facility] (Lab) [address] [place], [address], 08/16/2024 16:57:20 03/13/20 24 03/12/2024 CT, chest , w/ contr ast No observ ation record ed. [address] [facility], [place], [address], 02/20/2025 17:29:31 05/31/20 24 05/28/2024 US, doppl er, arter ial No observ ation record ed. [address] [facility] [address], [place], [address], 02/20/2025 17:29:32 07/18/20 24 07/18/2024 imagi ng/di agnos tic resul t No observ ation record ed. [address] [facility], [place], [address], 07/18/2024 13:05:13 09/19/20 24 10/12/2023 compl [facility] [place] [facility] * No observ ation record ed. [facility] Not Available 2023 18:16:46 09/19/20 24 10/12/2023 six minut e walk test* No observ ation record ed. [facility] Not Available 2023 18:16:47 09/25/20 24 09/18/2024 compl ete PFT w/ [facility] [place] [facility] * No observ ation record ed. [address], [place], [address], 09/25/2024 13:23:59 11/27/19 25 11/26/2024 imagi ng/di agnos tic resul t No observ ation record ed. [address], [place], [address], 11/27/2024 08:57:09 11/28/19 25 11/16/2024 imagi ng/di agnos tic resul t No observ ation record ed. [address], [place], [address], 11/28/2024 20:17:30 12/13/19 25 11/16/2024 six minut e walk test* No observ ation record ed. Not Available 2024 13:17:07 03/27/20 25 03/27/2025 imagi ng/di agnos tic resul t No observ ation record ed. [address], [place], [address], 03/27/2025 14:48:32 Result Notes None recorded. Problems Name Problem SNOMED Code Status Onset Date Resolution Date Notes Provider Name and Address Organization Details Recorded Time Prediabete s 740325411 Active 2022 Not Available [facility] 3 03:02:02 Squamous cell carcinoma of left lung 3563927652316 9107 Active 2022 Not Available [facility] 3 03:02:02 Adenoma of left adrenal gland 0413935548285 9106 Active 2022 Not Available [facility] 3 03:02:02 Anxiety disorder 571729416 Active 2022 Em bowman, [employer] [facility] [employer] 3 15:04:34 Smoker 43243488 Active 2022 Pawan carpenter MD [address] [place] [address], [place] [address], [place], [address] , [employer] [facility] [place] [facility] 3 15:55:34 Squamous cell carcinoma of lung 961388243 Active 2022 Pawan carpenter MD [address], [place], [address] , [facility] 3 15:55:35 Dyspnea on exertion 95775178 Active 2023 Renaldo Painter MD [address], [place], [address] , [facility] 4 10:52:05 Moderate chronic obstructiv e pulmonary disease 677862071 Active 2023 Renaldo Painter MD [address], [place], [address] , [facility] 4 11:04:25 Cough 99580197 Active 2023 Pablito Riggs CMA null, [place] - [facility] 4 10:03:52 Kidney lesion 1087013296501 0 Active 2024 Pawan carpenter MD [address], [place], [address] , [facility] 5 15:47:24 Hyperglyce samira 44423390 Active 2024 Pawan carpenter MD [address], [place], [address] , [facility] 5 15:47:24 Thrombocyt osis 3702030 Active 2024 Pawan carpenter MD [address], [place], [address] , [facility] 5 15:47:24 Skin lesion 26423713 Active 2024 Pawan carpenter MD [address], [place], [address] , [facility] 5 15:47:25 Anxiety 27497745 Active 2024 Pawan carpenter MD [address], [place], [address] , [employer] [facility] 5 15:47:25 Adrenal mass 090985227 Active 2024 Pawan carpenter MD [address], [place], [address] , [employer] [facility] 5 15:47:25 Osteoarthr itis 508700128 Active 2024 Pawan carpenter MD [address], [place], [address] , [employer] [facility] 5 15:47:25 Sinus tarsi syndrome of left ankle 8708208226366 9102 Active 2018 Not Available [facility] 3 03:02:02 Osteoarthr itis of knee 203534647 Active Not Available [facility] 3 03:02:02 Vitamin D deficiency 59588248 Active Not Available [facility] 3 03:02:02 Coronary atheroscle rosis 006841423 Active Not Available [facility] 3 03:02:02 Hyperlipid emia 55271981 Active Not Available [facility] 3 03:02:02 Essential hypertensi on 75312093 Active Not Available [facility] 3 03:02:02 Notes:Chest CT 08/25/23 s/p NAYELI lobectomy, small left effusion Chest CT 12/02/23 s/p NAYELI lobectomy, small left effusion Chest CT 03/12/24 s/p NAYELI lobectomy, small left effusion, postradiation changes, LLL bronchial narrowing Chest CT 07/18/24 s/p NAYELI lobectomy, small left effusion, postradiation changes, left hilar bronchiectasis PFT 03/23/23 FEV1 2.45 L (94%), BD 70 mL = 3%, TLC 5.39 L (97%), DLCO 89% PFT 10/12/23 FEV1 1.48 L (51%), BD 130 mL = 10%, TLC 3.82 L (60%), DLCO 61% PFT 09/18/24 FEV1 1.39 L (54%), BD -60 mL = -4%, TLC 3.66 L (66%), DLCO 64% 6MW 10/12/23 O2 desaturated from 97% to 92% Dr. Gamaliel Schwarz note 09/26/24 IgE and CBC wtih diff, then prednisone 40 mg per day x 5 days, plan for biologic therapy Medical History: Anxiety Bilateral tinnitus Rhinitis to multiple environmental allergens IgE 998 IU/mL Eosinophils 440/uL AAT PiMM 172 mg% Asbestos exposure 2604-8685 Bibasilar atelectasis Lingular squamous cell ca Moderate COPD Obesity with mod restrictive airflow impairment Mixed hyperlipidemia Hypertension CAD Diverticulosis 2.4 cm left adrenal adenoma Bilateral renal cysts Thrombocytosis Vit D deficiency Lumbar stenosis Left ankle sinus tarsi Procedure History: T&A 1960 3 vessel CABG 2012 11 coronary artery stent 2019 Bilateral peripheral artery angioplasty 2022 NAYELI lobectomy 05/2023 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 Procedures Surgical History Date Name Laterality Status Provider Name and Address Organization Details Recorded Time 03/29/20 24 Medicare Wellness CPT Code, subsequent completed Fabián White LPN [employer] [facility] 03/29/2024 15:56:56 05/19/20 23 thoracoscopic partial lobectomy of lung completed Glenny Posada [facility] 06/15/2023 15:35:36 09/30/20 22 Stent completed Not Available [facility] 01/12/2023 04:43:13 12/02/19 21 [facility] completed [facility] 04:43:13 [facility]ovascular [facility] completed [facility]23 04:43:13 Colonoscopy completed Not Available [facility] 01/12/2023 04:43:13 lobectomy of the lung and excisional biopsies completed Noemi Khan MA [employer] [facility] Test 05/26/2023 15:38:16 Imaging Results None recorded. Procedure Notes None recorded. Medical Equipment None Reported. Allergies No known drug allergies Medications Name Sig Start Date Stop Date Status Note LastModified by Organization Details LastModified Time losartan 50 mg tablet Take 1 tablet every day by oral route for 90 days. 03/19 completed Not Available Not Available Not Available celecoxib 200 mg capsule Take 1 capsule every day by oral route. 11/05 completed Not Available Not Available Not Available cyclobenza adelita 10 mg tablet 09/29 completed Not Available Not Available Not Available atorvastat in 40 mg tablet TAKE 1 TABLET BY MOUTH EVERY DAY active Not Available Not Available No t Available metformin 500 mg tablet TAKE 1 TABLET BY MOUTH TWICE A DAY 04/07 completed Not Available Not Available Not Available cilostazol 100 mg tablet Take 1 tablet twice a day by oral route. 08/[address] [facility] for foot pain 2019 Not Available Not Available Not Available atorvastat in 80 mg tablet TAKE 1 TABLET BY MOUTH EVERY DAY active Not Available Not Available No t Available carvedilol 25 mg tablet active Not Available Not Available Not Available atorvastat in 20 mg tablet active Not Available Not Available Not Available nicotine 14 mg/24 hr daily transderma l patch APPLY 1 PATCH ONTO THE SKIN DIRECTED FOR 14 DAYS 11/27 completed Not Available Not Available Not Available hydrocorti sone-pramo xine 2.5 %-1 % rectal cream active Not Available Not Available Not Available enalapril maleate 5 mg tablet Take 1 tablet by mouth daily active Not Available Not Available No t Available azithromyc in 250 mg tablet TAKE 2 TABLETS (500 MG) BY ORAL ROUTE ONCE DAILY FOR 1 DAY THEN 1 TABLET (250 MG) BY ORAL ROUTE ONCE DAILY FOR 4 DAYS 12/13 completed Not Available Not Available Not Available benzonatat e 200 mg capsule TAKE 1 CAPSULE BY MOUTH THREE TIMES DAILY 08/23 completed Not Available Not Available Not Available hydrocodon e 5 mg-acetami nophen 325 mg tablet TAKE 1 TABLET BY MOUTH EVERY 4 HOURS NEEDED FOR SEVERE PAIN MAX DAILY AMOUNT: 6 TABLETS 06/30 completed Not Available Not Available Not Available Medrol (Jose C) 4 mg tablets in a dose pack Take 1 dose pk by oral route as directed. active Not Available Not Available No t Available prednisone 20 mg tablet 12/13 completed Not Available Not Available Not Available clonazepam 0.5 mg tablet TK 1T PO QD active Not Available Not Available No t Available ProctoCrea m-HC 2.5 % rectal cream with applicator apply bid active Not Available Not Available Not Available clopidogre l 75 mg tablet TAKE 1 TABLET BY MOUTH EVERY DAY active Not Available Not Available No t Available spironolac tone 25 mg tablet QD active Not Available Not Available Not Available simvastati n 40 mg tablet TAKE ONE TABLET BY MOUTH ONCE DAILY active Not Available Not Available No t Available hydrocorti sone acetate 25 mg rectal suppositor y Insert 1 supposito ry 3 times a day by rectal route for 14 days. 07/17 completed Not Available Not Available Not Available Kenalog 10 mg/mL suspension for injection In office injection administe red by the provider 11/05 completed [facility]: [phone] Not Available Not Available Not Available dexamethas one 1 mg tablet take dexa tablet at 10 pm night before 8 am cortisol 06/15 completed Not Available Not Available Not Available Proctozone -HC 2.5 % topical cream perineal applicator active Not Available Not Available N ot Available benzonatat e 100 mg capsule active Not Available Not Available Not Available simvastati n 20 mg tablet TAKE 1 TABLET BY MOUTH EVERY DAY 11/29 completed Not Available Not Available Not Available lisinopril 10 mg tablet TAKE 1 TABLET BY MOUTH EVERY DAY active Not Available Not Available No t Available losartan 25 mg tablet TAKE 2 TABLETS BY MOUTH EVERY DAY active Not Available Not Available No t Available nicotine 21 mg/24 hr daily transderma l patch APPLY 1 NEW PATCH EVERY 24 HOURS 03/19 completed Not Available Not Available Not Available hydrochlor othiazide 12.5 mg capsule TAKE 1 CAPSULE BY MOUTH EVERY DAY active Not Available Not Available No t Available gabapentin 300 mg capsule TAKE 1 CAPSULE BY MOUTH TWICE A DAY 03/29 completed Not Available Not Available Not Available gabapentin 100 mg capsule TAKE 1 CAPSULE BY MOUTH THREE TIMES A DAY 08/08 completed Not Available Not Available Not Available ergocalcif richard (vitamin D2) 1,250 mcg (50,000 unit) capsule TAKE 1 CAPSULE ONCE A WEEK FOR 8 WEEKS. active Not Available Not Available No t Available lorazepam 1 mg tablet TAKE 1 TABLET BY MOUTH EVERY DAY NEEDED *USE SPARINGLY -NO ALCOHOL/D RIVING/SE DATING MEDS* 03/29 completed Not Available Not Available Not Available fluticason e propionate 50 mcg/actuat ion nasal spray,susp ension [place] 1 spray every day by intranasa l route for 30 days. active Not Available Not Available No t Available metformin ER 500 mg tablet,ext ended release 24 hr TAKE 1 TABLET BY MOUTH EVERY DAY AT DINNER FOR 90 DAYS active Not Available Not Available No t Available doxycyclin e hyclate 100 mg tablet Take 1 tablet twice a day by oral route for 14 days. active Not Available Not Available No t Available naproxen 500 mg tablet 09/29 completed Not Available Not Available Not Available amoxicilli n 875 mg-potassi um clavulanat e 125 mg tablet TAKE 1 TABLET BY MOUTH TWICE A DAY FOR 10 DAYS active Not Available Not Available No t Available nicotine 7 mg/24 hr daily transderma l patch one patch daily as directed 11/27 completed Not Available Not Available Not Available Ventolin HFA 90 mcg/actuat ion aerosol inhaler INHALE 1 PUFF EVERY 4 HOURS NEEDED active Not Available Not Available No t Available ezetimibe 10 mg tablet TAKE 1 TABLET BY MOUTH ONCE DAILY active Not Available Not Available No t Available Vigamox 0.5 % eye drops active Not Available Not Available Not Available rosuvastat in 40 mg tablet active Not Available Not Available Not Available Crestor 20 mg tablet Take 1 tablet every day by oral route. 10/03 completed Not Available Not Available Not Available Nevanac 0.1 % eye drops,susp ension active Not Available Not Available Not Available chlorhexid ine gluconate 0.12 % mouthwash Place 15 mL twice a day by mucous membrane route. active Not Available Not Available No t Available Aspir-81 1T PO QD 12/13 completed Not Available Not Available Not Available Vitamin D 1T PO QD 5,000iu 06/15 completed Not Available Not Available Not Available Low Dose Aspirin 81mg Tablet Daily 02/18 completed Not Available Not Available Not Available lidocaine (PF) 10 mg/mL (1 %) injection solution In office injection administe red by the provider 11/05 completed [facility]: [phone] Not Available Not Available Not Available fenofibrat e nanocrysta llized 145 mg tablet Take 1 tablet every day by oral route in the evening. 12/25 completed Not Available Not Available Not Available hydrochlor othiazide 12.5 mg tablet Take 1 tablet every day by oral route. 03/11 completed Not Available Not Available Not Available Durezol 0.05 % eye drops 09/29 completed Not Available Not Available Not Available prasugrel HCl 10 mg tablet Take 1 tablet every day by oral route. 08/20 completed Not Available Not Available Not Available azelastine 205.5 mcg (0.15 %) nasal spray [place] 2 sprays twice a day by intranasa l route for 30 days. active Not Available Not Available No t Available Spiriva Respimat 03/17 completed Not Available Not Available Not Available Praluent Pen 08/[address] [facility] Not Available Not Available Not Available Trelegy Ellipta 100 mcg-62.5 mcg-25 mcg powder for inhalation Inhale 1 puff every day by inhalatio n route. 2024 active Not Available Not Available Not Avai lable Xarelto 2.5 mg tablet TAKE 1 TABLET BY MOUTH TWICE A DAY 03/19 completed Not Available Not Available Not Available Vitals Date Recorded Body height Body mass index (BMI) Body weight Body temperature Heart rate Systolic blood pressure Diastolic blood pressure Provider Name and Address Organization Details Last Updated DateTime 5 170.18 cm 32.3 kg/m2 30941.0 3 g 97.7 [degF] 96 /min 118 mm[Hg] 60 mm[Hg] BRIAN Garvin [facility] 5 14:59:00 Date Recorded Body height Body mass index (BMI) Body weight Body temperature Heart rate Oxygen saturation Oxygen saturation in Arterial blood by Pulse oximetry Provider Name and Address Organization Details Last Updated DateTime 4 170.18 cm 30.5 kg/m2 66585.5 1 g 97.7 [degF] 91 /min 95 % 95 % Hailee Moya MA [facility] [employer] [facility] 4 14:55:52 Date Recorded Body height Body mass index (BMI) Body weight Body temperature Heart rate Systolic blood pressure Diastolic blood pressure Provider Name and Address Organization Details Last Updated DateTime 4 170.18 cm 31.2 kg/m2 88226.8 8 g 97.4 [degF] 90 /min 118 mm[Hg] 66 mm[Hg] BRIAN Garvin [facility] Test 15:02:25 Date Recorded Body height Body mass index (BMI) Body weight Heart rate Oxygen saturation Oxygen saturation in Arterial blood by Pulse oximetry Respiratory rate Heart rate Provider Name and Address Organization Details Last Updated DateTime 170.18 cm 31.2 kg/m2 84701.8 8 g 101 /min 95 % 95 % 14 /min 101 /min Renaldo Painter MD [address] [facility], [place] [address], [place], [address], [employer] [facility] Test 16:18:45 Date Recorded Body temperature Systolic blood pressure Diastolic blood pressure Provider Name and Address Organization Details Last Updated DateTime 09/17/2024 99.2 [degF] 122 mm[Hg] 78 mm[Hg] Marsha Roland MA [employer] [facility] 09/17/2024 15:32:46 Date Recorded Heart rate Respiratory rate Provider N michelle and Address Organization Details Last Updated DateTime 09/27/2024 98 /min 15 /min Renaldo Painter MD [address] [facility], [place] [address], [place], [address], [place] 09/27/2024 10:53:30 Date Recorded Body height Body mass index (BMI) Body weight Body temperature Heart rate Oxygen saturation Oxygen saturation in Arterial blood by Pulse oximetry Systolic blood pressure Diastolic blood pressure Provider Name and Address Organization Details Last Updated DateTime 170.18 cm 31.5 kg/m2 33967.0 7 g 98.1 [degF] 98 /min 95 % 95 % 124 mm[Hg] 72 mm[Hg] Pablito Riggs CMA [facility] Central Test 10:23:30 Social History Question Answer Notes LastModified by Organization Details LastModified Time Tobacco Smoking Status Former Smoker quit march 2023 Noemi Khan MA [facility], [facility] Central Test 05/26/2023 15:37:34 Do You Have An Advance Directive? Yes MIGRATION.300 [id number] Information not available 01/12/2023 Do You Wear A Helmet When Biking? Yes MIGRATION.0301 [id number] Information not available 01/12/2023 Are You Blind Or Do You Have Difficulty Seeing? No MIGRATION.030 191896 Information not available 01/12/2023 What Is Your Level Of Caffeine Consumption? Moderate MIGRATION.030 409317 Information not available 01/12/2023 How Much Tobacco Do You Chew? None MIGRATION.030 982803 Information not available 01/12/2023 In The 14 Days Before Symptom Onset, Have You Had Close Contact With A Laboratory-confi rmed COVID-19 While That Case Was Ill? No MIGRATION.030 980702 Information not available 01/12/2023 In The 14 Days Before Symptom Onset, Have You Had Close Contact With A Person Who Is Under Investigation For COVID-19 While That Person Was Ill? No MIGRATION.030 454735 Information not available 01/12/2023 Are You Deaf Or Do You Have Serious Difficulty Hearing? No MIGRATION.030 520219 Information not available 01/12/2023 What Type Of Diet Are You Following? REGULAR MIGRATION.030 977733 Information not available 01/12/2023 Which Illicit Or Recreational Drugs Have You Used? None MIGRATION.030 392063 Information not available 01/12/2023 What Is The Highest Grade Or Level Of School You Have Completed Or The Highest Degree You Have Received? [id number] MIGRATION.300026 Information not available 01/12/2023 Do You Have An Electrostatic Air Filter? No Information not available 03/14/2023 Have There Been Any Changes To Your Family Or Social Situation? No MIGRATION.030 607586 Information not available 01/12/2023 What Is The Fluoride Status Of Your Home? Unknown MIGRATION.030 546120 Information not available 01/12/2023 When Did You Quit Smoking? 1-5yearssincelastci jazmyne dela cruz Information not available 03/29/2024 Are There Any Guns Present In Your Home? Yes MIGRATION.030 232525 Information not available 01/12/2023 Do You Have A Humidifier? Yes Information not available 03/14/2023 Do You Use Insect Repellent Routinely? No MIGRATION.030 685731 Information not available 01/12/2023 Where Do You Live? SingleLevelHouse MIGRATION.030 221996 Information not available 01/12/2023 Presence Of Domestic Violence No [email or web address] Information not available 03/29/2024 Are You Able To Care For Yourself? Yes [email or web address] Information not available 03/29/2024 Are You Blind Or Do Yo Have Difficulty Seeing? No [email or web address] Information not available 03/29/2024 Are You Deaf Or Do You Have Serious Difficulty Hearing? No [email or web address] Information not available 03/29/2024 General Stress Level? Low Information not available 03/29/2024 Live Alone Of With Others? With Others [email or web address] Information not available 03/29/2024 Do You Have A Medical Power Of Nurse Sitter? Yes MIGRATION.0301 [id number] Information not available 01/12/2023 Do You Have Moisture Problems In Your Home? No Information not available 03/14/2023 What Was The Date Of Your Most Recent Tobacco Screening? 02/14/2025 Information not available 02/14/2025 Have You Ever Been Counseled For Unhealthy Alcohol Use? No MIGRATION.0301 302514 Information not available 01/12/2023 Do You Have Any Pets? Yes Dog, Cat Information not available 03/29/2024 What Is Your Relationship Status? MIGRATION.0301 [id number] Information not available 01/12/2023 Do You Use Your Seat Belt Or Car Seat Routinely? Yes MIGRATION.0301 223234 Information not available 01/12/2023 Do You Have Smoke And Carbon Monoxide Detectors In Your Home? Yes MIGRATION.0301 975850 Information not available 01/12/2023 At What Age Did You Start Smoking Tobacco? 19 MIGRATION.0301 [id number] Information not available 01/12/2023 Are You Passively Exposed To Smoke? No MIGRATION.0301 729861 Information not available 01/12/2023 Are There Any Smokers In Your House? No MIGRATION.0301 840788 Information not available 01/12/2023 How Much Tobacco Do You Smoke? No Was 2ppd Information not available 02/14/2025 What Types Of Sporting Activities Do You Participate In? None MIGRATION.0301 524135 Information not available 01/12/2023 Do You Use Sunscreen Routinely? No MIGRATION.0301 935045 Information not available 01/12/2023 Has Tobacco Cessation Counseling Been Provided? No Information not available 03/29/2024 How Many Years Have You Smoked Tobacco? 40 MIGRATION.0301 895642 Information not available 01/12/2023 Have You Recently Traveled Abroad? No MIGRATION.0301 968292 Information not available 01/12/2023 Do You Have Difficulty Walking Or Climbing Stairs? No MIGRATION.0301 222660 Information not available 01/12/2023 Do You Have Any Dietary Restrictions? No MIGRATION.0301 210906 Information not available 01/12/2023 How Many Days In The Past Year Have You Consumed 5 Or More Drinks? 1 [email or web address] Information not available 03/29/2024 Sex: Male Functional Status Question Answer Note LastModified by [employer] Details LastModified Time Do you use any illicit or recreational drugs? No MIGRATION.[id number] 026 Information not available 01/12/2023 Do you or have you ever used any other forms of tobacco or nicotine? No MIGRATION.1846768 026 Information not available 01/12/2023 What is your level of alcohol consumption? Occasional MIGRATION.4568834 026 Information not available 01/12/2023 Are you currently employed? No Information not available 03/29/2024 Do you have transportation difficulties? No MIGRATION.0746556 026 Information not available 01/12/2023 Are you able to walk? YESWOREST MIGRATION.0581570 026 Information not available 01/12/2023 Do you have difficulty doing errands alone? No MIGRATION.6857161 026 Information not available 01/12/2023 Are you able to care for yourself? Yes MIGRATION.8075179 026 Information not available 01/12/2023 What is your occupation? retired MIGRATION.9290421 026 Information not available 01/12/2023 Do you have difficulty dressing or bathing? No MIGRATION.0496927 026 Information not available 01/12/2023 What is your exercise level? Occasional MIGRATION.1835543 026 Information not available 01/12/2023 Mental Status Question Answer Note LastModified by [facility] ion Details LastModified Time Do you feel stressed (tense, restless, nervous, or anxious, or unable to sleep at night)? [id number] MIGRATION.[id number] 26 Information not available 01/12/2023 Do you have difficulty concentrating, remembering or making decisions? No MIGRATION.99046323 26 Information not available 01/12/2023 Family History Relationship Description Onset Age of this Age Resolved Age Notes LastModified by Organization Details LastModified Time Mother Carcinoma in situ of breast MIGRATION.999 [id number] Not available 01/12/2023 04:43:19 Medical History Condition Response NERVE DISEASE N BLINDNESS N RHEUMATIC FEVER N KIDNEY STONES N BLADDER PROBLEMS N MRSA N OTHER # 1 N POLIO N LUNG DISEASE/DISORDER N RADIATION / CHEMOTHERAPY N COPD N Other # 2 N BLOOD DISEASES N EAR OR HEARING PROBLEMS N MUMPS N BOWEL PROBLEMS N DEPRESSION (INCLUDING POST ) N STROKE/TIA N ULCERS N BENIGN PROSTATIC HYPERPLASIA N MEASLES N MYOCARDIAL INFARCTION N OBESITY N GERD/NAUSEA N ANEURYSM N URINARY/BLADDER/KIDNEY PROBLEMS N CORONARY ARTERY DISEASE (CAD) N ADDICTION CONCERNS N ENDOMETRIOSIS N Impotence N USE OF BLOOD THINNERS N SKIN PROBLEMS N GASTROINTESTINAL DISORDER N PERIPHERAL VASCULAR DISEASE N MUSCLE,JOINT OR BONE PROBLEMS N GASTROINTESTINAL BLEEDING N BLOOD CLOTS N ASTHMA N CATARACTS N ERECTILE DYSFUNCTION N VARICOSITIES N GI PROBLEMS N Low Testosterone N INFERTILITY N AIDS/HIV N CHEMOTHERAPY / RADIATION N LIVER DISEASE N MALE HYPOGONADISM N HYPERTENSION Y Deficiency Y TOURETTE'S N ANXIETY DISORDER Y BLOOD TRANSFUSION N ANEMIA/BLOOD DISORDER N CHRONIC EAR INFECTIONS N BRONCHITIS N TUBERCULOSIS N GLAUCOMA N FOOT PROBLEM N DIVERTICULITIS N SLEEP APNEA N CHICKENPOX N INFECTIOUS DISEASE N HEART ARRHYTHMIA N PROSTATE N INSOMNIA N HIGH CHOLESTEROL / HYPERLIPIDEMIA Y HYPERTHYROIDISM N EYE PROBLEMS N EDEMA N CHRONIC PAIN SYNDROME N HYPOTHYROIDISM N CAROTID BLOCKAGE N CONSTIPATION N BACK / NECK PROBLEMS N ATHEROSCLEROSIS N BREAST PROBLEMS N DIALYSIS N ECZEMA N OSTEOPOROSIS N ARTHRITIS N APPENDICITIS N DIABETES, TYPE N BAD TEETH N ENT N HEARTBURN / REFLUX N AUTISM SPECTRUM DISORDER (ASD) N HEPATITIS / LIVER DISEASE N GOUT N SLEEP DISORDER N ALZHEIMER'S DISEASE N Brain Problems N HERPES N DEMENTIA N HEADACHES/MIGRAINES N SEIZURES/EPILEPSY N VASCULAR DISEASE N PACEMAKER N Blood Disorder N DIZZINESS N HEART DISEASE/HEART PROBLEMS N KIDNEY DISEASE N MULTIPLE SCLEROSIS N CARDIAC ARRHYTHMIA N CANCER: SPECIFY N ATRIAL FIBRILLATION N Gall Stones N PULMONARY EMBOLISM N AUTOIMMUNE DISEASE N Immunizations Vaccine Type Date Status Note Provider Nam e and Address Organization Details Recorded Time Influenza, high-dose, quadrivalent, PF 3 completed BRIAN Garvin, [place] - [facility] 08/11/2023 15:25:45 Influenza, high-dose, quadrivalent, PF 2 completed Not Available [facility] 06/24/2023 03:02:03 Influenza, high-dose, quadrivalent, PF 1 completed Not Available [facility] 06/24/2023 03:02:03 COVID-19, mRNA, LNP-S, PF, 30 mcg/0.3 mL dose 1 completed Not Available [facility] 06/24/2023 03:02:03 SARS-COV-2 (COVID-19) vaccine, UNSPECIFIED 1 completed Not Available [facility] 06/24/2023 03:02:03 SARS-COV-2 (COVID-19) vaccine, UNSPECIFIED 1 completed Not Available [facility] 06/24/2023 03:02:03 Influenza, high-dose, trivalent, PF 0 completed Not Available [facility] 06/24/2023 03:02:03 Influenza, high-dose, trivalent, PF 0 completed Not Available [facility] 06/24/2023 03:02:03 pneumococcal polysaccharide PPV23 9 completed Not Available [facility] 06/24/2023 03:02:03 Influenza, high-dose, trivalent, PF 9 completed Not Available [facility] 06/24/2023 03:02:03 Influenza, high-dose, trivalent, PF 7 completed Not Available [facility] 06/24/2023 03:02:03 Influenza, split virus, quadrivalent, preservative 5 completed Not Available [facility] 06/24/2023 03:02:03 Pneumococcal conjugate PCV 13 7 completed Not Available [facility] 06/24/2023 03:02:03 Influenza, split virus, trivalent, PF 4 completed Not Available [facility] 06/24/2023 03:02:03 Influenza, high-dose, trivalent, PF 4 completed Pawan Mendes MD [address] [place] [address], [place] [address], [place], [address], [place] [facility] 09/07/2024 22:23:29 Past Encounters Encounter ID Performer Location Encounter Start Date Encounter Closed Date Diagnosis/Indication Diagnosis SNOMED-CT Code Diagnosis ICD10 Code Diagnosis Note [id number] Pawan carpenter MD [facility] [place] [address] [place] [address] [place] [address] 03/11/2021 00:00:00 03/11/2021 14:32:53 [id number] Pawan carpenter MD [facility] [place] [address] [place] [address] [place] [address] 06/11/2021 00:00:00 06/11/2021 15:57:50 [id number] Pawan carpenter MD [facility] [place] [address] [facility] 15 [place] [address] 09/17/2021 00:00:00 09/17/2021 14:47:03 [id number] Pawan carpenter MD [facility] [place] [address] [facility] 15 [place] [address] 12/24/2021 00:00:00 12/28/2021 14:05:00 [id number] Paawn carpenter MD [facility] [place] [address] [facility] 15 [place] [address] 04/22/2022 00:00:00 04/22/2022 15:05:08 [id number] Pawan carpenter MD [facility] [place] [address] [facility] 15 [place] [address] 10/21/2022 00:00:00 10/21/2022 15:35:16 [id number] Pawan carpenter MD [facility] [place] [address] , [place] [address] 02/28/2023 10:40:51 02/28/2023 11:32:59 Screening - NAD 871578744 Z13.9 C-scope: 04/20/18: Dr Kishan sanchez, next in 10 years UTD on flu shotUTD penumovax #13 10/13/17, #23 11/27/18Ge t shingles vaccine, get Tdap if not doneUTD on COVID 19 vaccine RTC in 3 monthsGet labsER if worseHe did verbalize his understand ing of the above Essential hypertension 71882744 I10 ECHO 10/19/17:N LV fx with EF 53%, trace TR and pulm HTN On plavixSees Dr Max [facility] On ASAOff losartan 25mg 2 tabs dailyOn HCTZ 12.5mg daily Does well at this time Hyperlipidemia 42736422 E78.[address] [facility] did try to get him on praluent but he could not afford this On ASAOn atorvastat in 40mg dailyOn zetia 10mg daily Not on fenofibrat e 145mg dailyGet on vascepa 1gm 2 cap bid he declined 09/17/2021 , 04/22/2022 Diet and exercise, he states that he has been eating a lot and has gained weight Repeat the labs Hyperglycemia 11805162 R 73.9 Declines any medsGet labsDiet and exercise Kidney lesion 1761619748 9100 N28.9 [place] Kidney 06/22/2021 : NegGet a referral to urology Thrombocytosis 1291828 D 75.[address] Stevens, referred 02/03/2023 Get labs Skin lesion 87636893 L98 .9 States that he had a biopsy from the L earGet the report, he will call with the name as he does not recall the name of the dermatolog ist who did this Smoker 15789495 F17.200 OV 03/11/2021 : He states that he has quit smoking and that has contribute d to his weight gain US AAA: 10/19/2017 : Neg LDCT 01/10/2020 : Repeat in one year LDCT 01/28/2021 : Next in one yearDensit y in kidney LDCT 02/01/2022 LDCT 02/02/2023 : See case, is to see Dr Painter, is to get PET CT Anxiety 50819055 F41.9 On clonazepam 0.5mgDoes wellStates that he is not taking this much at all Adrenal mass 387387988 R 19.[address] Koo, see case and referral on 02/03/2023 [id number] Renaldo Painter MD [facility] [place] [address] 03/14/2023 11:54:38 04/12/2023 16:25:54 Dyspnea on exertion 09622282 R06.09 R05.9 T78.40XA Z01.812 Long-term current use of anticoagulant 099857428 Z79.01 Solitary n odule of lung 488135280 R91.1 [id number] MD JENNA Malagon_[facility] [place] [address] 03/23/2023 12:01:10 03/24/2023 08:34:00 Squamous cell carcinoma of left lung 7486517638 1363904 C34.92 Smoker 89362522 F17.218 F17.219 Z87.891 [id number] Renaldo Painter MD [facility] [place] [address] 03/28/2023 13:57:02 03/29/2023 08:29:45 Squamous cell carcinoma of left lung 6465623127 8229388 C34.92 Smoker 44989488 F17.218 F17.219 Z87.891 [id number] Daniel Aguiar MD [facility] [place] [address] 1 04/04/2023 15:50:16 04/04/2023 16:39:13 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 Renal mass 255002338 N28 .89 ?complex cyst, discussed options, would get MRI [id number] Frances Koo MD [facility] [employer] [address] [place] [address] 04/07/2023 13:56:28 04/07/2023 14:44:23 Adrenal adenoma 400137774 D35.02 Send for full adrenal panel-has 2.2 cm nodule on left adrenal gland characteri zed as adenoma. Will send for low dose dexa suppressio n testing to screen for hypercorti solic state. Send for renin/alix sterone to screen for primary hyperaldos teronism and send for dheas level to screen for adrenal carcinoma. Prediabetes 704021461 R7 3.03 Recommende d patient start on low dose metformin ER 500 mg daily with dinner. Discussed carb counting and how to read food labels. Recommende d patient to utilize the diabetesfo [place].Sensorin from the ADA website to help with food preparatio n as this presents ideal carb content per meal so this will make carb counting much easier for patient. Recommende d he incorporat e natural insulin relief pilot s such as pears, apples, cinnamon, candy and sweet potatoes to help mobilize his endogenous insulin. Recommende d up to 150 minutes of moderate level activity/e xercise weekly. Spent up to 45 minutes preparing to see the patient (eg, review of tests), obtaining and/or reviewing separately obtained history, performing a medically appropriat e examinatio n and evaluation , counseling and educating the patient, ordering medication s, tests, along with documentin g clinical informatio n in the electronic health record, independen tly interpreti ng results and communicat ing results to the patient. RTC in 2 months. Patient was provided a handwritte n lab order which contains our fax number. If he chooses to go outside of the [facility] system to obtain labwork he was advised to provide our fax number and my informatio n to the lab he will be obtaining labwork from in order to have his labs properly forwarded over for me to review so there is no loss of follow up due to use of outside network. He was also advised to contact our clinic informing us that he has completed his labwork so we are aware we will need to reach out to the appropriat e laboratory to request his results be forwarded to us so I might have the ability to review and make further medical decision making in his case. He voiced understand ing. Thank you for this consultati on. 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 Renal mass 468731362 N28 .89 Not seen on MRI, suggested renal ultrasound in 6 months [id number] Pawan carpenter MD [facility] [address] [facility] [place] [address] [place] [address] 05/26/2023 15:10:45 05/26/2023 16:13:14 Screening - NAD 810500050 Z13.9 C-scope: 04/20/18: Dr Kishan sanchez, next in 10 years UTD on flu shotUTD penumovax #13 10/13/17, #23 11/27/18Ge t shingles vaccine, get Tdap if not doneUTD on COVID 19 vaccine RTC in 3 monthsGet labsER if worseHe did verbalize his understand ing of the above Essential hypertension 34968980 I10 ECHO 10/19/17:N LV fx with EF 53%, trace TR and pulm HTN On plavixSees Dr Max [facility] On ASAOff losartan 25mg 2 tabs dailyOn HCTZ 12.5mg daily Does well at this time Dr Max 05/04/2023 , to get LHC as per Dr Max Hyperlipidemia 33743484 E78.[address] [facility] did try to get him on praluent but he could not afford this On ASAOn atorvastat in 40mg dailyOn zetia 10mg daily Not on fenofibrat e 145mg dailyGet on vascepa 1gm 2 cap bid he declined 09/17/2021 , 04/22/2022 Diet and exercise, he states that he has been eating a lot and has gained weight Repeat the labs Hyperglycemia 34008848 R 73.9 On metformin ER 500mg daily given by Dr Tucker labsDiet and exercise Kidney lesion 4952209769 9100 N28.9 US Kidney 06/22/2021 : NegGet a referral to urology MRI A/P 04/29/2023 Dr Aguiar 05/03/2023 , next f/u 10/31/2023 Thrombocytosis 8582699 D 75.[address] Stevens, referred 02/03/2023 Get labs Skin lesion 79493928 L98 .9 States that he had a biopsy from the L earGet the report, he will call with the name as he does not recall the name of the dermatolog ist who did this Smoker 47571353 F17.200 OV 03/11/2021 : He states that he has quit smoking and that has contribute d to his weight gain US AAA: 10/19/2017 : Neg LDCT 01/10/2020 : Repeat in one year LDCT 01/28/2021 : Next in one yearDensit y in kidney LDCT 02/01/2022 LDCT 02/02/2023 : See case, is to see Dr Painter, is to get PET CT Dr Painter 03/28/2023 Anxiety 35669056 F41.9 On clonazepam 0.5mgDoes wellStates that he is not taking this much at all Adrenal mass 599307283 R 19.[address] Koo, see case and referral on 02/03/2023 Dr Koo 04/07/2023 , f/u 06/16/2023 Squamous c ell carcinoma of lung 059669539 C34.90 Dr Painter 03/28/[address] Stevens oncologist Osteoarthritis 275308022 M19.90 Addendum: 06/02/[address] Chance for knee pain, s/p injections , and takes tylenol, no surgeryIs needing the [place] Marijuana Medical Card form filled online, understand s that this is just a certificat ion from me to see if he has a qualifying diagnosis and not an actual prescripti on, understand s that this is not federally approved and understand s the risks for using marijuana, he wishes to proceed [id number] Frances Koo MD [facility] [place] [address] [place] [address] 06/16/2023 14:59:32 06/16/2023 15:44:45 Adenoma of left adrenal gland [id number] 7930984 D35.02 Patient was found to have a 2.5 x 1.7 cm left adrenal adenoma benign vs lipoma appearance - DST of 1.5 ug/dL- will need repeat imaging of adrenals along with repeat DST - if over 1.8 ug/dL would recommend referral to C/urolog ical evaluation to see if adrenalect javier indicated or not. refer to endocrinol ogy for further evaluation and management . Prediabetes 259715858 R7 3.03 A1C of 5.9% - continue on low dose metformin ER 500 mg daily with dinner. Discussed carb counting and how to read food labels. Recommende d patient to utilize the diabetesHycrete.Sensorin from the ADA website to help with food preparatio n as this presents ideal carb content per meal so this will make carb counting much easier for patient. Recommende d he incorporat e natural insulin relief pilot s such as pears, apples, cinnamon, candy and sweet potatoes to help mobilize his endogenous insulin. Recommende d up to 150 minutes of moderate level activity/e xercise weekly. Spent up to 25 minutes preparing to see the patient (eg, review of tests), obtaining and/or reviewing separately obtained history, performing a medically appropriat e examinatio n and evaluation , counseling and educating the patient, ordering medication s, tests, along with documentin g clinical informatio n in the electronic health record, independen tly interpreti ng results and communicat ing results to the patient. Patient can be followed by PCP - she/he is aware of my resignatio n and last day of August 26. If needed his/her PCP can refer patient to another endocrinol ogist in the area. All questions /concerns answered and refills necessary at visit today. [id number] Pawan carpenter MD [facility] [place] [address] [facility], [place] [address] [place] [address] 06/30/2023 15:26:19 06/30/2023 16:08:34 Screening - NAD 323165079 Z13.9 C-scope: 04/20/18: Dr Kihsan sanchez, next in 10 years UTD on flu shotUTD penumovax #13 10/13/17, #23 11/27/18Ge t shingles vaccine, get Tdap if not doneUTD on COVID 19 vaccine RTC in 3 monthsGet labsER if worseHe did verbalize his understand ing of the above Essential hypertension 92147189 I10 ECHO 12/06/17:N LV fx with EF 53%, trace TR and pulm HTN On plavixSees Dr Max [facility] On ASAOff losartan 25mg 2 tabs dailyOn HCTZ 12.5mg daily Does well at this time Dr Max 05/04/2023 , to get LHC as per Dr Max Hyperlipidemia 41340922 E78.[address] [facility] did try to get him on praluent but he could not afford this On ASAOn atorvastat in 40mg dailyOn zetia 10mg daily Not on fenofibrat e 145mg dailyGet on vascepa 1gm 2 cap bid he declined 09/17/2021 , 04/22/2022 Diet and exercise, he states that he has been eating a lot and has gained weight Repeat the labs Hyperglycemia 12570135 R 73.9 On metformin ER 500mg daily given by Dr Tucker labsDiet and exercise Kidney lesion [id number] 9100 N28.9 US Kidney 06/22/2021 : NegGet a referral to urology MRI A/P 04/29/2023 Dr Aguiar 05/03/2023 , next f/u 10/31/2023 Thrombocytosis 5656871 D 75.[address] Stevens, referred 02/03/2023 Get labs Skin lesion [id number] L98 .9 States that he had a biopsy from the L earGet the report, he will call with the name as he does not recall the name of the dermatolog ist who did this Smoker [id number] F17.200 OV 03/11/2021 : He states that he has quit smoking and that has contribute d to his weight gain US AAA: 10/19/2017 : Neg LDCT 01/10/2020 : Repeat in one year LDCT 01/28/2021 : Next in one yearDensit y in kidney LDCT 02/01/2022 LDCT 02/02/2023 : See case, is to see Dr Painter, is to get PET CT Dr Painter 03/28/2023 Anxiety 30385050 F41.9 On clonazepam 0.5mgDoes wellStates that he is not taking this much at all Adrenal mass 741000259 R 19.[address] Koo, see case and referral on 02/03/2023 Dr Koo 06/16/2023 , referred to endocrine Squamous c ell carcinoma of lung [id number] C34.90 Dr Painter 03/28/[address] Stevens oncologist Osteoarthritis 359933201 M19.90 Addendum: 06/02/[address] Chance for knee pain, s/p injections , and takes tylenol, no surgeryIs needing the [place] Marijuana Medical Card form filled online, understand s that this is just a certificat ion from me to see if he has a qualifying diagnosis and not an actual prescripti on, understand s that this is not federally approved and understand s the risks for using marijuana, he wishes to proceed [id number] Pawan carpenter MD [facility] Internal Med [facility] [address] [facility] y , [address] 08/08/2023 09:52:29 08/08/2023 10:38:44 Ear discharge [id number] H92.11 Does well, will notify if any symptoms worsen [id number] Renaldo Painter MD [facility] [place] [address] 08/11/2023 15:25:42 08/12/2023 08:32:54 Squamous cell carcinoma of left lung [id number] C34.92 Dyspnea on exertion 6084 5006 R06.09 T78.40XA Z91.742 [id number] Pawan carpenter MD [facility] Internal Med [place] [id number] 09/29/2023 14:13:39 09/29/2023 15:03:58 Screening - NAD [id number] Z13.9 C-scope: 04/20/18: Dr Holley n, next in 10 years UTD on flu shotUTD penumovax #13 10/13/17, #23 11/27/18Ge t shingles vaccine, get Tdap if not doneUTD on COVID 19 vaccineCan do RSV vaccine RTC in 3 monthsGet labsER if worseHe did verbalize his understand ing of the above Essential hypertension 72296496 I10 ECHO 10/19/17:N LV fx with EF 53%, trace TR and pulm HTN On plavixSees Dr Max [facility] On ASAOff losartan 25mg 2 tabs dailyOn HCTZ 12.5mg daily Does well at this time Dr Max 05/04/2023 , to get LHC as per Dr Max Hyperlipidemia 26424590 E78.[address] [facility] did try to get him on praluent but he could not afford this On ASAOn atorvastat in 40mg dailyOn zetia 10mg daily Not on fenofibrat e 145mg dailyGet on vascepa 1gm 2 cap bid he declined 09/17/2021 , 04/22/2022 Diet and exercise, he states that he has been eating a lot and has gained weight Repeat the labs Hyperglycemia 01475027 R 73.9 On metformin ER 500mg daily given by Dr Tucker labsDiet and exercise Kidney lesion [id number] 9100 N28.9 [place] Kidney 06/22/2021 : NegGet a referral to urology MRI A/P 04/29/2023 Dr Aguiar 05/03/2023 , next f/u 10/31/2023 [address] 4[address] D 75.839 [address] Parmar labs Skin lesion [id number] L98 .9 States that he had a biopsy from the L earGet the report, he will call with the name as he does not recall the name of the dermatolog ist who did this Smoker 19847068 F17.200 OV 03/11/2021 : He states that he has quit smoking and that has contribute d to his weight gain US AAA: 10/19/2017 : Neg LDCT 01/10/2020 : Repeat in one year LDCT 01/28/2021 : Next in one yearDensit y in kidney LDCT 02/01/2022 LDCT 02/02/2023 : See case, is to see Dr Painter, is to get PET CT Dr Painter 03/28/2023 Anxiety 63502623 F41.9 On clonazepam 0.5mgDoes wellStates that he is not taking this much at all Adrenal mass 903082406 R 19.[address] Koo, see case and referral on 02/03/2023 Dr Koo 06/16/2023 , referred to endocrine Squamous c ell carcinoma of lung 679757074 C34.90 Dr Painter 03/28/[address] Stevens oncologist last OV 09/02/2023 , referred to Dr Fiore CT chest 08/25/2023 Osteoarthritis 871278902 M19.90 Addendum: 06/02/[address] Chance for knee pain, s/p injections , and takes tylenol, no surgeryIs needing the [place] Medical Card form filled online, understand s that this is just a certificat ion from me to see if he has a qualifying diagnosis and not an actual prescripti on, understand s that this is not federally approved and understand s the risks for using marijuana, he wishes to proceed [id number] Pawan carpenter MD [facility] Internal Med [facility] [address] [facility] [place] [address] 12/29/2023 14:37:55 12/29/2023 15:28:49 Screening - NAD 408031792 Z13.9 C-scope: 04/20/18: Dr Kishan sanchez, next in 10 years UTD on flu shotUTD penumovax #13 10/13/17, #23 11/27/18Ge t shingles vaccine, get Tdap if not doneUTD on COVID 19 vaccineCan do RSV vaccine RTC in 3 monthsGet labsER if worseHe did verbalize his understand ing of the above Essential hypertension 05073355 I10 ECHO 10/19/17:N LV fx with EF 53%, trace TR and pulm HTN On plavixSees Dr Max [facility] On ASAOff losartan 25mg 2 tabs dailyOn HCTZ 12.5mg daily Does well at this time Dr Max 05/04/2023 , to get LHC as per Dr Ml Max 12/21/2023 Hyperlipidemia 87997142 E78.[address] [facility] did try to get him on praluent but he could not afford this On ASAOn atorvastat in 40mg dailyOn zetia 10mg daily Not on fenofibrat e 145mg dailyGet on vascepa 1gm 2 cap bid he declined 09/17/2021 , 04/22/2022 Diet and exercise, he states that he has been eating a lot and has gained weight Repeat the labs Hyperglycemia 34295573 R 73.9 On metformin ER 500mg daily given by Dr Tucker labsDiet and exercise Kidney lesion [id number] 9100 N28.9 [place] Kidney 06/22/2021 : NegGet a referral to urology MRI A/P 04/29/2023 Dr Aguiar 05/03/2023 , next f/u 10/31/2023 Thrombocytosis [address]44 D 75.839 Dr Parmar labs Skin lesion 48771162 L98 .9 States that he had a biopsy from the L earGet the report, he will call with the name as he does not recall the name of the dermatolog ist who did this Smoker [id number] F17.200 OV 03/11/2021 : He states that he has quit smoking and that has contribute d to his weight gain US AAA: 10/19/2017 : Neg LDCT 01/10/2020 : Repeat in one year LDCT 01/28/2021 : Next in one yearDensit y in kidney LDCT 02/01/2022 LDCT 02/02/2023 : See case, is to see Dr Painter, is to get PET CT Dr Painter 03/28/2023 Now does not see a pulmonolog ist, does well, OK to renew proair as needed 12/29/2023 Anxiety 62178987 F41.9 On clonazepam 0.5mgDoes wellStates that he is not taking this much at all Adrenal mass 746254180 R 19.[address] Koo, see case and referral on 02/03/2023 Dr Koo 06/16/2023 , referred to endocrine Dr Stevens: CT chest 12/02/2023 , stable L adrenal nodule Squamous c ell carcinoma of lung 300201771 C34.90 Dr Painter 03/28/2023 CT chest 08/25/2023 CT Chest 12/02/2023 : Dr Magalys Stevens 12/12/2023 , next apt in 3 months Osteoarthritis 209113307 M19.90 Addendum: 06/02/[address] Chance for knee pain, s/p injections , and takes tylenol, no surgeryIs needing the [employer] Marijuana Medical Card form filled online, understand s that this is just a certificat ion from me to see if he has a qualifying diagnosis and not an actual prescripti on, understand s that this is not federally approved and understand s the risks for using marijuana, he wishes to proceed [id number] Pawan carpenter MD [facility] Internal Med [facility] [address] [facility] [address] [place] [address] 03/29/2024 14:50:38 03/29/2024 15:30:15 Screening - NAD 103498074 Z13.9 C-scope: 04/20/18: Dr Kishan sanchez, next in 10 years UTD on flu shotUTD penumovax #13 10/13/17, #23 11/27/18Ge t shingles vaccine, get Tdap if not doneUTD on COVID 19 vaccineCan do RSV vaccine RTC in 3 monthsGet labsER if worseHe did verbalize his understand ing of the above Essential hypertension 38416915 I10 ECHO 10/19/17:N LV fx with EF 53%, trace TR and pulm HTN On plavixSees Dr Max [facility] On ASAOff losartan 25mg 2 tabs dailyOn HCTZ 12.5mg daily Does well at this time Dr Max 05/04/2023 , to get LHC as per Dr Ml Max 12/21/2023 Hyperlipidemia 95962612 E78.[address] [facility] did try to get him on praluent but he could not afford this On ASAOn atorvastat in 40mg dailyOn zetia 10mg daily Not on fenofibrat e 145mg dailyGet on vascepa 1gm 2 cap bid he declined 09/17/2021 , 04/22/2022 Diet and exercise, he states that he has been eating a lot and has gained weight Repeat the labs Hyperglycemia 40482275 R 73.9 Not taking metformin ER 500mg daily given by Dr Caitlin Barrera and exercise Kidney lesion 0821444668 9100 N28.9 US Kidney 06/22/2021 : NegGet a referral to urology MRI A/P 04/29/2023 Dr Aguiar 05/03/2023 , next f/u 10/31/2023 Thrombocytosis [address]7 D 75.839 Dr Parmar labs Skin lesion 71315304 L98 .9 States that he had a biopsy from the L earGet the report, he will call with the name as he does not recall the name of the dermatolog ist who did this Smoker 77704752 F17.200 OV 03/11/2021 : He states that he has quit smoking and that has contribute d to his weight gain US AAA: 10/19/2017 : Neg LDCT 01/10/2020 : Repeat in one year LDCT 01/28/2021 : Next in one yearDensit y in kidney LDCT 02/01/2022 LDCT 02/02/2023 : See case, is to see Dr Painter, is to get PET CT Dr Painter 03/28/2023 Now does not see a pulmonolog ist, does well, OK to renew proair as needed 12/29/2023 Anxiety 60591930 F41.9 On clonazepam 0.5mgDoes wellStates that he is not taking this much at all Adrenal mass 629895122 R 19.[address] Koo, see case and referral on 02/03/2023 Dr Koo 06/16/2023 , referred to endocrine Dr Stevens: CT chest 12/02/2023 , stable L adrenal nodule Squamous c ell carcinoma of lung 755757394 C34.90 Dr Painter 03/28/2023 CT chest 08/25/2023 CT Chest 12/02/2023 : Dr LancasterT chest 03/12/2024 Dr Stevens 12/12/2023 , next apt in 3 months Osteoarthritis 559489561 M19.90 Addendum: 06/02/[address] Chance for knee pain, s/p injections , and takes tylenol, no surgeryIs needing the [place] Medical Card form filled online, understand s that this is just a certificat ion from me to see if he has a qualifying diagnosis and not an actual prescripti on, understand s that this is not federally approved and understand s the risks for using marijuana, he wishes to proceed Adult [facility] examination 327786504 Z00.00 Screening for disorder 800397354 Z13.9 [id number] Pawan carpenter MD [facility] Internal Med [facility] [address] [facility] [place] [address] 08/23/2024 14:50:39 08/23/2024 15:38:27 Screening - NAD 537122320 Z13.9 C-scope: 04/20/18: Dr Kishan sanchez, next in 10 years UTD on flu shotUTD penumovax #13 10/13/17, #23 11/27/18Ge t shingles vaccine, get Tdap if not doneUTD on COVID 19 vaccineCan do RSV vaccine RTC in 3 monthsGet labsER if worseHe and his did verbalize his understand ing of the above Essential hypertension 12589579 I10 ECHO 10/19/17:N LV fx with EF 53%, trace TR and pulm HTN Off losartan 25mg 2 tabs dailyOn plavixOn ASAOn HCTZ 12.5mg daily Does well at this time Dr Max 05/04/2023 , to get LHC as per Dr Ml Max 12/21/2023 Hyperlipidemia 97034399 E78.5 He states that [facility] did try to get him on praluent but he could not afford this On ASAOn atorvastat in 40mg dailyOn zetia 10mg daily Not on fenofibrat e 145mg dailyGet on vascepa 1gm 2 cap bid he declined 09/17/2021 , 04/22/2022 Diet and exercise, he states that he has been eating a lot and has gained weight Repeat the labs Hyperglycemia 33753227 R 73.9 Not taking metformin ER 500mg daily given by Dr Koo, agreeable to restart 08/23/2024 Get labsDiet and exercise Kidney lesion 2158519006 9100 N28.9 US Kidney 06/22/2021 : NegGet a referral to urology MRI A/P 04/29/2023 Dr Aguiar 05/03/2023 , next f/u 10/31/2023 Thrombocytosis 8918228 D 75.839 Dr Parmar labs Skin lesion 65660779 L98 .9 States that he had a biopsy from the L earGet the report, he will call with the name as he does not recall the name of the dermatolog ist who did this Smoker 88449051 F17.200 OV 03/11/2021 : He states that he has quit smoking and that has contribute d to his weight gain US AAA: 10/19/2017 : Neg LDCT 01/10/2020 : Repeat in one year LDCT 01/28/2021 : Next in one yearDensit y in kidney LDCT 02/01/2022 LDCT 02/02/2023 : See case, is to see Dr Painter, is to get PET CT Dr Painter 03/28/2023 Now does not see a pulmonolog ist, does well, OK to renew proair as needed 12/29/[address] Stevens 07/18/2024 Anxiety 17250506 F41.9 On clonazepam 0.5mgDoes wellStates that he is not taking this much at all Adrenal mass 110593421 R 19.[address] Koo, see case and referral on 02/03/2023 Dr Koo 06/16/2023 , referred to endocrine Dr Stevens: CT chest 12/02/2023 , stable L adrenal nodule Squamous c ell carcinoma of lung 266745311 C34.90 Dr Painter 03/28/2023 CT chest 08/25/2023 CT Chest 12/02/2023 : Dr Mcmillan chest 03/12/2024 Dr Stevens 12/12/2023 , next apt in 3 monthsDr Stevens 07/26/2024 , next in [address] chest Osteoarthritis 346723975 M19.90 Addendum: 06/02/[address] Chance for knee pain, s/p injections , and takes tylenol, no surgeryIs needing the [place] Marijuana Medical Card form filled online, understand s that this is just a certificat ion from me to see if he has a qualifying diagnosis and not an actual prescripti on, understand s that this is not federally approved and understand s the risks for using marijuana, he wishes to proceed Administra tion of influenza vaccine 46972182 Z23 [id number] Renaldo Painter MD [facility] Pulmonolo [address] [address] 09/17/2024 15:15:10 11/06/2024 14:07:13 Squamous cell carcinoma of left lung [id number] 5498133 C34.92 Dyspnea on exertion 6084 5006 R06.09 T78.40XA Z91.523 [id number] Renaldo Painter MD [facility] Pulmonolo [address] [place] [address] 09/27/2024 10:15:06 11/12/2024 10:54:20 Squamous cell carcinoma of left lung 6663824631 1240959 C34.92 Moderate c hronic obstructive pulmonary disease 592308325 J44.9 [id number] Pawan carpenter MD [facility] Internal Med [facility] [address] [address] 02/14/2025 14:47:50 02/14/2025 16:03:54 Screening - NAD 973092727 Z13.9 C-scope: 04/20/18: Dr Kishan sanchez, next in 10 years UTD on flu shotUTD penumovax #13 10/13/17, #23 11/27/18Ge t shingles vaccine, get Tdap if not doneUTD on COVID 19 vaccineCan do RSV vaccine RTC in 3 monthsGet labsER if worseHe and his did verbalize his understand ing of the above Essential hypertension 08833114 I10 ECHO 10/19/17:N LV fx with EF 53%, trace TR and pulm HTN Off losartan 25mg 2 tabs dailyOn plavixOn ASAOn HCTZ 12.5mg daily Does well at this time Dr Max 05/04/2023 , to get LHC as per Dr Ml Max 12/21/2023 Hyperlipidemia 31181008 E78.[address] [facility] did try to get him on praluent but he could not afford this On ASAOn atorvastat in 40mg dailyOn zetia 10mg daily Not on fenofibrat e 145mg dailyGet on vascepa 1gm 2 cap bid he declined 09/17/2021 , 04/22/2022 Diet and exercise, he states that he has been eating a lot and has gained weight Repeat the labs Hyperglycemia 63604357 R 73.9 On metformin ER 500mg taking every other dayGet labsDiet and exercise Kidney lesion 2407331433 9100 N28.9 US Kidney 06/22/2021 : NegGet a referral to urology MRI A/P 04/29/[address] Aguiar Thrombocytosis 7229434 D 75.839 Dr Parmar labs Skin lesion 03196510 L98 .9 States that he had a biopsy from the L earGet the report, he will call with the name as he does not recall the name of the dermatolog ist who did this Smoker 84831982 F17.200 OV 03/11/2021 : He states that he has quit smoking and that has contribute d to his weight gain US AAA: 10/19/2017 : Neg LDCT 01/10/2020 : Repeat in one year LDCT 01/28/2021 : Next in one yearDensit y in kidney LDCT 02/01/2022 LDCT 02/02/2023 : See case, is to see Dr Painter, is to get PET CT Dr Painter 03/28/2023 Now does not see a pulmonolog ist, does well, OK to renew proair as needed 12/29/[address] Stevens 07/18/[address] Stevens 11/26/2024 Anxiety 74479096 F41.9 On clonazepam 0.5mgDoes wellStates that he is not taking this much at all Adrenal mass 185009524 R 19.[address] Koo, see case and referral on 02/03/2023 Dr Koo 06/16/2023 , referred to endocrine Dr Stevens: CT chest 12/02/2023 , stable L adrenal nodule Squamous c ell carcinoma of lung 834105917 C34.90 Dr Painter 03/28/2023 CT chest 08/25/2023 CT Chest 12/02/2023 : Dr Mcmillan chest 03/12/2024 Dr Stevens 12/12/2023 , next apt in 3 monthsDr Stevens 07/26/2024 , next in [address] chestCT chest Dr Stevens 11/26/2024 Dr Stevens 12/04/2024 : F/u in 4 months Osteoarthritis 774406103 M19.90 Addendum: 06/02/[address] Chance for knee pain, s/p injections , and takes tylenol, no surgeryIs needing the [place]arijuana Medical Card form filled online, understand s that this is just a certificat ion from me to see if he has a qualifying diagnosis and not an actual prescripti on, understand s that this is not federally approved and understand s the risks for using marijuana, he wishes to proceed Vitamin D deficiency 347 57855 E55.9 Health Concerns Section Related Observation LastModified by Organization Detai ls LastModified Time None Recorded Concern Status LastModified by Organization Details LastModified Time None Recorded Advance Directives Directive Y: Payers Encounter Date Sequence Insurance Name Policy Number Policy Grimaldo Covered Member ID Grimaldo Member ID Guarantor Name 03/29/2024 1 [place] [id number] Doug L Yamilex 03/29/2024 2 [employer] (MEDICARE SUPPLEMENT) Doug L [place] [id number] Doug L [place] 08/23/2024 1 [place] Doug L [place] [id number] [place] L [place] 08/23/2024 2 [employer] (MEDICARE SUPPLEMENT) Doug L [place] [id number] Doug L [place] 09/17/2024 1 [place] Doug L [place] [id number] [place] L [place] 09/17/2024 2 [employer] (MEDICARE SUPPLEMENT) [place] [id number] Doug L [place] 09/27/2024 1 [place] Doug L [place] [id number] Doug L Yam[place]x 09/27/2024 2 [employer] (MEDICARE SUPPLEMENT) Doug L [place] [id number] Doug L Yam[place]x 02/14/2025 1 [place] [id number] Doug L Yamilex 02/14/2025 2 [employer] (MEDICARE SUPPLEMENT) [place] L [place] [id number] Doug L [place] Notes Date Note Type Note Provider Name and Address Organization Details Recorded Time 03/29/2024 text/html Here to hazel Monson Hx:? HTNReviewed social family and surgical historyHe is here to get the labs and establish careHe denies any complaints at this time no CV[facility] or RN TRIAGE complaints OV 10/13/17:Here for his BP check, he states that he is doing well today OV 11/27/18:Here for his routine aptHe feels that he is doing wellNo recent labs since 12/22/17He does have L>R knee pain, since years, has had shots in the knees by Dr Chance OV 03/22/19:Here for a tick bitethis was last Tuesday when his dog was infected with ticks and he slept with himNo has itchy red rash with a 'tick bite'No fevers or chillsNo blood from the bteNo other rashNo SOB, chest painRest of ROS negative OV 05/24/19:He is doing wellThe tick bite is resolvedNo new labs OV 11/29/2019:Here for his routine aptHe feels wellHe did do the stress test in [facility] OV 03/26/2020:Here for tele visitHe did agree to do the tele visitHe feels wellS/p cath s/p stents in the heart, he did recently see [facility] Dr Max OV 08/06/2020:Here for his routine atpHe feels wellHe has not done recent labsHe did see SLHV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', he is R HD, 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 OV 11/05/2020:Tele visit and is agreeable to do the visit ACV:C/o cold headNo fevers or chillsNo chest pain, no SOBNo wheezingNo rashNo N/V or diarrheaNo exposure to COVID 19 OV 12/11/2020:Here for his routine aptNo new labsS/p COVID +ve on 10/2020 and had a feeling of anxiety and lump in his throatNow s/p ENT and GI referrals done OV 03/11/2021:Here for his routine aptHe is doing well at this timeHe did do the labs on 03/09/2021He feels that the statin does make his joints hurt OV 06/11/2021:Here for his routine aptHe feels wellHe did do the labsHere with his OV 09/17/2021:Here for his routine aptHe is doing wellHe did do the labs today OV 12/24/2021:Here for his routine aptHe is doing wellHe did call 12/23/2021 OV 04/22/2022:Here for his routine aptHe is doing very wellHe did do the labs OV 10/21/2022:Here for his f/u apt, he is doing well, he did do the labs just today OV 02/28/2023:Here for his f/u apt, he did do the labs, he also has to get his PET CT scan and see Dr Stevens and Dr Koo too, he is here with his OV 05/26/2023: Here for his post surgical f/u, s/p lobectomy and is doing well, is to now see Dr Stevens and also to get radiation oncology apt, he is here with his OV 06/30/2023: Here for his f/u apt, he is doing well today OV 08/08/2023: Here for his f/u apt, he feels well OV 09/29/2023: Here for his routine apt, he is doing well today OV 03/29/2024: Here for his f/u apt, he states that he is doing well, he is here with his , states that he has done his CT chest with Dr Stevens and was told his cancer has not returned Pawan Mendes MD [address] [place] [address], [address], [place], [address], [place] [facility] Central Test 04/10/2024 07:35:47 08/23/2024 text/html Here to hazel Monson Hx:? HTNReviewed social family and surgical historyHe is here to get the labs and establish careHe denies any complaints at this time no CVS or RN TRIAGE complaints OV 10/13/17:Here for his BP check, he states that he is doing well today OV 11/27/18:Here for his routine aptHe feels that he is doing wellNo recent labs since 12/22/17He does have L>R knee pain, since years, has had shots in the knees by Dr Chance OV 03/22/19:Here for a tick bitethis was last Tuesday when his dog was infected with ticks and he slept with himNo has itchy red rash with a 'tick bite'No fevers or chillsNo blood from the bteNo other rashNo SOB, chest painRest of ROS negative OV 05/24/19:He is doing wellThe tick bite is resolvedNo new labs OV 11/29/2019:Here for his routine aptHe feels wellHe did do the stress test in [facility] OV 03/26/2020:Here for tele visitHe did agree to do the tele visitHe feels wellS/p cath s/p stents in the heart, he did recently see [facility] Dr Max OV 08/06/2020:Here for his routine atpHe feels wellHe has not done recent labsHe did see SLHV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', he is R HD, 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 OV 11/05/2020:Tele visit and is agreeable to do the visit ACV:C/o cold headNo fevers or chillsNo chest pain, no SOBNo wheezingNo rashNo N/V or diarrheaNo exposure to COVID 19 OV 12/11/2020:Here for his routine aptNo new labsS/p COVID +ve on 10/2020 and had a feeling of anxiety and lump in his throatNow s/p ENT and GI referrals done OV 03/11/2021:Here for his routine aptHe is doing well at this timeHe did do the labs on 03/09/2021He feels that the statin does make his joints hurt OV 06/11/2021:Here for his routine aptHe feels wellHe did do the labsHere with his OV 09/17/2021:Here for his routine aptHe is doing wellHe did do the labs today OV 12/24/2021:Here for his routine aptHe is doing wellHe did call 12/23/2021 OV 04/22/2022:Here for his routine aptHe is doing very wellHe did do the labs OV 10/21/2022:Here for his f/u apt, he is doing well, he did do the labs just today OV 02/28/2023:Here for his f/u apt, he did do the labs, he also has to get his PET CT scan and see Dr Stevens and Dr Koo too, he is here with his OV 05/26/2023: Here for his post surgical f/u, s/p lobectomy and is doing well, is to now see Dr Stevens and also to get radiation oncology apt, he is here with his OV 06/30/2023: Here for his f/u apt, he is doing well today OV 08/08/2023: Here for his f/u apt, he feels well OV 09/29/2023: Here for his routine apt, he is doing well today OV 03/29/2024: Here for his f/u apt, he states that he is doing well, he is here with his , states that he has done his CT chest with Dr Stevens and was told his cancer has not returned OV 08/23/2024: Here for his routine apt, he is doing well today, he is here with his , he did do the labs Pawan Mendes MD [address] [place] [address], [address], [phone], [facility] 09/07/2024 22:31:14 09/17/2024 text/html Primary care/Ref erring provider: Pawan Mendes MD CC: I sleep better nowadays on the right side. I get cough paroxysms when laying on my back or the left side. 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 NAYELI lobectomy was done by Dr. Sean Redmond in 05/2023. He then completed 27 sessions of radiation therapy under Dr. Barry Velásquez from 05/2023 - 07/2023. Patient saw medical oncologist Dr. Ian Stevens for consultation. There was no further treatments but he follows up for surveillance. Patient is here to go over his dyspnea management. Initial development of shortness of breath: uration of shortness of breath: 2 yearsCondition of shortness of breath: stableTiming of shortness of breath: eveningFrequency: up to 3 times a weekLimits activities: yesAggravating factors: walking swiftly, climbing stairsAlleviating factors: rest Modified [employer] (mMRC) Dyspnea Scale - Grade 2Grade 0 I only get breathless with strenuous exercise .Grade 1 I get short of breath when hurrying on the level or walking up a slight hill .Grade 2 I walk slower than people of the same age on the level because of breathlessness or have to stop for breath when walking at my own pace on the level .Grade 3 I stop for breath after walking about 100 yards or after a few minutes on the level .Grade 4 I am too breathless to leave the house or I am breathless when dressing . Treatment history:None Other symptoms:Drooling: noDysarthria: noNeck pain: noOdynophagia: noDysphagia: noWeak mastication: noFacial weakness: noNasal speech: noProtruding tongue: noProductive cough: noWheezing: noChest tightness: yesOrthopnea: noFrequent throat clearing or swallowing: noPalpitations: noHeartburn: noEdema: yes Environmental exposures:Nicotine smoke: 1 ppd 1970-present (quit 2 years in between) = 51 pack yearsPaint: noDye: noDust mites: yesMold: noDamp basement: noWood burning stove: noAnimal dander: dog, catCockroaches: noPollen: yesArsenic: noAsbestos: yes 1969-2015Beryllium: noCadmium: noChromium: noCoal smoke: yesDiesel fumes: yesNickel: noSilica: noSoot: no EPWORTH SLEEPINESS SCALE (ESS) CHANCE OF DOZING SCORE0 = would never doze1 = slight chance of dozing2 = moderate chance of dozing3 = high chance of dozing SITUATION AND CHANCE OF DOZINGSitting and reading - 1Watching television - 1Sitting inactive in a public place (e.g. a theater or meeting) - 1As a passenger in a car for an hour without a break - 0Lying down to rest in the afternoon when circumstances permit - 1Sitting and talking to someone - 0Sitting quietly after lunch without alcohol - 0In a car, while stopped for a few minutes in the traffic - 0TOTAL SCORE 4Subjectively, patient has a slight chance of dozing. Renaldo Painter MD [address] [place] [address], [facility] [address], [place], [phone], [place] [facility] [employer] 09/17/2024 16:19:17 09/27/2024 text/html Primary care/Ref erring provider: Pawan Mendes MD CC: My coughing has improved more than my breathing since the start of Trelegy Ellipta sample. I am supposed to start on prednisone 40 mg daily x 5 days tomorrow. 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 NAYELI lobectomy was done by Dr. Sean Redmond in 05/2023. He then completed 27 sessions of radiation therapy under Dr. Barry Velásquez from 05/2023 - 07/2023. Patient saw medical oncologist Dr. Ian Stevens for consultation. There was no further treatments but he follows up for surveillance. Patient is here to go over his PFT as part of his dyspnea management. Initial development of shortness of breath: uration of shortness of breath: 2 yearsCondition of shortness of breath: stableTiming of shortness of breath: eveningFrequency: up to 3 times a weekLimits activities: yesAggravating factors: walking swiftly, climbing stairsAlleviating factors: rest Modified Medical [employer] (mMRC) Dyspnea Scale - Grade 2Grade 0 I only get breathless with strenuous exercise .Grade 1 I get short of breath when hurrying on the level or walking up a slight hill .Grade 2 I walk slower than people of the same age on the level because of breathlessness or have to stop for breath when walking at my own pace on the level .Grade 3 I stop for breath after walking about 100 yards or after a few minutes on the level .Grade 4 I am too breathless to leave the house or I am breathless when dressing . Treatment history: Albuterol HFA as needed since 01/2024 Trelegy Ellipta 200/62.5/25 mcg 1 puff daily 09/2024 Other symptoms:Drooling: noDysarthria: noNeck pain: noOdynophagia: noDysphagia: noWeak mastication: noFacial weakness: noNasal speech: noProtruding tongue: noProductive cough: noWheezing: noChest tightness: yesOrthopnea: noFrequent throat clearing or swallowing: noPalpitations: noHeartburn: noEdema: yes Environmental exposures:Nicotine smoke: 1 ppd 1970-present (quit 2 years in between) = 51 pack yearsPaint: noDye: noDust mites: yesMold: noDamp basement: noWood burning stove: noAnimal dander: dog, catCockroaches: noPollen: yesArsenic: noAsbestos: yes 1970-2015Beryllium: noCadmium: noChromium: noCoal smoke: yesDiesel fumes: yesNickel: noSilica: noSoot: no EPWORTH SLEEPINESS SCALE (ESS) CHANCE OF DOZING SCORE0 = would never doze1 = slight chance of dozing2 = moderate chance of dozing3 = high chance of dozing SITUATION AND CHANCE OF DOZINGSitting and reading - 1Watching television - 1Sitting inactive in a public place (e.g. a theater or meeting) - 1As a passenger in a car for an hour without a break - 0Lying down to rest in the afternoon when circumstances permit - 1Sitting and talking to someone - 0Sitting quietly after lunch without alcohol - 1In a car, while stopped for a few minutes in the traffic - 0TOTAL SCORE 5Subjectively, patient has a slight chance of dozing. Renaldo Painter MD [address] [place] [address], [phone], [place] [facility] [employer] 09/27/2024 11:13:38 02/14/2025 text/html Here to hazel Monson Hx:? HTNReviewed social family and surgical historyHe is here to get the labs and establish careHe denies any complaints at this time no CVS or RN TRIAGE complaints OV 10/13/17:Here for his BP check, he states that he is doing well today OV 11/27/18:Here for his routine aptHe feels that he is doing wellNo recent labs since 12/22/17He does have L>R knee pain, since years, has had shots in the knees by Dr Chance OV 03/22/19:Here for a tick bitethis was last Tuesday when his dog was infected with ticks and he slept with himNo has itchy red rash with a 'tick bite'No fevers or chillsNo blood from the bteNo other rashNo SOB, chest painRest of ROS negative OV 05/24/19:He is doing wellThe tick bite is resolvedNo new labs OV 11/29/2019:Here for his routine aptHe feels wellHe did do the stress test in [facility] OV 03/26/2020:Here for tele visitHe did agree to do the tele visitHe feels wellS/p cath s/p stents in the heart, he did recently see [facility] Dr Max OV 08/06/2020:Here for his routine atpHe feels wellHe has not done recent labsHe did see [facility]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', he is R HD, 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 OV 11/05/2020:Tele visit and is agreeable to do the visit ACV:C/o cold headNo fevers or chillsNo chest pain, no SOBNo wheezingNo rashNo N/V or diarrheaNo exposure to COVID 19 OV 12/11/2020:Here for his routine aptNo new labsS/p COVID +ve on 10/2020 and had a feeling of anxiety and lump in his throatNow s/p ENT and GI referrals done OV 03/11/2021:Here for his routine aptHe is doing well at this timeHe did do the labs on 03/09/2021He feels that the statin does make his joints hurt OV 06/11/2021:Here for his routine aptHe feels wellHe did do the labsHere with his OV 09/17/2021:Here for his routine aptHe is doing wellHe did do the labs today OV 12/24/2021:Here for his routine aptHe is doing wellHe did call 12/23/2021 OV 04/22/2022:Here for his routine aptHe is doing very wellHe did do the labs OV 10/21/2022:Here for his f/u apt, he is doing well, he did do the labs just today OV 02/28/2023:Here for his f/u apt, he did do the labs, he also has to get his PET CT scan and see Dr Stevens and Dr Koo too, he is here with his OV 05/26/2023: Here for his post surgical f/u, s/p lobectomy and is doing well, is to now see Dr Stevens and also to get radiation oncology apt, he is here with his OV 06/30/2023: Here for his f/u apt, he is doing well today OV 08/08/2023: Here for his f/u apt, he feels well OV 09/29/2023: Here for his routine apt, he is doing well today OV 03/29/2024: Here for his f/u apt, he states that he is doing well, he is here with his , states that he has done his CT chest with Dr Stevens and was told his cancer has not returned OV 08/23/2024: Here for his routine apt, he is doing well today, he is here with his , he did do the labs OV 02/14/2025: Here for his routine apt, he feels well today, with his Pawan Mendes MD [address] [facility], [place], [phone], [place] [facility] 02/14/2025 17:03:36
--- OUTSIDE RECORDS SUMMARY | 2025-04-17 14:24 | XMS_ITS | Clinical Summary ---
Author Organization [facility] Marlyn Nash Address [address] [place] [address] Care Team Providers Care Manager City Name Role Phone Pawan Mendes MD Primary [...] (05/14/2023): Added automatically from request for surgery [id number] Vitamin D deficiency 10/23/2014 Arteriosclerosis of coronary artery 07/30/2009 Encounters Date Type Department Care Team Description 03/27/2025 Orders Only [facility] Oncology and Hematology - Brian [address] [place] [phone] Ian Stevens MD 02/12/2025 External Device Data [facility] ABSTRACTION Provider, Abstract 01/30/2025 External Device Data [facility]STRACTION Provider, Abstract from Last 3 Months Immunizations Immunization Administration Dates Next Due ([employer])(12 YR UP) COVID-19 VACCINE - EMERGENCY USE AUTHORIZATION, MRNA, [id number](PF) 30 MCG/0.3 ML IM SUSP 09/16/2021 Family [...] Sex Assigned at Male 10/18/2024 12:56 PM SALESPERSON JEWELRY Legal Sex Male 9:35 AM CDT Gender Identity Male 10/18/2024 12:56 PM SALESPERSON JEWELRY Sexual Orientation Not on file Last Filed Vital Signs Vital Sign Reading Time Taken Comments Blood Pressure 121/79 11/29/2024 3:35 PM SALESPERSON JEWELRY Pulse 99 11/29/2024 3:35 PM SALESPERSON JEWELRY Temperature 36.6 C (97.9 F) 11/29/2024 3:35 PM SALESPERSON JEWELRY Respiratory Rate 20 11/29/2024 3:35 PM SALESPERSON JEWELRY Oxygen Saturation 96% 11/29/2024 3:35 PM SALESPERSON JEWELRY Inhaled Oxygen Concentration - - Weight 92.5 kg (204 lb) 11/29/2024 3:35 PM SALESPERSON JEWELRY Height 170.2 cm (5' 7) 06/08/2023 2:07 PM CDT Body Mass Index 31.95 06/08/2023 2:07 PM CDT Plan of Treatment Upcoming Encounters Date Type Department Care Team (Late st Contact Info) Description 04/17/2025 2:30 PM CDT Office Visit [facility] Oncology and Hematology - Brian [address] [facility] [address] [place] [address] Ian Stevens MD [address] [facility] [address] [place] [address] Arrived Health Maintenance Due Date Last Done Comments [...] history exists Medical Devices Implanted Type Area Home Care Chaplain Device Identifier Shelf Expiration Date Model / Serial / Lot Sealant Progel Pleural 4ml [id number] - [id number] Implanted:Qty: 1 on 05/19/2023 by Sean Redmond MD at [facility] Tissue Left: Lung BARD DAVOL 05/24/2024 [id number] / / [id number] Procedures Procedure Name Priority Date/Time Associated Diagnosis Comments CT CHEST W CONTRAST Routine 03/27/2025 3:36 PM CDT from Last 3 Months Results * CT CHEST W CONTRAST (03/27/2025 3:36 PM CDT) Anatomical Region Laterality Modality Chest Computed Tomogra phy us Ian Stevens MD CT ORDERABLES Final Result from Last 3 Months Insurance MEDICARE PART A AND B [facility] [id number] MEDICARE PART A AND B [facility] [id number] RX [facility] Medicare Part D Advance Directives For more information, please contact: [phone] * Full Code (Latest Code Status on File) Date Activated Date Inactivated Comments 05/19/2023 2:03 PM 05/21/2023 5:15 PM * Full Code Date Activated Date Inactivated Comments 05/19/2023 5:47 AM 05/19/2023 2:03 PM Care Teams Manager City Relationship Specialty Start Date End Date Pawan Mendes MD PCP - General Internal Medicine 03/28/23
[2025-04-17 14:28] LABS: Blood Urea Nitrogen 18 mg/dL (8-26); Carbon Dioxide 25 mmol/L (22-30); Chloride 101 mmol/L (98-109); Estimated Glomerular Filt Rate 60; Glucose 178 mg/dL (70-105); Ionized Calcium (POC) 1.21 mmol/L (1.11-1.31); Potassium 4.1 mmol/L (3.5-4.9); Sodium 140 mmol/L (138-146)
[2025-04-17 16:47] LABS: Alanine Aminotransferase 33 U/L (6-50); Albumin Level 4.3 g/dL (3.5-5.1); Alkaline Phosphatase 97 U/L (38-126); Anion Gap 9 mmol/L (4-12); Aspartate Amino Transferase 77 U/L (17-59); Bilirubin,Total 0.5 mg/dL (0.2-1.3); Blood Urea Nitrogen 19 mg/dL (9-20); Calcium 9.9 mg/dL (8.4-10.2); Carbon Dioxide 28 mmol/L (22-30); Chloride 103 mmol/L (98-107); Estimated Glomerular Filt Rate > 60; Glucose 177 mg/dL (65-110); Potassium 4.2 mmol/L (3.4-5.0); Sodium 140 mmol/L (137-145); Total Protein 7.7 g/dL (6.3-8.2)
== END 2025-04-17 14:11 | disposition home or self-care (01) ==
PROVIDERS: PCP Internal Medicine; Visit Provider Internal Medicine Hematology & Oncology
DX: C34.92 Malignant neoplasm of unspecified part of left bronchus or lung (principal)
CPT/HCPCS: 36415; 80047; 80053; 85025

== ENCOUNTER 2025-07-13 14:00 | Emergency (ER) | payer MEDICARE, SELFPAY ==
--- OUTSIDE RECORDS SUMMARY | 2024-10-04 11:42 | XMS_ITS | Continuity of Care Document ---
Author Organization [facility] Address [address] [place] [address] Phone Care Team Providers Care Video Editing Intern Name Role Phone Mark Schwarz MD Unavailable Unavailable Allergies, Adverse Reactions, Alerts Substance Reaction Status Criticality No Known Allergies Active No Inform ation Medications Medication Instructions Dosage Effective Dates (start - stop) Status Comments clopidogrel 75 mg tablet TAKE 1 TABLET B Y MOUTH EVERY DAY - Active ezetimibe 10 mg tablet TAKE 1 TABLET BY MOUTH ONCE DAILY - Active hydrochlorothiazide 12.5 mg capsule take as directed - Active albuterol sulfate HFA 90 mcg/actuation aerosol inhaler INHALE 2 PUFFS EVERY 4 HOURS NEEDED FOR SHORTNESS OF BREATH OR FOR WHEEZE - Active Trelegy Ellipta 200 mcg-62.5 mcg-25 mcg powder for inhalation inhale 1 puff by inhalation route every day at the same time each day 1.00 puff - Active metformin 500 mg tablet Take 500 mg by mouth daily with breakfast. Pt states that he takes half of this tablet until he gets used to the medication - Active cyanocobalamin (vitamin B-12) 2,500 mcg tablet Take 100 mcg by mouth daily. - Active atorvastatin 40 mg tablet Take 40 mg by mouth daily. - Active aspirin 81 mg tablet,delayed release Take 81 mg by mouth. - Active Procedures Procedure Date New (Level 4) OFFICE/OUTPATIENT VISIT No Advance Directives Directive Yes / No Effective Date File Name No Information Encounters Encounter Description Practice Location Reason(s) For Visit Diagnoses Date Provider Providers Copied on Encounter [facility], [address] [place] [address], [id number], tel:[phone] [facility] No Information [address], [place], [address], [place]. tel:[phone] Referring Provider: Renaldo Painter, [address], [place], [address]. tel:[phone] New (Level 4) OFFICE/OUTPA TIENT VISIT [facility], [address] [place] [address], [id number], tel:[phone] [facility] asthma (chief complaint) Body mass index (BMI) 31.0-31.9, adultSevere persistent asthma with (acute) exacerbationCOPD [address], [place], [address], [place]. tel:[phone] Referring Provider: Renaldo Painter, [address] [facility] [address] [address], [place], [address]. tel:[phone] [facility], [address] [place] [address], [id number], tel:[phone] [facility] No Information [address], [place], [address], [place]. tel:[phone] [facility], [address] [place] [address], [id number], [place] tel:[phone] [facility] No Information [address], [place], [address], [place]. tel:[phone] Family History Family Member Type Diagnosis Age At Onset Problem No family history of Rhiniti s Problem No family history of Asthma Payers Payer name Insurance type Covered republican ID Authoriza tion(s) [place] [id number] AARP Medicare Complete [id number] Social History Type Description Quantity Date Captured Comments Alcohol Use Details Unknown Caffeine Use Details Unknown Tobacco Use Status No Information Smoking Status No Information Sex Male Chief Complaint And Reason For Visit No Information Reason For Referral Reason For Referral No Information History Of Present Illness Encounter Date Complaint History Of Prese nt Illness asthma Asthma vs COPDTh e patient has asthma on Trelegy 200/62.5/25 c g 1 puff daily (just started this week), and albuterol PRN (used infrequently). Symptoms started about 1 year ago, after completing radiation treatments for lung cancer (Jul 2023). The patient has never been hospitalized for asthma. Currently, they have exertional limitations 2/2 dyspnea and wheezing. They relay nocturnal awakenings with cough/wheeze multiple times per night (now improving since starting Trelegy). No ED/PCP/UC visits and no oral steroid bursts because of asthma in the last year.He follows with Dr. Renaldo Painter in Pulmonology. The patient reportedly had a PFT last week, but it is not available for review. He was diagnosed with squamous cell lung cancer in March 2023 and treated with radiation therapy. He has no additional treatments planned at this time.No history of rhinitis. PMH: HLD, HTN, CAD, otherwise as abovePSH: CABG (2012), tonsillectomy & adenoidectomyMedication Allergies: NKDANo FH of asthma, rhinitis SHTobacco: Former Smoker (1 ppd x 51 years; quit 2022)RetiredEnvironmental HistoryLives in a house w/ central air/forced heat, w/o evidence of mold/water damageFlooring in Bedroom: carpetPets: cats x 2, dog x 1DataI reviewed outside records available in the [id number] Pi*MMQuantiferon Gold: negativeEnvironmental Immunocaps: +HDM, cat, dog, cockroach, mold, trees, ragweed / other weedsTotal IgE 998IgG 1181*IgG1 540*IgG2 317*IgG3 70*IgG4 ?25 (poor scan quality)CT Chest 02/02/23: 8 mm RUL spiculated nodulePET/CT on 03/03/23: calcified RUL nodule, 8 mm lingular endobronchial noduleHe had a bronchoscopy of a lingular nodule on 03/18/23 which showed squamous cell carcinoma in situ Functional Status Date Functional Assessmen t No Information Instructions Date Instruction Additional Infor hero Giving encouragement to exercise Related to Body mass index [BMI] 31.0-31.9, adult Assessments Type Assessment Date No Information Patient Care Teams Name Effective Dates (start - stop) Status Members No Information
--- OUTSIDE RECORDS SUMMARY | 2024-10-04 11:42 | XMS_ITS | Continuity of Care Document ---
Author Organization [facility] Address [address] [place] [address] Phone Care Team Providers Care Indoor Sports Centre Manager Name Role Phone Mark Schwarz MD Unavailable [...] Encounter [facility], [address] [place] [address], [id number], tel:[phone] [facility] No Information [address], [place], [address], [place]. tel:[phone] Referring Provider: Renaldo Painter, [address], [place], [address]. tel:[phone] New (Level 4) OFFICE/OUTPA TIENT VISIT [facility], [address] [place] [address], [id number], tel:[phone] [facility] asthma (chief complaint) Body mass index (BMI) 31.0-31.9, adultSevere persistent asthma with (acute) exacerbationCOPD [address], [place], [address], [place]. tel:[phone] Referring Provider: Renaldo Painter, [address], [place], [address]. tel:[phone] [facility], [address] [place] [address], [id number], tel:[phone] [facility] No Information [address], [place], [address], [place]. tel:[phone] [facility], [address] [place] [address], [id number], [place] tel:[phone] [facility] No Information [address], [place], [address], [place]. tel:[phone] Family History Family Member Type Diagnosis Age At Onset Problem No family history of Rhiniti s Problem No family history of Asthma Payers Payer name Insurance type Covered constitution party ID Authoriza tion(s) [place] [id number] AARP Medicare Complete [id number] Social History Type Description Quantity Date Captured [...]
--- OUTSIDE RECORDS SUMMARY | 2025-07-13 09:01 | XMS_ITS | Continuity of Care Document ---
Author Name [facility] Organization [facility] Care Team Providers Care Psychotherapist Counselor Name Role Phone [facility] Unavailable Unavailable Problems Combined list of problems from Department of [facility] and [facility] facilities. It does not include entries that were removed or entered in error. Problem Status Onset Date Problem Type Date of Resolution Comments Source CAD - Coronary Artery Disease ([facility] [id number]) Active Condition [facility] COPD - Chronic Obstructive Pulmonary Disease ([facility] [id number]) Active Condition [facility] Erectile dysfunction Active Condition [facility] Exposure to potentially hazardous substance ([facility] [id number]) Active Condition Oct 10 4 Entered By: HAYLEY SIMPSON Comment: Entered automatically through [facility] Problem List documentation program [facility] History of peripheral arterial occlusive disease Active Condition [facility] HTN - Hypertension ([facility] [id number]) Active Condition [facility] Hyperlipidemia ([facility] [id number]) Active Condition [facility] Obesity Active Condition [facility] Prediabetes Active Condition [facility] Small cell carcinoma of lung Active Condition [facility] Diagnosis: ICD-10-CM J44.9 Chronic obstructive pulmonary disease, unspecified Active Diagnosis [facility] Diagnosis: ICD-10-CM R73.03 Prediabetes Active Diagnosis [facility] Diagnosis: ICD-10-CM Z00.01 Encounter for general adult medical exam w abnormal findings Active Diagnosis [facility] Medications Combined list of outpatient medications from Department [facility] and [facility] facilities.Medications provided include 1) outpatient medications [...] ALBUTERO L INHALER NEBULI ZATION ACTIVE 10/06/2025 [id number] 4 NIGHAT ARANDA 2023 120 [facility] ALBUTEROL SO4 90MCG/ACTUA T (CFC-F) INHL,ORAL,8 .5GM INHALE 1 PUFF BY ORAL INHALATI ON FOUR TIMES A DAY NEEDED FOR COPD SHAKE WELL. RINSE MOUTHPIE CE FREQUENT LY TO PREVENT CLOGGING . RESPIR ATORY (INHAL ATION) ACTIVE 10/06/2025 [id number] 4 NIGHAT ARANDA 2023 2 [facility] ASPIRIN 81MG TAB,EC TAKE ONE TABLET BY MOUTH ONCE A DAY FOR CARDIOVA SCULAR DISEASE TAKE WITH FOOD. ORAL ACTIVE 10/06/2025 [id number] 4 NIGHAT ARANDA 2023 120 [facility] ATORVASTATI N CA 80MG TAB TAKE ONE-HALF TABLET BY MOUTH EVERY EVENING FOR HIGH CHOLESTE ROL ORAL DISCONT INUED BY PROVIDE R 10/06/2025 [id number] 4 NIGHAT ARANDA 2023 45 [facility] CLOPIDOGREL BISULFATE 75MG TAB TAKE ONE TABLET BY MOUTH ONCE A DAY ORAL ACTIVE 10/06/2025 [id number] 5 NIGHAT ARANDA 2023 90 [facility] EZETIMIBE 10MG TAB TAKE ONE TABLET BY MOUTH ONCE A DAY FOR HIGH CHOLESTE ROL ORAL ACTIVE 10/06/2025 [id number] 5 NIGHAT ARANDA 2023 90 [facility] FLUTICASONE 100MCG/SALM ETEROL 50MCG INHL,ORAL,D ISKUS,60 INHALE 1 INHALATI ON BY ORAL INHALATI ON TWICE A DAY FOR COPD (OPEN DISKUS; CLICK ONLY ONCE; MAY INHALE TWICE TO COMPLETE DOSE; CLOSE WHEN FINISHED ) RINSE MOUTH AND SPIT AFTER EACH USE. RESPIR ATORY (INHAL ATION) DISCONT INUED BY PROVIDE R 10/06/2025 [id number] 4 NIGHAT ARANDA 2023 3 [facility] FORMOTEROL FUM DIHYD 5MCG/MOMETA SONE FUR 100MCG INHL,ORAL,1 3GM INHALE 2 INHALATI ONS TWICE A DAY DIRECTED RINSE MOUTH AND SPIT AFTER USE. DO NOT EXCEED 4 INHALATI ONS PER 24 HOURS. ACTIVE 04/04/2026 [id number] 5 CYRIL VERAS 2024 3 [facility] HYDROCHLORO THIAZIDE 25MG TAB TAKE ONE-HALF TABLET BY MOUTH ONCE A DAY FOR HIGH BLOOD PRESSURE ORAL DISCONT INUED BY PROVIDE R 10/06/2025 [id number] 4 NIGHAT ARANDA 2023 45 [facility] METFORMIN HCL 1000MG TAB TAKE ONE-HALF TABLET BY MOUTH TWICE A DAY WITH MEALS FOR DIABETES TAKE WITH FOOD. AVOID ALCOHOL. DISCONTI NUE BEFORE GETTING XRAY DYE. ORAL ACTIVE 03/16/2026 [id number] 5 CYRIL VERAS 2024 90 [facility] SILDENAFIL CITRATE 50MG TAB TAKE ONE-HALF TABLET BY MOUTH ONE HOUR PRIOR TO SEXUAL ACTIVITY FOR ERECTILE DYSFUNCT ION NEEDED - LIMIT 6 DOSES PER 30 DAYS ORAL ACTIVE 03/16/2026 [id number] 5 CYRIL VERAS 2024 18 [facility] TIOTROPIUM 2.5MCG/ACTU AT INHL,ORAL,6 0D,4GM INHALE 2 INHALATI ONS BY ORAL INHALATI ON ONCE A DAY (ADMINIS TER AT SAME TIME EACH DAY) RESPIR ATORY (INHAL ATION) ACTIVE 12/07/2025 [id number] 5 CYRIL VERAS 2024 3 [facility] Allergies, Adverse Reactions, Alerts Combined list of allergies from Department of Defense and Veterans Affairs facilities. It does not include entries that were removed or entered in error. Substance Category Reaction Severity Reaction type Status Date Reported Comments Source ANIMAL DANDER Propensity to adverse reaction (finding) Dyspnea active 4 [facility] [place] Propensity to adverse reaction (finding) Dyspnea active [facility] Immunizations Combined list of available immunizations from the Department of Defense and Veterans Affairs facilities. Immunization Series Date Given Administered By Site Reaction Lot Number CVX Code Drug Inspector Glass Or Mirror Status Comments Source INFLUENZA, UNSPECIFIED FORMULATION 2023 88 complet ed HISTORICA L INFORMATI ON - FROM OTHER PROVIDER, [facility] Results Combined list [...] Oct 05, 2024 12:27 PM Reporting Lab: [place] [address] Performing Lab: [address] [phone] [facility] COMPREHEN SIVE METABOLIC PANEL UREA NITROGEN [MASS/VOLUM E] IN SERUM OR PLASMA 14.8 mg/dL 9.0 - 25.0 10/10 Specimen Type: PLASMA Comment: No hemolysis noted. Ordering Provider: MARITZA ARANDA Report Released Date/Time: Oct 05, 2024 12:27 PM Reporting Lab: [address] [address] Performing Lab: [address] [address] [facility] COMPREHEN SIVE METABOLIC PANEL GLUCOSE [MASS/VOLUM E] IN SERUM OR PLASMA 127 mg/dL 72 - 99 10/10 H Specimen Type: PLASMA Comment: No hemolysis noted. Ordering Provider: MARITZA ARANDA Report Released Date/Time: Oct 05, 2024 12:27 PM Reporting Lab: [place] [address] [facility] [address] Performing Lab: [facility] [address] [facility] [address] [facility] COMPREHEN SIVE METABOLIC PANEL SODIUM [MOLES/VOLU ME] IN SERUM OR PLASMA 141 meq/L 136 - 145 10/10 Specimen Type: PLASMA Comment: No hemolysis noted. Ordering Provider: MARITZA ARANDA Report Released Date/Time: Oct 05, 2024 12:27 PM Reporting Lab: [facility] [address] [facility] [address] Performing Lab: [facility] [address] [facility] [address] [facility] COMPREHEN SIVE METABOLIC PANEL POTASSIUM [MOLES/VOLU ME] IN SERUM OR PLASMA 4.4 meq/L 3.5 - 5 10/10 Specimen Type: PLASMA Comment: No hemolysis noted. Ordering Provider: MARITZA ARANDA Report Released Date/Time: Oct 05, 2024 12:27 PM Reporting Lab: [facility] [address] [place] [address] Performing Lab: [facility] [address] [facility] COMPREHEN SIVE METABOLIC PANEL CHLORIDE [MOLES/VOLU ME] IN SERUM OR PLASMA 103 meq/L 98 - 107 10/10 Specimen Type: PLASMA Comment: No hemolysis noted. Ordering Provider: MARITZA ARANDA Report Released Date/Time: Oct 05, 2024 12:27 PM Reporting Lab: [facility] [address] [facility] [address] Performing Lab: [facility] [address] [facility] [address] [facility] COMPREHEN SIVE METABOLIC PANEL CARBON DIOXIDE, TOTAL [MOLES/VOLU ME] IN SERUM OR PLASMA 29 meq/L 22 - 31 10/10 Specimen Type: PLASMA Comment: No hemolysis noted. Ordering Provider: MARITZA ARANDA Report Released Date/Time: Oct 05, 2024 12:27 PM Reporting Lab: [facility] [address] [facility] [address] Performing Lab: [facility] [address] [facility] [address] [facility] COMPREHEN SIVE METABOLIC PANEL CALCIUM [MASS/VOLUM E] IN SERUM OR PLASMA 10.0 mg/dL 8.4 - 10.4 10/10 Specimen Type: PLASMA Comment: No hemolysis noted. Ordering Provider: MARITZA ARANDA Report Released Date/Time: Oct 05, 2024 12:27 PM Reporting Lab: [facility] [address] [facility] [address] Performing Lab: [place] [address] [facility] [address] [facility] COMPREHEN SIVE METABOLIC PANEL PROTEIN [MASS/VOLUM E] IN SERUM OR PLASMA 7.7 g/dL 6 - 8.6 10/10 Specimen Type: PLASMA Comment: No hemolysis noted. Ordering Provider: MARITZA ARANDA Report Released Date/Time: Oct 05, 2024 12:27 PM Reporting Lab: [facility] [address] Performing Lab: [place] [address] [facility] [address] [facility] COMPREHEN SIVE METABOLIC PANEL ALBUMIN [MASS/VOLUM E] IN SERUM OR PLASMA 4.0 g/dL 3.4 - 5 10/10 Specimen Type: PLASMA Comment: No hemolysis noted. Ordering Provider: MARITZA ARANDA Report Released Date/Time: Oct 05, 2024 12:27 PM Reporting Lab: [facility] [address] Performing Lab: [facility] [address] [place] [address] [facility] COMPREHEN SIVE METABOLIC PANEL BILIRUBIN.T OTAL [MASS/VOLUM E] IN SERUM OR PLASMA 0.3 mg/dL 0.2 - 1.2 10/10 Specimen Type: PLASMA Comment: No hemolysis noted. Ordering Provider: MARITZA ARANDA Report Released Date/Time: Oct 05, 2024 12:27 PM Reporting Lab: [facility] [address] [facility] [address] Performing Lab: [facility] [address] [facility] [address] [facility] COMPREHEN SIVE METABOLIC PANEL ALKALINE PHOSPHATASE [ENZYMATIC ACTIVITY/VO LUME] IN SERUM OR PLASMA 119 U/L 40 - 150 10/10 Specimen Type: PLASMA Comment: No hemolysis noted. Ordering Provider: MARITZA ARANDA Report Released Date/Time: Oct 05, 2024 12:27 PM Reporting Lab: [facility] [address] [place] [address] Performing Lab: [place] [address] [facility] [address] [facility] COMPREHEN SIVE METABOLIC PANEL ASPARTATE AMINOTRANSF ERASE [ENZYMATIC ACTIVITY/VO LUME] IN SERUM OR PLASMA 39 U/L 5 - 34 10/10 H Specimen Type: PLASMA Comment: No hemolysis noted. Ordering Provider: MARITZA ARANDA Report Released Date/Time: Oct 05, 2024 12:27 PM Reporting Lab: [facility] [address] [place] [address] Performing Lab: [place] [address] [facility] [address] [facility] COMPREHEN SIVE METABOLIC PANEL ALANINE AMINOTRANSF ERASE [ENZYMATIC ACTIVITY/VO LUME] IN SERUM OR PLASMA 29 U/L 8 - 40 10/10 Specimen Type: PLASMA Comment: No hemolysis noted. Ordering Provider: MARITZA ARANDA Report Released Date/Time: Oct 05, 2024 12:27 PM Reporting Lab: [facility] [address] [place] [address] Performing Lab: [facility] [address] [place] [address] [facility] COMPREHEN SIVE METABOLIC PANEL GLOMERULAR FILTRATION RATE/1.73 SQ M.PREDICTED [VOLUME RATE/AREA] IN SERUM, PLASMA OR BLOOD BY CREATININE- BASED FORMULA (CKD-EPI 2020) 80.9 60 10/10 Specimen Type: PLASMA Comment: No hemolysis noted. Ordering Provider: MARITZA ARANDA Report Released Date/Time: Oct 05, 2024 12:27 PM Reporting Lab: [address] [address] Performing Lab: [address] [address] [facility] CBC LEUKOCYTES [#/VOLUME] IN BLOOD BY AUTOMATED COUNT 9.0 10*3/uL 3.6 - 11.2 10/10 Specimen Type: BLOOD No comment entered. Ordering Provider: MARITZA ARANDA Report Released Date/Time: Oct 05, 2024 12:27 PM Reporting Lab: [address] [address] Performing Lab: [address] [phone] [place] [address] [facility] CBC ERYTHROCYTE S [#/VOLUME] IN BLOOD BY AUTOMATED COUNT 4.80 10*6/uL 4.10 - 5.70 10/10 Specimen Type: BLOOD No comment entered. Ordering Provider: MARITZA ARANDA Report Released Date/Time: Oct 05, 2024 12:27 PM Reporting Lab: [address] [address] Performing Lab: [address] [phone] [place] [address] [facility] CBC HEMOGLOBIN [MASS/VOLUM E] IN BLOOD 14.9 g/dL 13.1 - 16.8 10/10 Specimen Type: BLOOD No comment entered. Ordering Provider: MARITZA ARANDA Report Released Date/Time: Oct 05, 2024 12:27 PM Reporting Lab: [address] [address] Performing Lab: [address] [address] [facility] CBC HEMATOCRIT [VOLUME FRACTION] OF BLOOD 44.9 38.2 - 48.4 10/10 Specimen Type: BLOOD No comment entered. Ordering Provider: MARITZA ARANDA Report Released Date/Time: Oct 05, 2024 12:27 PM Reporting Lab: [place] [phone] Performing Lab: [phone] [facility] CBC MCV [ENTITIC VOLUME] BY AUTOMATED COUNT 93.5 fL 80.0 - 100.0 10/10 Specimen Type: BLOOD No comment entered. Ordering Provider: MARITZA ARANDA Report Released Date/Time: Oct 05, 2024 12:27 PM Reporting Lab: [place] [address] Performing Lab: [address] [facility] CBC MCH [ENTITIC MASS] BY AUTOMATED COUNT 31.0 pg 27.0 - 34.0 10/10 Specimen Type: BLOOD No comment entered. Ordering Provider: MARITZA ARANDA Report Released Date/Time: Oct 05, 2024 12:27 PM Reporting Lab: [facility] [address] [place] [phone] Performing Lab: [address] [phone] [place] [address] [facility] CBC MCHC [MASS/VOLUM E] BY AUTOMATED COUNT 33.2 g/dL 33.0 - 36.0 10/10 Specimen Type: BLOOD No comment entered. Ordering Provider: MARITZA ARANDA Report Released Date/Time: Oct 05, 2024 12:27 PM Reporting Lab: [place] [address] Performing Lab: [address] [phone] [facility] CBC PLATELETS [#/VOLUME] IN BLOOD BY AUTOMATED COUNT 395 10*3/uL 150 - 400 10/10 Specimen Type: BLOOD No comment entered. Ordering Provider: MARITZA ARANDA Report Released Date/Time: Oct 05, 2024 12:27 PM Reporting Lab: [facility] [address] [place] [phone] Performing Lab: [facility] [address] [facility] [address] [place] [address] [facility] CBC PLATELET MEAN VOLUME [ENTITIC VOLUME] IN BLOOD BY AUTOMATED COUNT 9.4 fL 7.5 - 11.2 10/10 Specimen Type: BLOOD No comment entered. Ordering Provider: MARITZA ARANDA Report Released Date/Time: Oct 05, 2024 12:27 PM Reporting Lab: [facility] [address] [place], [place] [phone] Performing Lab: [facility] [address] [place] [address] [phone] [facility] CBC ERYTHROCYTE DISTRIBUTIO N WIDTH [RATIO] BY AUTOMATED COUNT 13.5 11.8 - 15.1 10/10 Specimen Type: BLOOD No comment entered. Ordering Provider: MARITZA ARANDA Report Released Date/Time: Oct 05, 2024 12:27 PM Reporting Lab: [facility] [address] [place], [place] [phone] Performing Lab: [facility] [address] [place] [address] [phone] [facility] CBC SEGMENTED NEUTROPHILS /100 LEUKOCYTES IN BLOOD BY MANUAL COUNT 73.9 10/10 Specimen Type: BLOOD No comment entered. Ordering Provider: MARITZA ARANDA Report Released Date/Time: Oct 05, 2024 12:27 PM Reporting Lab: [facility] [address] [place] [phone] Performing Lab: [facility] [address] [place] [address] [phone] [facility] CBC MONOCYTES/1 00 LEUKOCYTES IN BLOOD BY AUTOMATED COUNT 9.5 10/10 Specimen Type: BLOOD No comment entered. Ordering Provider: MARITZA ARANDA Report Released Date/Time: Oct 05, 2024 12:27 PM Reporting Lab: [facility] [address] [facility] [address] Performing Lab: [facility] [address] [facility] [address] [facility] CBC EOSINOPHILS /100 LEUKOCYTES IN BLOOD BY MANUAL COUNT 3.5 10/10 Specimen Type: BLOOD No comment entered. Ordering Provider: MARITZA ARANDA Report Released Date/Time: Oct 05, 2024 12:27 PM Reporting Lab: [facility] [address] [facility] [address] Performing Lab: [facility] [address] [facility] [address] [facility] CBC BASOPHILS/1 00 LEUKOCYTES IN BLOOD BY MANUAL COUNT 0.9 10/10 Specimen Type: BLOOD No comment entered. Ordering Provider: MARITZA ARANDA Report Released Date/Time: Oct 05, 2024 12:27 PM Reporting Lab: [facility] [address] [facility] [address] Performing Lab: [facility] [address] [facility] [address] [facility] CBC PAPPENHEIME R BODIES 0 10/10 Specimen Type: BLOOD No comment entered. Ordering Provider: MARITZA ARANDA Report Released Date/Time: Oct 05, 2024 12:27 PM Reporting Lab: [facility] [address] [facility] [address] Performing Lab: [facility] [address] [facility] [address] [facility] CBC LYMPHOCYTES /100 LEUKOCYTES IN BLOOD BY MANUAL COUNT 12.2 10/10 Specimen Type: BLOOD No comment entered. Ordering Provider: MARITZA ARANDA Report Released Date/Time: Oct 05, 2024 12:27 PM Reporting Lab: [facility] [address] [facility] [address] Performing Lab: [address] [address] [facility] CBC STOMATOCYTE S [PRESENCE] IN BLOOD BY LIGHT MICROSCOPY 1+ 10/10 Specimen Type: BLOOD No comment entered. Ordering Provider: MARITZA ARANDA Report Released Date/Time: Oct 05, 2024 12:27 PM Reporting Lab: [address] [address] Performing Lab: [address] [address] [facility] CBC PLATELET ADEQUACY [PRESENCE] IN BLOOD BY LIGHT MICROSCOPY ADEQUATE 10/10 Specimen Type: BLOOD No comment entered. Ordering Provider: MARITZA ARANDA Report Released Date/Time: Oct 05, 2024 12:27 PM Reporting Lab: [address] [address] Performing Lab: [address] [address] [facility] CBC BASOPHILS [#/VOLUME] IN BLOOD BY MANUAL COUNT 0.08 10*3/uL 0.01 - 0.20 10/10 Specimen Type: BLOOD No comment entered. Ordering Provider: MARITZA ARANDA Report Released Date/Time: Oct 05, 2024 12:27 PM Reporting Lab: [address] [address] Performing Lab: [address] [address] [facility] CBC EOSINOPHILS [#/VOLUME] IN BLOOD BY MANUAL COUNT 0.32 10*3/uL 0.00 - 0.60 10/10 Specimen Type: BLOOD No comment entered. Ordering Provider: MARITZA ARANDA Report Released Date/Time: Oct 05, 2024 12:27 PM Reporting Lab: [address] [address] Performing Lab: [address] [phone] [place] [address] [facility] CBC MONOCYTES [#/VOLUME] IN BLOOD BY MANUAL COUNT 0.86 10*3/uL 0.19 - 0.80 10/10 H Specimen Type: BLOOD No comment entered. Ordering Provider: MARITZA ARANDA Report Released Date/Time: Oct 05, 2024 12:27 PM Reporting Lab: [address] [address] Performing Lab: [address] [phone] [place] [address] [facility] CBC LYMPHOCYTES [#/VOLUME] IN BLOOD BY MANUAL COUNT 1.10 10*3/uL 0.77 - 4.50 10/10 Specimen Type: BLOOD No comment entered. Ordering Provider: MARITZA ARANDA Report Released Date/Time: Oct 05, 2024 12:27 PM Reporting Lab: [address] [address] Performing Lab: [address] [phone] [place] [address] [facility] CBC NEUTROPHILS [#/VOLUME] IN BLOOD BY MANUAL COUNT 6.65 10*3/uL 2.10 - 8.00 10/10 Specimen Type: BLOOD No comment entered. Ordering Provider: MARITZA ARANDA Report Released Date/Time: Oct 05, 2024 12:27 PM Reporting Lab: [address] [address] Performing Lab: [address] [phone] [place] [address] [facility] LIPID PANEL (STL) CHOLESTEROL [MASS/VOLUM E] IN SERUM OR PLASMA 141 mg/dL 0 - 200 10/10 Specimen Type: PLASMA Comment: No hemolysis noted. Ordering Provider: MARITZA ARANDA Report Released Date/Time: Oct 05, 2024 12:27 PM Reporting Lab: [place] [address] Performing Lab: [place] [address] [facility] LIPID PANEL (STL) TRIGLYCERID E [MASS/VOLUM E] IN SERUM OR PLASMA 103 mg/dL 0 - 150 10/10 Specimen Type: PLASMA Comment: No hemolysis noted. Ordering Provider: MARITZA ARANDA Report Released Date/Time: Oct 05, 2024 12:27 PM Reporting Lab: [address] [address] Performing Lab: [address] [address] [facility] LIPID PANEL (STL) CHOLESTEROL IN LDL [MASS/VOLUM E] IN SERUM OR PLASMA BY CALCULATION 71 mg/dL 10/10 Specimen Type: PLASMA Comment: No hemolysis noted. Ordering Provider: MARITZA ARANDA Report Released Date/Time: Oct 05, 2024 12:27 PM Reporting Lab: [address] [address] Performing Lab: [address] [address] [facility] LIPID PANEL (STL) CHOLESTEROL IN HDL [MASS/VOLUM E] IN SERUM OR PLASMA 49 mg/dL 40 10/10 Specimen Type: PLASMA Comment: No hemolysis noted. Ordering Provider: MARITZA ARANDA Report Released Date/Time: Oct 05, 2024 12:27 PM Reporting Lab: [address] [address] Performing Lab: [address] [address] [facility] HGA1C HEMOGLOBIN A1C/HEMOGLO BIN.TOTAL IN BLOOD 6.5 4.0 - 6.0 10/10 H Specimen Type: BLOOD No comment entered. Ordering Provider: MRAITZA ARANDA Report Released Date/Time: Oct 05, 2024 12:27 PM Reporting Lab: [address] [address] Performing Lab: [facility] [facility] B12 COBALAMIN (VITAMIN B12) [MASS/VOLUM E] IN SERUM OR PLASMA 883 pg/mL 213 - 816 10/10 H Specimen Type: SERUM No comment entered. Ordering Provider: MARITZA ARANDA Report Released Date/Time: Oct 05, 2024 12:27 PM Reporting Lab: [place] [address] Performing Lab: [address] [facility] PROST. SPECIFIC AG.(PB-ST L) PROSTATE [...] Oct 05, 2024 12:27 PM Reporting Lab: [place] [address] Performing Lab: [address] [facility] TSH W/ REFLEX FT4 (STL) THYROTROPIN [UNITS/VOLU ME] IN SERUM OR PLASMA 0.519 u[IU]/mL 0.47 - 5 10/10 Specimen Type: PLASMA No comment entered. Ordering Provider: MARITZA ARANDA Report Released Date/Time: Oct 05, 2024 12:27 PM Reporting Lab: [place] [address] Performing Lab: [address] [facility] VITAMIN D, 25-HYDROX Y 25-HYDROXYV ITAMIN D3 [MASS/VOLUM E] IN SERUM OR PLASMA 33.7 ng/mL 30 - 96 10/10 Specimen Type: SERUM No comment entered. Ordering Provider: MARITZA ARANDA Report Released Date/Time: Oct 05, 2024 12:27 PM Reporting Lab: [facility] [address] [facility] [address] Performing Lab: [facility] [address] [facility] [address] [facility] Vital Signs Combined list of inpatient and outpatient Vital Signs from Department of Defense and Veterans Affairs, ranging from 12 months to all on record, depending upon the facility. Vital Sign Value Date Comments Source SYSTOLIC BLOOD PRESSURE 122 03/15/2025 13:44:03 [facility] DIASTOLIC BLOOD PRESSURE 80 03/15/2025 13:44:03 [facility] PULSE OXIMETRY 95 03/15/2025 13:44:03 [facility] [facility] WEIGHT 207 03/15/2025 13:44:03 [facility] BMI 32 kg/m2 03/15/2025 13:44:03 [facility] TEMPERATURE 97.8 03/15/2025 13:44:03 [facility] PULSE 80 03/15/2025 13:44:03 [facility] RESPIRATION 22 03/15/2025 13:44:03 [facility] SYSTOLIC BLOOD PRESSURE 97 10/05/2024 12:36:24 [facility] DIASTOLIC BLOOD PRESSURE 61 10/05/2024 12:36:24 [facility] PULSE OXIMETRY 95 10/05/2024 12:36:24 [facility] WEIGHT 202 10/05/2024 12:36:24 [facility] BMI 32 kg/m2 10/05/2024 12:36:24 [facility] PAIN 2 10/05/2024 12:36:24 [facility] HEIGHT 67 10/05/2024 12:36:24 [facility] TEMPERATURE 98 10/05/2024 12:36:24 [facility] PULSE 100 10/05/2024 12:36:24 [facility] RESPIRATION 18 10/05/2024 12:36:24 [facility] Encounters Combined list of: 1) Encounters from [facility] facilities going backup to the last 18 months, not all [facility] inpatient encounters are included; 2) Encounters from the Department of [facility] facilities going backup to 280 months. Location Location Details Encounter Type Encounter Number Reason For Visit Attending Provider ADM Date DC Date Status Disposition Source [facility] Outpatient Encounter [id number] 05/24 [facility] Outpatient Encounter [id number] 08/14 [facility] Outpatient Encounter [id number] 09/27 [facility] Outpatient Encounter [id number] 10/05 [facility] OFFICE O/P EST HI 40 MIN [id number] Diagnos is: ICD-10- CM Z00.01 Encount er for general adult medical exam KAYKAY Victor 10/05 [facility] Outpatient Encounter [id number] 10/08 [facility] Outpatient Encounter [id number] 10/09 [facility] Outpatient Encounter [id number] 10/10 [facility] Outpatient Encounter [id number] Diagnos is: ICD-10- CM J44.9 Chronic obstruc tive pulmona ry disease , unspeci libra VERAS,T ODD 10/[facility] [place] [place] [facility] En[facility] [id number] 11/29 [facility] Outpatient Encounter [id number] 11/29 [facility] Outpatient Encounter [id number] 11/29 [facility] PH1 ASSMT&MGMT NQHP 5-10 [id number] Diagnos is: ICD-10- CM J44.9 Chronic obstruc tive pulmona ry disease , unspeci fied HARSHAL PATEL 12/06 [facility] En[facility] [id number] 03/07 [facility] Outpatient Encounter [id number] TAWNYA CRAMER 03/14 [facility] Outpatient Encounter [id number] 03/15 [facility] OFFICE O/P EST MOD 30 MIN [id number] Diagnos is: ICD-10- CM R73.03 Prediab Rhoda Garg ODD 03/15 [facility] Outpatient Encounter [id number] 03/19 [facility] Outpatient Encounter [id number] 03/19 [facility] Outpatient Encounter [id number] TERUCHI LORA CHRISTELLE 03/19 [facility] Outpatient Encounter [id number] 04/02 [facility] NQHP OL DIG ASSMT&MGMT 5-10 [id number] Diagnos is: ICD-10- CM J44.9 Chronic obstruc tive pulmona ry disease , unspeci SEEMA Forte 04/03 [facility] Social History Combined list of available smoking, tobacco, and other social history from Department of Defense and Veterans Affairs facilities. Social History Type Response Date Comment Sourc e Tobacco smoking status NHIS VA-TOBACCO USE FORMER CIGARETTES 10/05/2024 [facility] History of tobacco use VA-TOBACCO NEVER USED OTHER TYPE 10/05/2024 [facility]
--- OUTSIDE RECORDS SUMMARY | 2025-07-13 09:01 | XMS_ITS | Continuity of Care Document ---
Author Name [facility] Organization [facility] Care Team Providers Care Production Planning Manager Name Role Phone [facility] Unavailable Unavailable Problems Combined list of problems from Department of [facility] and [facility] facilities. It does not include entries that were removed or entered in error. Problem Status Onset Date Problem Type Date of Resolution Comments Source CAD - Coronary Artery Disease ([facility] [id number]) Active Condition [facility] COPD - Chronic Obstructive Pulmonary Disease ([facility] [id number]) Active Condition [facility] Erectile dysfunction Active Condition [facility] Exposure to potentially hazardous substance ([facility] [id number]) Active Condition Oct 10 4 Entered By: HAYLEY SIMPSON Comment: Entered automatically through [facility] Problem List documentation program [facility] History of peripheral arterial occlusive disease Active Condition [facility] HTN - Hypertension ([facility] [id number]) Active Condition [facility] Hyperlipidemia ([facility] [id number]) Active Condition [facility] Obesity Active Condition [facility] Prediabetes Active Condition [facility] Small cell carcinoma of lung Active Condition [facility] Diagnosis: ICD-10-CM J44.9 Chronic obstructive pulmonary disease, unspecified Active Diagnosis [facility] Diagnosis: ICD-10-CM R73.03 Prediabetes Active Diagnosis [facility] Diagnosis: ICD-10-CM Z00.01 Encounter for general adult medical exam w abnormal findings Active Diagnosis [facility] Medications Combined list of outpatient medications from Department [facility] and [facility] facilities.Medications provided include 1) outpatient medications [...] ALBUTERO L INHALER NEBULI ZATION ACTIVE 10/06/2025 [id number] 4 NIGHAT ARANDA 2023 120 [facility] ALBUTEROL SO4 90MCG/ACTUA T (CFC-F) INHL,ORAL,8 .5GM INHALE 1 PUFF BY ORAL INHALATI ON FOUR TIMES A DAY NEEDED FOR COPD SHAKE WELL. RINSE MOUTHPIE CE FREQUENT LY TO PREVENT CLOGGING . RESPIR ATORY (INHAL ATION) ACTIVE 10/06/2025 [id number] 4 NIGHAT ARANDA 2023 2 [facility] ASPIRIN 81MG TAB,EC TAKE ONE TABLET BY MOUTH ONCE A DAY FOR CARDIOVA SCULAR DISEASE TAKE WITH FOOD. ORAL ACTIVE 10/06/2025 [id number] 4 NIGHAT ARANDA 2023 120 [facility] ATORVASTATI N CA 80MG TAB TAKE ONE-HALF TABLET BY MOUTH EVERY EVENING FOR HIGH CHOLESTE ROL ORAL DISCONT INUED BY PROVIDE R 10/06/2025 [id number] 4 NIGHAT ARANDA 2023 45 [facility] CLOPIDOGREL BISULFATE 75MG TAB TAKE ONE TABLET BY MOUTH ONCE A DAY ORAL ACTIVE 10/06/2025 [id number] 5 NIGHAT ARANDA 2023 90 [facility] EZETIMIBE 10MG TAB TAKE ONE TABLET BY MOUTH ONCE A DAY FOR HIGH CHOLESTE ROL ORAL ACTIVE 10/06/2025 [id number] 5 NIGHAT ARANDA 2023 90 [facility] FLUTICASONE 100MCG/SALM ETEROL 50MCG INHL,ORAL,D ISKUS,60 INHALE 1 INHALATI ON BY ORAL INHALATI ON TWICE A DAY FOR COPD (OPEN DISKUS; CLICK ONLY ONCE; MAY INHALE TWICE TO COMPLETE DOSE; CLOSE WHEN FINISHED ) RINSE MOUTH AND SPIT AFTER EACH USE. RESPIR ATORY (INHAL ATION) DISCONT INUED BY PROVIDE R 10/06/2025 [id number] 4 NIGHAT ARANDA 2023 3 [facility] FORMOTEROL FUM DIHYD 5MCG/MOMETA SONE FUR 100MCG INHL,ORAL,1 3GM INHALE 2 INHALATI ONS TWICE A DAY DIRECTED RINSE MOUTH AND SPIT AFTER USE. DO NOT EXCEED 4 INHALATI ONS PER 24 HOURS. ACTIVE 04/04/2026 [id number] 5 CYRIL VERAS 2024 3 [facility] HYDROCHLORO THIAZIDE 25MG TAB TAKE ONE-HALF TABLET BY MOUTH ONCE A DAY FOR HIGH BLOOD PRESSURE ORAL DISCONT INUED BY PROVIDE R 10/06/2025 [id number] 4 NIGHAT ARANDA 2023 45 [facility] METFORMIN HCL 1000MG TAB TAKE ONE-HALF TABLET BY MOUTH TWICE A DAY WITH MEALS FOR DIABETES TAKE WITH FOOD. AVOID ALCOHOL. DISCONTI NUE BEFORE GETTING XRAY DYE. ORAL ACTIVE 03/16/2026 [id number] 5 CYRIL VERAS 2024 90 [facility] SILDENAFIL CITRATE 50MG TAB TAKE ONE-HALF TABLET BY MOUTH ONE HOUR PRIOR TO SEXUAL ACTIVITY FOR ERECTILE DYSFUNCT ION NEEDED - LIMIT 6 DOSES PER 30 DAYS ORAL ACTIVE 03/16/2026 [id number] 5 CYRIL VERAS 2024 18 [facility] TIOTROPIUM 2.5MCG/ACTU AT INHL,ORAL,6 0D,4GM INHALE 2 INHALATI ONS BY ORAL INHALATI ON ONCE A DAY (ADMINIS TER AT SAME TIME EACH DAY) RESPIR ATORY (INHAL ATION) ACTIVE 12/07/2025 [id number] 5 CYRIL VERAS 2024 3 [facility] Allergies, Adverse Reactions, Alerts Combined list of allergies from Department of Defense and Veterans Affairs facilities. It does not include entries that were removed or entered in error. Substance Category Reaction Severity Reaction type Status Date Reported Comments Source ANIMAL DANDER Propensity to adverse reaction (finding) Dyspnea active 4 [facility] Propensity to adverse reaction (finding) Dyspnea active [facility] Immunizations Combined list of available immunizations from the Department of Defense and Veterans Affairs facilities. Immunization Series Date Given Administered By Site Reaction Lot Number CVX Code Drug Delivery And Installation Subcontractor Status Comments Source INFLUENZA, UNSPECIFIED FORMULATION 2023 88 complet ed HISTORICA L INFORMATI ON - FROM OTHER PROVIDER, [facility] Results Combined list of recent [...] Oct 05, 2024 12:27 PM Reporting Lab: [place] [address] Performing Lab: [address] [phone] [place] [address] [facility] CBC LEUKOCYTES [#/VOLUME] IN BLOOD BY AUTOMATED COUNT 9.0 10*3/uL 3.6 - 11.2 10/10 Specimen Type: BLOOD No comment entered. Ordering Provider: MARITZA ARANDA Report Released Date/Time: Oct 05, 2024 12:27 PM Reporting Lab: [address] [address] Performing Lab: [phone] [place] [address] [facility] CBC ERYTHROCYTE S [#/VOLUME] IN BLOOD BY AUTOMATED COUNT 4.80 10*6/uL 4.10 - 5.70 10/10 Specimen Type: BLOOD No comment entered. Ordering Provider: MARITZA ARANDA Report Released Date/Time: Oct 05, 2024 12:27 PM Reporting Lab: [address] [address] Performing Lab: [address] [address] [facility] CBC HEMOGLOBIN [MASS/VOLUM E] IN BLOOD 14.9 g/dL 13.1 - 16.8 10/10 Specimen Type: BLOOD No comment entered. Ordering Provider: MARITZA ARANDA Report Released Date/Time: Oct 05, 2024 12:27 PM Reporting Lab: [address] [address] Performing Lab: [address] [phone] [place] [address] [facility] CBC HEMATOCRIT [VOLUME FRACTION] OF BLOOD 44.9 38.2 - 48.4 10/10 Specimen Type: BLOOD No comment entered. Ordering Provider: MARITZA ARANDA Report Released Date/Time: Oct 05, 2024 12:27 PM Reporting Lab: [address] [address] Performing Lab: [address] [phone] [place] [address] [facility] CBC MCV [ENTITIC VOLUME] BY AUTOMATED COUNT 93.5 fL 80.0 - 100.0 10/10 Specimen Type: BLOOD No comment entered. Ordering Provider: MARITZA ARANDA Report Released Date/Time: Oct 05, 2024 12:27 PM Reporting Lab: [address] [address] Performing Lab: [address] [address] [facility] CBC MCH [ENTITIC MASS] BY AUTOMATED COUNT 31.0 pg 27.0 - 34.0 10/10 Specimen Type: BLOOD No comment entered. Ordering Provider: MARITZA ARANDA Report Released Date/Time: Oct 05, 2024 12:27 PM Reporting Lab: [address] [address] Performing Lab: [address] [phone] [place] [address] [facility] CBC MCHC [MASS/VOLUM E] BY AUTOMATED COUNT 33.2 g/dL 33.0 - 36.0 10/10 Specimen Type: BLOOD No comment entered. Ordering Provider: MARITZA ARANDA Report Released Date/Time: Oct 05, 2024 12:27 PM Reporting Lab: [address] [address] Performing Lab: [place] [phone] [facility] CBC PLATELETS [#/VOLUME] IN BLOOD BY AUTOMATED COUNT 395 10*3/uL 150 - 400 10/10 Specimen Type: BLOOD No comment entered. Ordering Provider: MARITZA ARANDA Report Released Date/Time: Oct 05, 2024 12:27 PM Reporting Lab: [place] [phone] Performing Lab: [address] [facility] CBC PLATELET MEAN VOLUME [ENTITIC VOLUME] IN BLOOD BY AUTOMATED COUNT 9.4 fL 7.5 - 11.2 10/10 Specimen Type: BLOOD No comment entered. Ordering Provider: MARITZA ARANDA Report Released Date/Time: Oct 05, 2024 12:27 PM Reporting Lab: [address] [address] Performing Lab: [phone] [place] [address] [facility] CBC ERYTHROCYTE DISTRIBUTIO N WIDTH [RATIO] BY AUTOMATED COUNT 13.5 11.8 - 15.1 10/10 Specimen Type: BLOOD No comment entered. Ordering Provider: MARITZA ARANDA Report Released Date/Time: Oct 05, 2024 12:27 PM Reporting Lab: [address] [address] Performing Lab: [address] [phone] [place] [address] [facility] CBC SEGMENTED NEUTROPHILS /100 LEUKOCYTES IN BLOOD BY MANUAL COUNT 73.9 10/10 Specimen Type: BLOOD No comment entered. Ordering Provider: MARITZA ARANDA Report Released Date/Time: Oct 05, 2024 12:27 PM Reporting Lab: [facility] [address] [facility] [address] Performing Lab: [facility] [address] [phone] [facility] CBC MONOCYTES/1 00 LEUKOCYTES IN BLOOD BY AUTOMATED COUNT 9.5 10/10 Specimen Type: BLOOD No comment entered. Ordering Provider: MARITZA ARANDA Report Released Date/Time: Oct 05, 2024 12:27 PM Reporting Lab: [facility] [address] [place], [place] [phone] Performing Lab: [facility] [address] [place] [phone] [facility] CBC EOSINOPHILS /100 LEUKOCYTES IN BLOOD BY MANUAL COUNT 3.5 10/10 Specimen Type: BLOOD No comment entered. Ordering Provider: MARITZA ARANDA Report Released Date/Time: Oct 05, 2024 12:27 PM Reporting Lab: [facility] [address] [place], [place] [phone] Performing Lab: [facility] [address] [place] [phone] [address] [facility] CBC BASOPHILS/1 00 LEUKOCYTES IN BLOOD BY MANUAL COUNT 0.9 10/10 Specimen Type: BLOOD No comment entered. Ordering Provider: MARITZA ARANDA Report Released Date/Time: Oct 05, 2024 12:27 PM Reporting Lab: [facility] [address] [place] [phone] Performing Lab: [facility] [address] [place] [address] [facility]OC CBC PAPPENHEIME R BODIES 0 10/10 Specimen Type: BLOOD No comment entered. Ordering Provider: MARITZA ARANDA Report Released Date/Time: Oct 05, 2024 12:27 PM Reporting Lab: [facility] [address] [place] [address] Performing Lab: [facility] [address] [place] [address] [facility] CBC LYMPHOCYTES /100 LEUKOCYTES IN BLOOD BY MANUAL COUNT 12.2 10/10 Specimen Type: BLOOD No comment entered. Ordering Provider: MARITZA ARANDA Report Released Date/Time: Oct 05, 2024 12:27 PM Reporting Lab: [facility] [address] [address] Performing Lab: [place] [address] [place] [address] [facility] CBC STOMATOCYTE S [PRESENCE] IN BLOOD BY LIGHT MICROSCOPY 1+ 10/10 Specimen Type: BLOOD No comment entered. Ordering Provider: MARITZA ARANDA Report Released Date/Time: Oct 05, 2024 12:27 PM Reporting Lab: [place] [address] [place] [address] Performing Lab: [place] [address] [place] [address] [facility] CBC PLATELET ADEQUACY [PRESENCE] IN BLOOD BY LIGHT MICROSCOPY ADEQUATE 10/10 Specimen Type: BLOOD No comment entered. Ordering Provider: MARITZA ARANDA Report Released Date/Time: Oct 05, 2024 12:27 PM Reporting Lab: [place] [address] [place] [address] Performing Lab: [facility] [address] [place] [address] [facility] CBC BASOPHILS [#/VOLUME] IN BLOOD BY MANUAL COUNT 0.08 10*3/uL 0.01 - 0.20 10/10 Specimen Type: BLOOD No comment entered. Ordering Provider: MARITZA ARANDA Report Released Date/Time: Oct 05, 2024 12:27 PM Reporting Lab: [place] [address] [place] [address] Performing Lab: [address] [address] [facility] CBC EOSINOPHILS [#/VOLUME] IN BLOOD BY MANUAL COUNT 0.32 10*3/uL 0.00 - 0.60 10/10 Specimen Type: BLOOD No comment entered. Ordering Provider: MARITZA ARANDA Report Released Date/Time: Oct 05, 2024 12:27 PM Reporting Lab: [place] [address] Performing Lab: [place] [phone] [facility] CBC MONOCYTES [#/VOLUME] IN BLOOD BY MANUAL COUNT 0.86 10*3/uL 0.19 - 0.80 10/10 H Specimen Type: BLOOD No comment entered. Ordering Provider: MARITZA ARANDA Report Released Date/Time: Oct 05, 2024 12:27 PM Reporting Lab: [place] [address] Performing Lab: [place] [phone] [facility] CBC LYMPHOCYTES [#/VOLUME] IN BLOOD BY MANUAL COUNT 1.10 10*3/uL 0.77 - 4.50 10/10 Specimen Type: BLOOD No comment entered. Ordering Provider: MARITZA ARANDA Report Released Date/Time: Oct 05, 2024 12:27 PM Reporting Lab: [place] [phone] Performing Lab: [address] [address] [facility] CBC NEUTROPHILS [#/VOLUME] IN BLOOD BY MANUAL COUNT 6.65 10*3/uL 2.10 - 8.00 10/10 Specimen Type: BLOOD No comment entered. Ordering Provider: MARITZA ARANDA Report Released Date/Time: Oct 05, 2024 12:27 PM Reporting Lab: [place] [address] Performing Lab: [facility] [address] [place] [address] [facility] COMPREHEN SIVE METABOLIC PANEL CREATININE [MASS/VOLUM E] IN SERUM OR PLASMA 0.99 mg/dL 0.7 - 1.3 10/10 Specimen Type: PLASMA Comment: No hemolysis noted. Ordering Provider: MARITZA ARANDA Report Released Date/Time: Oct 05, 2024 12:27 PM Reporting Lab: [address] [address] Performing Lab: [address] [address] [facility] COMPREHEN SIVE METABOLIC PANEL UREA NITROGEN [MASS/VOLUM E] IN SERUM OR PLASMA 14.8 mg/dL 9.0 - 25.0 10/10 Specimen Type: PLASMA Comment: No hemolysis noted. Ordering Provider: MARITZA ARANDA Report Released Date/Time: Oct 05, 2024 12:27 PM Reporting Lab: [address] [address] Performing Lab: [address] [address] [facility] COMPREHEN SIVE METABOLIC PANEL GLUCOSE [MASS/VOLUM E] IN SERUM OR PLASMA 127 mg/dL 72 - 99 10/10 H Specimen Type: PLASMA Comment: No hemolysis noted. Ordering Provider: MARITZA ARANDA Report Released Date/Time: Oct 05, 2024 12:27 PM Reporting Lab: [facility] [address] [place] [address] Performing Lab: [address] [address] [facility] COMPREHEN SIVE METABOLIC PANEL SODIUM [MOLES/VOLU ME] IN SERUM OR PLASMA 141 meq/L 136 - 145 10/10 Specimen Type: PLASMA Comment: No hemolysis noted. Ordering Provider: MARITZA ARANDA Report Released Date/Time: Oct 05, 2024 12:27 PM Reporting Lab: [facility] [address] [place] [address] Performing Lab: [facility] [address] [place] [address] [facility] COMPREHEN SIVE METABOLIC PANEL POTASSIUM [MOLES/VOLU ME] IN SERUM OR PLASMA 4.4 meq/L 3.5 - 5 10/10 Specimen Type: PLASMA Comment: No hemolysis noted. Ordering Provider: MARITZA ARANDA Report Released Date/Time: Oct 05, 2024 12:27 PM Reporting Lab: [place] [address] [facility] [place] [address] Performing Lab: [address] [address] [facility] COMPREHEN SIVE METABOLIC PANEL CHLORIDE [MOLES/VOLU ME] IN SERUM OR PLASMA 103 meq/L 98 - 107 10/10 Specimen Type: PLASMA Comment: No hemolysis noted. Ordering Provider: MARITZA ARANDA Report Released Date/Time: Oct 05, 2024 12:27 PM Reporting Lab: [address] [address] Performing Lab: [address] [address] [facility] COMPREHEN SIVE METABOLIC PANEL CARBON DIOXIDE, TOTAL [MOLES/VOLU ME] IN SERUM OR PLASMA 29 meq/L 22 - 31 10/10 Specimen Type: PLASMA Comment: No hemolysis noted. Ordering Provider: MARITZA ARANDA Report Released Date/Time: Oct 05, 2024 12:27 PM Reporting Lab: [facility] [address] [place] [phone] Performing Lab: [facility] [address] [place] [phone] [facility] COMPREHEN SIVE METABOLIC PANEL CALCIUM [MASS/VOLUM E] IN SERUM OR PLASMA 10.0 mg/dL 8.4 - 10.4 10/10 Specimen Type: PLASMA Comment: No hemolysis noted. Ordering Provider: MARITZA ARANDA Report Released Date/Time: Oct 05, 2024 12:27 PM Reporting Lab: [facility] [address] [place], [place] [phone] Performing Lab: [place] [phone] [place] [address] [facility]OC COMPREHEN SIVE METABOLIC PANEL PROTEIN [MASS/VOLUM E] IN SERUM OR PLASMA 7.7 g/dL 6 - 8.6 10/10 Specimen Type: PLASMA Comment: No hemolysis noted. Ordering Provider: MARITZA ARANDA Report Released Date/Time: Oct 05, 2024 12:27 PM Reporting Lab: [place] [address] Performing Lab: [place] [phone] [facility] COMPREHEN SIVE METABOLIC PANEL ALBUMIN [MASS/VOLUM E] IN SERUM OR PLASMA 4.0 g/dL 3.4 - 5 10/10 Specimen Type: PLASMA Comment: No hemolysis noted. Ordering Provider: MARITZA ARANDA Report Released Date/Time: Oct 05, 2024 12:27 PM Reporting Lab: [place] [address] Performing Lab: [place] [phone] [facility] COMPREHEN SIVE METABOLIC PANEL BILIRUBIN.T OTAL [MASS/VOLUM E] IN SERUM OR PLASMA 0.3 mg/dL 0.2 - 1.2 10/10 Specimen Type: PLASMA Comment: No hemolysis noted. Ordering Provider: MARITZA ARANDA Report Released Date/Time: Oct 05, 2024 12:27 PM Reporting Lab: [facility] [address] [place], [place] [phone] Performing Lab: [address] [phone] [place] [address] [facility] COMPREHEN SIVE METABOLIC PANEL ALKALINE PHOSPHATASE [ENZYMATIC ACTIVITY/VO LUME] IN SERUM OR PLASMA 119 U/L 40 - 150 10/10 Specimen Type: PLASMA Comment: No hemolysis noted. Ordering Provider: MARITZA ARANDA Report Released Date/Time: Oct 05, 2024 12:27 PM Reporting Lab: [address] [address] Performing Lab: [facility] [address] [place] [address] [facility] COMPREHEN SIVE METABOLIC PANEL ASPARTATE AMINOTRANSF ERASE [ENZYMATIC ACTIVITY/VO LUME] IN SERUM OR PLASMA 39 U/L 5 - 34 10/10 H Specimen Type: PLASMA Comment: No hemolysis noted. Ordering Provider: MARITZA ARANDA Report Released Date/Time: Oct 05, 2024 12:27 PM Reporting Lab: [address] [address] Performing Lab: [address] [address] [facility] COMPREHEN SIVE METABOLIC PANEL ALANINE AMINOTRANSF ERASE [ENZYMATIC ACTIVITY/VO LUME] IN SERUM OR PLASMA 29 U/L 8 - 40 10/10 Specimen Type: PLASMA Comment: No hemolysis noted. Ordering Provider: MARITZA ARANDA Report Released Date/Time: Oct 05, 2024 12:27 PM Reporting Lab: [address] [address] Performing Lab: [address] [address] [facility] COMPREHEN SIVE METABOLIC PANEL GLOMERULAR FILTRATION RATE/1.73 SQ M.PREDICTED [VOLUME RATE/AREA] IN SERUM, PLASMA OR BLOOD BY CREATININE- BASED FORMULA (CKD-EPI 2020) 80.9 60 10/10 Specimen Type: PLASMA Comment: No hemolysis noted. Ordering Provider: MARITZA ARANDA Report Released Date/Time: Oct 05, 2024 12:27 PM Reporting Lab: [address] [address] Performing Lab: [facility] [address] [place] [address] [facility] HGA1C HEMOGLOBIN A1C/HEMOGLO BIN.TOTAL IN BLOOD 6.5 4.0 - 6.0 10/10 H Specimen Type: BLOOD No comment entered. Ordering Provider: MARITZA ARANDA Report Released Date/Time: Oct 05, 2024 12:27 PM Reporting Lab: [address] [address] Performing Lab: [address] [address] [facility] LIPID PANEL (STL) CHOLESTEROL [MASS/VOLUM E] IN SERUM OR PLASMA 141 mg/dL 0 - 200 10/10 Specimen Type: PLASMA Comment: No hemolysis noted. Ordering Provider: MARITZA ARANDA Report Released Date/Time: Oct 05, 2024 12:27 PM Reporting Lab: [address] [address] Performing Lab: [address] [address] [facility] LIPID PANEL (STL) TRIGLYCERID E [MASS/VOLUM E] IN SERUM OR PLASMA 103 mg/dL 0 - 150 10/10 Specimen Type: PLASMA Comment: No hemolysis noted. Ordering Provider: MARITZA ARANDA Report Released Date/Time: Oct 05, 2024 12:27 PM Reporting Lab: [address] [address] Performing Lab: [address] [address] [facility] LIPID PANEL (STL) CHOLESTEROL IN LDL [MASS/VOLUM E] IN SERUM OR PLASMA BY CALCULATION 71 mg/dL 10/10 Specimen Type: PLASMA Comment: No hemolysis noted. Ordering Provider: MARITZA ARANDA Report Released Date/Time: Oct 05, 2024 12:27 PM Reporting Lab: [address] [address] Performing Lab: [facility] [place] [place] [phone] [facility] LIPID PANEL (STL) CHOLESTEROL IN HDL [MASS/VOLUM E] IN SERUM OR PLASMA 49 mg/dL 40 10/10 Specimen Type: PLASMA Comment: No hemolysis noted. Ordering Provider: MARITZA ARANDA Report Released Date/Time: Oct 05, 2024 12:27 PM Reporting Lab: [place] [address] Performing Lab: [address] [facility] PROST. SPECIFIC AG.(PB-ST L) PROSTATE SPECIFIC AG [MASS/VOLUM E] IN SERUM OR PLASMA 1.669 ng/mL 0 - 4 10/10 Specimen Type: SERUM Comment: The listed sex of this patient may not be a typical indication for this test. Therefore, reference ranges or interpretiv e criteria listed may not be valid. Clinical correlation suggested. Ordering Provider: MRAITZA ARANDA Report Released Date/Time: Oct 05, 2024 12:27 PM Reporting Lab: [place] [address] Performing Lab: [address] [facility] TSH W/ REFLEX FT4 (STL) THYROTROPIN [UNITS/VOLU ME] IN SERUM OR PLASMA 0.519 u[IU]/mL 0.47 - 5 10/10 Specimen Type: PLASMA No comment entered. Ordering Provider: MARITZA ARANDA Report Released Date/Time: Oct 05, 2024 12:27 PM Reporting Lab: [place] [address] Performing Lab: [address] [facility] VITAMIN D, 25-HYDROX Y 25-HYDROXYV ITAMIN D3 [MASS/VOLUM E] IN SERUM OR PLASMA 33.7 ng/mL 30 - 96 10/10 Specimen Type: SERUM No comment entered. Ordering Provider: MARITZA ARANDA Report Released Date/Time: Oct 05, 2024 12:27 PM Reporting Lab: [facility] [address] [facility] [address] Performing Lab: [facility] [address] [place] [address] [facility] Vital Signs Combined list of inpatient and outpatient Vital Signs from Department of Defense and Veterans Affairs, ranging from 12 months to all on record, depending upon the facility. Vital Sign Value Date Comments Source SYSTOLIC BLOOD PRESSURE 122 03/15/2025 13:44:03 [facility] DIASTOLIC BLOOD PRESSURE 80 03/15/2025 13:44:03 [facility] PULSE OXIMETRY 95 03/15/2025 13:44:03 [facility] WEIGHT 207 03/15/2025 13:44:03 [facility] BMI 32 kg/m2 03/15/2025 13:44:03 [facility] TEMPERATURE 97.8 03/15/2025 13:44:03 [facility] PULSE 80 03/15/2025 13:44:03 [facility] RESPIRATION 22 03/15/2025 13:44:03 [facility] SYSTOLIC BLOOD PRESSURE 97 10/05/2024 12:36:24 [facility] DIASTOLIC BLOOD PRESSURE 61 10/05/2024 12:36:24 [facility] PULSE OXIMETRY 95 10/05/2024 12:36:24 [facility] WEIGHT 202 10/05/2024 12:36:24 [facility] BMI 32 kg/m2 10/05/2024 12:36:24 [facility] PAIN 2 10/05/2024 12:36:24 [facility] HEIGHT 67 10/05/2024 12:36:24 [facility] TEMPERATURE 98 10/05/2024 12:36:24 [facility] PULSE 100 10/05/2024 12:36:24 [facility] RESPIRATION 18 10/05/2024 12:36:24 [facility] Encounters Combined list of: 1) [facility]counters [facility] going backup to the last 18 months, not all [facility] inpatient encounters are included; 2) Encounters from the Department of [facility] facilities going backup to 280 months. Location Location Details Encounter Type Encounter Number Reason For Visit Attending Provider ADM Date DC Date Status Disposition Source [facility] Outpatient Encounter [id number] 05/24 [facility] Outpatient Encounter [id number] 08/14 [facility] Outpatient Encounter [id number] 09/27 [facility] Outpatient Encounter [id number] 10/05 [facility] OFFICE O/P EST HI 40 MIN [id number] Diagnos is: ICD-10- CM Z00.01 Encount er for general adult medical exam KAYKAY Victor 10/[address] [facility] Outpatient Encounter [id number] 10/08 [facility] Outpatient Encounter [id number] 10/09 [facility] Outpatient Encounter [id number] 10/10 [facility] Outpatient Encounter [id number] Diagnos is: ICD-10- CM J44.9 Chronic obstruc tive pulmona ry disease , unspeci libra VERAS,T ODD 10/29 [facility] Out[facility] Encounter [id number] 11/29 [facility] Outpatient Encounter [id number] 11/29 [facility] Outpatient Encounter [id number] 11/29 [facility] PH1 ASSMT&MGMT NQHP 5-10 [id number] Diagnos is: ICD-10- CM J44.9 Chronic obstruc tive pulmona ry disease , unspeci fied HARSHAL PATEL 12/06 [facility] Out[facility] Encounter [id number] 03/07 [facility] Outpatient Encounter [id number] TAWNYA CRAMER 03/14 [facility] Outpatient Encounter [id number] 03/15 [facility] OFFICE O/P EST MOD 30 MIN [id number] Diagnos is: ICD-10- CM R73.03 Prediab Rhoda Garg ODD 03/15 [facility] Outpatient Encounter [id number] 03/19 [facility] Outpatient Encounter [id number] 03/19 [facility] Outpatient Encounter [id number] TERUCHI LORA CHRISTELLE 03/19 [facility] Outpatient Encounter [id number] 04/02 [facility] NQHP OL DIG ASSMT&MGMT 5-10 [id number] Diagnos is: ICD-10- CM J44.9 Chronic obstruc tive pulmona ry disease , unspeci SEEMA Forte 04/[address] [facility] Social History Combined list of available smoking, tobacco, and other social history from Department of Defense and Veterans Affairs facilities. Social History Type Response Date Comment Sourc e Tobacco smoking status NHIS VA-TOBACCO USE FORMER CIGARETTES 10/05/2024 [facility] History of tobacco use VA-TOBACCO NEVER USED OTHER TYPE 10/05/2024 [facility]
--- OUTSIDE RECORDS SUMMARY | 2025-07-13 14:03 | XMS_ITS | Clinical Summary ---
Author Organization [facility] Address [address] [place] [address] Care Team Providers Care Counter Tender Name Role Phone Rajesh Max MD Unavailable Rajesh Max MD Primary Care Provider [phone] Allergies No known active allergies Medications hydroCHLOROthia [...] (07/01/2022): Added automatically from request for surgery [id number] Surgical History Surgery Date Site/Laterality Comments CORONARY [...] on file Legal Sex Male 12:03 PM STERILE PREPARATION TECHNICIAN Gender Identity Not on file Sexual Orientation Not on file Obstetrics History Last Filed Vital Signs Vital Sign Reading Time Taken Comments Blood Pressure 138/96 09/30/2022 5:41 PM STERILE PREPARATION TECHNICIAN Pulse 86 09/30/2022 5:43 PM STERILE PREPARATION TECHNICIAN Temperature 37.1 C (98.7 F) 09/30/2022 11:18 AM STERILE PREPARATION TECHNICIAN Respiratory Rate 23 09/30/2022 5:43 PM STERILE PREPARATION TECHNICIAN Oxygen Saturation 97% 09/30/2022 5:42 PM STERILE PREPARATION TECHNICIAN Inhaled Oxygen Concentration - - Weight 90.9 kg (200 lb 8 oz) 09/30/2022 11:18 AM STERILE PREPARATION TECHNICIAN Height 170.2 cm (5' 7) 09/30/2022 11:18 AM STERILE PREPARATION TECHNICIAN Body Mass Index 31.4 09/30/2022 11:18 AM STERILE PREPARATION TECHNICIAN Plan of Treatment Health Maintenance Due Date Last Done Comments Colon Cancer Screening-Colonoscopy 1950 Depression Screening 1950 Hepatitis C Screening 1950 DTaP/Tdap/Td Vaccine (1 - Tdap) 1963 Hepatitis B Screening 1970 Zoster Vaccine (1 of 2) 2002 Abdominal Aortic Aneurysm (A AA) Screen 2017 Well Visit 65+ 2017 Fall Risk Assessment 09/30/2023 09/30/2022 Influenza Vaccine (#1) 2025 0, 11/29/2019, 11/27/2018, Additional history exists Pneumococcal vaccine 65+ Completed 11/27/2018, 09/16 Medical Devices Implanted Type Area Money Order Clerk Device Identifier Shelf Expiration Date Model / Serial / Lot [employer] [id number] Synergy 2.25mm 20mm 144cm Radiopaque 1 Access Port Inflation - [id number] Implanted:Qty: 1 on 03/11/2020 by Rjaesh Max MD at [facility] [employer] [id number] 220 / / [employer] [id number] Synergy 3mm 12mm 144cm Radiopaque 1 Access Port Inflation Lumen - [id number] Implanted:Qty: 1 on 03/11/2020 by Rajesh Max MD at [facility] [employer] [id number] 300 / / Insurance MEDICARE [facility] MEDICARE [facility] Advance Directives For more information, please contact: [phone] * Full Code (Latest Code Status on File) Date Activated Date Inactivated Comments 03/11/2020 10:26 AM 03/12/2020 3:18 PM Care Teams Counter Tender Relationship Specialty Start Date End Date Rajesh Max MD PCP - General 03/12/20 Rajesh Max MD Consulting Physician Cardiology 03/12/20
--- OUTSIDE RECORDS SUMMARY | 2025-07-13 14:03 | XMS_ITS | Clinical Summary ---
Author Organization [facility] Marlyn Nash Address [address] [place] [address] Care Team Providers Care U.S. Commissioner Name Role Phone Pawan Mendes MD Primary [...] times daily. 90 Capsule 3 4 Active tiotropium (Spiriva Respimat) 1.25 mcg/actuation Mist Take 2 Puffs by inhalation daily. Active Active Problems Problem Noted Date Diagnosed Date Osteoarthritis of knee 05/14/2023 Squamous cell carcinoma of left lung 03/23/2023 Peripheral artery disease 01/09/2020 Overview (05/14/2023): Added automatically from request for surgery [id number] Vitamin D deficiency 10/23/2014 Arteriosclerosis of coronary artery 07/30/2009 Encounters Date Type Department Care Team Description 06/18/2025 External Device Data STL ABSTRACTION Provider, Abstract 05/29/2025 External Device Data STL ABSTRACTION Provider, Abstract 05/28/2025 External Device Data STL ABSTRACTION Provider, Abstract 04/30/2025 External Device Data STL ABSTRACTION Provider, Abstract 04/19/2025 Orders Only [facility] Oncology [facility] [address] [place] [address] Ian Stevens MD 04/17/2025 2:30 PM CDT Office Visit [facility] Oncology [facility] [address] [place] [address] Ian Stevens MD Squamous cell carcinoma of left lung (CMS/HCC) (Primary Dx) from Last 3 Months Immunizations Immunization Administration Dates Next Due (PFIZER)(12 YR UP) COVID-19 VACCINE - EMERGENCY USE AUTHORIZATION, MRNA, [id number]) 30 MCG/0.3 ML IM SUSP 09/16/2021 Family [...] Sex Assigned at Male 10/18/2024 12:56 PM FOREST FIRE FIGHTERS DISPATCHER Legal Sex Male 9:35 AM CDT Gender Identity Male 10/18/2024 12:56 PM FOREST FIRE FIGHTERS DISPATCHER Sexual Orientation Not on file Last Filed Vital Signs Vital Sign Reading Time Taken Comments Blood Pressure 127/80 04/17/2025 2:28 PM CDT Pulse 96 04/17/2025 2:28 PM CDT Temperature 36.6 C (97.8 F) 04/17/2025 2:28 PM CDT Respiratory Rate 15 04/17/2025 2:28 PM CDT Oxygen Saturation 93% 04/17/2025 2:28 PM CDT Inhaled Oxygen Concentration - - Weight 92.1 kg (203 lb) 04/17/2025 2:28 PM CDT Height 170.2 cm (5' 7) 06/08/2023 2:07 PM CDT Body Mass Index 31.79 06/08/2023 2:07 PM CDT Plan of Treatment Upcoming Encounters Date Type Department Care Team (Late st Contact Info) Description 10/31/2025 3:30 PM FOREST FIRE FIGHTERS DISPATCHER Office Visit [facility] Oncology and Hematology - [place] [address] [facility] [address] [place] [address] Ian Stevens MD [address] [facility] [address] [place] [address] Health Maintenance Due Date Last [...] (2 - 2023-2 5 season) 2024 09/16/2021 INFLUENZA VACCINE (#1) 2025 , 08/23/2024, 08/11/2023, Additional history exists PNEUMOCOCCAL VACCINE 50+ YEARS Completed 11/27/2018 , 10/13/2017 Medical Devices Implanted Type Area Business Programmer Device Identifier Shelf Expiration Date Model / Serial / Lot Sealant Progel Pleural 4ml [id number] - [id number] Implanted:Qty: 1 on 05/19/2023 by Sean Redmond MD at [facility] Tissue Left: Lung BARD DAVOL 05/24/2024 [id number] / / [id number] Procedures Procedure Name Priority Date/Time Associated Diagnosis Comments COMPREHENSIVE METABOLIC PANEL Routine 04/17/2025 12:57 PM CDT CBC WITH DIFFERENTIAL Routine 04/17/2025 12:47 PM CDT from Last 3 Months Results * COMPREHENSIVE METABOLIC PANEL (04/17/2025 12:57 PM CDT) Blood Ian Stevens MD CHEMISTRY ORDERABLES Final Resu lt * CBC WITH DIFFERENTIAL (04/17/2025 12:47 PM CDT) Blood Ian Stevens MD HEMATOLOGY ORDERABLES Final Res ult from Last 3 Months Insurance MEDICARE PART A AND B [facility] [id number] [place] [id number] MEDICARE PART A AND B [facility] [id number] [place] [id number] Medicare Part D Advance Directives For more information, please contact: [phone] * Full Code (Latest Code Status on File) Date Activated Date Inactivated Comments 05/19/2023 2:03 PM 05/21/2023 5:15 PM * Full Code Date Activated Date Inactivated Comments 05/19/2023 5:47 AM 05/19/2023 2:03 PM Care Teams U.S. Commissioner Relationship Specialty Start Date End Date Paawn Mendes MD PCP - General Internal Medicine 03/28/23
[2025-07-13 14:06] VITALS: BP 139/86; PULSE 102; RESP 20; TEMP 36.7; O2SAT 97
--- NOTE | 2025-07-13 14:23 | ED.GENADULT ---
HPI - General Adult General Chief complaint: Skin/Abscess/Foreign Body Stated complaint: RASH Time Seen by Provider: 07/13/25 14:04 History of Present Illness HPI narrative: 75-year-old male presents emergency department for evaluation for a progressing her rash on his head arms chest and back. Patient was initially diagnosed with a poison fadia rash due to the appearance of the rash on his forehead. Patient states the rash has been itching and is not painful. Patient is on his 4th day of his Medrol Dosepak but began to have additional areas of rash on his back so family became concerned. Patient does have a lesion on his left forehead but denies any pain in his eye, patient has no rash on his nose, patient denies any change in vision. Related Data Home Medications ?Medication ?Instructions ?Recorded ?Confirmed ?Last Taken ?Type aspirin 81 mg tablet 81 mg PO DAILY 05/31/23 06/19/24 Unknown History atorvastatin 40 mg tablet 40 mg PO DAILY 05/31/23 06/19/24 Unknown History clopidogrel 75 mg tablet 75 mg PO DAILY 05/31/23 06/19/24 Unknown History ezetimibe 10 mg tablet 10 mg PO DAILY 05/31/23 06/19/24 Unknown History hydrochlorothiazide 12.5 mg tablet 12.5 mg PO DAILY 05/31/23 06/19/24 Unknown History Allergies Allergy/AdvReac Type Severity Reaction Status Date / Time No Known Allergies Allergy Unknown Verified 07/13/25 14:09 Review of Systems Review of Systems: All systems reviewed & are unremarkable except as noted in HPI and below PMFSH Family History Family History (Updated 11/02/24 @ 15:11 by Odalis Flores RN) Sibling Cancer antigen 125 (CA 125) elevation Mother Cancer antigen 125 (CA 125) elevation Social History Social History Smoking packs per day: 2 Smoking cigarettes per day: 40.0 Years smoked: 50 Smoking pack-years: 100.00 Smoking status: Former smoker Tobacco type: cigarettes Spiritual care concerns: No Exam Narrative: APPEARANCE: Well appearing, no pain, no distress, well-nourished. HEAD: normocephalic, atraumatic. EYES: PERRLA/EOMI, conjunctivae clear. NOSE: Normal no drainage EARS:TMS clear with good light reflex. THROAT: Pharynx clear, no exudate. NECK: Supple. No adenopathy, no masses. RESPIRATORY: Airway patent, respirations nonlabored. Clear to auscultation bilaterally, no rales, rhonchi, wheezing. CARDIOVASCULAR: Regular rate and rhythm without murmurs rubs or gallops. ABDOMINAL: Soft, nontender, nondistended, normal bowel sounds MUSCULOSKELETAL: Moves all extremities. Strength/ROM intact, No edema, No calf tenderness. NEURO: Alert. Cranial nerves II through XII intact. Good gait. Good coordination SKIN: Excoriated rash on left forehead areas of dermatitis on chest arms and back Course Vital Signs Vital signs: Vital Signs Temperature 98.0 F 07/13/25 14:06 Pulse Rate 102 H 07/13/25 14:06 Respiratory Rate 20 07/13/25 14:06 Blood Pressure 139/86 07/13/25 14:06 Pulse Oximetry 97 07/13/25 14:06 Oxygen Delivery Room Air 07/13/25 14:06 Temperature 98.0 F 07/13/25 14:06 Pulse Rate 99 07/13/25 14:44 Respiratory Rate 17 07/13/25 14:44 Blood Pressure 144/85 H 07/13/25 14:44 Pulse Oximetry 99 07/13/25 14:44 Oxygen Delivery Room Air 07/13/25 14:06 Medical Decision Making [facility] Narrative Medical decision making narrative: 75-year-old male presents emergency department for evaluation for a rash. Patient was concerned that he has shingles. Patient denies ever having pain with the rash. Patient does have rash on his face but he has no nasal involvement, no eye pain, no change in vision. Rash does not appear to be vesicular in nature bed and has aged and is excoriated. Patient does have an area on his upper forehead that does have some impetigo appearance without the drainage. Patient will be started on Keflex Differential Diagnosis Differential Diagnosis: Poison fadia, cellulitis, impetigo, shingles Vital Signs Vital Signs: Vital Signs Temperature 98.0 F 07/13/25 14:06 Pulse Rate 102 H 07/13/25 14:06 Respiratory Rate 20 07/13/25 14:06 Blood Pressure 139/86 07/13/25 14:06 Pulse Oximetry 97 07/13/25 14:06 Oxygen Delivery Room Air 07/13/25 14:06 Temperature 98.0 F 07/13/25 14:06 Pulse Rate 99 07/13/25 14:44 Respiratory Rate 17 07/13/25 14:44 Blood Pressure 144/85 H 07/13/25 14:44 Pulse Oximetry 99 07/13/25 14:44 Oxygen Delivery Room Air 07/13/25 14:06 Discharge Plan Discharge Clinical Impression: Cellulitis, Dermatitis Patient Disposition: Home Condition: Stable Instructions: Antibiotic Form, Impetigo (ED), Poison Fadia (ED) Additional Instructions: Continue your Medrol Dosepak as directed. Antibiotic as directed until completed. Have close follow-up with your primary care physician. If you have any worsening symptoms then please call return to the emergency department. Patient Language: Ukrainian Prescriptions: New cephalexin 500 mg capsule 500 mg PO BID 7 Days Qty: 14 0RF No Action atorvastatin 40 mg Tablet 40 mg PO DAILY clopidogrel 75 mg Tablet 75 mg PO DAILY Low-Dose Aspirin 81 mg Tablet 81 mg PO DAILY ezetimibe 10 mg Tablet 10 mg PO DAILY hydrochlorothiazide 12.5 mg Tablet 12.5 mg PO DAILY albuterol sulfate 90 mcg/actuation HFA aerosol inhaler 2 inh inhalation Q4H PRN (Reason: shortness of breath or wheezing) Qty: 8.5 3RF umeclidinium-vilanterol 62.5-25 mcg/actuation blister with device 1 inh inhalation DAILY Qty: 60 3RF Follow-up/Referrals: Vaughn,MD Pawan [Primary Care Provider, Unknown]
--- OUTSIDE RECORDS SUMMARY | 2025-07-13 14:24 | XMS_ITS | Clinical Summary ---
Author Organization [facility] Address [address] [place] [address] Care Team Providers Care Music Researcher Name Role Phone Rajesh Max MD Unavailable Rajesh Max MD Primary Care Provider [phone] Allergies No known active allergies Medications hydroCHLOROthia [...] (07/01/2022): Added automatically from request for surgery [id number] Surgical History Surgery Date Site/Laterality Comments CORONARY [...] on file Legal Sex Male 12:03 PM FILM LIBRARY CLERK Gender Identity Not on file Sexual Orientation Not on file Obstetrics History Last Filed Vital Signs Vital Sign Reading Time Taken Comments Blood Pressure 138/96 09/30/2022 5:41 PM FILM LIBRARY CLERK Pulse 86 09/30/2022 5:43 PM FILM LIBRARY CLERK Temperature 37.1 C (98.7 F) 09/30/2022 11:18 AM FILM LIBRARY CLERK Respiratory Rate 23 09/30/2022 5:43 PM FILM LIBRARY CLERK Oxygen Saturation 97% 09/30/2022 5:42 PM FILM LIBRARY CLERK Inhaled Oxygen Concentration - - Weight 90.9 kg (200 lb 8 oz) 09/30/2022 11:18 AM FILM LIBRARY CLERK Height 170.2 cm (5' 7) 09/30/2022 11:18 AM FILM LIBRARY CLERK Body Mass Index 31.4 09/30/2022 11:18 AM FILM LIBRARY CLERK Plan of Treatment Health Maintenance Due Date [...] 11/27/2018, 09/16 Medical Devices Implanted Type Area Pan Shaker Device Identifier Shelf Expiration Date Model / Serial / Lot [employer] [id number] Synergy 2.25mm 20mm 144cm Radiopaque 1 Access Port Inflation - [id number] Implanted:Qty: 1 on 03/11/2020 by Rajesh Max MD at [facility] [employer] [id number] 220 / / [employer] [id number] Synergy 3mm 12mm 144cm Radiopaque 1 Access Port Inflation Lumen - [id number] Implanted:Qty: 1 on 03/11/2020 by Rajesh Max MD at [facility] [employer] [id number] 300 / / Insurance MEDICARE [facility] MEDICARE [facility] Advance Directives For more information, please contact: [phone] * Full Code (Latest Code Status on File) Date Activated Date Inactivated Comments 03/11/2020 10:26 AM 03/12/2020 3:18 PM Care Teams Music Researcher Relationship Specialty Start Date End Date Rajesh Max MD PCP - General 03/12/20 Rajesh Max MD Consulting Physician Cardiology 03/12/20
--- OUTSIDE RECORDS SUMMARY | 2025-07-13 14:24 | XMS_ITS | Clinical Summary ---
Author Organization [facility] Marlyn Nash Address [address] [place] [address] Care Team Providers Care Drawing Machine Operator Name Role Phone Pawan Mendes MD Primary [...] (05/14/2023): Added automatically from request for surgery [id number] Vitamin D deficiency 10/23/2014 Arteriosclerosis of coronary artery 07/30/2009 Encounters Date Type Department Care Team Description 06/18/2025 External Device Data STL ABSTRACTION Provider, Abstract 05/29/2025 External Device Data STL ABSTRACTION Provider, Abstract 05/28/2025 External Device Data STL ABSTRACTION Provider, Abstract 04/30/2025 External Device Data STL ABSTRACTION Provider, Abstract 04/19/2025 Orders Only [facility] Oncology [facility] [address] [place] [address] Ian Stevens MD 04/17/2025 2:30 PM CDT Office Visit [facility] Oncology [facility] [address] [place] [address] Ian Stevens MD Squamous cell carcinoma of left lung (CMS/HCC) (Primary Dx) from Last 3 Months Immunizations Immunization Administration Dates Next Due (PFIZER)(12 YR UP) COVID-19 VACCINE - EMERGENCY USE AUTHORIZATION, MRNA, [id number](PF) 30 MCG/0.3 ML IM SUSP 09/16/2021 Family [...] Sex Assigned at Male 10/18/2024 12:56 PM ENGINEERING MGR Legal Sex Male 9:35 AM CDT Gender Identity Male 10/18/2024 12:56 PM ENGINEERING MGR Sexual Orientation Not on file Last Filed [...] st Contact Info) Description 10/31/2025 3:30 PM ENGINEERING MGR Office Visit [facility] Oncology and Hematology - [place] [address] [facility] [address] [place] [address] Ian Stevens MD [address] [facility] [address] [place] [address] Health Maintenance Due Date Last [...] , 10/13/2017 Medical Devices Implanted Type Area Charger Device Identifier Shelf Expiration Date Model / Serial / Lot Sealant Progel Pleural 4ml [id number] - [id number] Implanted:Qty: 1 on 05/19/2023 by Sean Redmond MD at [facility] Tissue Left: Lung BARD DAVOL 05/24/2024 [id number] / / [id number] Procedures Procedure Name Priority Date/Time Associated Diagnosis [...] Months Insurance MEDICARE PART A AND B [facility] [id number] [place] [id number] MEDICARE PART A AND B [facility] [id number] [place] [id number] Medicare Part D Advance Directives For more information, please contact: [phone] * Full Code (Latest Code Status on File) Date Activated Date Inactivated Comments 05/19/2023 2:03 PM 05/21/2023 5:15 PM * Full Code Date Activated Date Inactivated Comments 05/19/2023 5:47 AM 05/19/2023 2:03 PM Care Teams Drawing Machine Operator Relationship Specialty Start Date End Date Pawan Mendes MD PCP - General Internal Medicine 03/28/23
[2025-07-13] MEDS: CEPHALEXIN 500 MG CAPSULE PO (14:30)
[2025-07-13 14:44] VITALS: BP 144/85; PULSE 99; RESP 17; O2SAT 99
== END 2025-07-13 14:45 | disposition home or self-care (01) ==
PROVIDERS: Emergency Provider Emergency Medicine; PCP Internal Medicine
DX: L03.211 Cellulitis of face (principal); L30.9 Dermatitis, unspecified; Z87.891 Personal history of nicotine dependence; Z79.02 Long term (current) use of antithrombotics/antiplatelets; Z79.82 Long term (current) use of aspirin; Z79.899 Other long term (current) drug therapy
CPT/HCPCS: 99283; A9270

== ENCOUNTER 2025-10-24 13:45 | Outpatient (CLI) | payer MEDICARE, SELFPAY ==
--- NOTE | ~2025-10-24 | CT_ITS ---
EXAMINATION:CT diagnostic chest w con DATE: 10/24/2025 14:25 INDICATION: History of squamous cell carcinoma of the left lung. Follow-up. TECHNIQUE: Computed tomography (CT) of the chest was performed with 100 cc intravenous contrast. Automated exposure control and iterative reconstruction technique were employed. The dose-length product (DLP) was 343.12 mGy-cm. COMPARISON: CT dated 03/27/2025, 11/26/2024. FINDINGS: No supraclavicular adenopathy. No axillary adenopathy. Postsurgical changes of left upper lobectomy and stable postradiation changes of left perihilar region. No hilar or mediastinal adenopathy. No pericardial effusion. Persistent stable small left pleural effusion similar to multiple prior studies. No skeletal lesions of thoracic spine sternum and ribs other than degenerative changes. Stable left adrenal nodule, 2.5 cm in diameter. Likely adrenal adenoma. IMPRESSION: 1. Stable postsurgical and postradiation changes of left lung compared with multiple recent prior studies. No hilar or mediastinal adenopathy. 2. Persistent small left pleural effusion. 3. Stable left adrenal nodule 2.5 cm in size. 4. Please note that PET/CT is more sensitive to detect malignancy of lungs compared with CT chest. Reviewed, dictated and finalized at location T. ARTS TEACHER IMPRESSION: 1. Stable postsurgical and postradiation changes of left lung compared with [facility] recent prior studies. No hilar or mediastinal adenopathy. 2. Persistent small left pleural effusion. 3. Stable left adrenal nodule 2.5 cm in size. 4. Please note that PET/CT is more sensitive to detect malignancy of lungs comp ared with CT chest.
[2025-10-24 14:55] LABS: Estimated Glomerular Filt Rate 59
== END 2025-10-24 13:46 | disposition home or self-care (01) ==
PROVIDERS: PCP Internal Medicine; Visit Provider Internal Medicine Hematology & Oncology
DX: C34.92 Malignant neoplasm of unspecified part of left bronchus or lung (principal); J90 Pleural effusion, not elsewhere classified; D35.02 Benign neoplasm of left adrenal gland
CPT/HCPCS: 71260; Q9967